=== PATIENT | female | born 1960 | race Caucasian/White ===

== ENCOUNTER 2023-05-29 16:56 | Inpatient (IN) | payer BC, SELFPAY ==
[2023-05-29] VITALS (12 sets, daily range): BP systolic 119–141; BP diastolic 53–100; PULSE 58–105; RESP 20–32; TEMP 36.9–37.2; O2SAT 88–99; BMI 24.2; BMI 23.8
--- NOTE | 2023-05-29 17:40 | EDS_ITS ---
HPI <EVAN Thorpe - Last Filed: 05/29/23 20:07> History of Present Illness Chief Complaint: Cold Sx Narrative Narrative: Patient is a 62-year-old female history of COPD, hypertension who smokes 1/2 pack/day presenting to the emerged part with 2 days of generalized cough, body aches, shortness of breath. Patient states that the cough got much worse last evening, her states that she had a low-grade fever of 99.9. Patient's pulse oxygenation was 88%. She denies any production as to her cough, states she feels generalized weak and bodyaches. PFSH <EVAN Thorpe - Last Filed: 05/29/23 20:07> PFSH Medical History Anxiety Brain aneurysm COPD (chronic obstructive pulmonary disease) HTN (hypertension) Smoking Home Medications albuterol sulfate 90 mcg/actuation aerosol inhaler (Proventil HFA) 6.7 g IH PRN PRN Shortness Of Breath 06/30/16 [History Last Taken Unknown] lorazepam 0.5 mg tablet 0.5 mg PO DAILY PRN PRN Anxiety 07/01/16 [History Last Taken Unknown] acetaminophen 325 mg tablet (Tylenol) 650 mg (2 x 325 mg) PO Q6H PRN PRN Mild Pain (scale 0-3)/T>100.7 ##0 07/02/16 [Rx Last Taken Unknown] amlodipine 5 mg tablet (Norvasc) 5 mg PO DAILY 05/29/23 [History Last Taken Unknown] fluticasone fur. 100 mcg-umeclid 62.5 mcg-vilant 25 mcg inhalat.powder (Trelegy Ellipta) 1 inh inhalation DAILY 05/29/23 [History Last Taken Unknown] Allergy/AdvReac Type Severity Reaction Status Date / Time levofloxacin [From Levaquin] AdvReac Rash Verified 07/01/16 11:03 Family History (Updated 05/29/23 @ 19:[address] Tasha Edge MD) Mother Cancer Surgical History (Updated 05/29/23 @ 19:[address] Tasha Edge MD) H/O breast augmentation H/O tubal ligation History of carpal tunnel release Hx of appendectomy Social History (Updated 05/29/23 @ 19:[address] Tasha Edge MD) household members: spouse Smoking Status: Current every day smoker tobacco type: cigarettes Smoking packs per day: 0.5 Smoking cigarettes per day: 10.0 alcohol intake: current alcohol intake frequency: holidays/special occasions only substance use type: does not use ROS <EVAN Thorpe - Last Filed: 05/29/23 20:07> ROS ED ROS Narrative Constitutional: Negative for weight loss, weakness. Positive for fever and chills Eyes: Negative for vision loss, vision change, double vision ENT: Negative for any sore throat, ear pain, congestion Cardiovascular: Negative for any chest pain, tightness, palpitations Respiratory: Negative for any sputum production, hemoptysis, dyspnea on exertion, orthopnea. Positive for cough, dyspnea Gastrointestinal: Negative for any abdominal pain, nausea, vomiting, diarrhea, constipation, blood in stool, blood in vomit : Negative for any urinary frequency, dysuria, retention, blood in urine Muscle skeletal: Negative for any myalgias, arthralgias, neck pain, back pain Neurological: Negative for any headache, syncope, paresthesias, dizziness Skin: Negative for any rashes, lumps, itching, abrasions, lacerations Psychiatric: Negative for any depression, anxiety, stress, suicidal ideation, homicidal ideation Hematologic: Negative for any easy bruising, excessive bruising, easy bleeding Allergies: Negative for any eczema, hives, rash EXAM <EVAN Thorpe - Last Filed: 05/29/23 20:07> Physical Exam Narrative Exam Narrative: Vital signs reviewed. Patient was 88% on room air, on 2 L, the patient is 93 to 94%. HEET: Head normocephalic atraumatic, TMs clear bilaterally. Posterior pharynx is clear, moist mucous membranes. Nares clear bilaterally. Neck: Supple with no lymphadenopathy or tenderness. No signs of meningismus. Cardiac: Regular rate and rhythm no murmurs gallops or rubs, equal peripheral pulses bilaterally. Respiratory: Patient has wheezing expiratory throughout the entire pulmonary exam. Some rhonchorous breath sounds in the right lower lobe.. No chest tenderness. Abdomen: Soft, nontender, nondistended. No abdominal bruit or pulsatile masses. No hepatosplenomegaly Extremities: No peripheral edema, no signs of gross trauma or deformity. Active full range of motion of all extremities. Neuro: Cranial nerves II through XII intact, no focal neurological deficits. Skin: Clean dry and intact with no rash, purpura, petechiae, vesicles or pustules. Backs/flank: No CVA tenderness, no midline spinal tenderness, no deformity. Psych: Normal mood and affect. No SI, HI or acute psychosis. Const Vital Signs: 05/29/23 16:58 05/29/23 17:26 05/29/23 17:37 Temperature 98.5 F Temperature Source Temporal Pulse Rate 105 H Respiratory Rate 22 H Respiratory Effort Normal Non-Labored Respiratory Pattern Normal Blood Pressure 141/75 H Blood Pressure Mean 97 Pulse Ox 88 91 Oxygen Delivery Method Room Air Nasal Cannula Oxygen Flow Rate (L/min) 2 05/29/23 17:53 Temperature Temperature Source Pulse Rate 103 H Respiratory Rate 32 H Respiratory Effort Respiratory Pattern Tachypnea Blood Pressure Blood Pressure Mean Pulse Ox Oxygen Delivery Method Oxygen Flow Rate (L/min) <Dr. Eddy Maier DO - Last Filed: 05/29/23 21:30> Physical Exam Const Vital Signs: 05/29/23 16:58 05/29/23 17:26 05/29/23 17:37 Temperature 98.5 F Temperature Source Temporal Pulse Rate 105 H Respiratory Rate 22 H Respiratory Effort Normal Non-Labored Respiratory Pattern Normal Blood Pressure 141/75 H Blood Pressure Mean 97 Pulse Ox 88 91 Oxygen Delivery Method Room Air Nasal Cannula Oxygen Flow Rate (L/min) 2 05/29/23 17:53 Temperature Temperature Source Pulse Rate 103 H Respiratory Rate 32 H Respiratory Effort Respiratory Pattern Tachypnea Blood Pressure Blood Pressure Mean Pulse Ox Oxygen Delivery Method Oxygen Flow Rate (L/min) [facility] <EVAN Thorpe - Last Filed: 05/29/23 20:07> [facility] Lab Data Attestation: I reviewed the patient's lab results. Labs: Laboratory Results - last 24 hr 05/29/23 18:05 WBC 12.1 H RBC 5.01 Hgb 15.3 H Hct 47.0 MCV 93.8 MCH 30.5 MCHC 32.6 RDW Std Deviation 45.7 H RDW Coeff of Alvaro 13.2 Plt Count 279 MPV 10.2 Immature Gran % (Auto) 0.300 Neut % (Auto) 86.5 H Lymph % (Auto) 4.8 L Bulloch % (Auto) 7.8 Eos % (Auto) 0.1 Baso % (Auto) 0.5 Absolute Neuts (auto) 10.5 H Absolute Lymphs (auto) 0.58 L Nucleated RBC % 0 Differential Comment SCANNED Sodium 137 Potassium 3.9 Chloride 103 Carbon Dioxide 28.0 Anion Gap 6 BUN 11 Creatinine 0.76 Estim Creat Clear Calc 59.56 Est GFR (MDRD) Af Amer 98 Est GFR (MDRD) Non-Af 81 BUN/Creatinine Ratio 14.4 Glucose 128 H Calcium 9.1 Radiography Diagnostic Testing: Clinical Impression(s) from Imaging Studies Chest X-Ray 05/29/23 18:45 IMPRESSION: Subtle bilateral lower lobe pulmonary opacities may be developing pneumonia or atelectasis. Electronically Signed: Gideon Ruvalcaba DO at 19:24 EST , EKG Sinus tachycardia: Attestation: I personally reviewed and interpreted this EKG as follows: Comments: Sinus tachycardia, rate of 105 bpm, AL interval 160 ms, QRS duration 70 ms, no acute ST elevation, no acute infarct noted. Treatment and Re-Evaluation :: Patient does not appear to be septic, patient was hypoxic on room air, patient is mentating fine on nasal cannula oxygen. Patient presents to the emerged department for cough, fever and chills, shortness of breath. Differential diagnosis includes community-acquired pneumonia, viral illness such as COVID-19, influenza, RSV, COPD exacerbation. Patient received a two-view chest x-ray all radiologic examinations were read, reviewed by the emergency department attending. From these reads, a plan of care will be put in place. Basic laboratory values, patient received breathing treatments, rapid PCR influenza panel, IV steroids, breathing treatments. She will be reevaluated. Patient's chest x-ray showed subtle bilateral lower lobe pulmonary opacities may be developing pneumonia or atelectasis. Patient was positive for influenza A. CBC shows a white blood count of 12.1, chemistries were unremarkable. Patient after breathing treatment states she felt much better. She did try to ambulate however when she got up out of the bed, she dropped to 82% and was tachypneic, tachycardic. At this time, patient will need to be admitted to the hospital. Patient agrees with the care, patient be diagnosed with influenza, exacerbation of COPD, hypoxia. <Dr. Eddy Maier, DO - Last Filed: 05/29/23 21:30> [facility] Narrative Medical decision making narrative: I have personally performed a face to face assessment of the patient and have reviewed the KELLIE Note. I performed a substantive portion of the visit including all aspects of the following. My jay findings include: History: Patient presents with shortness of breath that began last night. Patient states it became worse today. Patient states she has had a cough but is unable to produce any sputum. Patient midst to some rhinorrhea. Patient states her temperature at home was up to 102. Patient denies any chest pain. Patient admits to some nausea but denies any vomiting. Patient admits to some urinary frequency. Patient admits to some pain in her back with coughing. Exam: Vital signs are stable. Patient was hypoxic at 88% on room air. Oral mucosa is pink and moist. Heart was regular and tachycardic. Lungs showed diffuse expiratory wheezing. There is adequate respiratory effort. There are no retractions noted. Abdomen is soft. Bowel sounds are normal. There is no tenderness. Extremities are intact. There is no calf tenderness or edema. Cranial nerves II through XII are intact. There are no focal motor or sensory deficits noted. Medical Decision Making: Differential diagnosis includes COPD exacerbation, cardiac dysrhythmia, cardiac ischemia, pneumonia, viral upper respiratory infection, and bronchitis. CBC will be obtained to assess for leukocytosis and anemia. Basic metabolic profile will be obtained to assess for electrolyte abnormality and renal function. Chest x-ray will be obtained to assess for pneumonia and pneumothorax. COVID-19 PCR will be obtained to assess for COVID- 19 infection. Influenza PCR will be obtained to assess for influenza infection. RSV PCR will be obtained to assess for RSV infection. Patient was given a DuoNeb aerosol here. Patient was given a dose of Solu- Medrol. Patient was given IV fluids. EKG was obtained. On my independent interpretation, shows sinus tachycardia with a rate of 105. AL interval, QRS normal, QTc intervals are within normal limits. Sawyer is normal. There are nonspecific ST-T wave changes noted. There are no prior EKGs available for comparison. CBC was reviewed. There is a mild leukocytosis of 12.1. The remainder was essentially within normal limits. Basic metabolic profile was reviewed and was within normal limits. PA and lateral chest x-ray was obtained. There are 2 views. On my independent interpretation, there are chronic changes. There is bilateral lower lobe atelectasis versus infiltrate. Bony thorax is normal. There is no cardiomegaly noted. Radiologist also interpreted the x-ray and agrees. COVID-19 PCR was reviewed and was negative. RSV PCR was reviewed and was negative. Influenza PCR was reviewed and was positive for influenza A. Patient was given a dose of Tamiflu here. Patient dropped to 82% on room air while sitting in the bed. Patient was placed back on oxygen. We will discuss case with the hospitalist for admission. Patient and family understood and were agreeable with the plan. All questions were answered. Lab Data Labs: Laboratory Results - last 24 hr 05/29/23 18:05 WBC 12.1 H RBC 5.01 Hgb 15.3 H Hct 47.0 MCV 93.8 MCH 30.5 MCHC 32.6 RDW Std Deviation 45.7 H RDW Coeff of Alvaro 13.2 Plt Count 279 MPV 10.2 Immature Gran % (Auto) 0.300 Neut % (Auto) 86.5 H Lymph % (Auto) 4.8 L Bulloch % (Auto) 7.8 Eos % (Auto) 0.1 Baso % (Auto) 0.5 Absolute Neuts (auto) 10.5 H Absolute Lymphs (auto) 0.58 L Nucleated RBC % 0 Differential Comment SCANNED Sodium 137 Potassium 3.9 Chloride 103 Carbon Dioxide 28.0 Anion Gap 6 BUN 11 Creatinine 0.76 Estim Creat Clear Calc 59.56 Est GFR (MDRD) Af Amer 98 Est GFR (MDRD) Non-Af 81 BUN/Creatinine Ratio 14.4 Glucose 128 H Calcium 9.1 Radiography Chest X-Ray - ED: 2 View, Read by ED Physician and Read by Radiologist Diagnostic Testing: Clinical Impression(s) from Imaging Studies Chest X-Ray 05/29/23 18:45 IMPRESSION: Subtle bilateral lower lobe pulmonary opacities may be developing pneumonia or atelectasis. Electronically Signed: Gideon Ruvalcaba DO at 19:24 EST , Discharge Plan Dx/Rx/DC Orders Clinical Impression: COPD with acute exacerbation, Influenza A, Hypoxia Disposition Disposition: Acute Care Hospital [facility] Discharge Date/Time: 05/29/23 20:45
[2023-05-29] MEDS: Albuterol 2.5 MG/3 ML VIAL.NEB. INHALATION (17:51)
[2023-05-29] MEDS: Ipratropium/Albuterol Sulfate 3 ML AMPUL.NEB INHALATION ×2 (17:51→23:06)
--- NOTE | 2023-05-29 17:55 | EKG12_ITS ---
Test Reason : SOB Blood Pressure : / mmHG Vent. Rate : 105 BPM Atrial Rate : 105 BPM P-R Int : 116 ms QRS Dur : 070 ms QT Int : 354 ms P-R-T Axes : 072 052 074 degrees QTc Int : 467 ms Sinus tachycardia Nonspecific ST and T wave abnormality Abnormal ECG Confirmed by JOSE ENRIQUE THORNE, TYRELL ([id number]), school photograph editor LITA CLEMONS ([id number]) on 05/31/2023 1:18:33 PM Referred By: BB/ROULA Confirmed By:TYRELL QUISPE MD
[2023-05-29] MEDS: MethylPREDNISolone 125 MG/2 ML Vial IV (18:04)
[2023-05-29] MEDS: 0.9% Normal Saline (1000mL) 1,000 ML 999 ML IV (18:04)
[2023-05-29 18:24] LABS: Absolute Lymphocyte Count 0.58 X10^3/uL (0.83-4.51); Absolute Neutrophil Count 10.5 X10^3/uL (2.0-7.7); Basophil# 0.06 X10^3/uL; Basophil% 0.5 % (0-1); Eosinophil# 0.01 X10^3/uL; Eosinophils% 0.1 % (0-5); Hemoglobin 15.3 g/dL (12.0-15.0); Lymphocyte # 0.58 X10^3/ul (0.83-4.51); Lymphocyte % 4.8 % (19-41); Mean Corp Hgb Conc 32.6 g/dL (32-36); Mean Corpuscular Hgb 30.5 pg (27.0-32.0); Mean Corpuscular Volume 93.8 fL (81-99); Mean Platelet Vol. 10.2 fl (6.2-12.0); Monocyte# 0.95 X10^3/uL; Monocyte% 7.8 % (0-10); NRBC Flagged by Analyzer 0 % (0-5); Neutrophil % 86.5 % (47-70); POSITIVE DIFFERENTIAL YES; Platelet Count 279 K/mm3 (150-450); RBC Distribution Width CV 13.2 % (11.6-14.6); RBC Distribution Width SD 45.7 fl (35.1-43.9); Red Blood Count 5.01 M/mm3 (4.2-5.4); White Blood Count 12.1 K/mm3 (4.4-11.0)
--- OUTSIDE RECORDS SUMMARY | 2023-05-29 18:25 | XMS RPT_ITS | CCD ---
Author Name Unknown Address [address] [place] [address] Organization [facility] Care Team Providers Care Continuous Drier Helper Name Role Phone Pennie Sutton Unavailable Hosea Grace Unavailable Sue Srivastava Unavailable Unavailable Vic, Neha Unavailable Unavailable Ciesa, Amanda Unavailable Beti Salas Unavailable Unavailable Messenger, Mckenna Unavailable Unavailable Long, Diann L Unavailable Unavailable Unavailable Unavailable MarichuyIebth pikePennie Unavailable Hosea Grace Unavailable Sue Srivastava Unavailable Unavailable Vic, Neha Unavailable Unavailable Ciesa, Amanda Unavailable Fast, Milena A Unavailable Beti Salas Unavailable Unavailable Messenger, Mckenna Unavailable Unavailable Long, Diann L Unavailable Unavailable Unavailable Unavailable New Cook Unavailable Unavailable New Salas Unavailable Unavailable Kamilah Wolf Unavailable Unavailable Gravius, Delmy Unavailable Unavailable Messenger, Mckenna Unavailable Unavailable Long, Diann L Unavailable Unavailable Marichuy DO, Pennie Unavailable Dr. Hosea Grace Unavailable Gravius KINDRA, Delmy Unavailable Unavailable Kamilah Wolf LPN Unavailable Unavailable Vic TARPER, Neha Unavailable Unavailable Josue, Beti Unavailable Unavailable Messenger RN, Mckenna Unavailable Unavailable Long Wyatt CHAVEZn L Unavailable Unavailable Unavailable Unavailable New Salas LPN Unavailable Unavailable ASHLEY SALMERON Referring Unavailable PROVIDER, UNKNOWN Attending Unavailable PROVIDER, UNKNOWN Admitting Unavailable MARICHUYIBETH PIKEPENNIE Primary Care Unavailable Marichuy DO, Pennie Unavailable Marichuy DO, Pennie Andres Primary Care Provider Katalina Murillo Unavailable Marichuy DO, Pennie Attending Unavailable Marichuy DO, Pennie Referring Unavailable Marichuy DO, Pennie Consulting Unavailable Marichuy, Pennie Primary Care Provider Fadi SCANLON, Kae Unavailable Pilo NOEL, Idalia Unavailable Unavailable Marichuy DO, Pennie Andres Primary Care Provider Aiden THORNE, Colleen Martinez Unavailable [phone] IRLANDA WILCOX Attending Unavailable COLLEEN WOLFE Referring Unavailable MARICHUY, PENNIE ANDRES Primary Care Unavailab le BROWN, COLLEEN MARTINEZ Referring Unavailable MARICHUY, PENNIE ANDRES Primary Care Unavailab le AIDEN, COLLEEN MARTINEZ Attending Unavailable MARICHUY, PENNIE ANDRES Primary Care Unavailab le IRLANDA WILCOX Referring Unavailable MARICHUY, PENNIE ANDRES Primary Care Unavailab le BROWN, COLLEEN MARTINEZ Referring Unavailable MARICHUY, PENNIE ANDRES Primary Care Unavailab le BROWN, COLLEEN MARTINEZ Referring Unavailable MARICHUY, PENNIE ANDRES Primary Care Unavailab le BROWN, COLLEEN MARTINEZ Referring Unavailable MARICHUY, PENINE ANDRES Primary Care Unavailab le Allergies Allergy Classification Reported Allergen(s) Allergy Type Date of Onset Reaction(s) Facility (1 source) allergy to substance [facility] Work Phone: (1 source) allergy to substance [facility] Work Phone: (1 source) allergy to substance [facility] Work Phone: (20 sources) creasote (Renamed from Insect Stings) allergy to substance [facility] Work Phone: (12 sources) Creosote; Translations: [CREOSOTE] Drug Allergy 4 Other: See Comments [facility] Repository Medications Current Medications Medication Drug Class(es) Dates Sig (Normalized) Sig (Original) amLODIPine 2.5 mg oral tablet (20 sources) Dihydropyridine Calcium Channel Handy Start: 03-01-2023 take 1 tablet by mouth once daily Norvasc 2.5 mg oral tablet 1 (one) Tablet daily for 0 days Quantity: 30 {Tablet} Refills: 0 Ordered: 01-Mar-2023 Pennie Sutton DO, DO, Kathleen Start : 01-Mar-2023 Active Comments: pt takes qd with 5mg norvasc. Completed/Discontinued Medications Medication Drug Class(es) Dates Sig (Normalized) Sig (Original) [id number] 200 actuat albuterol 0.09 mg/actuat metered dose inhaler (6 sources) beta2-Adrenergic Agonist Start: 10-30-2022 take 2 puff(s) by inhalation every four hours as needed albuterol HFA (PROVENTIL HFA, VENTOLIN HFA) 90 mcg/actuation inhaler Inhale 2 Puffs as instructed every 4 hours as needed. 1 Each 5 10/30/2022 Active Problems Active Problems Problem Classification Problem Date Documented Da te Episodic/Chronic Administrative/social admission (20 sources) Patient encounter status; Translations: [Encounter for pre-employment examination] 05-24-2020 Episodic Anxiety disorders (20 sources) Panic; Translations: [Anxiety] 03-22-2018 Chronic Past or Other Problems Problem Classification Problem Date Documented Da te Episodic/Chronic Gastrointestinal hemorrhage (1 source) Blood-tinged feces; Translations: [Bloody stool] 05-24-2020 Other and unspecified benign neoplasm (9 sources) Benign neoplasm of rectum and anal canal; Translations: [Benign neoplasm of rectum] Onset: 04-22-2011 04-22-2011 Episodic Other lower respiratory disease (9 sources) Solitary nodule of lung; Translations: [Solitary pulmonary nodule] Onset: 05-07-2011 05-07-2011 Episodic Unclassified (20 sources) Iliotibial band tendinitis of right side Unclassified (20 sources) Earache Unclassified (20 sources) Sinus pain Unclassified (20 sources) Vaginal itching Unclassified (20 sources) Rash of body Unclassified (20 sources) Patient encounter status; Translations: [Encounter for pre-employment examination] 03-22-2018 Unclassified (20 sources) Screening status; Translations: [SCREENING FOR HYPERLIPIDEMIA] 03-22-2018 Unclassified (20 sources) Hoarse voice quality (784.42) Unclassified (20 sources) Pregnancies (); Translations: [Pregnancies ()] 03-22-2018 Results Test Name Value Interpretation Reference Range Facil ity Vital Signs Date Time Vital Sign Value Performing Clinician Facility 11-18-2022 08:23-0400 Body height 148.1 cm Irlanda Ferrarovero SANCHEZ.[employer] INSPECTOR AND ADJUSTER Work Phone: [facility] 11-18-2022 08:23-0400 Body weight 53.89 kg Irlanda Wilcox APRN.[employer] INSPECTOR AND ADJUSTER Work Phone: [facility] 10-30-2022 13:24-0400 Body weight 53.52 kg Colleen Wolfe MD Work Phone: [facility] 10-30-2022 13:24-0400 Diastolic blood pressure 72 mm[Hg] Colleen Wolfe MD Work Phone: [facility] 10-30-2022 13:24-0400 Heart rate 80 /min Colleen Wolfe MD Work Phone: [facility] 10-30-2022 13:24-0400 SaO2% (BldA) [Mass fraction] 90 % Colleen Wolfe MD Work Phone: [facility] 10-30-2022 13:24-0400 Systolic blood pressure 110 mm[Hg] Colleen Wolfe MD Work Phone: [facility] 09-02-2022 10:53-0400 Body height 152.4 cm Idalia Daigle LPN [facility] Work Phone: 09-02-2022 10:53-0400 Body mass index (BMI) [Ratio] 24.29 kg/m2 Idalia Daigle LPN [facility]; [facility] Work Phone: 09-02-2022 10:53-0400 Body surface area Derived from formula 1.53 m2 Idalia Daigle LPN [facility]; [facility] Work Phone: 09-02-2022 10:53-0400 Body temperature 97.4 [degF] Idalia Daigle LPN [facility]; [facility] Work Phone: Encounters Encounter Date Encounter Type Care Provider Facility Start: 12-01-2022 Telephone encounter Irlanda sherman DIGITAL PRODUCT SPECIALIST.[employer] INSPECTOR AND ADJUSTER Work Phone: [facility] Procedures Date Procedure Procedure Detail Performing Clinician Start: 11-27-2022 CT LUNG SCREEN WO IVCON Irlanda Wilcox DIGITAL PRODUCT SPECIALIST.[employer] INSPECTOR AND ADJUSTER Work Phone: Start: 11-18-2022 Co diffusing capacity Colleen herrera MD Work Phone: Start: 10-27-2021 Spmtry w/vc expiratory jennifer w/wo mxml vol vntj Devi Nava PA-C Work Phone: Start: 06-30-2016 End: 06-30-2016 History and Physical Exam Comments: See Note; NOTES: [facility] Medical Records Department [address] [place] [id number] History and Physical 06/30/16 2307 MR#: [id number] Acct: [id number] Name: KENYA ZAVALETA Rep #: [id number] : 1960 55 From: Ervin Powell DO PCP: Pennie Sutton DO Status: REG ER Y Location: ED Problem List (1) Shortness of breath Status: Acute History of Present Illness Date of Admission: 06/30/16 Chief Complaint: Shortness of breath, cough, wheezing The patient is a 55 year old F seen in the emergency room in the hospital with chief complaint of cough, wheezing, shortness of breath over the last 2-3 days. Patient states it was much worse today and she went to the ER for evaluation. Patient is a smoker, she does have a history of COPD and uses inhalers as needed at home. Patient states she had chills today and felt feverish but she did not take her temperature. Patient denies any sputum production but she does have a cough. Evaluation in the ER included labs which showed a normal CBC, can panel was normal, rapid influenza a and B panel was negative, chest x-ray did not show any infiltrates. On physical examination, patient was wheezing over both lung morgan and moving little air. She was given aerosol treatments, she was noted to have a pulse ox on admission to the ER of 89% on room air, patient was ambulated and her pulse ox dropped to 87%. Patient will be admitted to [facility] for acute exacerbation of COPD she will be treated with IV Solu-Medrol and aggressive aerosol treatments. Supplemental oxygen will be used as needed Past Medical History Allergies CREOSOP Allergy (Uncoded 06/30/16 19:59) Unknown Home Medications: Ambulatory Orders Medication Instructions Recorded Albuterol Sulfate [Proventil Hfa] 6.7 gm IH PRN PRN 06/30/16 Umeclidinium Brm/Vilanterol Tr 1 each IH DAILY 06/30/16 [Anoro Ellipta 62.5-25 Mcg INH] Surgical History: appendectomy, - - Breast augmentation, carpal tunnel surgery, tubal ligation Psychiatric History: No pertinent psych hx TRAVEL RN OR History: No pertinent TRAVEL RN OR history Lives: Spouse/ Significant Other Smoking Status: Current every day smoker Tobacco Use: Cigarettes Alcohol: Occasional Drugs: None - *Family History Maternal History Items: Cancer Paternal History Items: Unknown Review of Systems Constitutional: Reports: Chills, Fever, Malaise. Denies: Anorexia, Night Sweats, Weakness, Weight Change, Fatigue Eyes: Denies: Blurred vision, Cataracts, Conjunctivae Inflammation, Double vision, Drainage, Eyelid Inflammation HEENT: Denies: Difficulty Hearing, Difficulty Swallowing, Dysphasia, Ear Pain, Head Aches, Hearing Changes, Nasal bleeding, Nasal Congestion Cardiovascular: Denies: Chest Pain, Claudication, Chest Pressure, Chest Tightness, Edema, Heaviness, Palpitations, Paroxysmal Noc. Dyspnea, Syncope Respiratory: Reports: Cough, Shortness of Breath, Shortness of breath upon exertion, Wheezing. Denies: Hemoptysis, Pleuritic Pain, Shortness of breath at rest, Sputum production Gastrointestinal: Denies: Abdominal Pain, Constipation, Diarrhea, Hematemesis, Hematochezia, Nausea, Melena, Vomiting Genitourinary: Denies: Dysuria, Frequency, Hematuria, Hesitancy, Incontinence, Nocturia, Urgency Gynecological: Denies: Breast symptoms Musculoskeletal: Denies: Back Pain, Foot Pain, Hand Pain, Joint Pain, Joint stiffness, Joint swelling, Joint Tenderness, Leg Pain Skin: Denies: Dryness, Jaundice, Lesions, Pruritis, Rash Neurological: Denies: Blurred vision, Double vision, Change in Speech, Slurred speech, Difficulty swallowing, Focal weakness, Headaches, Incoordination, Numbness, Tingling Psychiatric: Denies: Anxiety, Depression, Homicidal Ideations, Suicidal Ideations Endocrine: Denies: Change in Body Habitus, Heat/ Cold Intolerance, Polydipsia, Polyuria Hematologic/ Lymphatic: Denies: Adenopathy, Anemia, Easy Bruising, Easy Bleeding, Petechiae, Purpura VTE Information - Inpt Only VTE Present on Admission: No VTE Mechan Device Prophylaxis: None VTE Pharm Prophylaxis ordered?: Yes Patient Problems: Active and Suspected Problems Shortness of breath (Acute) - Physical Exam General: Alert, Oriented x3, Cooperative, No apparent distress, Well developed, Well nourished HEENT: Atraumatic, PERRLA, EOMI, Normocephalic Oral: Moist Mucosa Neck: Supple, No JVD, Negative Carotid Bruits, No Nuchal Rigidity, Trachea Midline, Thyroid Normal Size and Texture Lungs: No rhonchi, No rales, Diminished, Wheezes - End expiratory wheezes are noted over the right lung field Cardiovascular: Regular rate, Regular Rhythm, Normal S1, Normal S2, No murmurs, No Ectopic Activity, PMI Normal, No rub noted, No Gallop Abdomen: Bowel Sounds Present, Soft, Non Tender, Non-Distended, No hernias noted Extremities: No clubbing, No cyanosis, No edema, Capillary Refill Less than 3 Seconds Skin: No rashes, No breakdown Musculoskeletal: No Tenderness to Palpation of Joints or Extremities, No Muscle Wasting Lymphatic: No Cervical, Supraclavicular, or Inguinal Adenopathy Neurological: Cranial nerves II-XII grossly intact, Neuro grossly intact, Muscle tone normal, Sensory exam intact to light touch and pain, Coordination normal Psych/Mental Status: Normal Affect, Appropriate, Alert and oriented to time, place, person, mood and affect Vital Signs Temp Pulse Resp BP Pulse Ox 98.2 F 95 33 182/97 90 06/30/16 19:04 06/30/16 21:11 06/30/16 21:11 06/30/16 19:04 06/30/16 21:11 Oxygen Delivery Method Room Air Weight: 61.235 kg Body Mass Index (BMI) 26.4 Microbiology Past 72 Hours 06/30/16 21:50 Influenza Types A,B Direct FA (DEMETRI) - Final Mucosa - Nose Laboratory Tests Past 24 Hrs 06/30/16 06/30/16 21:55 21:55 WBC 9.2 RBC 4.73 Hgb 14.5 Hct 44.6 MCV 94.3 MCH 30.7 MCHC 32.5 RDW 13.3 RDW Differential 46.4 H Plt Count 255 MPV 10.5 Immature Gran % (Auto) 0.200 Neut % (Auto) 86.0 H Lymph % (Auto) 7.8 L [place] % (Auto) 5.0 Eos % (Auto) 0.5 Baso % (Auto) 0.5 Absolute Neuts (auto) 7.9 H Absolute Lymphs (auto) 0.72 L Total Counted Not Reportable Sodium 142 Potassium 3.9 Chloride 105 Carbon Dioxide 27.0 Anion Gap 10 BUN 9 Creatinine 0.93 Estim Creat Clear Calc 48.52 Est GFR (MDRD) Af Amer 80 Est GFR (MDRD) Non-Af 66 BUN/Creatinine Ratio 9.6 L Glucose 130 H Calcium 9.5 Assessment/Plan Active and Suspected Problems Shortness of breath (Acute) #1 acute exacerbation of COPD-patient will be admitted to [facility], she will be placed on aggressive aerosol treatments, IV Solu-Medrol, and monitored. Antibiotics will not be used #2 anxiety disorder-patient periodically takes Ativan 0.25 mg as needed. I will order Ativan prn 06/30/16 2314 <Electronically signed by Ervin Powell DO> Date Ervin Powell DO Cosigner Signature (if applicable): Date CC: Pennie Sutton DO; Ervin Powell DO Signed Pennie Sutton Start: 06-30-2016 End: 06-30-2016 Chest PA and Lateral Comments: See Note; NOTES: [facility] Imaging Services [address] [place] [address] [place] [address] Verdana 4d Chest PA and Lateral MR#: [id number] Acct: [id number] Name: KENYA ZAVALETA Rep #: [id number] : 1960 F 55 From: Armando Seaman MD PCP: Pennie Sutton DO Status: REG ER Study: Chest PA and Lateral Date of Exam: 06/30/16 Exam# [id number] Ordering Dr: Luis Felipe Mccormick MD STUDY: X-RAY CHEST REASON FOR EXAM: Female, 55 years old. Cough and shortness breath. TECHNIQUE: Frontal and lateral views of the chest. COMPARISON: None. FINDINGS: The lungs are clear and expanded. There is no demonstrated pleural abnormality. Normal size heart. Normal mediastinum and matt. Normal visualized pulmonary arteries. Normal visualized aortic arch and descending thoracic aorta. Normal visualized thoracic spine. Normal visualized ribs, clavicles, and shoulders. There is no demonstrated abnormality of the visualized soft tissue structures of the upper abdomen. RAD/Chest PA and Lateral IMPRESSION: Normal x-ray examination of the chest. Electronically Signed: Armando Seaman MD at 20:22 EST , Service support [phone], CC: Luis Felipe Mccormick MD; Pennie Sutton DO Marble Machine Tender: Signed Pennie Suttno Start: 07-23-2015 End: 07-23-2015 PT D/C of Non Returning Pt (1) Comments: See Note; NOTES: [facility] [place] [address] Fax REHABILITATION SERVICES DISCHARGE SUMMARY MR#: [id number] Acct: [id number] Name: KENYA ZAVALETA Rep #: [id number] : 1960 54 From: Macrina Caraballo DPT Referring DrAntony: Pennie Sutton DO Status: REG RCR Eval Date: Discharge Date: HP - Discharge Summary (1) - Patient Information KENYA ZAVALETA was seen in my office for initial evaluation on 06/18/15. The following Plan of Care was established for this patient: Initial Frequency: 2x /Week Initial Duration: 4 Weeks - Anticipated Interventions Patient/Client Instruction: Educate patient on: Benefits of Fitness Program For the Purpose of:: To increase tolerance to activity/condition/positio n Therapeutic Exercise to Include: Strength training, Endurance training, Agility training, Body mechanics, Postural training, Flexibilty training, Dynamic Lumbar Stabilization For the Purpose of:: To improve muscle performance and motor function Manual Therapy Techniques to Include: Other Comment: Shot Gun Technique for Pelvic Alignment For the Purpose of:: To decrease pain TENS: Yes Cryotherapy (ice pack, ice massage): Yes Thermo therapy (hot pack): Yes Ultrasound (thermal/non thermal): Yes For the Purpose of:: To decrease pain This patient was last seen in our office . Pertinent comments regarding their Physical therapy will appear below: Patient called to report she is better and does not want to continue PT due to schedule conflicts. At this point I will be discontinuing this patient from physical therapy. I would be happy to see this patient again in the future if found appropriate by the physician. Thank you! Macrina Caraballo <Electronically signed by Macrina Caraballo DPT> 07/23/151818 CC: Pennie Sutton DO ELR Signed Pennie Sutton Start: 06-27-2015 End: 06-27-2015 Spmtry w/vc expiratory jennifer w/wo mxml vol vntj _ Pennie Sutton Work Phone: Plan of Treatment Date Care Activity Detail Author Start: 08-25-2028 Tetanus vaccination Tetanus (T d or Tdap) Booster [facility] Start: 08-25-2028 Urine microalbumin profile [facility] Start: 06-05-2023 End: 01-02-2024 Ct thorax w/o contrast material CT LUNG FOLLOWUP WO IVCON Radiology Routine Lung nodules Expected: 06/05/2023, Expires: 01/02/2024 [facility] Work Phone: Immunizations Immunization Date Immunization Notes Care Provider Diego donaldson 03-27-2021 influenza, injectabl e, quadrivalent, contains preservative Respiratory Wstr Work Phone: [facility] Work Phone: 03-27-2021 influenza virus vaccine, unspecified formulation Ct (I-Stat) Work Phone: [facility] 09-23-2020 pneumococcal polysaccharide vaccine, 23 valent Respiratory Wstr Work Phone: [facility] 09-14-2020 pneumococcal polysaccharide vaccine, 23 valent Pennie Marichuy DO Work Phone: [facility]; [facility] Work Phone: 09-11-2020 COVID-19 vaccine, fu ll dose (MODERNA) Respiratory Wstr Work Phone: [facility] 08-15-2020 COVID-19 (Moderna) Pennie Marichuy DO Work Phone: [facility]; [facility] Work Phone: 08-10-2020 COVID-19 vaccine, fu ll dose (MODERNA) Respiratory Wstr Work Phone: [facility] 02-18-2020 influenza, injectabl e, quadrivalent, preservative free Respiratory Wstr Work Phone: [facility] Work Phone: 02-18-2020 influenza virus vaccine, unspecified formulation Pennie Marichuy Work Phone: [facility] 03-14-2019 Influenza, injectabl e, Madin [place] Canine Kidney, quadrivalent with preservative Pennie Marichuy Work Phone: [facility] 02-28-2019 influenza, seasonal, injectable Respiratory Wstr Work Phone: [facility] Work Phone: 08-25-2018 tetanus toxoid, reduced diphtheria toxoid, and acellular pertussis vaccine, adsorbed Respiratory Wstr Work Phone: [facility] 02-16-2018 Influenza, injectabl e, Madin [place] Canine Kidney, preservative free, quadrivalent Pennie Marichuy Work Phone: [facility] 07-07-2017 Influenza, injectabl e, Madin [place] Canine Kidney, preservative free, quadrivalent Pennie Sutton Work Phone: [facility] 07-01-2016 influenza, seasonal, injectable, preservative free Pennie Sutton Work Phone: [facility] 03-08-2015 influenza, injectabl e, quadrivalent, contains preservative Respiratory Wstr Work Phone: [facility] Payers Date Payer Category Payer Unknown 2022 Unknown [id number] 2021 Private Health Insurance [employer] POS [id number] 2021-Present [phone] [address] [place] [address] POS [id number] 2021 Private Health Insurance [id number] 2017 Private Health Insurance [id number] 2017 Private Health Insurance [id number] 2014 Private Health Insurance [id number] 2012 Private Health Insurance [id number] 1960 Unknown [id number] 1960 Unknown [id number] Social History Date Type Detail Facility Alcohol Use: Current every day smoker [facility] Work Phone: Start: 06-29-2013 End: 10-30-2022 Caffeine Use [facility] Work Phone: Medical Equipment Procedure Code Equipment Code Equipment Origin al Text Equipment Identifier Dates Cover [place] Hole Contoured Tab [id number] - [id number] Start: 10-14-2017 4mm Screws [id number] Start: 10-14-2017 Clinical Notes 10-27-2021 to 12-03-2022 Telephone Encounter - Irlanda Wilcox APRN.CNP - 12/03/2022 9:41 AM EDTTelephone Encounter - Irlanda Wilcox APRN.CNP - 12/01/2022 3:59 PM EDTPatient InstructionsPatient Instructions Note Date & Type Note Facility 12-03-2022 Miscellaneous Notes Phone call to patient and discussed results. She asked about lab results and I read Pennie Le LPN note that Alpha-1 Antitrypsin level was normal. Left message for pt to call back regarding results. documented in this encounter [facility] 11-27-2022 Note HNO ID: [id number] Author: RT Erwin(R) Service: ? Author Type: Stock Clerk Self Service Store Type: Progress Notes Filed: 11/27/2022 4:26 PM Note Text: Radiology Service Progress Note PATIENT NAME: Kenya Zavaleta DATE OF SERVICE: November 27, 2022 TIME: 4:26 PM PATIENT IDENTITY VERIFICATION COMPLETED USING TWO (2) IDENTIFIERS: Name and Date of confirmed by patient verbally. FALL SCREENING: Has the patient had 2 falls in the last year or 1 fall with injury or currently using an Ambulatory Assistive Device (Walker, Cane, Wheelchair, Crutches, etc.)? No PATIENT GENDER DATA: Female. status: : No status: NO. PATIENT RELEVANT IMPLANT DATA REVIEWED: Yes RADIOLOGY DEPARTMENT: CT; Exam(s) Completed: Chest PERIPHERAL IV DATA: Not applicable SIGNED BY: RT Luzma(R) November 27, 2022 4:26 PM [facility] 11-27-2022 History of Presen t illness Narrative Radiology Service Progress Note PATIENT NAME: Kenya Zavaleta DATE OF SERVICE: November 27, 2022 TIME: 4:26 PM PATIENT IDENTITY VERIFICATION COMPLETED USING TWO (2) IDENTIFIERS: Name and Date of confirmed by patient verbally. FALL SCREENING: Has the patient had 2 falls in the last year or 1 fall with injury or currently using an Ambulatory Assistive Device (Walker, Cane, Wheelchair, Crutches, etc.)? No PATIENT GENDER DATA: Female. status: : No status: NO. PATIENT RELEVANT IMPLANT DATA REVIEWED: Yes RADIOLOGY DEPARTMENT: CT; Exam(s) Completed: Chest PERIPHERAL IV DATA: Not applicable SIGNED BY: RT Luzma(R) November 27, 2022 4:26 PM documented in this encounter [facility] 11-18-2022 Note HNO ID: [id number] Author: NEREYDA Perez Service: ? Author Type: Respiratory Therapist Type: Progress Notes Filed: 11/18/2022 9:20 AM Note Text: PULM FUNCTION SMARTBLOCK: Provider: Colleen Wolfe MD Assisting Tech: NEREYDA Perez Spirometry w/BD: 1 DLCO: 1 LV - Box: 1 [facility] 11-18-2022 Note HNO ID: [id number] Author: Irlanda Wilcox APRN.[employer] INSPECTOR AND ADJUSTER Service: ? Author Type: Nurse Practitioner Type: Progress Notes Filed: 11/18/2022 10:11 AM Note Text: LUNG SCREENING VISIT PRIMARY CARE PHYSICIAN: Pennie Sutton DO, DO PULMONARY PROVIDER: Dr. Moustapha Wolfe Results will be communicated via letter or electronic record if applicable. Visit Delivery: In Person Patient Visit Type: New to Screening Current or Ex-smoker? [Current Exam Type: baseline LDCT Number of Pack Years: 72 Current smoker (=0) REQUESTER: The referring provider advised the patient to have screening. HISTORY OF PRESENT ILLNESS: Kenya Zavaleta is a 61 year old Active smoker who presents for lung screening. Respiratory symptoms include: SOB: Yes, short walk, 1 flight of stairs-improving since quitting Chest tightness: Yes Coughing: Yes: With mucus Clear, cannot get it out all the time Hemoptysis: No Wheezing: Yes Fever/Chills: No Recent Respiratory Infection: No Unintentional weight loss: No, was up to 130 lbs a couple of years ago Last 6 Encounter Wt Readings: Date: Wt: 11/18/2022 53.9 kg (118 lb 12.8 oz) 10/30/2022 53.5 kg (118 lb) 10/27/2021 52.2 kg (115 lb) 10/27/2021 52.6 kg (116 lb) 06/05/2021 50.3 kg (111 lb) 03/27/2021 50.8 kg (112 lb) ECOG PERFORMANCE STATUS: 0- Fully active, able to carry on all pre-disease performance w/o restriction. Modified Medical Research [place] Dyspnea Scale (MMRC) I only get breathless with strenous exercise 0 PAST MEDICAL HISTORY Diagnosis Date Benign neoplasm of rectum and anal canal Cigarette smoker COPD (chronic obstructive pulmonary disease) (HCC) Emphysema High blood pressure Controlled on med. Pulmonary nodules CT stable 2 years or more. Surveillance scanning stopped 2014. PAST SURGICAL HISTORY Procedure Laterality Date APPENDECTOMY childhood BREAST AUGMENTATION WITH IMPLANT 1997 bilateral CARPAL TUNNEL RIGHT WRIST and left wrist COLONOSCOPY FLX DX W/COLLJ SPEC WHEN PFRMD 04/22/2011 Colonoscopy LIG/TRNSXJ FLP TUBE ABDL/VAG APPR UNI/BI FAMILY HISTORY Adopted: Yes Problem Relation Age of Onset Breast Cancer Other No breast cancer known; patient grew up without parents; no breast cancer amongst siblings Cancer Mother 2018, cancer of kidney? albuterol HFA (PROVENTIL HFA, VENTOLIN HFA) 90 mcg/actuation inhaler Inhale 2 Puffs as instructed every 4 hours as needed. tifkemhhlin-pgautrupv-wppvuxxq (TRELEGY ELLIPTA) 100-62.5-25 mcg inhalation powder Inhale 1 Puff as instructed once daily. multivitamin with minerals (VISION/OPTIGEN) tablet Take 1 tablet by mouth once daily. aspirin, enteric coated (ASPIRIN, ENTERIC COATED) 81 mg EC tablet Take 81 mg by mouth once daily. amLODIPine (NORVASC) 2.5 mg tablet VITAMIN C 1000MG TABLET Take one(1) tablet daily. MULTIVITAMIN TABLET Take one(1) tablet daily. ALLERGIES Allergen Reactions Creosote Other: See Comments Childhood exposure on railroad tracks. Does not recall specific reaction. The medications and allergies were reviewed and reconciled for this patient and deemed current. Lung Cancer Risk Factors: 1.Tobacco Use: Start Age 13, Quit Age: N/A, Average packs per day 1.5, Pack Years 72 2. Passive Smoke Exposure: Yes, as an Adult 3. Personal hx of malignancy: No, Type of Cancer: 4. Significant exposures (1 year or more of exposure): None, 5. Race: White 6. Education: College Graduate 7. BMI:Body mass index is 24.57 kg/m?. Patient-entered Height: 4'10 Patient-entered Weight: 118 pounds 8. COPD: Yes 9. Pneumonia in the past 5 years: No 10. Is there a history of lung cancer in a first degree relative? No 11. Is there a history of lung cancer in a non-first degree relative? No 12. Is there a history of any other cancer in a first degree relative? No Health Maintenance Immunization History Administered Date(s) Administered COVID-19 original vaccine, full dose, monovalent (MODERNA) 08/10/2020 09/11/2020 04/21/2021 influenza (IIV3) vaccine, age 3+ yr, trivalent (AFLURIA, FLULAVAL, FLUVIRIN, FLUZONE) 02/28/2019 influenza (IIV4) vaccine, age 6 mo - 64 yr, quadrivalent (AFLURIA, FLULAVAL, FLUZONE) 03/08/2015 03/27/2021 influenza (IIV4) vaccine, age 6 mo - 64 yr, quadrivalent, PF (AFLURIA, FLUARIX, FLULAVAL, FLUZONE) 02/18/2020 pneumococcal (PPV23) vaccine, 23 valent (PNEUMOVAX 23) 09/23/2020 tetanus diphtheria pertussis (Tdap) vaccine, age 7+ yr (ADACEL, BOOSTRIX) 08/25/2018 Colonoscopy: 04/22/2011 Mammogram: 05/08/2014 DATA REVIEW I have directly visualized the testing documented:07/24/2014 CT Chest Prior Imaging: Last CT/CTA Chest/Lungs CT CHEST WO CONTRAST Collected: 07/24/2014 8:24 AM (Final result) DATE OF EXAM: Jul 24 2014 8:24AM [facility] 0349 - CT CHEST WO CONTRAST / PROCEDURE REASON: Other emphysema (HCC) * * * * Physician Interpretation * * * * CT CHEST WO CONTRAST [id number] MARLY (more content not included)... [facility] 11-18-2022 Instructions Irlanda Wilcox APRN.[employer] INSPECTOR AND ADJUSTER - 11/18/2022 8:[address] Lung Screen Results The CT scan that you will have done will show if you have any nodules (small spots) in your lungs that are suspicious for cancer. Around 90% of the patients who have this scan done are found to have at least one nodule. Most nodules are benign (not cancer) and of no harm to you at all. A specialist will make a scientific evaluation about whether or not a nodule is worrisome based on its size and shape. The radiologist who will read your scan will put it into one of four categories: LUNG-RADS Category Description Overall Probability of Malignancy Recommended Follow-Up 1 Negative No nodules and definitely benign (non-cancerous nodules) Essentially 0. 1 Year - Follow-up Low dose CT 2 Benign Appearance or Behavior Nodules with a very low likelihood of becoming cancer due to size or lack of growth Less than 1% 1 Year - Follow-up Low dose CT 3 Probably Benign Probably benign finding, short term follow-up recommended 1 to 2% 6 Months - Follow-up CT 4 A,B,or X Suspicious Findings for which additional diagnostic testing and/or biopsy is recommended Will be calculated based on nodule characteristics. Dependent on what is seen on the exam. [address], PET, Biopsy At times, we may see something outside of the lungs on the scan that could be a health concern. Below are some of the most common findings: S Clinically Significant or Potentially Clinically Significant Findings (non lung cancer) Referral or additional imaging/labs depending on result. Approximately 10% of people receive this result. Coronary Artery Calcifications (Moderate or Severe) - Referral to cardiology or PCP for further work-up and recommendations. Thyroid Nodule - TSH level and Thyroid Ultrasound dependent on size, referral to endocrinology. Adrenal Nodule - Blood work and referral to endocrinology. Others Lung Cancer Screening hotline: [phone] Lung Cancer Screening [phone] Billing Questions: or [email or web address] Lung Cancer Screening Team: Andria Estevez CNP; Maria D Aponte PA-C; Becky Rudd CNP; Lata Stanley CNP, Nathaly Gaffney PA-C, Faith Basurto PA-C, Irlanda Wilcox, [employer] INSPECTOR AND ADJUSTER : [phone] documented in this encounter [facility] 11-18-2022 History of Presen t illness Narrative Images from the original note were not included. LUNG SCREENING VISIT PRIMARY CARE PHYSICIAN: Pennie Sutton DO, DO PULMONARY PROVIDER: Dr. Moustapha Wolfe Results will be communicated via letter or electronic record if applicable. Visit Delivery: In Person Patient Visit Type: New to Screening Current or Ex-smoker? [Current Exam Type: baseline LDCT Number of Pack Years: 72 Current smoker (=0) REQUESTER: The referring provider advised the patient to have screening. HISTORY OF PRESENT ILLNESS: Kenya Zavaleta is a 61 year old Active smoker who presents for lung screening. Respiratory symptoms include: SOB: Yes, short walk, 1 flight of stairs-improving since quitting Chest tightness: Yes Coughing: Yes: With mucus Clear, cannot get it out all the time Hemoptysis: No Wheezing: Yes Fever/Chills: No Recent Respiratory Infection: No Unintentional weight loss: No, was up to 130 lbs a couple of years ago Last 6 Encounter Wt Readings: Date: Wt: 11/18/2022 53.9 kg (118 lb 12.8 oz) 10/30/2022 53.5 kg (118 lb) 10/27/2021 52.2 kg (115 lb) 10/27/2021 52.6 kg (116 lb) 06/05/2021 50.3 kg (111 lb) 03/27/2021 50.8 kg (112 lb) ECOG PERFORMANCE STATUS: 0- Fully active, able to carry on all pre-disease performance w/o restriction. Modified Medical Research [place] Dyspnea Scale (MMRC) I only get breathless with strenous exercise 0 PAST MEDICAL HISTORY Diagnosis Date Benign neoplasm of rectum and anal canal Cigarette smoker COPD (chronic obstructive pulmonary disease) (HCC) Emphysema High blood pressure Controlled on med. Pulmonary nodules CT stable 2 years or more. Surveillance scanning stopped 2014. PAST SURGICAL HISTORY Procedure Laterality Date APPENDECTOMY childhood BREAST AUGMENTATION WITH IMPLANT 1997 bilateral CARPAL TUNNEL RIGHT WRIST and left wrist COLONOSCOPY FLX DX W/COLLJ SPEC WHEN PFRMD 04/22/2011 Colonoscopy LIG/TRNSXJ FLP TUBE ABDL/VAG APPR UNI/BI FAMILY HISTORY Adopted: Yes Problem Relation Age of Onset Breast Cancer Other No breast cancer known; patient grew up without parents; no breast cancer amongst siblings Cancer Mother 2018, cancer of kidney? albuterol HFA (PROVENTIL HFA, VENTOLIN HFA) 90 mcg/actuation inhaler Inhale 2 Puffs as instructed every 4 hours as needed. uslkktwpcun-yzzcahbge-yjgnddzw (TRELEGY ELLIPTA) 100-62.5-25 mcg inhalation powder Inhale 1 Puff as instructed once daily. multivitamin with minerals (VISION/OPTIGEN) tablet Take 1 tablet by mouth once daily. aspirin, enteric coated (ASPIRIN, ENTERIC COATED) 81 mg EC tablet Take 81 mg by mouth once daily. amLODIPine (NORVASC) 2.5 mg tablet VITAMIN C 1000MG TABLET Take one(1) tablet daily. MULTIVITAMIN TABLET Take one(1) tablet daily. ALLERGIES Allergen Reactions Creosote Other: See Comments Childhood exposure on railroad tracks. Does not recall specific reaction. The medications and allergies were reviewed and reconciled for this patient and deemed current. Lung Cancer Risk Factors: 1.Tobacco Use: Start Age 13, Quit Age: N/A, Average packs per day 1.5, Pack Years 71 2. Passive Smoke Exposure: Yes, as an Adult 3. Personal hx of malignancy: No, Type of Cancer: 4. Significant exposures (1 year or more of exposure): None, 5. Race: White 6. Education: College Graduate 7. BMI:Body mass index is 24.57 kg/m . Patient-entered Height: 4'10 Patient-entered Weight: 118 pounds 8. COPD: Yes 9. Pneumonia in the past 5 years: No 10. Is there a history of lung cancer in a first degree relative? No 11. Is there a history of lung cancer in a non-first degree relative? No 12. Is there a history of any other cancer in a first degree relative? No Health Maintenance Immunization History Administered Date(s) Administered COVID-19 original vaccine, full dose, monovalent (MODERNA) 08/10/2020 09/11/2020 04/21/2021 influenza (IIV3) vaccine, age 3+ yr, trivalent (AFLURIA, FLULAVAL, FLUVIRIN, FLUZONE) 02/28/2019 influenza (IIV4) vaccine, age 6 mo - 64 yr, quadrivalent (AFLURIA, FLULAVAL, FLUZONE) 03/08/2015 03/27/2021 influenza (IIV4) vaccine, age 6 mo - 64 yr, quadrivalent, PF (AFLURIA, FLUARIX, FLULAVAL, FLUZONE) 02/18/2020 pneumococcal (PPV23) vaccine, 23 valent (PNEUMOVAX 23) 09/23/2020 tetanus diphtheria pertussis (Tdap) vaccine, age 7+ yr (ADACEL, BOOSTRIX) 08/25/2018 Colonoscopy: 04/22/2011 Mammogram: 05/08/2014 DATA REVIEW I have directly visualized the testing documented:07/24/2014 CT Chest Prior Imaging: Last CT/CTA Chest/Lungs CT CHEST WO CONTRAST Collected: 07/24/2014 8:24 AM (Final result) DATE OF EXAM: Jul 24 2014 8:24AM [facility] 0349 - CT CHEST WO CONTRAST / PROCEDURE REASON: Other emphysema (HCC) * * * * Physician Interpretation * * * * CT CHEST WO CONTRAST [id number] INDICATION: Other emphysema (HCC)/ recheck lung nodules, prior 2.14.14, breast augmentation, post menopause kmr Compare to prior scans, nodules in smoker. 53 years Female TECHNIQUE: Serial axial images were obtained/ Dose-Length Product (DLP): 216 mGy*cm. CT Dose Reduction Employed: Yes No contrast RESULT: No mediastinal or hilar adenopathy identified. Bilateral breast implants noted. Lung scarring and centrilobular emphysema noted. Comparison is made with previous CT 06/30/13. A pleural-based density right lower chest unchanged. Small nodule image 78 unchanged. Tiny nodularity right lung image 101-107, unchanged. Groundglass density in image 86 unchanged pleural densities left lung unchanged image 79 and 56. No new pulmonary nodular densities identified. No other consolidation or pleural effusion noted. Degenerative spine changes noted. No acute pathology noted the upper abdomen IMPRESSION: 1. No mediastinal or hilar adenopathy 2. Bilateral breast implants 3. Lung scarring and centrilobular emphysema 4. Stable pulmonary nodular densities 5. No new pulmonary nodular densities identified Last CT Chest - Impression Only CT CHEST WO CONTRAST Collected: 07/24/2014 8:24 AM (Final result) Last XR Chest - Impression Only XR CHEST PA/LAT Collected: 06/29/2013 12:57 PM (Final result) Pulmonary Function Testing: SPIROMETRY BASELINE ONLY ([id number]) - ordered on 10/27/21 No textual results for order. PHYSICAL EXAM: BP (P) 116/72 Pulse (P) 88 Resp (P) 17 Ht 148.1 cm (4' 10.3 ) Wt 53.9 kg (118 lb 12.8 oz) LMP 01/06/2013 SpO2 (P) 94% BMI 24.57 kg/m Deferred ASSESSMENT and RECOMMENDATIONS: 1. Screening for lung cancer: Six year risk for lung cancer: 5.55% I have determined that the patient is eligible for a low dose CT based on age, absence of signs or symptoms of lung cancer, and total pack years: Yes. The patient and I engaged in shared decision making, including the use of one or more decision aids, to include benefits, harms, follow-up diagnostic testing, over-diagnosis, false positive rate, and total radiation exposure. The patient understands and feels comfortable with it: Yes. The patient was counseled on the importance of adherence to annual LDCT lung cancer screening, impact of comorbidities and ability or willingness to undergo diagnosis and treatment. The patient understands and feels comfortable with it:Yes. 2. Nicotine dependence: The patient was counseled on the importance of maintaining cigarette smoking abstinence - The patient is committed to remaining abstinent from tobacco. SMOKING CESSATION COUNSELING Smoking cessation methods including Nicotine Replacement Therapies and Behavior Modification were discussed with the patient and assistance offered. Pt is using patches and has been able to quit The medical conditions adversely affected by cigarette use include:COPD, Emphysema, Lung Cancer, and heart and peripheral vascular disease. The patient is currently ready to quit. I personally spent 3 minutes in counseling. The time spent in smoking cessation counseling is exclusive of any other counseling during this visit. Irlanda Wilcox APRN.[employer] HEAD INSPECTOR AND ADJUSTER NPI #: November 18, 2022 8:38 AM documented in this encounter [facility] 10-30-2022 Note HNO ID: [id number] Author: Colleen Wolfe MD Service: ? Author Type: Physician Type: Progress Notes Filed: 10/30/2022 4:51 PM Note Text: . Respiratory [place] Note Patient name: Kenya Zavaleta PCP: Pennie Sutton DO, DO CC: COPD HPI: Kenya Zavaleta 61 year old female smoker with PMH significant for HTN, moderate COPD and lung nodules (stable), former patient of Dr. Johnson, new to me. Current therapy with Trelegy Ellipta and as needed albuterol. She has noted increased shortness of breath with less activity. She denies chronic mucus production. No significant audible wheezing. No chest pain. She does have intermittent chest tightness. Albuterol somewhat helpful. No recent upper respiratory infection. She is interested in looking cessation. Previously successful with use of nicotine patches. Tolerating Trelegy Ellipta without ill side effects. Pulmonary function test 1 year ago that showed moderately severe obstruction. No previous evaluation for alpha-[address] of her chest was 2015. She has not been enrolled in lung cancer screening program. DATA: PFT 10/2021: Review pulmonary function test show moderately severe obstruction Imaging / Diagnostic Studies: DATE OF EXAM: Jul 24 2014 8:24AM [facility] 0349 - CT CHEST WO CONTRAST / CT CHEST WO CONTRAST [id number] RESULT: No mediastinal or hilar adenopathy identified. Bilateral breast implants noted. Lung scarring and centrilobular emphysema noted. Comparison is made with previous CT 06/30/13. A pleural-based density right lower chest unchanged. Small nodule image 78 unchanged. Tiny nodularity right lung image 101-107, unchanged. Groundglass density in image 86 unchanged pleural densities left lung unchanged image 79 and 56. No new pulmonary nodular densities identified. No other consolidation or pleural effusion noted. Degenerative spine changes noted. No acute pathology noted the upper abdomen IMPRESSION: 1. No mediastinal or hilar adenopathy 2. Bilateral breast implants 3. Lung scarring and centrilobular emphysema 4. Stable pulmonary nodular densities 5. No new pulmonary nodular densities identified I personally reviewed the images which show emphysema and pulmonary nodules PAST MEDICAL HISTORY Diagnosis Date Benign neoplasm of rectum and anal canal COPD (chronic obstructive pulmonary disease) (HCC) Emphysema High blood pressure Controlled on med. Pulmonary nodules CT stable 2 years or more. Surveillance scanning stopped 2014. ALLERGIES Allergen Reactions Creosote Other: See Comments Childhood exposure on railroad tracks. Does not recall specific reaction. juatpyqkpvg-rveyddgql-evmfseix (TRELEGY ELLIPTA) 100-62.5-25 mcg inhalation powder Inhale 1 Puff as instructed once daily. multivitamin with minerals (VISION/OPTIGEN) tablet Take 1 tablet by mouth once daily. aspirin, enteric coated (ASPIRIN, ENTERIC COATED) 81 mg EC tablet Take 81 mg by mouth once daily. amLODIPine (NORVASC) 2.5 mg tablet VITAMIN C 1000MG TABLET Take one(1) tablet daily. MULTIVITAMIN TABLET Take one(1) tablet daily. Social History Tobacco Use Smoking status: Every Day Packs/day: 0.50 Years: 20.00 Pack years: 10.00 Types: Cigarettes Smokeless tobacco: Never Tobacco comments: 2 ppd in past Substance Use Topics Alcohol use: Yes Comment: Rarely, occassionally Drug use: No [employer] with frequent travel. Pets: None FAMILY HISTORY Adopted: Yes Problem Relation Age of Onset Breast Cancer Other No breast cancer known; patient grew up without parents; no breast cancer amongst siblings Cancer Mother 2018, cancer of kidney? PAST SURGICAL HISTORY Procedure Laterality Date APPENDECTOMY childhood BREAST AUGMENTATION WITH IMPLANT 1997 bilateral CARPAL TUNNEL RIGHT WRIST and left wrist COLONOSCOPY FLX DX W/COLLJ SPEC WHEN PFRMD 04/22/2011 Colonoscopy LIG/TRNSXJ FLP TUBE ABDL/VAG APPR UNI/BI PMH, Social history, family history and surgical history reviewed and updated in EMR REVIEW OF SYSTEMS: CONSTITUTIONAL: No fevers, chills, nightsweats, unintended weight loss HEENT: Denies nasal congestion/sinus symptoms, allergy problems. EYES: No diplopia or blurry vision. CARDIOVASCULAR: No chest pain, palpitations, orthopnea, PND, edema. PULM: See HPI GI: No dysphagia/odynophagia, problematic reflux.. NEURO: No new balance problems, peripheral weakness/paresthesias or numbness of concern. MUSC-SKEL: No new joint pain, swelling, or erythema. PSY: No concerns regarding depression, anxiety. INTEGUMENTARY: No new skin changes or rashes PHYSICAL EXAMINATION: BP 110/72 Pulse 80 Wt 118 lb (53.5kg) SpO2 90% LMP 01/06/2013 General Appearance: Peers older than chronologic age, NAD. Skin: Skin color, texture, turgor normal, no suspicious rashes or lesions. Head: Normal, no abnormalities Eyes: S (more content not included)... [facility] 10-30-2022 History of Presen t illness Narrative Images from the original note were not included. . Respiratory [place] Note Patient name: Kenya Zavaleta PCP: Pennie Sutton DO, DO CC: COPD HPI: Kenya Zavaleta 61 year old female smoker with PMH significant for HTN, moderate COPD and lung nodules (stable), former patient of Dr. Johnson, new to me. Current therapy with Trelegy Ellipta and as needed albuterol. She has noted increased shortness of breath with less activity. She denies chronic mucus production. No significant audible wheezing. No chest pain. She does have intermittent chest tightness. Albuterol somewhat helpful. No recent upper respiratory infection. She is interested in looking cessation. Previously successful with use of nicotine patches. Tolerating Trelegy Ellipta without ill side effects. Pulmonary function test 1 year ago that showed moderately severe obstruction. No previous evaluation for alpha-[address] of her chest was 2015. She has not been enrolled in lung cancer screening program. DATA: PFT 10/2021: Review pulmonary function test show moderately severe obstruction Imaging / Diagnostic Studies: DATE OF EXAM: Jul 24 2014 8:24AM [facility] 0349 - CT CHEST WO CONTRAST / CT CHEST WO CONTRAST [id number] RESULT: No mediastinal or hilar adenopathy identified. Bilateral breast implants noted. Lung scarring and centrilobular emphysema noted. Comparison is made with previous CT 06/30/13. A pleural-based density right lower chest unchanged. Small nodule image 78 unchanged. Tiny nodularity right lung image 101-107, unchanged. Groundglass density in image 86 unchanged pleural densities left lung unchanged image 79 and 56. No new pulmonary nodular densities identified. No other consolidation or pleural effusion noted. Degenerative spine changes noted. No acute pathology noted the upper abdomen IMPRESSION: 1. No mediastinal or hilar adenopathy 2. Bilateral breast implants 3. Lung scarring and centrilobular emphysema 4. Stable pulmonary nodular densities 5. No new pulmonary nodular densities identified I personally reviewed the images which show emphysema and pulmonary nodules PAST MEDICAL HISTORY Diagnosis Date Benign neoplasm of rectum and anal canal COPD (chronic obstructive pulmonary disease) (HCC) Emphysema High blood pressure Controlled on med. Pulmonary nodules CT stable 2 years or more. Surveillance scanning stopped 2014. ALLERGIES Allergen Reactions Creosote Other: See Comments Childhood exposure on railroad tracks. Does not recall specific reaction. ylhqoihmlqh-mphefwust-updsgdjp (TRELEGY ELLIPTA) 100-62.5-25 mcg inhalation powder Inhale 1 Puff as instructed once daily. multivitamin with minerals (VISION/OPTIGEN) tablet Take 1 tablet by mouth once daily. aspirin, enteric coated (ASPIRIN, ENTERIC COATED) 81 mg EC tablet Take 81 mg by mouth once daily. amLODIPine (NORVASC) 2.5 mg tablet VITAMIN C 1000MG TABLET Take one(1) tablet daily. MULTIVITAMIN TABLET Take one(1) tablet daily. Social History Tobacco Use Smoking status: Every Day Packs/day: 0.50 Years: 20.00 Pack years: 10.00 Types: Cigarettes Smokeless tobacco: Never Tobacco comments: 2 ppd in past Substance Use Topics Alcohol use: Yes Comment: Rarely, occassionally Drug use: No [employer] with frequent travel. Pets: None FAMILY HISTORY Adopted: Yes Problem Relation Age of Onset Breast Cancer Other No breast cancer known; patient grew up without parents; no breast cancer amongst siblings Cancer Mother 2018, cancer of kidney? PAST SURGICAL HISTORY Procedure Laterality Date APPENDECTOMY childhood BREAST AUGMENTATION WITH IMPLANT 1997 bilateral CARPAL TUNNEL RIGHT WRIST and left wrist COLONOSCOPY FLX DX W/COLLJ SPEC WHEN PFRMD 04/22/2011 Colonoscopy LIG/TRNSXJ FLP TUBE ABDL/VAG APPR UNI/BI PMH, Social history, family history and surgical history reviewed and updated in EMR REVIEW OF SYSTEMS: CONSTITUTIONAL: No fevers, chills, nightsweats, unintended weight loss HEENT: Denies nasal congestion/sinus symptoms, allergy problems. EYES: No diplopia or blurry vision. CARDIOVASCULAR: No chest pain, palpitations, orthopnea, PND, edema. PULM: See HPI GI: No dysphagia/odynophagia, problematic reflux.. NEURO: No new balance problems, peripheral weakness/paresthesias or numbness of concern. MUSC-SKEL: No new joint pain, swelling, or erythema. PSY: No concerns regarding depression, anxiety. INTEGUMENTARY: No new skin changes or rashes PHYSICAL EXAMINATION: BP 110/72 Pulse 80 Wt 118 lb (53.5kg) SpO2 90% LMP 01/06/2013 General Appearance: Peers older than chronologic age, NAD. Skin: Skin color, texture, turgor normal, no suspicious rashes or lesions. Head: Normal, no abnormalities Eyes: Sclera, conjunctiva normal. Oropharynx: Adequate dentition, no oral lesions or posterior pharyngeal erythema or thrush Neck: No JVD, no masses, no thyromegaly Chest wall: Increased AP diameter. Lungs: Not labored, hyperresonant to percussion, very diminished breath sounds, almost absent. Heart: RRR without murmur, gallop Extremities: No edema, no clubbing. Neurologic: Reviewed, no focal findings. Lymph Nodes: No cervical lymphadenopathy and No supraclavicular lymphadenopathy. Assessment/Plan: 1. Severe COPD, GOLD stage 3 -She will continue on Trelegy Ellipta with as needed albuterol -She needs updated pulmonary function test including lung volumes diffusing capacity. She may need oxygen assessment based on her diffusion -Smoking cessation is paramount -Alpha-1 antitrypsin level 2. Cigarette smoker -Current half a pack a day smoker former 2 pack a day smoker with sequelae of COPD -Spoke with patient regarding lung cancer screening, she is a candidate and is agreeable to be enrolled in the lung cancer screening program -Referral to lung cancer screening clinic Colleen Wolfe MD [facility] [place] documented in this encounter [facility] 10-27-2021 Instructions Gene Johnson MD - 10/27/2021 10:03 AM EDT MEDICAL DECISION MAKING: COPD, severe, symptomatically doing well on Trelegy. 1. I re-addressed the pathophysiology of chronic bronchitis, emphysema, and COPD; and reviewed the management of this condition as outlined in the GOLD and ATS guidelines, including: smoking cessation, Pneumococcal and annual Influenza vaccination, bronchodilators, inhaled corticosteroids, antibiotics, exercise/rehabilitation, and oxygen. 2. I also again discussed mechanisms of action of medications, alternatives, and potential side effects of treatment. 3. Maintenance Rx: - Trelegy 1 inhalation daily. Rinse mouth after each use to help prevent oral thrush. 4. Rescue Rx: - Albuterol as needed for relief of shortness of breath or wheezing, up to every 4 hours. 5. Annual Influenza vaccination today. Pneumococcal vaccination is consistent with current recommendations and repeat is not indicated. COVID vaccination up to date. Planning on receiving booster. 6. Re-assess in 6 months, sooner if needed. Tobacco use disorder. 1. Recommended ongoing use of Nicotine patches. Pulmonary nodules. Surveillance scanning completed in 2014. I am retiring from the staff of [facility] and the practice of Medicine on November 13, 2021, after 41 years of service to my patients. It has been my privilege to provide you with Pulmonary consultation and care for the time we have known each other. Please feel confident that my colleagues are well equipped to provide ongoing care in the future: Umer Wolfe MD and Devi Nava PA-C. Gene Johnson MD, [facility] [address] [place] [id number] P: [phone] F: [phone] [email or web address] documented in this encounter [facility] 10-27-2021 History of Presen t illness Narrative [facility] [place], 10/27/2021: Name: Kenya Zavaleta : 1960 INTERVAL HISTORY: She last Pulmonary Clinic visit 03/27/2021, the patient has not required ED care for exacerbation. There has been no hospital admission for exacerbation. Claims to be consistently compliant with prescribed maintenance Rx Trelegy ellipta 1 inhalation daily, And I am 100% into the Trelegy, substantial improvement in daily activity tolerance and decrease in dyspnea on exertion. No increase in frequency or severity cough. Sometimes sputum, non purulent. No hemoptysis. No wheezing, It's amazing. 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 Still walking 1-2 miles daily. Problem list, PMH, PSH, FAMH, SOCH: Reviewed with patient today, and updated accordingly. Stopped smoking for 6 months, then relapsed. Currently trying again with Nicotine patches, currently using 14 mg patch, unable to tolerate 21 mg. Immunizations reviewed today. Allergies reviewed and updated, and medications reconciled today. PHYSICAL EXAMINATION: Wt 52.6 kg (116 lb) LMP 01/06/2013 BMI 23.43 kg/m Gen: No acute distress. Cooperative with examination. ENT: Oral hygeine and dentition good. Pharynx clear. No halitosis. No sign of oral thrush. Resp: No stridor, accessory respiratory muscle use, supra-sternal or intercostal retractions. No wheezes, crackles. CV: Regular rythm. Heart tones normal. Radial pulses normal. Abd: Non distended. MSK: No kyphoscoliosis. Ext: Warm and well perfused. No clubbing, cyanosis, edema. Skin: No rash, ecchymoses. Neuro: Mental status normal. Affect normal. No tremor. DATA REVIEW: DATE: 10/27/21 09/23/2020 04/23/2014 FVC 1.98, 76% 1.57, 59% 1.69, 61% FEV1 0.91, 44% 0.82, 39% 0.94, 46% FEV1/FVC 0.46 0.53 0.56 MEDICAL DECISION MAKING: COPD, severe, symptomatically doing well on Trelegy. 1. I re-addressed the pathophysiology of chronic bronchitis, emphysema, and COPD; and reviewed the management of this condition as outlined in the GOLD and ATS guidelines, including: smoking cessation, Pneumococcal and annual Influenza vaccination, bronchodilators, inhaled corticosteroids, antibiotics, exercise/rehabilitation, and oxygen. 2. I also again discussed mechanisms of action of medications, alternatives, and potential side effects of treatment. 3. Maintenance Rx: - Trelegy 1 inhalation daily. Rinse mouth after each use to help prevent oral thrush. 4. Rescue Rx: - Albuterol as needed for relief of shortness of breath or wheezing, up to every 4 hours. 5. Annual Influenza vaccination today. Pneumococcal vaccination is consistent with current recommendations and repeat is not indicated. COVID vaccination up to date. Planning on receiving booster. 6. Re-assess in 6 months, sooner if needed. Tobacco use disorder. 1. Recommended ongoing use of Nicotine patches. Pulmonary nodules. Surveillance scanning completed in 2014. I advised the patient that I am retiring from the staff of [facility] and the practice of Medicine on November 13, 2021, after 41 years of service to my patients. It has been my privilege to provide her with Pulmonary consultation and care for the time we have known each other. Please feel confident that my colleagues are well equipped to provide ongoing care in the future: Umer Wolfe MD and Devi Nava PA-C. I addressed the questions of the patient, and she expressed understanding and acceptance of my answers. Gene Johnson MD, [facility] [place] [facility] [address] [address] P: [phone] F: [phone] [email or web address] documented in this encounter [facility] 10-27-2021 History of Presen t illness Narrative PULM FUNCTION SMARTBLOCK: Provider: Devi Nava PA-C Assisting Tech: NEREYDA Perez Spirometry: 1 System: [id number] documented in this encounter [facility] Diagnosis Centrilobular emphysema (HCC)- Primary Other emphysema Pulmonary nodules Other nonspecific abnormal finding of lung field Tobacco use disorder [facility] Diagnosis Centrilobular emphysema (HCC) Other emphysema [facility] Diagnosis Stage 3 severe COPD by GOLD classification ([facility])- Primary Cigarette smoker Tobacco use disorder [facility] Diagnosis Stage 3 severe COPD by GOLD classification ([facility]) [facility] Diagnosis Encounter for screening for lung cancer- Primary Tobacco use [facility] Lung nodules- Primary Other nonspecific abnormal finding of lung field [facility] Diagnosis Encounter for screening for lung cancer Tobacco use current [facility] Name Dates Details Patient Instructions Indication:Smoker Start:24-May-2020 Instruction Type:Provider Instructions for Treatment How to Access Health Informa tion Online using Patient Portal and [employer] Apps Indication:Smoker Start:24-May-2020 Instruction Type:Patient Education How to access health informa tion online Indication:Smoker Start:27-Mar-2020 Instruction Type:Patient Education How to access health informa tion online - Detail Indication:Smoker Start:27-Mar-2020 Instruction Type:Patient Education Patient Instructions Indication:Smoker Start:27-Mar-2020 Instruction Type:Provider Instructions for Treatment How to access health informa tion online Indication:Smoker Start:22-Mar-2018 Instruction Type:Patient Education How to access health informa tion online - Detail Indication:Smoker Start:22-Mar-2018 Instruction Type:Patient Education Patient Instructions Indication:Smoker Start:22-Mar-2018 Instruction Type:Provider Instructions for Treatment How to access health informa tion online Indication:Hypercholesteremia Start:14-Sep-2017 Instruction Type:Patient Education How to access health informa tion online - Detail Indication:Hypercholesteremia Start:14-Sep-2017 Instruction Type:Patient Education Patient Instructions Indication:Hypercholesteremia Start:14-Sep-2017 Instruction Type:Provider Instructions for Treatment How to access health informa tion online Indication:BMI 25.0-25.9,adult Start:28-Jul-2017 Instruction Type:Patient Education How to access health informa tion online - Detail Indication:BMI 25.0-25.9,adult Start:28-Jul-2017 Instruction Type:Patient Education Patient Instructions Indication:BMI 25.0-25.9,adult Start:28-Jul-2017 Instruction Type:Provider Instructions for Treatment How to access health informa tion online Indication:Tobacco dependence Start:21-Jul-2017 Instruction Type:Patient Education How to access health informa tion online - Detail Indication:Tobacco dependence Start:21-Jul-2017 Instruction Type:Patient Education Patient Instructions Indication:Aneurysm Start:21-Jul-2017 Instruction Type:Provider Instructions for Treatment How to access health informa tion online Indication:Tobacco dependence Start:09-Jul-2016 Instruction Type:Patient Education How to access health informa tion online - Detail Indication:Tobacco dependence Start:09-Jul-2016 Instruction Type:Patient Education Patient Instructions Indication:Tobacco dependence Start:09-Jul-2016 Instruction Type:Provider Instructions for Treatment Patient Instructions Indication:Muscle spasm of back Start:14-Jun-2015 Instruction Type:Provider Instructions for Treatment Patient Instructions Indication:High triglycerides Start:08-Aug-2013 Instruction Type:Provider Instructions for Treatment Patient Instructions Indication:Panic Start:12-May-2012 Instruction Type:Provider Instructions for Treatment Patient Instructions Indication:Anxiety Start:05-May-2012 Instruction Type:Provider Instructions for Treatment Patient Instructions Indication:Sinusitis, acute Start:21-Apr-2012 Instruction Type:Provider Instructions for Treatment [facility] Work Phone: Instructions* Name Dates Details Patient Instructions Indication:Smoker Start:16-Sep-2020 Instruction Type:Provider Instructions for Treatment How to Access Health Informa tion Online using Patient Portal and [employer]rd [employer] Apps Indication:Smoker Start:16-Sep-2020 Instruction Type:Patient Education Patient Instructions Indication:Smoker Start:24-May-2020 Instruction Type:Provider Instructions for Treatment How to Access Health Informa tion Online using Patient Portal and [employer]rd [employer] Apps Indication:Smoker Start:24-May-2020 Instruction Type:Patient Education How to access health informa tion online Indication:Smoker Start:27-Mar-2020 Instruction Type:Patient Education How to access health informa tion online - Detail Indication:Smoker Start:27-Mar-2020 Instruction Type:Patient Education Patient Instructions Indication:Smoker Start:27-Mar-2020 Instruction Type:Provider Instructions for Treatment How to access health informa tion online Indication:Smoker Start:22-Mar-2018 Instruction Type:Patient Education How to access health informa tion online - Detail Indication:Smoker Start:22-Mar-2018 Instruction Type:Patient Education Patient Instructions Indication:Smoker Start:22-Mar-2018 Instruction Type:Provider Instructions for Treatment How to access health informa tion online Indication:Hypercholesteremia Start:14-Sep-2017 Instruction Type:Patient Education How to access health informa tion online - Detail Indication:Hypercholesteremia Start:14-Sep-2017 Instruction Type:Patient Education Patient Instructions Indication:Hypercholesteremia Start:14-Sep-2017 Instruction Type:Provider Instructions for Treatment How to access health informa tion online Indication:BMI 25.0-25.9,adult Start:28-Jul-2017 Instruction Type:Patient Education How to access health informa tion online - Detail Indication:BMI 25.0-25.9,adult Start:28-Jul-2017 Instruction Type:Patient Education Patient Instructions Indication:BMI 25.0-25.9,adult Start:28-Jul-2017 Instruction Type:Provider Instructions for Treatment How to access health informa tion online Indication:Tobacco dependence Start:21-Jul-2017 Instruction Type:Patient Education How to access health informa tion online - Detail Indication:Tobacco dependence Start:21-Jul-2017 Instruction Type:Patient Education Patient Instructions Indication:Aneurysm Start:21-Jul-2017 Instruction Type:Provider Instructions for Treatment How to access health informa tion online Indication:Tobacco dependence Start:09-Jul-2016 Instruction Type:Patient Education How to access health informa tion online - Detail Indication:Tobacco dependence Start:09-Jul-2016 Instruction Type:Patient Education Patient Instructions Indication:Tobacco dependence Start:09-Jul-2016 Instruction Type:Provider Instructions for Treatment Patient Instructions Indication:Muscle spasm of back Start:14-Jun-2015 Instruction Type:Provider Instructions for Treatment Patient Instructions Indication:High triglycerides Start:08-Aug-2013 Instruction Type:Provider Instructions for Treatment Patient Instructions Indication:Panic Start:12-May-2012 Instruction Type:Provider Instructions for Treatment Patient Instructions Indication:Anxiety Start:05-May-2012 Instruction Type:Provider Instructions for Treatment Patient Instructions Indication:Sinusitis, acute Start:21-Apr-2012 Instruction Type:Provider Instructions for Treatment [facility] Work Phone: Instructions* Name Dates Details Patient Instructions Indication:Smoker Start:16-Sep-2020 Instruction Type:Provider Instructions for Treatment How to Access Health Informa tion Online using Patient Portal and [employer]rd [employer] Apps Indication:Smoker Start:16-Sep-2020 Instruction Type:Patient Education Patient Instructions Indication:Smoker Start:24-May-2020 Instruction Type:Provider Instructions for Treatment How to Access Health Informa tion Online using Patient Portal and [employer]rd [employer] Apps Indication:Smoker Start:24-May-2020 Instruction Type:Patient Education How to access health informa tion online Indication:Smoker Start:27-Mar-2020 Instruction Type:Patient Education How to access health informa tion online - Detail Indication:Smoker Start:27-Mar-2020 Instruction Type:Patient Education Patient Instructions Indication:Smoker Start:27-Mar-2020 Instruction Type:Provider Instructions for Treatment How to access health informa tion online Indication:Smoker Start:22-Mar-2018 Instruction Type:Patient Education How to access health informa tion online - Detail Indication:Smoker Start:22-Mar-2018 Instruction Type:Patient Education Patient Instructions Indication:Smoker Start:22-Mar-2018 Instruction Type:Provider Instructions for Treatment How to access health informa tion online Indication:Hypercholesteremia Start:14-Sep-2017 Instruction Type:Patient Education How to access health informa tion online - Detail Indication:Hypercholesteremia Start:14-Sep-2017 Instruction Type:Patient Education Patient Instructions Indication:Hypercholesteremia Start:14-Sep-2017 Instruction Type:Provider Instructions for Treatment How to access health informa tion online Indication:BMI 25.0-25.9,adult Start:28-Jul-2017 Instruction Type:Patient Education How to access health informa tion online - Detail Indication:BMI 25.0-25.9,adult Start:28-Jul-2017 Instruction Type:Patient Education Patient Instructions Indication:BMI 25.0-25.9,adult Start:28-Jul-2017 Instruction Type:Provider Instructions for Treatment How to access health informa tion online Indication:Tobacco dependence Start:21-Jul-2017 Instruction Type:Patient Education How to access health informa tion online - Detail Indication:Tobacco dependence Start:21-Jul-2017 Instruction Type:Patient Education Patient Instructions Indication:Aneurysm Start:21-Jul-2017 Instruction Type:Provider Instructions for Treatment How to access health informa tion online Indication:Tobacco dependence Start:09-Jul-2016 Instruction Type:Patient Education How to access health informa tion online - Detail Indication:Tobacco dependence Start:09-Jul-2016 Instruction Type:Patient Education Patient Instructions Indication:Tobacco dependence Start:09-Jul-2016 Instruction Type:Provider Instructions for Treatment Patient Instructions Indication:Muscle spasm of back Start:14-Jun-2015 Instruction Type:Provider Instructions for Treatment Patient Instructions Indication:High triglycerides Start:08-Aug-2013 Instruction Type:Provider Instructions for Treatment Patient Instructions Indication:Panic Start:12-May-2012 Instruction Type:Provider Instructions for Treatment Patient Instructions Indication:Anxiety Start:05-May-2012 Instruction Type:Provider Instructions for Treatment Patient Instructions Indication:Sinusitis, acute Start:21-Apr-2012 Instruction Type:Provider Instructions for Treatment [facility] Work Phone: Instructions* Name Dates Details Patient Instructions Indication:Smoker Start:16-Sep-2020 Instruction Type:Provider Instructions for Treatment How to Access Health Informa tion Online using Patient Portal and [employer]rd [employer] Apps Indication:Smoker Start:16-Sep-2020 Instruction Type:Patient Education Patient Instructions Indication:Smoker Start:24-May-2020 Instruction Type:Provider Instructions for Treatment How to Access Health Informa tion Online using Patient Portal and [employer] Apps Indication:Smoker Start:24-May-2020 Instruction Type:Patient Education How to access health informa tion online Indication:Smoker Start:27-Mar-2020 Instruction Type:Patient Education How to access health informa tion online - Detail Indication:Smoker Start:27-Mar-2020 Instruction Type:Patient Education Patient Instructions Indication:Smoker Start:27-Mar-2020 Instruction Type:Provider Instructions for Treatment How to access health informa tion online Indication:Smoker Start:22-Mar-2018 Instruction Type:Patient Education How to access health informa tion online - Detail Indication:Smoker Start:22-Mar-2018 Instruction Type:Patient Education Patient Instructions Indication:Smoker Start:22-Mar-2018 Instruction Type:Provider Instructions for Treatment How to access health informa tion online Indication:Hypercholesteremia Start:14-Sep-2017 Instruction Type:Patient Education How to access health informa tion online - Detail Indication:Hypercholesteremia Start:14-Sep-2017 Instruction Type:Patient Education Patient Instructions Indication:Hypercholesteremia Start:14-Sep-2017 Instruction Type:Provider Instructions for Treatment How to access health informa tion online Indication:BMI 25.0-25.9,adult Start:28-Jul-2017 Instruction Type:Patient Education How to access health informa tion online - Detail Indication:BMI 25.0-25.9,adult Start:28-Jul-2017 Instruction Type:Patient Education Patient Instructions Indication:BMI 25.0-25.9,adult Start:28-Jul-2017 Instruction Type:Provider Instructions for Treatment How to access health informa tion online Indication:Tobacco dependence Start:21-Jul-2017 Instruction Type:Patient Education How to access health informa tion online - Detail Indication:Tobacco dependence Start:21-Jul-2017 Instruction Type:Patient Education Patient Instructions Indication:Aneurysm Start:21-Jul-2017 Instruction Type:Provider Instructions for Treatment How to access health informa tion online Indication:Tobacco dependence Start:09-Jul-2016 Instruction Type:Patient Education How to access health informa tion online - Detail Indication:Tobacco dependence Start:09-Jul-2016 Instruction Type:Patient Education Patient Instructions Indication:Tobacco dependence Start:09-Jul-2016 Instruction Type:Provider Instructions for Treatment Patient Instructions Indication:Muscle spasm of back Start:14-Jun-2015 Instruction Type:Provider Instructions for Treatment Patient Instructions Indication:High triglycerides Start:08-Aug-2013 Instruction Type:Provider Instructions for Treatment Patient Instructions Indication:Panic Start:12-May-2012 Instruction Type:Provider Instructions for Treatment Patient Instructions Indication:Anxiety Start:05-May-2012 Instruction Type:Provider Instructions for Treatment Patient Instructions Indication:Sinusitis, acute Start:21-Apr-2012 Instruction Type:Provider Instructions for Treatment [facility]; [facility] Work Phone: Instructions* Name Dates Details Patient Instructions Indication:Smoker Start:16-Sep-2020 Instruction Type:Provider Instructions for Treatment How to Access Health Informa tion Online using Patient Portal and [employer]rd [employer] Apps Indication:Smoker Start:16-Sep-2020 Instruction Type:Patient Education Patient Instructions Indication:Smoker Start:24-May-2020 Instruction Type:Provider Instructions for Treatment How to Access Health Informa tion Online using Patient Portal and [employer]rd [employer] Apps Indication:Smoker Start:24-May-2020 Instruction Type:Patient Education How to access health informa tion online Indication:Smoker Start:27-Mar-2020 Instruction Type:Patient Education How to access health informa tion online - Detail Indication:Smoker Start:27-Mar-2020 Instruction Type:Patient Education Patient Instructions Indication:Smoker Start:27-Mar-2020 Instruction Type:Provider Instructions for Treatment How to access health informa tion online Indication:Smoker Start:22-Mar-2018 Instruction Type:Patient Education How to access health informa tion online - Detail Indication:Smoker Start:22-Mar-2018 Instruction Type:Patient Education Patient Instructions Indication:Smoker Start:22-Mar-2018 Instruction Type:Provider Instructions for Treatment How to access health informa tion online Indication:Hypercholesteremia Start:14-Sep-2017 Instruction Type:Patient Education How to access health informa tion online - Detail Indication:Hypercholesteremia Start:14-Sep-2017 Instruction Type:Patient Education Patient Instructions Indication:Hypercholesteremia Start:14-Sep-2017 Instruction Type:Provider Instructions for Treatment How to access health informa tion online Indication:BMI 25.0-25.9,adult Start:28-Jul-2017 Instruction Type:Patient Education How to access health informa tion online - Detail Indication:BMI 25.0-25.9,adult Start:28-Jul-2017 Instruction Type:Patient Education Patient Instructions Indication:BMI 25.0-25.9,adult Start:28-Jul-2017 Instruction Type:Provider Instructions for Treatment How to access health informa tion online Indication:Tobacco dependence Start:21-Jul-2017 Instruction Type:Patient Education How to access health informa tion online - Detail Indication:Tobacco dependence Start:21-Jul-2017 Instruction Type:Patient Education Patient Instructions Indication:Aneurysm Start:21-Jul-2017 Instruction Type:Provider Instructions for Treatment How to access health informa tion online Indication:Tobacco dependence Start:09-Jul-2016 Instruction Type:Patient Education How to access health informa tion online - Detail Indication:Tobacco dependence Start:09-Jul-2016 Instruction Type:Patient Education Patient Instructions Indication:Tobacco dependence Start:09-Jul-2016 Instruction Type:Provider Instructions for Treatment Patient Instructions Indication:Muscle spasm of back Start:14-Jun-2015 Instruction Type:Provider Instructions for Treatment Patient Instructions Indication:High triglycerides Start:08-Aug-2013 Instruction Type:Provider Instructions for Treatment Patient Instructions Indication:Panic Start:12-May-2012 Instruction Type:Provider Instructions for Treatment Patient Instructions Indication:Anxiety Start:05-May-2012 Instruction Type:Provider Instructions for Treatment Patient Instructions Indication:Sinusitis, acute Start:21-Apr-2012 Instruction Type:Provider Instructions for Treatment [facility]; [facility] Work Phone: Instructions* Name Dates Details How to Access Health Informa tion Online using Patient Portal and [employer] Apps Indication:Smoker Start:02-Oct-2020 Instruction Type:Patient Education Patient Instructions Indication:Smoker Start:02-Oct-2020 Instruction Type:Provider Instructions for Treatment Patient Instructions Indication:Smoker Start:16-Sep-2020 Instruction Type:Provider Instructions for Treatment How to Access Health Informa tion Online using Patient Portal and [employer] Apps Indication:Smoker Start:16-Sep-2020 Instruction Type:Patient Education Patient Instructions Indication:Smoker Start:24-May-2020 Instruction Type:Provider Instructions for Treatment How to Access Health Informa tion Online using Patient Portal and [employer]rd [employer] Apps Indication:Smoker Start:24-May-2020 Instruction Type:Patient Education How to access health informa tion online Indication:Smoker Start:27-Mar-2020 Instruction Type:Patient Education How to access health informa tion online - Detail Indication:Smoker Start:27-Mar-2020 Instruction Type:Patient Education Patient Instructions Indication:Smoker Start:27-Mar-2020 Instruction Type:Provider Instructions for Treatment How to access health informa tion online Indication:Smoker Start:22-Mar-2018 Instruction Type:Patient Education How to access health informa tion online - Detail Indication:Smoker Start:22-Mar-2018 Instruction Type:Patient Education Patient Instructions Indication:Smoker Start:22-Mar-2018 Instruction Type:Provider Instructions for Treatment How to access health informa tion online Indication:Hypercholesteremia Start:14-Sep-2017 Instruction Type:Patient Education How to access health informa tion online - Detail Indication:Hypercholesteremia Start:14-Sep-2017 Instruction Type:Patient Education Patient Instructions Indication:Hypercholesteremia Start:14-Sep-2017 Instruction Type:Provider Instructions for Treatment How to access health informa tion online Indication:BMI 25.0-25.9,adult Start:28-Jul-2017 Instruction Type:Patient Education How to access health informa tion online - Detail Indication:BMI 25.0-25.9,adult Start:28-Jul-2017 Instruction Type:Patient Education Patient Instructions Indication:BMI 25.0-25.9,adult Start:28-Jul-2017 Instruction Type:Provider Instructions for Treatment How to access health informa tion online Indication:Tobacco dependence Start:21-Jul-2017 Instruction Type:Patient Education How to access health informa tion online - Detail Indication:Tobacco dependence Start:21-Jul-2017 Instruction Type:Patient Education Patient Instructions Indication:Aneurysm Start:21-Jul-2017 Instruction Type:Provider Instructions for Treatment How to access health informa tion online Indication:Tobacco dependence Start:09-Jul-2016 Instruction Type:Patient Education How to access health informa tion online - Detail Indication:Tobacco dependence Start:09-Jul-2016 Instruction Type:Patient Education Patient Instructions Indication:Tobacco dependence Start:09-Jul-2016 Instruction Type:Provider Instructions for Treatment Patient Instructions Indication:Muscle spasm of back Start:14-Jun-2015 Instruction Type:Provider Instructions for Treatment Patient Instructions Indication:High triglycerides Start:08-Aug-2013 Instruction Type:Provider Instructions for Treatment Patient Instructions Indication:Panic Start:12-May-2012 Instruction Type:Provider Instructions for Treatment Patient Instructions Indication:Anxiety Start:05-May-2012 Instruction Type:Provider Instructions for Treatment Patient Instructions Indication:Sinusitis, acute Start:21-Apr-2012 Instruction Type:Provider Instructions for Treatment [facility]; [facility] Work Phone: Instructions* Name Dates Details How to Access Health Informa tion Online using Patient Portal and [employer] Apps Indication:Smoker Start:02-Oct-2020 Instruction Type:Patient Education Patient Instructions Indication:Smoker Start:02-Oct-2020 Instruction Type:Provider Instructions for Treatment Patient Instructions Indication:Smoker Start:16-Sep-2020 Instruction Type:Provider Instructions for Treatment How to Access Health Informa tion Online using Patient Portal and [employer] Apps Indication:Smoker Start:16-Sep-2020 Instruction Type:Patient Education Patient Instructions Indication:Smoker Start:24-May-2020 Instruction Type:Provider Instructions for Treatment How to Access Health Informa tion Online using Patient Portal and [employer] Apps Indication:Smoker Start:24-May-2020 Instruction Type:Patient Education How to access health informa tion online Indication:Smoker Start:27-Mar-2020 Instruction Type:Patient Education How to access health informa tion online - Detail Indication:Smoker Start:27-Mar-2020 Instruction Type:Patient Education Patient Instructions Indication:Smoker Start:27-Mar-2020 Instruction Type:Provider Instructions for Treatment How to access health informa tion online Indication:Smoker Start:22-Mar-2018 Instruction Type:Patient Education How to access health informa tion online - Detail Indication:Smoker Start:22-Mar-2018 Instruction Type:Patient Education Patient Instructions Indication:Smoker Start:22-Mar-2018 Instruction Type:Provider Instructions for Treatment How to access health informa tion online Indication:Hypercholesteremia Start:14-Sep-2017 Instruction Type:Patient Education How to access health informa tion online - Detail Indication:Hypercholesteremia Start:14-Sep-2017 Instruction Type:Patient Education Patient Instructions Indication:Hypercholesteremia Start:14-Sep-2017 Instruction Type:Provider Instructions for Treatment How to access health informa tion online Indication:BMI 25.0-25.9,adult Start:28-Jul-2017 Instruction Type:Patient Education How to access health informa tion online - Detail Indication:BMI 25.0-25.9,adult Start:28-Jul-2017 Instruction Type:Patient Education Patient Instructions Indication:BMI 25.0-25.9,adult Start:28-Jul-2017 Instruction Type:Provider Instructions for Treatment How to access health informa tion online Indication:Tobacco dependence Start:21-Jul-2017 Instruction Type:Patient Education How to access health informa tion online - Detail Indication:Tobacco dependence Start:21-Jul-2017 Instruction Type:Patient Education Patient Instructions Indication:Aneurysm Start:21-Jul-2017 Instruction Type:Provider Instructions for Treatment How to access health informa tion online Indication:Tobacco dependence Start:09-Jul-2016 Instruction Type:Patient Education How to access health informa tion online - Detail Indication:Tobacco dependence Start:09-Jul-2016 Instruction Type:Patient Education Patient Instructions Indication:Tobacco dependence Start:09-Jul-2016 Instruction Type:Provider Instructions for Treatment Patient Instructions Indication:Muscle spasm of back Start:14-Jun-2015 Instruction Type:Provider Instructions for Treatment Patient Instructions Indication:High triglycerides Start:08-Aug-2013 Instruction Type:Provider Instructions for Treatment Patient Instructions Indication:Panic Start:12-May-2012 Instruction Type:Provider Instructions for Treatment Patient Instructions Indication:Anxiety Start:05-May-2012 Instruction Type:Provider Instructions for Treatment Patient Instructions Indication:Sinusitis, acute Start:21-Apr-2012 Instruction Type:Provider Instructions for Treatment [facility]; [facility] Work Phone: Instructions* Name Dates Details How to Access Health Informa tion Online using Patient Portal and [employer] Apps Indication:Smoker Start:02-Oct-2020 Instruction Type:Patient Education Patient Instructions Indication:Smoker Start:02-Oct-2020 Instruction Type:Provider Instructions for Treatment Patient Instructions Indication:Smoker Start:16-Sep-2020 Instruction Type:Provider Instructions for Treatment How to Access Health Informa tion Online using Patient Portal and [employer] Apps Indication:Smoker Start:16-Sep-2020 Instruction Type:Patient Education Patient Instructions Indication:Smoker Start:24-May-2020 Instruction Type:Provider Instructions for Treatment How to Access Health Informa tion Online using Patient Portal and [employer] Apps Indication:Smoker Start:24-May-2020 Instruction Type:Patient Education How to access health informa tion online Indication:Smoker Start:27-Mar-2020 Instruction Type:Patient Education How to access health informa tion online - Detail Indication:Smoker Start:27-Mar-2020 Instruction Type:Patient Education Patient Instructions Indication:Smoker Start:27-Mar-2020 Instruction Type:Provider Instructions for Treatment How to access health informa tion online Indication:Smoker Start:22-Mar-2018 Instruction Type:Patient Education How to access health informa tion online - Detail Indication:Smoker Start:22-Mar-2018 Instruction Type:Patient Education Patient Instructions Indication:Smoker Start:22-Mar-2018 Instruction Type:Provider Instructions for Treatment How to access health informa tion online Indication:Hypercholesteremia Start:14-Sep-2017 Instruction Type:Patient Education How to access health informa tion online - Detail Indication:Hypercholesteremia Start:14-Sep-2017 Instruction Type:Patient Education Patient Instructions Indication:Hypercholesteremia Start:14-Sep-2017 Instruction Type:Provider Instructions for Treatment How to access health informa tion online Indication:BMI 25.0-25.9,adult Start:28-Jul-2017 Instruction Type:Patient Education How to access health informa tion online - Detail Indication:BMI 25.0-25.9,adult Start:28-Jul-2017 Instruction Type:Patient Education Patient Instructions Indication:BMI 25.0-25.9,adult Start:28-Jul-2017 Instruction Type:Provider Instructions for Treatment How to access health informa tion online Indication:Tobacco dependence Start:21-Jul-2017 Instruction Type:Patient Education How to access health informa tion online - Detail Indication:Tobacco dependence Start:21-Jul-2017 Instruction Type:Patient Education Patient Instructions Indication:Aneurysm Start:21-Jul-2017 Instruction Type:Provider Instructions for Treatment How to access health informa tion online Indication:Tobacco dependence Start:09-Jul-2016 Instruction Type:Patient Education How to access health informa tion online - Detail Indication:Tobacco dependence Start:09-Jul-2016 Instruction Type:Patient Education Patient Instructions Indication:Tobacco dependence Start:09-Jul-2016 Instruction Type:Provider Instructions for Treatment Patient Instructions Indication:Muscle spasm of back Start:14-Jun-2015 Instruction Type:Provider Instructions for Treatment Patient Instructions Indication:High triglycerides Start:08-Aug-2013 Instruction Type:Provider Instructions for Treatment Patient Instructions Indication:Panic Start:12-May-2012 Instruction Type:Provider Instructions for Treatment Patient Instructions Indication:Anxiety Start:05-May-2012 Instruction Type:Provider Instructions for Treatment Patient Instructions Indication:Sinusitis, acute Start:21-Apr-2012 Instruction Type:Provider Instructions for Treatment [facility]; [facility] Work Phone: Instructions* Name Dates Details How to Access Health Informa tion Online using Patient Portal and [employer] Apps Indication:Smoker Start:02-Oct-2020 Instruction Type:Patient Education Patient Instructions Indication:Smoker Start:02-Oct-2020 Instruction Type:Provider Instructions for Treatment Patient Instructions Indication:Smoker Start:16-Sep-2020 Instruction Type:Provider Instructions for Treatment How to Access Health Informa tion Online using Patient Portal and [employer] Apps Indication:Smoker Start:16-Sep-2020 Instruction Type:Patient Education Patient Instructions Indication:Smoker Start:24-May-2020 Instruction Type:Provider Instructions for Treatment How to Access Health Informa tion Online using Patient Portal and [employer] Apps Indication:Smoker Start:24-May-2020 Instruction Type:Patient Education How to access health informa tion online Indication:Smoker Start:27-Mar-2020 Instruction Type:Patient Education How to access health informa tion online - Detail Indication:Smoker Start:27-Mar-2020 Instruction Type:Patient Education Patient Instructions Indication:Smoker Start:27-Mar-2020 Instruction Type:Provider Instructions for Treatment How to access health informa tion online Indication:Smoker Start:22-Mar-2018 Instruction Type:Patient Education How to access health informa tion online - Detail Indication:Smoker Start:22-Mar-2018 Instruction Type:Patient Education Patient Instructions Indication:Smoker Start:22-Mar-2018 Instruction Type:Provider Instructions for Treatment How to access health informa tion online Indication:Hypercholesteremia Start:14-Sep-2017 Instruction Type:Patient Education How to access health informa tion online - Detail Indication:Hypercholesteremia Start:14-Sep-2017 Instruction Type:Patient Education Patient Instructions Indication:Hypercholesteremia Start:14-Sep-2017 Instruction Type:Provider Instructions for Treatment How to access health informa tion online Indication:BMI 25.0-25.9,adult Start:28-Jul-2017 Instruction Type:Patient Education How to access health informa tion online - Detail Indication:BMI 25.0-25.9,adult Start:28-Jul-2017 Instruction Type:Patient Education Patient Instructions Indication:BMI 25.0-25.9,adult Start:28-Jul-2017 Instruction Type:Provider Instructions for Treatment How to access health informa tion online Indication:Tobacco dependence Start:21-Jul-2017 Instruction Type:Patient Education How to access health informa tion online - Detail Indication:Tobacco dependence Start:21-Jul-2017 Instruction Type:Patient Education Patient Instructions Indication:Aneurysm Start:21-Jul-2017 Instruction Type:Provider Instructions for Treatment How to access health informa tion online Indication:Tobacco dependence Start:09-Jul-2016 Instruction Type:Patient Education How to access health informa tion online - Detail Indication:Tobacco dependence Start:09-Jul-2016 Instruction Type:Patient Education Patient Instructions Indication:Tobacco dependence Start:09-Jul-2016 Instruction Type:Provider Instructions for Treatment Patient Instructions Indication:Muscle spasm of back Start:14-Jun-2015 Instruction Type:Provider Instructions for Treatment Patient Instructions Indication:High triglycerides Start:08-Aug-2013 Instruction Type:Provider Instructions for Treatment Patient Instructions Indication:Panic Start:12-May-2012 Instruction Type:Provider Instructions for Treatment Patient Instructions Indication:Anxiety Start:05-May-2012 Instruction Type:Provider Instructions for Treatment Patient Instructions Indication:Sinusitis, acute Start:21-Apr-2012 Instruction Type:Provider Instructions for Treatment [facility]; [facility] Work Phone: Instructions* Name Dates Details How to Access Health Informa tion Online using Patient Portal and [employer] Apps Indication:Smoker Start:02-Oct-2020 Instruction Type:Patient Education Patient Instructions Indication:Smoker Start:02-Oct-2020 Instruction Type:Provider Instructions for Treatment Patient Instructions Indication:Smoker Start:16-Sep-2020 Instruction Type:Provider Instructions for Treatment How to Access Health Informa tion Online using Patient Portal and [employer] Apps Indication:Smoker Start:16-Sep-2020 Instruction Type:Patient Education Patient Instructions Indication:Smoker Start:24-May-2020 Instruction Type:Provider Instructions for Treatment How to Access Health Informa tion Online using Patient Portal and [employer] Apps Indication:Smoker Start:24-May-2020 Instruction Type:Patient Education How to access health informa tion online Indication:Smoker Start:27-Mar-2020 Instruction Type:Patient Education How to access health informa tion online - Detail Indication:Smoker Start:27-Mar-2020 Instruction Type:Patient Education Patient Instructions Indication:Smoker Start:27-Mar-2020 Instruction Type:Provider Instructions for Treatment How to access health informa tion online Indication:Smoker Start:22-Mar-2018 Instruction Type:Patient Education How to access health informa tion online - Detail Indication:Smoker Start:22-Mar-2018 Instruction Type:Patient Education Patient Instructions Indication:Smoker Start:22-Mar-2018 Instruction Type:Provider Instructions for Treatment How to access health informa tion online Indication:Hypercholesteremia Start:14-Sep-2017 Instruction Type:Patient Education How to access health informa tion online - Detail Indication:Hypercholesteremia Start:14-Sep-2017 Instruction Type:Patient Education Patient Instructions Indication:Hypercholesteremia Start:14-Sep-2017 Instruction Type:Provider Instructions for Treatment How to access health informa tion online Indication:BMI 25.0-25.9,adult Start:28-Jul-2017 Instruction Type:Patient Education How to access health informa tion online - Detail Indication:BMI 25.0-25.9,adult Start:28-Jul-2017 Instruction Type:Patient Education Patient Instructions Indication:BMI 25.0-25.9,adult Start:28-Jul-2017 Instruction Type:Provider Instructions for Treatment How to access health informa tion online Indication:Tobacco dependence Start:21-Jul-2017 Instruction Type:Patient Education How to access health informa tion online - Detail Indication:Tobacco dependence Start:21-Jul-2017 Instruction Type:Patient Education Patient Instructions Indication:Aneurysm Start:21-Jul-2017 Instruction Type:Provider Instructions for Treatment How to access health informa tion online Indication:Tobacco dependence Start:09-Jul-2016 Instruction Type:Patient Education How to access health informa tion online - Detail Indication:Tobacco dependence Start:09-Jul-2016 Instruction Type:Patient Education Patient Instructions Indication:Tobacco dependence Start:09-Jul-2016 Instruction Type:Provider Instructions for Treatment Patient Instructions Indication:Muscle spasm of back Start:14-Jun-2015 Instruction Type:Provider Instructions for Treatment Patient Instructions Indication:High triglycerides Start:08-Aug-2013 Instruction Type:Provider Instructions for Treatment Patient Instructions Indication:Panic Start:12-May-2012 Instruction Type:Provider Instructions for Treatment Patient Instructions Indication:Anxiety Start:05-May-2012 Instruction Type:Provider Instructions for Treatment Patient Instructions Indication:Sinusitis, acute Start:21-Apr-2012 Instruction Type:Provider Instructions for Treatment [facility]; [facility] Work Phone: Instructions* Name Dates Details Patient Instructions Indication:Smoker Start:09-Jan-2022 Instruction Type:Provider Instructions for Treatment How to Access Health Informa tion Online using Patient Portal and [employer] Apps Indication:Smoker Start:09-Jan-2022 Instruction Type:Patient Education How to Access Health Informa tion Online using Patient Portal and [employer] Apps Indication:Smoker Start:02-Oct-2020 Instruction Type:Patient Education Patient Instructions Indication:Smoker Start:02-Oct-2020 Instruction Type:Provider Instructions for Treatment Patient Instructions Indication:Smoker Start:16-Sep-2020 Instruction Type:Provider Instructions for Treatment How to Access Health Informa tion Online using Patient Portal and [employer] Apps Indication:Smoker Start:16-Sep-2020 Instruction Type:Patient Education Patient Instructions Indication:Smoker Start:24-May-2020 Instruction Type:Provider Instructions for Treatment How to Access Health Informa tion Online using Patient Portal and [employer] Apps Indication:Smoker Start:24-May-2020 Instruction Type:Patient Education How to access health informa tion online Indication:Smoker Start:27-Mar-2020 Instruction Type:Patient Education How to access health informa tion online - Detail Indication:Smoker Start:27-Mar-2020 Instruction Type:Patient Education Patient Instructions Indication:Smoker Start:27-Mar-2020 Instruction Type:Provider Instructions for Treatment How to access health informa tion online Indication:Smoker Start:22-Mar-2018 Instruction Type:Patient Education How to access health informa tion online - Detail Indication:Smoker Start:22-Mar-2018 Instruction Type:Patient Education Patient Instructions Indication:Smoker Start:22-Mar-2018 Instruction Type:Provider Instructions for Treatment How to access health informa tion online Indication:Hypercholesteremia Start:14-Sep-2017 Instruction Type:Patient Education How to access health informa tion online - Detail Indication:Hypercholesteremia Start:14-Sep-2017 Instruction Type:Patient Education Patient Instructions Indication:Hypercholesteremia Start:14-Sep-2017 Instruction Type:Provider Instructions for Treatment How to access health informa tion online Indication:BMI 25.0-25.9,adult Start:28-Jul-2017 Instruction Type:Patient Education How to access health informa tion online - Detail Indication:BMI 25.0-25.9,adult Start:28-Jul-2017 Instruction Type:Patient Education Patient Instructions Indication:BMI 25.0-25.9,adult Start:28-Jul-2017 Instruction Type:Provider Instructions for Treatment How to access health informa tion online Indication:Tobacco dependence Start:21-Jul-2017 Instruction Type:Patient Education How to access health informa tion online - Detail Indication:Tobacco dependence Start:21-Jul-2017 Instruction Type:Patient Education Patient Instructions Indication:Aneurysm Start:21-Jul-2017 Instruction Type:Provider Instructions for Treatment How to access health informa tion online Indication:Tobacco dependence Start:09-Jul-2016 Instruction Type:Patient Education How to access health informa tion online - Detail Indication:Tobacco dependence Start:09-Jul-2016 Instruction Type:Patient Education Patient Instructions Indication:Tobacco dependence Start:09-Jul-2016 Instruction Type:Provider Instructions for Treatment Patient Instructions Indication:Muscle spasm of back Start:14-Jun-2015 Instruction Type:Provider Instructions for Treatment Patient Instructions Indication:High triglycerides Start:08-Aug-2013 Instruction Type:Provider Instructions for Treatment Patient Instructions Indication:Panic Start:12-May-2012 Instruction Type:Provider Instructions for Treatment Patient Instructions Indication:Anxiety Start:05-May-2012 Instruction Type:Provider Instructions for Treatment Patient Instructions Indication:Sinusitis, acute Start:21-Apr-2012 Instruction Type:Provider Instructions for Treatment [facility]; [facility] Work Phone: Instructions* Name Dates Details Patient Instructions Indication:Smoker Start:09-Jan-2022 Instruction Type:Provider Instructions for Treatment How to Access Health Informa tion Online using Patient Portal and [employer]rd [employer] Apps Indication:Smoker Start:09-Jan-2022 Instruction Type:Patient Education How to Access Health Informa tion Online using Patient Portal and [employer]rd [employer] Apps Indication:Smoker Start:02-Oct-2020 Instruction Type:Patient Education Patient Instructions Indication:Smoker Start:02-Oct-2020 Instruction Type:Provider Instructions for Treatment Patient Instructions Indication:Smoker Start:16-Sep-2020 Instruction Type:Provider Instructions for Treatment How to Access Health Informa tion Online using Patient Portal and [employer]rd [employer] Apps Indication:Smoker Start:16-Sep-2020 Instruction Type:Patient Education Patient Instructions Indication:Smoker Start:24-May-2020 Instruction Type:Provider Instructions for Treatment How to Access Health Informa tion Online using Patient Portal and [employer]rd [employer] Apps Indication:Smoker Start:24-May-2020 Instruction Type:Patient Education How to access health informa tion online Indication:Smoker Start:27-Mar-2020 Instruction Type:Patient Education How to access health informa tion online - Detail Indication:Smoker Start:27-Mar-2020 Instruction Type:Patient Education Patient Instructions Indication:Smoker Start:27-Mar-2020 Instruction Type:Provider Instructions for Treatment How to access health informa tion online Indication:Smoker Start:22-Mar-2018 Instruction Type:Patient Education How to access health informa tion online - Detail Indication:Smoker Start:22-Mar-2018 Instruction Type:Patient Education Patient Instructions Indication:Smoker Start:22-Mar-2018 Instruction Type:Provider Instructions for Treatment How to access health informa tion online Indication:Hypercholesteremia Start:14-Sep-2017 Instruction Type:Patient Education How to access health informa tion online - Detail Indication:Hypercholesteremia Start:14-Sep-2017 Instruction Type:Patient Education Patient Instructions Indication:Hypercholesteremia Start:14-Sep-2017 Instruction Type:Provider Instructions for Treatment How to access health informa tion online Indication:BMI 25.0-25.9,adult Start:28-Jul-2017 Instruction Type:Patient Education How to access health informa tion online - Detail Indication:BMI 25.0-25.9,adult Start:28-Jul-2017 Instruction Type:Patient Education Patient Instructions Indication:BMI 25.0-25.9,adult Start:28-Jul-2017 Instruction Type:Provider Instructions for Treatment How to access health informa tion online Indication:Tobacco dependence Start:21-Jul-2017 Instruction Type:Patient Education How to access health informa tion online - Detail Indication:Tobacco dependence Start:21-Jul-2017 Instruction Type:Patient Education Patient Instructions Indication:Aneurysm Start:21-Jul-2017 Instruction Type:Provider Instructions for Treatment How to access health informa tion online Indication:Tobacco dependence Start:09-Jul-2016 Instruction Type:Patient Education How to access health informa tion online - Detail Indication:Tobacco dependence Start:09-Jul-2016 Instruction Type:Patient Education Patient Instructions Indication:Tobacco dependence Start:09-Jul-2016 Instruction Type:Provider Instructions for Treatment Patient Instructions Indication:Muscle spasm of back Start:14-Jun-2015 Instruction Type:Provider Instructions for Treatment Patient Instructions Indication:High triglycerides Start:08-Aug-2013 Instruction Type:Provider Instructions for Treatment Patient Instructions Indication:Panic Start:12-May-2012 Instruction Type:Provider Instructions for Treatment Patient Instructions Indication:Anxiety Start:05-May-2012 Instruction Type:Provider Instructions for Treatment Patient Instructions Indication:Sinusitis, acute Start:21-Apr-2012 Instruction Type:Provider Instructions for Treatment [facility] Work Phone: Instructions* Name Dates Details Patient Instructions Indication:Smoker Start:09-Jan-2022 Instruction Type:Provider Instructions for Treatment How to Access Health Informa tion Online using Patient Portal and [employer]rd [employer] Apps Indication:Smoker Start:09-Jan-2022 Instruction Type:Patient Education How to Access Health Informa tion Online using Patient Portal and [employer]rd [employer] Apps Indication:Smoker Start:02-Oct-2020 Instruction Type:Patient Education Patient Instructions Indication:Smoker Start:02-Oct-2020 Instruction Type:Provider Instructions for Treatment Patient Instructions Indication:Smoker Start:16-Sep-2020 Instruction Type:Provider Instructions for Treatment How to Access Health Informa tion Online using Patient Portal and [employer]rd [employer] Apps Indication:Smoker Start:16-Sep-2020 Instruction Type:Patient Education Patient Instructions Indication:Smoker Start:24-May-2020 Instruction Type:Provider Instructions for Treatment How to Access Health Informa tion Online using Patient Portal and [employer]rd [employer] Apps Indication:Smoker Start:24-May-2020 Instruction Type:Patient Education How to access health informa tion online Indication:Smoker Start:27-Mar-2020 Instruction Type:Patient Education How to access health informa tion online - Detail Indication:Smoker Start:27-Mar-2020 Instruction Type:Patient Education Patient Instructions Indication:Smoker Start:27-Mar-2020 Instruction Type:Provider Instructions for Treatment How to access health informa tion online Indication:Smoker Start:22-Mar-2018 Instruction Type:Patient Education How to access health informa tion online - Detail Indication:Smoker Start:22-Mar-2018 Instruction Type:Patient Education Patient Instructions Indication:Smoker Start:22-Mar-2018 Instruction Type:Provider Instructions for Treatment How to access health informa tion online Indication:Hypercholesteremia Start:14-Sep-2017 Instruction Type:Patient Education How to access health informa tion online - Detail Indication:Hypercholesteremia Start:14-Sep-2017 Instruction Type:Patient Education Patient Instructions Indication:Hypercholesteremia Start:14-Sep-2017 Instruction Type:Provider Instructions for Treatment How to access health informa tion online Indication:BMI 25.0-25.9,adult Start:28-Jul-2017 Instruction Type:Patient Education How to access health informa tion online - Detail Indication:BMI 25.0-25.9,adult Start:28-Jul-2017 Instruction Type:Patient Education Patient Instructions Indication:BMI 25.0-25.9,adult Start:28-Jul-2017 Instruction Type:Provider Instructions for Treatment How to access health informa tion online Indication:Tobacco dependence Start:21-Jul-2017 Instruction Type:Patient Education How to access health informa tion online - Detail Indication:Tobacco dependence Start:21-Jul-2017 Instruction Type:Patient Education Patient Instructions Indication:Aneurysm Start:21-Jul-2017 Instruction Type:Provider Instructions for Treatment How to access health informa tion online Indication:Tobacco dependence Start:09-Jul-2016 Instruction Type:Patient Education How to access health informa tion online - Detail Indication:Tobacco dependence Start:09-Jul-2016 Instruction Type:Patient Education Patient Instructions Indication:Tobacco dependence Start:09-Jul-2016 Instruction Type:Provider Instructions for Treatment Patient Instructions Indication:Muscle spasm of back Start:14-Jun-2015 Instruction Type:Provider Instructions for Treatment Patient Instructions Indication:High triglycerides Start:08-Aug-2013 Instruction Type:Provider Instructions for Treatment Patient Instructions Indication:Panic Start:12-May-2012 Instruction Type:Provider Instructions for Treatment Patient Instructions Indication:Anxiety Start:05-May-2012 Instruction Type:Provider Instructions for Treatment Patient Instructions Indication:Sinusitis, acute Start:21-Apr-2012 Instruction Type:Provider Instructions for Treatment [facility]; [facility] Work Phone: Instructions* Name Dates Details Patient Instructions Indication:UTI symptoms Start:02-Sep-2022 Instruction Type:Provider Instructions for Treatment How to Access Health Informa tion Online using Patient Portal and [employer]rd [employer] Apps Indication:UTI symptoms Start:02-Sep-2022 Instruction Type:Patient Education Patient Instructions Indication:Smoker Start:09-Jan-2022 Instruction Type:Provider Instructions for Treatment How to Access Health Informa tion Online using Patient Portal and [employer]rd [employer] Apps Indication:Smoker Start:09-Jan-2022 Instruction Type:Patient Education How to Access Health Informa tion Online using Patient Portal and [employer]rd [employer] Apps Indication:Smoker Start:02-Oct-2020 Instruction Type:Patient Education Patient Instructions Indication:Smoker Start:02-Oct-2020 Instruction Type:Provider Instructions for Treatment Patient Instructions Indication:Smoker Start:16-Sep-2020 Instruction Type:Provider Instructions for Treatment How to Access Health Informa tion Online using Patient Portal and [employer]rd [employer] Apps Indication:Smoker Start:16-Sep-2020 Instruction Type:Patient Education Patient Instructions Indication:Smoker Start:24-May-2020 Instruction Type:Provider Instructions for Treatment How to Access Health Informa tion Online using Patient Portal and [employer]rd [employer] Apps Indication:Smoker Start:24-May-2020 Instruction Type:Patient Education How to access health informa tion online Indication:Smoker Start:27-Mar-2020 Instruction Type:Patient Education How to access health informa tion online - Detail Indication:Smoker Start:27-Mar-2020 Instruction Type:Patient Education Patient Instructions Indication:Smoker Start:27-Mar-2020 Instruction Type:Provider Instructions for Treatment How to access health informa tion online Indication:Smoker Start:22-Mar-2018 Instruction Type:Patient Education How to access health informa tion online - Detail Indication:Smoker Start:22-Mar-2018 Instruction Type:Patient Education Patient Instructions Indication:Smoker Start:22-Mar-2018 Instruction Type:Provider Instructions for Treatment How to access health informa tion online Indication:Hypercholesteremia Start:14-Sep-2017 Instruction Type:Patient Education How to access health informa tion online - Detail Indication:Hypercholesteremia Start:14-Sep-2017 Instruction Type:Patient Education Patient Instructions Indication:Hypercholesteremia Start:14-Sep-2017 Instruction Type:Provider Instructions for Treatment How to access health informa tion online Indication:BMI 25.0-25.9,adult Start:28-Jul-2017 Instruction Type:Patient Education How to access health informa tion online - Detail Indication:BMI 25.0-25.9,adult Start:28-Jul-2017 Instruction Type:Patient Education Patient Instructions Indication:BMI 25.0-25.9,adult Start:28-Jul-2017 Instruction Type:Provider Instructions for Treatment How to access health informa tion online Indication:Tobacco dependence Start:21-Jul-2017 Instruction Type:Patient Education How to access health informa tion online - Detail Indication:Tobacco dependence Start:21-Jul-2017 Instruction Type:Patient Education Patient Instructions Indication:Aneurysm Start:21-Jul-2017 Instruction Type:Provider Instructions for Treatment How to access health informa tion online Indication:Tobacco dependence Start:09-Jul-2016 Instruction Type:Patient Education How to access health informa tion online - Detail Indication:Tobacco dependence Start:09-Jul-2016 Instruction Type:Patient Education Patient Instructions Indication:Tobacco dependence Start:09-Jul-2016 Instruction Type:Provider Instructions for Treatment Patient Instructions Indication:Muscle spasm of back Start:14-Jun-2015 Instruction Type:Provider Instructions for Treatment Patient Instructions Indication:High triglycerides Start:08-Aug-2013 Instruction Type:Provider Instructions for Treatment Patient Instructions Indication:Panic Start:12-May-2012 Instruction Type:Provider Instructions for Treatment Patient Instructions Indication:Anxiety Start:05-May-2012 Instruction Type:Provider Instructions for Treatment Patient Instructions Indication:Sinusitis, acute Start:21-Apr-2012 Instruction Type:Provider Instructions for Treatment [facility]; [facility] Work Phone: Instructions* Name Dates Details Patient Instructions Indication:UTI symptoms Start:02-Sep-2022 Instruction Type:Provider Instructions for Treatment How to Access Health Informa tion Online using Patient Portal and [employer] Apps Indication:UTI symptoms Start:02-Sep-2022 Instruction Type:Patient Education Patient Instructions Indication:Smoker Start:09-Jan-2022 Instruction Type:Provider Instructions for Treatment How to Access Health Informa tion Online using Patient Portal and [employer]rd [employer] Apps Indication:Smoker Start:09-Jan-2022 Instruction Type:Patient Education How to Access Health Informa tion Online using Patient Portal and [employer]rd [employer] Apps Indication:Smoker Start:02-Oct-2020 Instruction Type:Patient Education Patient Instructions Indication:Smoker Start:02-Oct-2020 Instruction Type:Provider Instructions for Treatment Patient Instructions Indication:Smoker Start:16-Sep-2020 Instruction Type:Provider Instructions for Treatment How to Access Health Informa tion Online using Patient Portal and [employer]rd [employer] Apps Indication:Smoker Start:16-Sep-2020 Instruction Type:Patient Education Patient Instructions Indication:Smoker Start:24-May-2020 Instruction Type:Provider Instructions for Treatment How to Access Health Informa tion Online using Patient Portal and [employer]rd [employer] Apps Indication:Smoker Start:24-May-2020 Instruction Type:Patient Education How to access health informa tion online Indication:Smoker Start:27-Mar-2020 Instruction Type:Patient Education How to access health informa tion online - Detail Indication:Smoker Start:27-Mar-2020 Instruction Type:Patient Education Patient Instructions Indication:Smoker Start:27-Mar-2020 Instruction Type:Provider Instructions for Treatment How to access health informa tion online Indication:Smoker Start:22-Mar-2018 Instruction Type:Patient Education How to access health informa tion online - Detail Indication:Smoker Start:22-Mar-2018 Instruction Type:Patient Education Patient Instructions Indication:Smoker Start:22-Mar-2018 Instruction Type:Provider Instructions for Treatment How to access health informa tion online Indication:Hypercholesteremia Start:14-Sep-2017 Instruction Type:Patient Education How to access health informa tion online - Detail Indication:Hypercholesteremia Start:14-Sep-2017 Instruction Type:Patient Education Patient Instructions Indication:Hypercholesteremia Start:14-Sep-2017 Instruction Type:Provider Instructions for Treatment How to access health informa tion online Indication:BMI 25.0-25.9,adult Start:28-Jul-2017 Instruction Type:Patient Education How to access health informa tion online - Detail Indication:BMI 25.0-25.9,adult Start:28-Jul-2017 Instruction Type:Patient Education Patient Instructions Indication:BMI 25.0-25.9,adult Start:28-Jul-2017 Instruction Type:Provider Instructions for Treatment How to access health informa tion online Indication:Tobacco dependence Start:21-Jul-2017 Instruction Type:Patient Education How to access health informa tion online - Detail Indication:Tobacco dependence Start:21-Jul-2017 Instruction Type:Patient Education Patient Instructions Indication:Aneurysm Start:21-Jul-2017 Instruction Type:Provider Instructions for Treatment How to access health informa tion online Indication:Tobacco dependence Start:09-Jul-2016 Instruction Type:Patient Education How to access health informa tion online - Detail Indication:Tobacco dependence Start:09-Jul-2016 Instruction Type:Patient Education Patient Instructions Indication:Tobacco dependence Start:09-Jul-2016 Instruction Type:Provider Instructions for Treatment Patient Instructions Indication:Muscle spasm of back Start:14-Jun-2015 Instruction Type:Provider Instructions for Treatment Patient Instructions Indication:High triglycerides Start:08-Aug-2013 Instruction Type:Provider Instructions for Treatment Patient Instructions Indication:Panic Start:12-May-2012 Instruction Type:Provider Instructions for Treatment Patient Instructions Indication:Anxiety Start:05-May-2012 Instruction Type:Provider Instructions for Treatment Patient Instructions Indication:Sinusitis, acute Start:21-Apr-2012 Instruction Type:Provider Instructions for Treatment [facility]; [facility] Work Phone: Instructions* Name Dates Details Patient Instructions Indication:UTI symptoms Start:02-Sep-2022 Instruction Type:Provider Instructions for Treatment How to Access Health Informa tion Online using Patient Portal and [employer]rd [employer] Apps Indication:UTI symptoms Start:02-Sep-2022 Instruction Type:Patient Education Patient Instructions Indication:Smoker Start:09-Jan-2022 Instruction Type:Provider Instructions for Treatment How to Access Health Informa tion Online using Patient Portal and [employer]rd [employer] Apps Indication:Smoker Start:09-Jan-2022 Instruction Type:Patient Education How to Access Health Informa tion Online using Patient Portal and [employer]rd [employer] Apps Indication:Smoker Start:02-Oct-2020 Instruction Type:Patient Education Patient Instructions Indication:Smoker Start:02-Oct-2020 Instruction Type:Provider Instructions for Treatment Patient Instructions Indication:Smoker Start:16-Sep-2020 Instruction Type:Provider Instructions for Treatment How to Access Health Informa tion Online using Patient Portal and [employer]rd [employer] Apps Indication:Smoker Start:16-Sep-2020 Instruction Type:Patient Education Patient Instructions Indication:Smoker Start:24-May-2020 Instruction Type:Provider Instructions for Treatment How to Access Health Informa tion Online using Patient Portal and [employer]rd [employer] Apps Indication:Smoker Start:24-May-2020 Instruction Type:Patient Education How to access health informa tion online Indication:Smoker Start:27-Mar-2020 Instruction Type:Patient Education How to access health informa tion online - Detail Indication:Smoker Start:27-Mar-2020 Instruction Type:Patient Education Patient Instructions Indication:Smoker Start:27-Mar-2020 Instruction Type:Provider Instructions for Treatment How to access health informa tion online Indication:Smoker Start:22-Mar-2018 Instruction Type:Patient Education How to access health informa tion online - Detail Indication:Smoker Start:22-Mar-2018 Instruction Type:Patient Education Patient Instructions Indication:Smoker Start:22-Mar-2018 Instruction Type:Provider Instructions for Treatment How to access health informa tion online Indication:Hypercholesteremia Start:14-Sep-2017 Instruction Type:Patient Education How to access health informa tion online - Detail Indication:Hypercholesteremia Start:14-Sep-2017 Instruction Type:Patient Education Patient Instructions Indication:Hypercholesteremia Start:14-Sep-2017 Instruction Type:Provider Instructions for Treatment How to access health informa tion online Indication:BMI 25.0-25.9,adult Start:28-Jul-2017 Instruction Type:Patient Education How to access health informa tion online - Detail Indication:BMI 25.0-25.9,adult Start:28-Jul-2017 Instruction Type:Patient Education Patient Instructions Indication:BMI 25.0-25.9,adult Start:28-Jul-2017 Instruction Type:Provider Instructions for Treatment How to access health informa tion online Indication:Tobacco dependence Start:21-Jul-2017 Instruction Type:Patient Education How to access health informa tion online - Detail Indication:Tobacco dependence Start:21-Jul-2017 Instruction Type:Patient Education Patient Instructions Indication:Aneurysm Start:21-Jul-2017 Instruction Type:Provider Instructions for Treatment How to access health informa tion online Indication:Tobacco dependence Start:09-Jul-2016 Instruction Type:Patient Education How to access health informa tion online - Detail Indication:Tobacco dependence Start:09-Jul-2016 Instruction Type:Patient Education Patient Instructions Indication:Tobacco dependence Start:09-Jul-2016 Instruction Type:Provider Instructions for Treatment Patient Instructions Indication:Muscle spasm of back Start:14-Jun-2015 Instruction Type:Provider Instructions for Treatment Patient Instructions Indication:High triglycerides Start:08-Aug-2013 Instruction Type:Provider Instructions for Treatment Patient Instructions Indication:Panic Start:12-May-2012 Instruction Type:Provider Instructions for Treatment Patient Instructions Indication:Anxiety Start:05-May-2012 Instruction Type:Provider Instructions for Treatment Patient Instructions Indication:Sinusitis, acute Start:21-Apr-2012 Instruction Type:Provider Instructions for Treatment [facility]; [facility] Work Phone: Instructions* Name Dates Details Patient Instructions Indication:UTI symptoms Start:02-Sep-2022 Instruction Type:Provider Instructions for Treatment How to Access Health Informa tion Online using Patient Portal and [employer]rd [employer] Apps Indication:UTI symptoms Start:02-Sep-2022 Instruction Type:Patient Education Patient Instructions Indication:Smoker Start:09-Jan-2022 Instruction Type:Provider Instructions for Treatment How to Access Health Informa tion Online using Patient Portal and [employer] Apps Indication:Smoker Start:09-Jan-2022 Instruction Type:Patient Education How to Access Health Informa tion Online using Patient Portal and [employer] Apps Indication:Smoker Start:02-Oct-2020 Instruction Type:Patient Education Patient Instructions Indication:Smoker Start:02-Oct-2020 Instruction Type:Provider Instructions for Treatment Patient Instructions Indication:Smoker Start:16-Sep-2020 Instruction Type:Provider Instructions for Treatment How to Access Health Informa tion Online using Patient Portal and [employer] Apps Indication:Smoker Start:16-Sep-2020 Instruction Type:Patient Education Patient Instructions Indication:Smoker Start:24-May-2020 Instruction Type:Provider Instructions for Treatment How to Access Health Informa tion Online using Patient Portal and [employer] Apps Indication:Smoker Start:24-May-2020 Instruction Type:Patient Education How to access health informa tion online Indication:Smoker Start:27-Mar-2020 Instruction Type:Patient Education How to access health informa tion online - Detail Indication:Smoker Start:27-Mar-2020 Instruction Type:Patient Education Patient Instructions Indication:Smoker Start:27-Mar-2020 Instruction Type:Provider Instructions for Treatment How to access health informa tion online Indication:Smoker Start:22-Mar-2018 Instruction Type:Patient Education How to access health informa tion online - Detail Indication:Smoker Start:22-Mar-2018 Instruction Type:Patient Education Patient Instructions Indication:Smoker Start:22-Mar-2018 Instruction Type:Provider Instructions for Treatment How to access health informa tion online Indication:Hypercholesteremia Start:14-Sep-2017 Instruction Type:Patient Education How to access health informa tion online - Detail Indication:Hypercholesteremia Start:14-Sep-2017 Instruction Type:Patient Education Patient Instructions Indication:Hypercholesteremia Start:14-Sep-2017 Instruction Type:Provider Instructions for Treatment How to access health informa tion online Indication:BMI 25.0-25.9,adult Start:28-Jul-2017 Instruction Type:Patient Education How to access health informa tion online - Detail Indication:BMI 25.0-25.9,adult Start:28-Jul-2017 Instruction Type:Patient Education Patient Instructions Indication:BMI 25.0-25.9,adult Start:28-Jul-2017 Instruction Type:Provider Instructions for Treatment How to access health informa tion online Indication:Tobacco dependence Start:21-Jul-2017 Instruction Type:Patient Education How to access health informa tion online - Detail Indication:Tobacco dependence Start:21-Jul-2017 Instruction Type:Patient Education Patient Instructions Indication:Aneurysm Start:21-Jul-2017 Instruction Type:Provider Instructions for Treatment How to access health informa tion online Indication:Tobacco dependence Start:09-Jul-2016 Instruction Type:Patient Education How to access health informa tion online - Detail Indication:Tobacco dependence Start:09-Jul-2016 Instruction Type:Patient Education Patient Instructions Indication:Tobacco dependence Start:09-Jul-2016 Instruction Type:Provider Instructions for Treatment Patient Instructions Indication:Muscle spasm of back Start:14-Jun-2015 Instruction Type:Provider Instructions for Treatment Patient Instructions Indication:High triglycerides Start:08-Aug-2013 Instruction Type:Provider Instructions for Treatment Patient Instructions Indication:Panic Start:12-May-2012 Instruction Type:Provider Instructions for Treatment Patient Instructions Indication:Anxiety Start:05-May-2012 Instruction Type:Provider Instructions for Treatment Patient Instructions Indication:Sinusitis, acute Start:21-Apr-2012 Instruction Type:Provider Instructions for Treatment [facility] Work Phone: reason for referral (narrative)* Outpatient Procedure (Routine) - Pending Review Specialty Diagnoses / Procedures Referred By Contac t Referred To [facility] Diagnoses Stage 3 severe COPD by GOLD classification (HCC) Procedures LUNG DIFFUSION CAPACITY (DLCO) DIFFUSING CAPACITY Colleen Wolfe MD [address] [place] [address] [id number] [place] [address] Referral ID Status Reason Start Date Expiration Date Visits Requested Visits Authorized [id number] Pending Review Auto-Generat ed Referral 10/30/2022 11/29/2023 1 1 * Outpatient Procedure (Routine) - Pending Review Specialty Diagnoses / Procedures Referred By Contac t Referred To [facility] Diagnoses Stage 3 severe COPD by GOLD classification ([facility]) Procedures LUNG DIFFUSION CAPACITY (DLCO) DIFFUSING CAPACITY Colleen Wolfe MD [address] [place] [address] [id number] [place] [address] Referral ID Status Reason Start Date Expiration Date Visits Requested Visits Authorized [id number] Pending Review Auto-Generat ed Referral 10/30/2022 11/29/2023 1 1 * Outpatient Procedure (Routine) - Pending Review Specialty Diagnoses / Procedures Referred By Contac t Referred To [facility] Diagnoses Stage 3 severe COPD by GOLD classification ([facility]) Procedures SPIROMETRY WITH DILATOR IF OBSTRUCTED BRNCDILAT RSPSE SPMTRY PRE&POST-BRNCDILAT Colleen Tsai MD [address] [place] [address] [address] Referral ID Status Reason Start Date Expiration Date Visits Requested Visits Authorized [id number] Pending Review Auto-Generat ed Referral 10/30/2022 11/29/2023 1 1 [facility] Instructions Name Dates Details Smoker : How to access healt h information online Indication:Smoker Smoker : How to access healt h information online - Detail Indication:Smoker Smoker : Patient Instruction s Indication:Smoker Hypercholesteremia : How to access health information online Indication:Hypercholesteremia Hypercholesteremia : How to access health information online - Detail Indication:Hypercholesteremia Hypercholesteremia : Patient Instructions Indication:Hypercholesteremia BMI 25.0-25.9,adult : How to access health information online Indication:BMI 25.0-25.9,adult BMI 25.0-25.9,adult : How to access health information online - Detail Indication:BMI 25.0-25.9,adult BMI 25.0-25.9,adult : Patien t Instructions Indication:BMI 25.0-25.9,adult Tobacco dependence : How to access health information online Indication:Tobacco dependence Tobacco dependence : How to access health information online - Detail Indication:Tobacco dependence Aneurysm : Patient Instructi ons Indication:Aneurysm Tobacco dependence : Patient Instructions Indication:Tobacco dependence Muscle spasm of back : Patie nt Instructions Indication:Muscle spasm of back High triglycerides : Patient Instructions Indication:High triglycerides Panic : Patient Instructions Indication:Panic Anxiety : Patient Instructio ns Indication:Anxiety Sinusitis, acute : Patient I nstructions Indication:Sinusitis, acute Name Dates Details Smoker : How to access healt h information online Indication:Smoker Smoker : How to access healt h information online - Detail Indication:Smoker Smoker : Patient Instruction s Indication:Smoker Hypercholesteremia : How to access health information online Indication:Hypercholesteremia Hypercholesteremia : How to access health information online - Detail Indication:Hypercholesteremia Hypercholesteremia : Patient Instructions Indication:Hypercholesteremia BMI 25.0-25.9,adult : How to access health information online Indication:BMI 25.0-25.9,adult BMI 25.0-25.9,adult : How to access health information online - Detail Indication:BMI 25.0-25.9,adult BMI 25.0-25.9,adult : Patien t Instructions Indication:BMI 25.0-25.9,adult Tobacco dependence : How to access health information online Indication:Tobacco dependence Tobacco dependence : How to access health information online - Detail Indication:Tobacco dependence Aneurysm : Patient Instructi ons Indication:Aneurysm Tobacco dependence : Patient Instructions Indication:Tobacco dependence Muscle spasm of back : Patie nt Instructions Indication:Muscle spasm of back High triglycerides : Patient Instructions Indication:High triglycerides Panic : Patient Instructions Indication:Panic Anxiety : Patient Instructio ns Indication:Anxiety Sinusitis, acute : Patient I nstructions Indication:Sinusitis, acute Name Dates Details Smoker : How to access healt h information online Indication:Smoker Smoker : How to access healt h information online - Detail Indication:Smoker Smoker : Patient Instruction s Indication:Smoker Hypercholesteremia : How to access health information online Indication:Hypercholesteremia Hypercholesteremia : How to access health information online - Detail Indication:Hypercholesteremia Hypercholesteremia : Patient Instructions Indication:Hypercholesteremia BMI 25.0-25.9,adult : How to access health information online Indication:BMI 25.0-25.9,adult BMI 25.0-25.9,adult : How to access health information online - Detail Indication:BMI 25.0-25.9,adult BMI 25.0-25.9,adult : Patien t Instructions Indication:BMI 25.0-25.9,adult Tobacco dependence : How to access health information online Indication:Tobacco dependence Tobacco dependence : How to access health information online - Detail Indication:Tobacco dependence Aneurysm : Patient Instructi ons Indication:Aneurysm Tobacco dependence : Patient Instructions Indication:Tobacco dependence Muscle spasm of back : Patie nt Instructions Indication:Muscle spasm of back High triglycerides : Patient Instructions Indication:High triglycerides Panic : Patient Instructions Indication:Panic Anxiety : Patient Instructio ns Indication:Anxiety Sinusitis, acute : Patient I nstructions Indication:Sinusitis, acute Name Dates Details How to access health informa tion online Indication:Smoker Start:22-Mar-2018 Instruction Type:Patient Education How to access health informa tion online - Detail Indication:Smoker Start:22-Mar-2018 Instruction Type:Patient Education Patient Instructions Indication:Smoker Start:22-Mar-2018 Instruction Type:Provider Instructions for Treatment How to access health informa tion online Indication:Hypercholesteremia Start:14-Sep-2017 Instruction Type:Patient Education How to access health informa tion online - Detail Indication:Hypercholesteremia Start:14-Sep-2017 Instruction Type:Patient Education Patient Instructions Indication:Hypercholesteremia Start:14-Sep-2017 Instruction Type:Provider Instructions for Treatment How to access health informa tion online Indication:BMI 25.0-25.9,adult Start:28-Jul-2017 Instruction Type:Patient Education How to access health informa tion online - Detail Indication:BMI 25.0-25.9,adult Start:28-Jul-2017 Instruction Type:Patient Education Patient Instructions Indication:BMI 25.0-25.9,adult Start:28-Jul-2017 Instruction Type:Provider Instructions for Treatment How to access health informa tion online Indication:Tobacco dependence Start:21-Jul-2017 Instruction Type:Patient Education How to access health informa tion online - Detail Indication:Tobacco dependence Start:21-Jul-2017 Instruction Type:Patient Education Patient Instructions Indication:Aneurysm Start:21-Jul-2017 Instruction Type:Provider Instructions for Treatment How to access health informa tion online Indication:Tobacco dependence Start:09-Jul-2016 Instruction Type:Patient Education How to access health informa tion online - Detail Indication:Tobacco dependence Start:09-Jul-2016 Instruction Type:Patient Education Patient Instructions Indication:Tobacco dependence Start:09-Jul-2016 Instruction Type:Provider Instructions for Treatment Patient Instructions Indication:Muscle spasm of back Start:14-Jun-2015 Instruction Type:Provider Instructions for Treatment Patient Instructions Indication:High triglycerides Start:08-Aug-2013 Instruction Type:Provider Instructions for Treatment Patient Instructions Indication:Panic Start:12-May-2012 Instruction Type:Provider Instructions for Treatment Patient Instructions Indication:Anxiety Start:05-May-2012 Instruction Type:Provider Instructions for Treatment Patient Instructions Indication:Sinusitis, acute Start:21-Apr-2012 Instruction Type:Provider Instructions for Treatment Name Dates Details How to access health informa tion online Indication:Smoker Start:22-Mar-2018 Instruction Type:Patient Education How to access health informa tion online - Detail Indication:Smoker Start:22-Mar-2018 Instruction Type:Patient Education Patient Instructions Indication:Smoker Start:22-Mar-2018 Instruction Type:Provider Instructions for Treatment How to access health informa tion online Indication:Hypercholesteremia Start:14-Sep-2017 Instruction Type:Patient Education How to access health informa tion online - Detail Indication:Hypercholesteremia Start:14-Sep-2017 Instruction Type:Patient Education Patient Instructions Indication:Hypercholesteremia Start:14-Sep-2017 Instruction Type:Provider Instructions for Treatment How to access health informa tion online Indication:BMI 25.0-25.9,adult Start:28-Jul-2017 Instruction Type:Patient Education How to access health informa tion online - Detail Indication:BMI 25.0-25.9,adult Start:28-Jul-2017 Instruction Type:Patient Education Patient Instructions Indication:BMI 25.0-25.9,adult Start:28-Jul-2017 Instruction Type:Provider Instructions for Treatment How to access health informa tion online Indication:Tobacco dependence Start:21-Jul-2017 Instruction Type:Patient Education How to access health informa tion online - Detail Indication:Tobacco dependence Start:21-Jul-2017 Instruction Type:Patient Education Patient Instructions Indication:Aneurysm Start:21-Jul-2017 Instruction Type:Provider Instructions for Treatment How to access health informa tion online Indication:Tobacco dependence Start:09-Jul-2016 Instruction Type:Patient Education How to access health informa tion online - Detail Indication:Tobacco dependence Start:09-Jul-2016 Instruction Type:Patient Education Patient Instructions Indication:Tobacco dependence Start:09-Jul-2016 Instruction Type:Provider Instructions for Treatment Patient Instructions Indication:Muscle spasm of back Start:14-Jun-2015 Instruction Type:Provider Instructions for Treatment Patient Instructions Indication:High triglycerides Start:08-Aug-2013 Instruction Type:Provider Instructions for Treatment Patient Instructions Indication:Panic Start:12-May-2012 Instruction Type:Provider Instructions for Treatment Patient Instructions Indication:Anxiety Start:05-May-2012 Instruction Type:Provider Instructions for Treatment Patient Instructions Indication:Sinusitis, acute Start:21-Apr-2012 Instruction Type:Provider Instructions for Treatment Name Dates Details How to access health informa tion online Indication:Smoker Start:22-Mar-2018 Instruction Type:Patient Education How to access health informa tion online - Detail Indication:Smoker Start:22-Mar-2018 Instruction Type:Patient Education Patient Instructions Indication:Smoker Start:22-Mar-2018 Instruction Type:Provider Instructions for Treatment How to access health informa tion online Indication:Hypercholesteremia Start:14-Sep-2017 Instruction Type:Patient Education How to access health informa tion online - Detail Indication:Hypercholesteremia Start:14-Sep-2017 Instruction Type:Patient Education Patient Instructions Indication:Hypercholesteremia Start:14-Sep-2017 Instruction Type:Provider Instructions for Treatment How to access health informa tion online Indication:BMI 25.0-25.9,adult Start:28-Jul-2017 Instruction Type:Patient Education How to access health informa tion online - Detail Indication:BMI 25.0-25.9,adult Start:28-Jul-2017 Instruction Type:Patient Education Patient Instructions Indication:BMI 25.0-25.9,adult Start:28-Jul-2017 Instruction Type:Provider Instructions for Treatment How to access health informa tion online Indication:Tobacco dependence Start:21-Jul-2017 Instruction Type:Patient Education How to access health informa tion online - Detail Indication:Tobacco dependence Start:21-Jul-2017 Instruction Type:Patient Education Patient Instructions Indication:Aneurysm Start:21-Jul-2017 Instruction Type:Provider Instructions for Treatment How to access health informa tion online Indication:Tobacco dependence Start:09-Jul-2016 Instruction Type:Patient Education How to access health informa tion online - Detail Indication:Tobacco dependence Start:09-Jul-2016 Instruction Type:Patient Education Patient Instructions Indication:Tobacco dependence Start:09-Jul-2016 Instruction Type:Provider Instructions for Treatment Patient Instructions Indication:Muscle spasm of back Start:14-Jun-2015 Instruction Type:Provider Instructions for Treatment Patient Instructions Indication:High triglycerides Start:08-Aug-2013 Instruction Type:Provider Instructions for Treatment Patient Instructions Indication:Panic Start:12-May-2012 Instruction Type:Provider Instructions for Treatment Patient Instructions Indication:Anxiety Start:05-May-2012 Instruction Type:Provider Instructions for Treatment Patient Instructions Indication:Sinusitis, acute Start:21-Apr-2012 Instruction Type:Provider Instructions for Treatment Name Dates Details How to access health informa tion online Indication:Smoker Start:22-Mar-2018 Instruction Type:Patient Education How to access health informa tion online - Detail Indication:Smoker Start:22-Mar-2018 Instruction Type:Patient Education Patient Instructions Indication:Smoker Start:22-Mar-2018 Instruction Type:Provider Instructions for Treatment How to access health informa tion online Indication:Hypercholesteremia Start:14-Sep-2017 Instruction Type:Patient Education How to access health informa tion online - Detail Indication:Hypercholesteremia Start:14-Sep-2017 Instruction Type:Patient Education Patient Instructions Indication:Hypercholesteremia Start:14-Sep-2017 Instruction Type:Provider Instructions for Treatment How to access health informa tion online Indication:BMI 25.0-25.9,adult Start:28-Jul-2017 Instruction Type:Patient Education How to access health informa tion online - Detail Indication:BMI 25.0-25.9,adult Start:28-Jul-2017 Instruction Type:Patient Education Patient Instructions Indication:BMI 25.0-25.9,adult Start:28-Jul-2017 Instruction Type:Provider Instructions for Treatment How to access health informa tion online Indication:Tobacco dependence Start:21-Jul-2017 Instruction Type:Patient Education How to access health informa tion online - Detail Indication:Tobacco dependence Start:21-Jul-2017 Instruction Type:Patient Education Patient Instructions Indication:Aneurysm Start:21-Jul-2017 Instruction Type:Provider Instructions for Treatment How to access health informa tion online Indication:Tobacco dependence Start:09-Jul-2016 Instruction Type:Patient Education How to access health informa tion online - Detail Indication:Tobacco dependence Start:09-Jul-2016 Instruction Type:Patient Education Patient Instructions Indication:Tobacco dependence Start:09-Jul-2016 Instruction Type:Provider Instructions for Treatment Patient Instructions Indication:Muscle spasm of back Start:14-Jun-2015 Instruction Type:Provider Instructions for Treatment Patient Instructions Indication:High triglycerides Start:08-Aug-2013 Instruction Type:Provider Instructions for Treatment Patient Instructions Indication:Panic Start:12-May-2012 Instruction Type:Provider Instructions for Treatment Patient Instructions Indication:Anxiety Start:05-May-2012 Instruction Type:Provider Instructions for Treatment Patient Instructions Indication:Sinusitis, acute Start:21-Apr-2012 Instruction Type:Provider Instructions for Treatment Name Dates Details How to access health informa tion online Indication:Smoker Start:22-Mar-2018 Instruction Type:Patient Education How to access health informa tion online - Detail Indication:Smoker Start:22-Mar-2018 Instruction Type:Patient Education Patient Instructions Indication:Smoker Start:22-Mar-2018 Instruction Type:Provider Instructions for Treatment How to access health informa tion online Indication:Hypercholesteremia Start:14-Sep-2017 Instruction Type:Patient Education How to access health informa tion online - Detail Indication:Hypercholesteremia Start:14-Sep-2017 Instruction Type:Patient Education Patient Instructions Indication:Hypercholesteremia Start:14-Sep-2017 Instruction Type:Provider Instructions for Treatment How to access health informa tion online Indication:BMI 25.0-25.9,adult Start:28-Jul-2017 Instruction Type:Patient Education How to access health informa tion online - Detail Indication:BMI 25.0-25.9,adult Start:28-Jul-2017 Instruction Type:Patient Education Patient Instructions Indication:BMI 25.0-25.9,adult Start:28-Jul-2017 Instruction Type:Provider Instructions for Treatment How to access health informa tion online Indication:Tobacco dependence Start:21-Jul-2017 Instruction Type:Patient Education How to access health informa tion online - Detail Indication:Tobacco dependence Start:21-Jul-2017 Instruction Type:Patient Education Patient Instructions Indication:Aneurysm Start:21-Jul-2017 Instruction Type:Provider Instructions for Treatment How to access health informa tion online Indication:Tobacco dependence Start:09-Jul-2016 Instruction Type:Patient Education How to access health informa tion online - Detail Indication:Tobacco dependence Start:09-Jul-2016 Instruction Type:Patient Education Patient Instructions Indication:Tobacco dependence Start:09-Jul-2016 Instruction Type:Provider Instructions for Treatment Patient Instructions Indication:Muscle spasm of back Start:14-Jun-2015 Instruction Type:Provider Instructions for Treatment Patient Instructions Indication:High triglycerides Start:08-Aug-2013 Instruction Type:Provider Instructions for Treatment Patient Instructions Indication:Panic Start:12-May-2012 Instruction Type:Provider Instructions for Treatment Patient Instructions Indication:Anxiety Start:05-May-2012 Instruction Type:Provider Instructions for Treatment Patient Instructions Indication:Sinusitis, acute Start:21-Apr-2012 Instruction Type:Provider Instructions for Treatment Name Dates Details How to access health informa tion online Indication:Smoker Start:22-Mar-2018 Instruction Type:Patient Education How to access health informa tion online - Detail Indication:Smoker Start:22-Mar-2018 Instruction Type:Patient Education Patient Instructions Indication:Smoker Start:22-Mar-2018 Instruction Type:Provider Instructions for Treatment How to access health informa tion online Indication:Hypercholesteremia Start:14-Sep-2017 Instruction Type:Patient Education How to access health informa tion online - Detail Indication:Hypercholesteremia Start:14-Sep-2017 Instruction Type:Patient Education Patient Instructions Indication:Hypercholesteremia Start:14-Sep-2017 Instruction Type:Provider Instructions for Treatment How to access health informa tion online Indication:BMI 25.0-25.9,adult Start:28-Jul-2017 Instruction Type:Patient Education How to access health informa tion online - Detail Indication:BMI 25.0-25.9,adult Start:28-Jul-2017 Instruction Type:Patient Education Patient Instructions Indication:BMI 25.0-25.9,adult Start:28-Jul-2017 Instruction Type:Provider Instructions for Treatment How to access health informa tion online Indication:Tobacco dependence Start:21-Jul-2017 Instruction Type:Patient Education How to access health informa tion online - Detail Indication:Tobacco dependence Start:21-Jul-2017 Instruction Type:Patient Education Patient Instructions Indication:Aneurysm Start:21-Jul-2017 Instruction Type:Provider Instructions for Treatment How to access health informa tion online Indication:Tobacco dependence Start:09-Jul-2016 Instruction Type:Patient Education How to access health informa tion online - Detail Indication:Tobacco dependence Start:09-Jul-2016 Instruction Type:Patient Education Patient Instructions Indication:Tobacco dependence Start:09-Jul-2016 Instruction Type:Provider Instructions for Treatment Patient Instructions Indication:Muscle spasm of back Start:14-Jun-2015 Instruction Type:Provider Instructions for Treatment Patient Instructions Indication:High triglycerides Start:08-Aug-2013 Instruction Type:Provider Instructions for Treatment Patient Instructions Indication:Panic Start:12-May-2012 Instruction Type:Provider Instructions for Treatment Patient Instructions Indication:Anxiety Start:05-May-2012 Instruction Type:Provider Instructions for Treatment Patient Instructions Indication:Sinusitis, acute Start:21-Apr-2012 Instruction Type:Provider Instructions for Treatment Name Dates Details How to access health informa tion online Indication:Smoker Start:22-Mar-2018 Instruction Type:Patient Education How to access health informa tion online - Detail Indication:Smoker Start:22-Mar-2018 Instruction Type:Patient Education Patient Instructions Indication:Smoker Start:22-Mar-2018 Instruction Type:Provider Instructions for Treatment How to access health informa tion online Indication:Hypercholesteremia Start:14-Sep-2017 Instruction Type:Patient Education How to access health informa tion online - Detail Indication:Hypercholesteremia Start:14-Sep-2017 Instruction Type:Patient Education Patient Instructions Indication:Hypercholesteremia Start:14-Sep-2017 Instruction Type:Provider Instructions for Treatment How to access health informa tion online Indication:BMI 25.0-25.9,adult Start:28-Jul-2017 Instruction Type:Patient Education How to access health informa tion online - Detail Indication:BMI 25.0-25.9,adult Start:28-Jul-2017 Instruction Type:Patient Education Patient Instructions Indication:BMI 25.0-25.9,adult Start:28-Jul-2017 Instruction Type:Provider Instructions for Treatment How to access health informa tion online Indication:Tobacco dependence Start:21-Jul-2017 Instruction Type:Patient Education How to access health informa tion online - Detail Indication:Tobacco dependence Start:21-Jul-2017 Instruction Type:Patient Education Patient Instructions Indication:Aneurysm Start:21-Jul-2017 Instruction Type:Provider Instructions for Treatment How to access health informa tion online Indication:Tobacco dependence Start:09-Jul-2016 Instruction Type:Patient Education How to access health informa tion online - Detail Indication:Tobacco dependence Start:09-Jul-2016 Instruction Type:Patient Education Patient Instructions Indication:Tobacco dependence Start:09-Jul-2016 Instruction Type:Provider Instructions for Treatment Patient Instructions Indication:Muscle spasm of back Start:14-Jun-2015 Instruction Type:Provider Instructions for Treatment Patient Instructions Indication:High triglycerides Start:08-Aug-2013 Instruction Type:Provider Instructions for Treatment Patient Instructions Indication:Panic Start:12-May-2012 Instruction Type:Provider Instructions for Treatment Patient Instructions Indication:Anxiety Start:05-May-2012 Instruction Type:Provider Instructions for Treatment Patient Instructions Indication:Sinusitis, acute Start:21-Apr-2012 Instruction Type:Provider Instructions for Treatment Name Dates Details How to access health informa tion online Indication:Smoker Start:22-Mar-2018 Instruction Type:Patient Education How to access health informa tion online - Detail Indication:Smoker Start:22-Mar-2018 Instruction Type:Patient Education Patient Instructions Indication:Smoker Start:22-Mar-2018 Instruction Type:Provider Instructions for Treatment How to access health informa tion online Indication:Hypercholesteremia Start:14-Sep-2017 Instruction Type:Patient Education How to access health informa tion online - Detail Indication:Hypercholesteremia Start:14-Sep-2017 Instruction Type:Patient Education Patient Instructions Indication:Hypercholesteremia Start:14-Sep-2017 Instruction Type:Provider Instructions for Treatment How to access health informa tion online Indication:BMI 25.0-25.9,adult Start:28-Jul-2017 Instruction Type:Patient Education How to access health informa tion online - Detail Indication:BMI 25.0-25.9,adult Start:28-Jul-2017 Instruction Type:Patient Education Patient Instructions Indication:BMI 25.0-25.9,adult Start:28-Jul-2017 Instruction Type:Provider Instructions for Treatment How to access health informa tion online Indication:Tobacco dependence Start:21-Jul-2017 Instruction Type:Patient Education How to access health informa tion online - Detail Indication:Tobacco dependence Start:21-Jul-2017 Instruction Type:Patient Education Patient Instructions Indication:Aneurysm Start:21-Jul-2017 Instruction Type:Provider Instructions for Treatment How to access health informa tion online Indication:Tobacco dependence Start:09-Jul-2016 Instruction Type:Patient Education How to access health informa tion online - Detail Indication:Tobacco dependence Start:09-Jul-2016 Instruction Type:Patient Education Patient Instructions Indication:Tobacco dependence Start:09-Jul-2016 Instruction Type:Provider Instructions for Treatment Patient Instructions Indication:Muscle spasm of back Start:14-Jun-2015 Instruction Type:Provider Instructions for Treatment Patient Instructions Indication:High triglycerides Start:08-Aug-2013 Instruction Type:Provider Instructions for Treatment Patient Instructions Indication:Panic Start:12-May-2012 Instruction Type:Provider Instructions for Treatment Patient Instructions Indication:Anxiety Start:05-May-2012 Instruction Type:Provider Instructions for Treatment Patient Instructions Indication:Sinusitis, acute Start:21-Apr-2012 Instruction Type:Provider Instructions for Treatment Name Dates Details How to access health informa tion online Indication:Smoker Start:27-Mar-2020 Instruction Type:Patient Education How to access health informa tion online - Detail Indication:Smoker Start:27-Mar-2020 Instruction Type:Patient Education Patient Instructions Indication:Smoker Start:27-Mar-2020 Instruction Type:Provider Instructions for Treatment How to access health informa tion online Indication:Smoker Start:22-Mar-2018 Instruction Type:Patient Education How to access health informa tion online - Detail Indication:Smoker Start:22-Mar-2018 Instruction Type:Patient Education Patient Instructions Indication:Smoker Start:22-Mar-2018 Instruction Type:Provider Instructions for Treatment How to access health informa tion online Indication:Hypercholesteremia Start:14-Sep-2017 Instruction Type:Patient Education How to access health informa tion online - Detail Indication:Hypercholesteremia Start:14-Sep-2017 Instruction Type:Patient Education Patient Instructions Indication:Hypercholesteremia Start:14-Sep-2017 Instruction Type:Provider Instructions for Treatment How to access health informa tion online Indication:BMI 25.0-25.9,adult Start:28-Jul-2017 Instruction Type:Patient Education How to access health informa tion online - Detail Indication:BMI 25.0-25.9,adult Start:28-Jul-2017 Instruction Type:Patient Education Patient Instructions Indication:BMI 25.0-25.9,adult Start:28-Jul-2017 Instruction Type:Provider Instructions for Treatment How to access health informa tion online Indication:Tobacco dependence Start:21-Jul-2017 Instruction Type:Patient Education How to access health informa tion online - Detail Indication:Tobacco dependence Start:21-Jul-2017 Instruction Type:Patient Education Patient Instructions Indication:Aneurysm Start:21-Jul-2017 Instruction Type:Provider Instructions for Treatment How to access health informa tion online Indication:Tobacco dependence Start:09-Jul-2016 Instruction Type:Patient Education How to access health informa tion online - Detail Indication:Tobacco dependence Start:09-Jul-2016 Instruction Type:Patient Education Patient Instructions Indication:Tobacco dependence Start:09-Jul-2016 Instruction Type:Provider Instructions for Treatment Patient Instructions Indication:Muscle spasm of back Start:14-Jun-2015 Instruction Type:Provider Instructions for Treatment Patient Instructions Indication:High triglycerides Start:08-Aug-2013 Instruction Type:Provider Instructions for Treatment Patient Instructions Indication:Panic Start:12-May-2012 Instruction Type:Provider Instructions for Treatment Patient Instructions Indication:Anxiety Start:05-May-2012 Instruction Type:Provider Instructions for Treatment Patient Instructions Indication:Sinusitis, acute Start:21-Apr-2012 Instruction Type:Provider Instructions for Treatment Name Dates Details How to access health informa tion online Indication:Smoker Start:27-Mar-2020 Instruction Type:Patient Education How to access health informa tion online - Detail Indication:Smoker Start:27-Mar-2020 Instruction Type:Patient Education Patient Instructions Indication:Smoker Start:27-Mar-2020 Instruction Type:Provider Instructions for Treatment How to access health informa tion online Indication:Smoker Start:22-Mar-2018 Instruction Type:Patient Education How to access health informa tion online - Detail Indication:Smoker Start:22-Mar-2018 Instruction Type:Patient Education Patient Instructions Indication:Smoker Start:22-Mar-2018 Instruction Type:Provider Instructions for Treatment How to access health informa tion online Indication:Hypercholesteremia Start:14-Sep-2017 Instruction Type:Patient Education How to access health informa tion online - Detail Indication:Hypercholesteremia Start:14-Sep-2017 Instruction Type:Patient Education Patient Instructions Indication:Hypercholesteremia Start:14-Sep-2017 Instruction Type:Provider Instructions for Treatment How to access health informa tion online Indication:BMI 25.0-25.9,adult Start:28-Jul-2017 Instruction Type:Patient Education How to access health informa tion online - Detail Indication:BMI 25.0-25.9,adult Start:28-Jul-2017 Instruction Type:Patient Education Patient Instructions Indication:BMI 25.0-25.9,adult Start:28-Jul-2017 Instruction Type:Provider Instructions for Treatment How to access health informa tion online Indication:Tobacco dependence Start:21-Jul-2017 Instruction Type:Patient Education How to access health informa tion online - Detail Indication:Tobacco dependence Start:21-Jul-2017 Instruction Type:Patient Education Patient Instructions Indication:Aneurysm Start:21-Jul-2017 Instruction Type:Provider Instructions for Treatment How to access health informa tion online Indication:Tobacco dependence Start:09-Jul-2016 Instruction Type:Patient Education How to access health informa tion online - Detail Indication:Tobacco dependence Start:09-Jul-2016 Instruction Type:Patient Education Patient Instructions Indication:Tobacco dependence Start:09-Jul-2016 Instruction Type:Provider Instructions for Treatment Patient Instructions Indication:Muscle spasm of back Start:14-Jun-2015 Instruction Type:Provider Instructions for Treatment Patient Instructions Indication:High triglycerides Start:08-Aug-2013 Instruction Type:Provider Instructions for Treatment Patient Instructions Indication:Panic Start:12-May-2012 Instruction Type:Provider Instructions for Treatment Patient Instructions Indication:Anxiety Start:05-May-2012 Instruction Type:Provider Instructions for Treatment Patient Instructions Indication:Sinusitis, acute Start:21-Apr-2012 Instruction Type:Provider Instructions for Treatment Name Dates Details Patient Instructions Indication:Smoker Start:24-May-2020 Instruction Type:Provider Instructions for Treatment How to Access Health Informa tion Online using Patient Portal and [employer]rd [employer] Apps Indication:Smoker Start:24-May-2020 Instruction Type:Patient Education How to access health informa tion online Indication:Smoker Start:27-Mar-2020 Instruction Type:Patient Education How to access health informa tion online - Detail Indication:Smoker Start:27-Mar-2020 Instruction Type:Patient Education Patient Instructions Indication:Smoker Start:27-Mar-2020 Instruction Type:Provider Instructions for Treatment How to access health informa tion online Indication:Smoker Start:22-Mar-2018 Instruction Type:Patient Education How to access health informa tion online - Detail Indication:Smoker Start:22-Mar-2018 Instruction Type:Patient Education Patient Instructions Indication:Smoker Start:22-Mar-2018 Instruction Type:Provider Instructions for Treatment How to access health informa tion online Indication:Hypercholesteremia Start:14-Sep-2017 Instruction Type:Patient Education How to access health informa tion online - Detail Indication:Hypercholesteremia Start:14-Sep-2017 Instruction Type:Patient Education Patient Instructions Indication:Hypercholesteremia Start:14-Sep-2017 Instruction Type:Provider Instructions for Treatment How to access health informa tion online Indication:BMI 25.0-25.9,adult Start:28-Jul-2017 Instruction Type:Patient Education How to access health informa tion online - Detail Indication:BMI 25.0-25.9,adult Start:28-Jul-2017 Instruction Type:Patient Education Patient Instructions Indication:BMI 25.0-25.9,adult Start:28-Jul-2017 Instruction Type:Provider Instructions for Treatment How to access health informa tion online Indication:Tobacco dependence Start:21-Jul-2017 Instruction Type:Patient Education How to access health informa tion online - Detail Indication:Tobacco dependence Start:21-Jul-2017 Instruction Type:Patient Education Patient Instructions Indication:Aneurysm Start:21-Jul-2017 Instruction Type:Provider Instructions for Treatment How to access health informa tion online Indication:Tobacco dependence Start:09-Jul-2016 Instruction Type:Patient Education How to access health informa tion online - Detail Indication:Tobacco dependence Start:09-Jul-2016 Instruction Type:Patient Education Patient Instructions Indication:Tobacco dependence Start:09-Jul-2016 Instruction Type:Provider Instructions for Treatment Patient Instructions Indication:Muscle spasm of back Start:14-Jun-2015 Instruction Type:Provider Instructions for Treatment Patient Instructions Indication:High triglycerides Start:08-Aug-2013 Instruction Type:Provider Instructions for Treatment Patient Instructions Indication:Panic Start:12-May-2012 Instruction Type:Provider Instructions for Treatment Patient Instructions Indication:Anxiety Start:05-May-2012 Instruction Type:Provider Instructions for Treatment Patient Instructions Indication:Sinusitis, acute Start:21-Apr-2012 Instruction Type:Provider Instructions for Treatment Name Dates Details How to access health informa tion online Indication:Smoker Start:22-Mar-2018 Instruction Type:Patient Education How to access health informa tion online - Detail Indication:Smoker Start:22-Mar-2018 Instruction Type:Patient Education Patient Instructions Indication:Smoker Start:22-Mar-2018 Instruction Type:Provider Instructions for Treatment How to access health informa tion online Indication:Hypercholesteremia Start:14-Sep-2017 Instruction Type:Patient Education How to access health informa tion online - Detail Indication:Hypercholesteremia Start:14-Sep-2017 Instruction Type:Patient Education Patient Instructions Indication:Hypercholesteremia Start:14-Sep-2017 Instruction Type:Provider Instructions for Treatment How to access health informa tion online Indication:BMI 25.0-25.9,adult Start:28-Jul-2017 Instruction Type:Patient Education How to access health informa tion online - Detail Indication:BMI 25.0-25.9,adult Start:28-Jul-2017 Instruction Type:Patient Education Patient Instructions Indication:BMI 25.0-25.9,adult Start:28-Jul-2017 Instruction Type:Provider Instructions for Treatment How to access health informa tion online Indication:Tobacco dependence Start:21-Jul-2017 Instruction Type:Patient Education How to access health informa tion online - Detail Indication:Tobacco dependence Start:21-Jul-2017 Instruction Type:Patient Education Patient Instructions Indication:Aneurysm Start:21-Jul-2017 Instruction Type:Provider Instructions for Treatment How to access health informa tion online Indication:Tobacco dependence Start:09-Jul-2016 Instruction Type:Patient Education How to access health informa tion online - Detail Indication:Tobacco dependence Start:09-Jul-2016 Instruction Type:Patient Education Patient Instructions Indication:Tobacco dependence Start:09-Jul-2016 Instruction Type:Provider Instructions for Treatment Patient Instructions Indication:Muscle spasm of back Start:14-Jun-2015 Instruction Type:Provider Instructions for Treatment Patient Instructions Indication:High triglycerides Start:08-Aug-2013 Instruction Type:Provider Instructions for Treatment Patient Instructions Indication:Panic Start:12-May-2012 Instruction Type:Provider Instructions for Treatment Patient Instructions Indication:Anxiety Start:05-May-2012 Instruction Type:Provider Instructions for Treatment Patient Instructions Indication:Sinusitis, acute Start:21-Apr-2012 Instruction Type:Provider Instructions for Treatment Name Dates Details How to access health informa tion online Indication:Smoker Start:22-Mar-2018 Instruction Type:Patient Education How to access health informa tion online - Detail Indication:Smoker Start:22-Mar-2018 Instruction Type:Patient Education Patient Instructions Indication:Smoker Start:22-Mar-2018 Instruction Type:Provider Instructions for Treatment How to access health informa tion online Indication:Hypercholesteremia Start:14-Sep-2017 Instruction Type:Patient Education How to access health informa tion online - Detail Indication:Hypercholesteremia Start:14-Sep-2017 Instruction Type:Patient Education Patient Instructions Indication:Hypercholesteremia Start:14-Sep-2017 Instruction Type:Provider Instructions for Treatment How to access health informa tion online Indication:BMI 25.0-25.9,adult Start:28-Jul-2017 Instruction Type:Patient Education How to access health informa tion online - Detail Indication:BMI 25.0-25.9,adult Start:28-Jul-2017 Instruction Type:Patient Education Patient Instructions Indication:BMI 25.0-25.9,adult Start:28-Jul-2017 Instruction Type:Provider Instructions for Treatment How to access health informa tion online Indication:Tobacco dependence Start:21-Jul-2017 Instruction Type:Patient Education How to access health informa tion online - Detail Indication:Tobacco dependence Start:21-Jul-2017 Instruction Type:Patient Education Patient Instructions Indication:Aneurysm Start:21-Jul-2017 Instruction Type:Provider Instructions for Treatment How to access health informa tion online Indication:Tobacco dependence Start:09-Jul-2016 Instruction Type:Patient Education How to access health informa tion online - Detail Indication:Tobacco dependence Start:09-Jul-2016 Instruction Type:Patient Education Patient Instructions Indication:Tobacco dependence Start:09-Jul-2016 Instruction Type:Provider Instructions for Treatment Patient Instructions Indication:Muscle spasm of back Start:14-Jun-2015 Instruction Type:Provider Instructions for Treatment Patient Instructions Indication:High triglycerides Start:08-Aug-2013 Instruction Type:Provider Instructions for Treatment Patient Instructions Indication:Panic Start:12-May-2012 Instruction Type:Provider Instructions for Treatment Patient Instructions Indication:Anxiety Start:05-May-2012 Instruction Type:Provider Instructions for Treatment Patient Instructions Indication:Sinusitis, acute Start:21-Apr-2012 Instruction Type:Provider Instructions for Treatment Name Dates Details How to access health informa tion online Indication:Smoker Start:22-Mar-2018 Instruction Type:Patient Education How to access health informa tion online - Detail Indication:Smoker Start:22-Mar-2018 Instruction Type:Patient Education Patient Instructions Indication:Smoker Start:22-Mar-2018 Instruction Type:Provider Instructions for Treatment How to access health informa tion online Indication:Hypercholesteremia Start:14-Sep-2017 Instruction Type:Patient Education How to access health informa tion online - Detail Indication:Hypercholesteremia Start:14-Sep-2017 Instruction Type:Patient Education Patient Instructions Indication:Hypercholesteremia Start:14-Sep-2017 Instruction Type:Provider Instructions for Treatment How to access health informa tion online Indication:BMI 25.0-25.9,adult Start:28-Jul-2017 Instruction Type:Patient Education How to access health informa tion online - Detail Indication:BMI 25.0-25.9,adult Start:28-Jul-2017 Instruction Type:Patient Education Patient Instructions Indication:BMI 25.0-25.9,adult Start:28-Jul-2017 Instruction Type:Provider Instructions for Treatment How to access health informa tion online Indication:Tobacco dependence Start:21-Jul-2017 Instruction Type:Patient Education How to access health informa tion online - Detail Indication:Tobacco dependence Start:21-Jul-2017 Instruction Type:Patient Education Patient Instructions Indication:Aneurysm Start:21-Jul-2017 Instruction Type:Provider Instructions for Treatment How to access health informa tion online Indication:Tobacco dependence Start:09-Jul-2016 Instruction Type:Patient Education How to access health informa tion online - Detail Indication:Tobacco dependence Start:09-Jul-2016 Instruction Type:Patient Education Patient Instructions Indication:Tobacco dependence Start:09-Jul-2016 Instruction Type:Provider Instructions for Treatment Patient Instructions Indication:Muscle spasm of back Start:14-Jun-2015 Instruction Type:Provider Instructions for Treatment Patient Instructions Indication:High triglycerides Start:08-Aug-2013 Instruction Type:Provider Instructions for Treatment Patient Instructions Indication:Panic Start:12-May-2012 Instruction Type:Provider Instructions for Treatment Patient Instructions Indication:Anxiety Start:05-May-2012 Instruction Type:Provider Instructions for Treatment Patient Instructions Indication:Sinusitis, acute Start:21-Apr-2012 Instruction Type:Provider Instructions for Treatment Advance Directives Name Dates Details Immunization Registry [facility] - Effective on 09/16/2020. Expiration date unspecified Effective:16-Sep-2020 Name Dates Details Immunization Registry [facility] - Effective on 09/16/2020. Expiration date unspecified Effective:16-Sep-2020 Name Dates Details Immunization Registry [facility] - Effective on 09/16/2020. Expiration date unspecified Effective:16-Sep-2020 Name Dates Details Immunization Registry [facility] - Effective on 09/16/2020. Expiration date unspecified Effective:16-Sep-2020 Name Dates Details Immunization Registry [facility] - Effective on 09/16/2020. Expiration date unspecified Effective:16-Sep-2020 Name Dates Details Immunization Registry [facility] - Effective on 09/16/2020. Expiration date unspecified Effective:16-Sep-2020 Name Dates Details Immunization Registry [facility] - Effective on 09/16/2020. Expiration date unspecified Effective:16-Sep-2020 Name Dates Details Immunization Registry [facility] - Effective on 09/16/2020. Expiration date unspecified Effective:16-Sep-2020 Name Dates Details Immunization Registry [facility] - Effective on 09/16/2020. Expiration date unspecified Effective:16-Sep-2020 Latest Code Status on File Code Status Date Activated Date Inactivated Comments Full Code 10/14/2017 6:20 PM 10/17/2017 2:37 PM Name Dates Details Immunization Registry [facility] - Effective on 09/16/2020. Expiration date unspecified Effective:16-Sep-2020 Name Dates Details Immunization Registry [facility] - Effective on 09/16/2020. Expiration date unspecified Effective:16-Sep-2020 Name Dates Details Immunization Registry [facility] - Effective on 09/16/2020. Expiration date unspecified Effective:16-Sep-2020 Name Dates Details Immunization Registry [facility] - Effective on 09/16/2020. Expiration date unspecified Effective:16-Sep-2020 Name Dates Details Immunization Registry [facility] - Effective on 09/16/2020. Expiration date unspecified Effective:16-Sep-2020 Summary Purpose Family History No Family History Records Found Reason for Referral Specialty Diagnoses / Procedures Referred By Josef t Referred To Contact CT IMAGING Diagnoses Encounter for screening for lung cancer Tobacco use current Procedures CT LUNG SCREEN WO IVCON COMPUTED TOMOGRAPHY THORAX LW DOSE LNG CA SCR Farhan- Irlanda Wilcox, DIGITAL PRODUCT SPECIALIST.[employer] [address] [place] [address] Ct Imaging Referral ID Status Reason Start Date Expiration Date V isits Requested Visits Authorized [id number] Open Auto-Generate d Referral 11/18/2022 12/18/2023 1 1 Specialty Diagnoses / Procedures Referred By Contac t Referred To Contact [facility] Diagnoses Stage 3 severe COPD by GOLD classification (HCC) Procedures LUNG VOLUMES [place], DIGITAL PRODUCT SPECIALIST.[employer]ER [id number] Respiratory [place] [address] [place] [address] Referral ID Status Reason Start Date Expiration Date V isits Requested Visits Authorized [id number] Closed Auto-Generate d Referral 11/18/2022 12/18/2023 1 1 Specialty Diagnoses / Procedures Referred By Contac t Referred To Contact CT IMAGING Diagnoses Lung nodules Procedures CT LUNG FOLLOWUP WO IVCON DIAGNOSTIC COMPUTED TOMOGRAPHY THORAX W/O CNTRST [place], DIGITAL PRODUCT SPECIALIST.[employer] [id number] Imaging Referral ID Status Reason Start Date Expiration Date Visits Requested Visits Authorized [id number] Pending Review Auto-Generat ed Referral 06/05/2023 01/02/2024 1 1 Specialty Diagnoses / Procedures Referred By Contac t Referred To Contact CT IMAGING Diagnoses Encounter for screening for lung cancer Tobacco use current Procedures CT LUNG SCREEN WO IVCON COMPUTED TOMOGRAPHY THORAX LW DOSE LNG CA SCR C- [place] eng, DIGITAL PRODUCT SPECIALIST.[employer] [id number] Imaging [id number] Referral ID Status Reason Start Date Expiration Date V isits Requested Visits Authorized [id number] Closed Auto-Generate d Referral 11/19/2022 05/16/2023 1 1 Additional Source Comments INFORMATION SOURCE (unrecogn ized section and content) DATE CREATED AUTHOR AUTHOR'S ORGANIZ ATION 04/07/2022 [facility] DATE CREATED AUTHOR AUTHOR'S ORGANIZ ATION 12/04/2022 [facility] Source Comments (unrecognize d section and content) In the event this informatio n is protected by the Federal Confidentiality of Alcohol and Drug Abuse Patient Records regulations: The Federal rules restrict any use of the information to criminally investigate or prosecute any alcohol or drug abuse patient.[facility] HospitalIn the event this information is protected by the Federal Confidentiality of Alcohol and Drug Abuse Patient Records regulations: The Federal rules restrict any use of the information to criminally investigate or prosecute any alcohol or drug abuse patient.[facility] HospitalIn the event this information is protected by the Federal Confidentiality of Alcohol and Drug Abuse Patient Records regulations: The Federal rules restrict any use of the information to criminally investigate or prosecute any alcohol or drug abuse patient.[facility] HospitalIn the event this information is protected by the Federal Confidentiality of Alcohol and Drug Abuse Patient Records regulations: The Federal rules restrict any use of the information to criminally investigate or prosecute any alcohol or drug abuse patient.[facility] HospitalIn the event this information is protected by the Federal Confidentiality of Alcohol and Drug Abuse Patient Records regulations: The Federal rules restrict any use of the information to criminally investigate or prosecute any alcohol or drug abuse patient.[facility] HospitalIn the event this information is protected by the Federal Confidentiality of Alcohol and Drug Abuse Patient Records regulations: The Federal rules restrict any use of the information to criminally investigate or prosecute any alcohol or drug abuse patient.[facility] HospitalIn the event this information is protected by the Federal Confidentiality of Alcohol and Drug Abuse Patient Records regulations: The Federal rules restrict any use of the information to criminally investigate or prosecute any alcohol or drug abuse patient.[facility] HospitalIn the event this information is protected by the Federal Confidentiality of Alcohol and Drug Abuse Patient Records regulations: The Federal rules restrict any use of the information to criminally investigate or prosecute any alcohol or drug abuse patient.[facility] HospitalIn the event this information is protected by the Federal Confidentiality of Alcohol and Drug Abuse Patient Records regulations: The Federal rules restrict any use of the information to criminally investigate or prosecute any alcohol or drug abuse patient.[facility] Reason for Visit (unrecogniz ed section and content) Specialty Diagnoses / Procedures Referred By Josef matthews Referred To Contact [facility] Diagnoses Centrilobular emphysema (HCC) Procedures SPIROMETRY BASELINE ONLY SPIROMETRY WO BRONCHODILATOR Devi Nava PA-C [address] [address] [facility] [place] [address] [facility] [place] [address] Referral ID Status Reason Start Date Expiration Date V isits Requested Visits Authorized [id number] Closed Auto-Generate d Referral 10/27/2021 05/16/2022 1 1 Reason Comments Established Patient 6 month follow up em physema Specialty Diagnoses / Procedures Referred By Josef matthews Referred To Contact Pulmonary and Critical Care Medicine / PULMONARY MEDICINE Diagnoses Centrilobular emphysema (HCC) 6 MTH F/U Centrilobular emphysema (HCC) [J43.2] Procedures OFFICE/OUTPATIENT ESTABLISHED MOD MDM 30-39 MIN RI EST PULM GENERAL Devi Nava PA-C [address] [place] [id number] Gene Johnson MD [address] [place] [address] Referral ID Status Reason Start Date Expiration Date Visits Re quested Visits Authorized [id number] Closed 10/27/2021 05/16/2022 1 1 Reason Onset Date Comments Refill Request 10/28/2022 Reason Comments COPD New patient- annual follow up Specialty Diagnoses / Procedures Referred By Contac t Referred To Contact [facility] Diagnoses Stage 3 severe COPD by GOLD classification ([facility]) Procedures LUNG DIFFUSION CAPACITY (DLCO) DIFFUSING CAPACITY Colleen Wolfe MD [address] [place] [address] [facility] [place] [address] [place] [address] Referral ID Status Reason Start Date Expiration Date V isits Requested Visits Authorized [id number] Closed Auto-Generate d Referral 11/09/2022 05/16/2023 1 1 Specialty Diagnoses / Procedures Referred By Contac t Referred To Contact [facility] Diagnoses Stage 3 severe COPD by GOLD classification ([facility]) Procedures LUNG VOLUMES Irlanda Wilcox, DIGITAL PRODUCT SPECIALIST.[employer] INSPECTOR [employer] ADJUSTER [address] [place] [address] [facility] [place] [address] [place] [id number] Referral ID Status Reason Start Date Expiration Date V isits Requested Visits Authorized [id number] Closed Auto-Generate d Referral 11/18/2022 12/18/2023 1 1 Reason Comments New Patient LCS Reason Comments Results LDCT Lung Rads categ ory 3-repeat CT in 6 mos Reason Comments Radiology CT Specialty Diagnoses / Procedures Referred By Contac t Referred To Contact CT IMAGING Diagnoses Encounter for screening for lung cancer Tobacco use current Procedures CT LUNG SCREEN WO IVCON COMPUTED TOMOGRAPHY THORAX LW DOSE LNG CA SCR C- Irlanda Wilcox, DIGITAL PRODUCT SPECIALIST.[employer] INSPECTOR AND ADJUSTER [address] [place] [address] [place] [id number] Referral ID Status Reason Start Date Expiration Date V isits Requested Visits Authorized [id number] Closed Auto-Generate d Referral 11/19/2022 05/16/2023 1 1 Care Teams (unrecognized sec tion and content) Continuous Drier Helper Relationship Specialty Start Date End Date Pennie Sutton DO PCP - General Internal Medicine 04/08/13 Continuous Drier Helper Relationship Specialty Start Date End Date Pennie Sutton [address] [facility] [address] [place], [place] [id number] (Fax) PCP - General 07/20/17 Continuous Drier Helper Relationship Specialty Start Date End Date Pennie Sutton DO (Fax) PCP - General Internal Medicine 04/08/13 Continuous Drier Helper Relationship Specialty Start Date End Date Pennie Sutton DO PCP - General Internal Medicine 04/08/13 Continuous Drier Helper Relationship Specialty Start Date End Date Pennie Sutton DO PCP - General Internal Medicine 04/08/13 Colleen Wolfe MD [facility] [place] [address] Pulmonary and Critical Care Medicine 11/12/22 Continuous Drier Helper Relationship Specialty Start Date End Date Pennie Sutton DO PCP - General Internal Medicine 04/08/13 Colleen Wolfe MD [facility] [place] [address] Pulmonary and Critical Care Medicine 11/12/22 Continuous Drier Helper Relationship Specialty Start Date End Date Pennie Sutton DO PCP - General Internal Medicine 04/08/13 Colleen Wolfe MD [facility] [place] [address] Pulmonary and Critical Care Medicine 11/12/22 Continuous Drier Helper Relationship Specialty Start Date End Date Pennie Sutton DO PCP - General Internal Medicine 04/08/13 Colleen Wolfe MD [address] [place] [id number] Pulmonary and Critical Care Medicine 11/12/22 FOR RECORDS PERTAINING TO PATIENTS WHO ARE OR HAVE BEEN ENROLLED IN A CHEMICAL DEPENDENCY/SUBSTANCEABUSE PROGRAM, SOME INFORMATION MAY BE OMITTED. This clinical summary was aggregated from multiple sources. Caution should be exercised in using it in the provision of clinical care. This summary normalizes information from multiple sources, and as a consequence, information in this document may materially change the coding, format and clinical context of patient data. In addition, data may be omitted in some cases. CLINICAL DECISIONS SHOULD BE BASED ON THE PRIMARY CLINICAL RECORDS. [facility]. provides no warranty or guarantee of the accuracy or completeness of information in this document.
[2023-05-29 18:27] LABS: Differential Indicated SCAN CRITERIA MET
[2023-05-29 18:36] LABS: Anion Gap 6 (5-15); BUN 11 mg/dL (7-18); BUN/Creat Ratio 14.4 RATIO (10-20); Calcium,Total 9.1 mg/dL (8.5-10.1); Chloride 103 mmol/L (98-107); Creatinine, Serum 0.76 mg/dL (0.55-1.02); EST Glomerular Filtration Rate 81 mL/min (>60); Est Glom Filt Rate - Afr Amer 98 mL/min (>60); Estimated Creatinine Clearance 59.56 ml/min; Glucose 128 mg/dL (74-106); Potassium 3.9 mmol/L (3.5-5.1); Sodium Level 137 mmol/L (136-145)
--- NOTE | 2023-05-29 18:45 | RAD_ITS ---
EXAM: XR CHEST, 2 VIEWS CLINICAL INDICATION: cough TECHNIQUE: Frontal and lateral views of the chest. COMPARISON: 06/30/2016 FINDINGS: LUNGS AND PLEURAL SPACES: Subtle bilateral lower lobe pulmonary opacities may be developing pneumonia or atelectasis. No pneumothorax. No effusion. HEART: No significant abnormality. Cardiac silhouette not enlarged. MEDIASTINUM: Central airways and mediastinal contour are unremarkable. BONES/JOINTS: Degenerative changes in the spine. No acute fracture. SOFT TISSUES: No significant abnormality. VASCULATURE: Atherosclerosis. RAD/Chest PA and Lateral IMPRESSION: Subtle bilateral lower lobe pulmonary opacities may be developing pneumonia or atelectasis. Electronically Signed: Gideon Ruvalcaba DO at 19:24 EST ,
[2023-05-29 18:59] LABS: Differential Comment SCANNED
[2023-05-29] MEDS: Oseltamivir Phosphate 75 MG Capsule PO (19:28)
--- NOTE | 2023-05-29 19:37 | HP.PCM.HOS_ITS ---
HPI - General General Date of Admission: 05/29/23 Date of Service: 05/29/23 Chief Complaint: Cough, dyspnea, low grade T, body aches, fatigue, malaise. HPI Narrative The patient is a 62 y/o F w/ PMHx: Anxiety and Depression, HTN, COPD, Tobacco use, Brain Aneurysm who present so the [facility] ED on 05/29/23 with history of 2-day history of progressively worsening cough, shortness of breath, body aches, fatigue and malaise with a low-grade fever prompting eventual ED evaluation. Patient does report she continues to smoke 1/2 pack/day. Patient who is present notes he has been feeling well himself. They both unfortunately cannot recall if they did get vaccinated this year but they say normally they do. Workup in the ED included T98.5, heart rate 105, BP 141/75, respiratory rate 22 initially with most recent repeat 32, initially noted to be 88% on room air with most recent repeat 91% on 2 L nasal cannula, CBC with WBC 12.1, hemoglobin 15.3, platelet 279 with left shift and lymphopenia, BMP with glucose 128 otherwise unremarkable, chest x-ray with subtle bilateral lower lobe pulmonary opacities possibly developing pneumonia versus atelectasis, rapid SARS COVID/RSV PCR negative, positive influenza A. In the ED patient ministered 1 L normal saline, Tamiflu 75 mg p.o. x 1, Solu-Medrol 125 mg IV x 1 as well as DuoNeb and al buterol therapies. PFSH Medical History Anxiety Brain aneurysm COPD (chronic obstructive pulmonary disease) HTN (hypertension) Smoking Home Medications albuterol sulfate 90 mcg/actuation aerosol inhaler (Proventil HFA) 6.7 g IH PRN PRN Shortness Of Breath 06/30/16 [History Last Taken Unknown] lorazepam 0.5 mg tablet 0.5 mg PO DAILY PRN PRN Anxiety 07/01/16 [History Last Taken Unknown] acetaminophen 325 mg tablet (Tylenol) 650 mg (2 x 325 mg) PO Q6H PRN PRN Mild Pain (scale 0-3)/T>100.7 ##0 07/02/16 [Rx Last Taken Unknown] amlodipine 5 mg tablet (Norvasc) 5 mg PO DAILY 05/29/23 [History Last Taken U nknown] fluticasone fur. 100 mcg-umeclid 62.5 mcg-vilant 25 mcg inhalat.powder (Trelegy Ellipta) 1 inh inhalation DAILY 05/29/23 [History Last Taken Unknown] Allergy/AdvReac Type Severity Reaction Status Date / Time levofloxacin [From Levaquin] AdvReac Rash Verified 07/01/16 11:03 Family History (Updated 05/29/23 @ 19:[address] Tasha Edge MD) Mother Cancer Family History other other (Unknown paternal family history.) Surgical History (Updated 05/29/23 @ 19:[address] Tasha Edge MD) H/O breast augmentation H/O tubal ligation History of carpal tunnel release Hx of appendectomy Social History (Updated 05/29/23 @ 19:[address] Tasha Edge MD) household members: spouse Smoking Status: Current every day smoker tobacco type: cigarettes Smoking packs per day: 0.5 Smoking cigarettes per day: 10.0 alcohol intake: current alcohol intake frequency: holidays/special occasions only substance use type: does not use ROS ROS Narrative Admission Review of Systems: CONSTITUTIONAL: No weight loss, + fever, chills, weakness or fatigue. HEENT: + Congestion, rhinorrhea. Eyes: No visual loss, blurred vision, double vision or yellow sclerae. Ears, Nose, Throat: No hearing loss. SKIN: No rash or itching, lesions, wounds. CARDIOVASCULAR: No chest pain, chest pressure or chest discomfort, palpitations, edema, orthopnea, syncopal events. RESPIRATORY: + Dyspnea, mildly productive cough, wheezing. No hemoptysis. GASTROINTESTINAL: + anorexia, nausea without emesis. No abdominal pain, melena, BRBPR. GENITOURINARY: No dysuria, frequency, urgency or retention. NEUROLOGICAL: + Headache. No dizziness, syncope, paralysis, ataxia, numbness or tingling in the extremities, focal weakness, change in bowel or bladder control, seizure. MUSCULOSKELETAL:+ muscle, back pain, joint pain or stiffness. HEMATOLOGIC: No anemia, bleeding or bruising. LYMPHATICS: No enlarged nodes. No history of splenectomy. PSYCHIATRIC: + History of anxiety and depression ENDOCRINOLOGIC: No reports of sweating, cold or heat intolerance. No polyuria or polydipsia. ALLERGIES: No history of asthma, hives, eczema or rhinitis. Vital Signs Vital Signs Vital Signs: 05/29/23 16:58 05/29/23 17:26 05/29/23 17:37 Temperature 98.5 F Temperature Source Temporal Pulse Rate 105 H Respiratory Rate 22 H Respiratory Effort Normal Non-Labored Respiratory Pattern Normal Blood Pressure 141/75 H Blood Pressure Mean 97 Pulse Ox 88 91 Oxygen Delivery Method Room Air Nasal Cannula Oxygen Flow Rate (L/min) 2 05/29/23 17:53 Temperature Temperature Source Pulse Rate 103 H Respiratory Rate 32 H Respiratory Effort Respiratory Pattern Tachypnea Blood Pressure Blood Pressure Mean Pulse Ox Oxygen Delivery Method Oxygen Flow Rate (L/min) Weight Weight: 124 lb Body Mass Index (BMI) 24.2 Physical Exam Narrative Physical Examination: General: Awake, alert, oriented x 3 and cooperative, laying on her side in the ED bed, fatigued and ill-appearing, mildly increased respiratory rate but no distress. Skin: Flushed color, normal turgor, no icterus, no cyanosis. HEENT: AT/NC, EOMI, PERRLA, dry MM, no carotid bruits or JVD noted. Lungs: Notably diminished, greater bases, mildly increased respiratory rate but no distress, occasional end expiratory wheeze, no marked rales or rhonchi. Heart: Mildly tachycardic with regular rhythm; no gallop, rub audible. Abdomen: Soft, NTTP, ND, hyperactive BS, no HSM. Extremities: No cyanosis, clubbing, or edema. Neurological: Patient awake, alert, oriented as noted, cognitive function intact; pupils equally reactive to light and accommodation, cranial nerves grossly normal, moving all 4 extremities, no focal deficits, strength moderately to severely globally decreased secondary to acute presentation. Psychiatric: Affect appears flat, fatigued, ill-appearing, no acute evidence of depressive or anxiety feelings but does have underlying history. Results Lab / Micro Data 05/29/23 18:05 05/29/23 18:05 Labs: Laboratory Results - last 24 hr 05/29/23 18:05: WBC 12.1 H, RBC 5.01, Hgb 15.3 H, Hct 47.0, MCV 93.8, MCH 30.5, MCHC 32.6, RDW Std Deviation 45.7 H, RDW Coeff of Alvaro 13.2, Plt Count 279, MPV 10.2, Immature Gran % (Auto) 0.300, Neut % (Auto) 86.5 H, Lymph % (Auto) 4.8 L, Union % (Auto) 7.8, Eos % (Auto) 0.1, Baso % (Auto) 0.5, Absolute Neuts (auto) 10.5 H, Absolute Lymphs (auto) 0.58 L, Nucleated RBC % 0, Differential Comment SCANNED, Sodium 137, Potassium 3.9, Chloride 103, Carbon Dioxide 28.0, Anion Gap 6, BUN 11, Creatinine 0.76, Estim Creat Clear Calc 59.56, Est GFR (MDRD) Af Amer 98, Est GFR (MDRD) Non-Af 81, BUN/Creatinine Ratio 14.4, Glucose 128 H, Calcium 9.1 Micro: Microbiology 05/29/23 17:50 Mucosa - Nose SARS-CoV-2, Influenza & RSV (PCR) - Final Influenzae A Imagaing Radiology Impression Chest X-Ray 05/29/23 18:45 IMPRESSION: Subtle bilateral lower lobe pulmonary opacities may be developing pneumonia or atelectasis. Electronically Signed: Gideon Ruvalcaba DO at 19:24 EST , Assessment & Plan Assessment/Plan (1) COPD with acute exacerbation: (2) Influenza A: (3) Hypoxia: PLAN: Plan The patient is a 62 y/o F w/ PMHx: Anxiety and Depression, HTN, COPD, Tobacco use, Brain Aneurysm who present so the [facility] ED on 05/29/23 with history of 2-day history of progressively worsening cough, shortness of breath, body aches, fatigue and malaise with a low-grade fever prompting eventual ED evaluation. Patient does report she continues to smoke 1/2 pack/day. #1. Acute Hypoxia secondary to Acute on Chronic COPD exacerbation secondary to Acute Influenza A viral syndrome: Will admit to [facility], maintain on oxygen with wean as tolerated to room air, continue ATC duonebs, PRN albuterol, IV methylprednisolone, HOB, IS parameters, will obtain sputum Cx, procalcitonin, will hold on immediately abx therapy but low threshold to add if appropriate es pecially given CXR findings, maintain on tamiflu. #2. Hypertension: Continue home regimen including amlodipine, PRN hydralazine. #3. Anxiety and depression: We will continue patient low-dose lorazepam regimen. #4. Tobacco Abuse: Encouraged cessation, inpatient consultation per RT, NR if desired. #5. Chart reported history of brain aneurysm: No CT imaging in [facility] noted, encourage continued outpatient follow-up as previously arranged. #6. DVT prophylaxis: Lovenox. Charges/Coding Visit Charges Inpatient E&M: [id number] Init Hosp L3
--- OUTSIDE RECORDS SUMMARY | 2023-05-29 20:31 | XMS RPT_ITS | CCD ---
Author Name Unknown Address [address] [place] [address] Organization [facility] Care Team Providers [employer] Set Up Technician Name Role Phone Pennie Sutton Unavailable Hosea Grace Unavailable Sue Srivastava Unavailable Unavailable Vic, Neha Unavailable Unavailable Ciesa, Amanda Unavailable Beti Salas Unavailable Unavailable Messenger, Mckenna Unavailable Unavailable Long, Diann L Unavailable Unavailable Unavailable Unavailable MarichuyIbeth pikePennie Unavailable Hosea Grace Unavailable Sue Srivastava Unavailable Unavailable Vic, Neha Unavailable Unavailable Ciesa, Amanda Unavailable Fast, Milena A Unavailable Beti Salas Unavailable Unavailable Messenger, Mckenna Unavailable Unavailable Long, Diann L Unavailable Unavailable Unavailable Unavailable New Cook Unavailable Unavailable New Salas Unavailable Unavailable Kamilah Wolf Unavailable Unavailable Gravius, Demly Unavailable Unavailable Messenger, Mckenna Unavailable Unavailable Long, Diann L Unavailable Unavailable Marichuy DO, Pennie Unavailable Dr. Hosea Grace Unavailable Gravius KINDRA, Delmy Unavailable Unavailable Kamilah Wolf LPN Unavailable Unavailable Vic SECURITY ATTENDANT, Neha Unavailable Unavailable Josue, Beti Unavailable Unavailable [...] Care Provider Aiden THORNE, Colleen Martinez Unavailable IRLANDA WILCOX Attending Unavailable COLLEEN WOLFE Referring [...] BROWN, COLLEEN MARTINEZ Referring Unavailable MARICHUY, PENNIE ANDERS Primary Care Unavailab le Allergies Allergy Classification [...] Drug Allergy 4 Other: See Comments The [email or web address].it System Repository Medications Current Medications Medication Drug [...] Drug Class(es) Dates Sig (Normalized) Sig (Original) [id number] 200 actuat albuterol 0.09 mg/actuat metered dose [...] 08:23-0400 Body height 148.1 cm Irlanda Ferrarovero SANCHEZ.ISSUE CLERK Work Phone: [facility] 11-18-2022 08:23-0400 Body weight 53.89 kg Irlanda Wilcox APRN.ISSUE CLERK Work Phone: [facility] 10-30-2022 13:24-0400 Body weight 53.52 kg Colleen Wolfe MD Work Phone: [facility] 10-30-2022 13:24-0400 Diastolic blood pressure 72 mm[Hg] Colleen Wolfe MD Work Phone: [facility] 10-30-2022 13:24-0400 Heart rate 80 /min Colleen Wolfe MD Work Phone: [facility] 10-30-2022 13:24-0400 SaO2% (BldA) [Mass fraction] 90 % Colleen Wolfe MD Work Phone: [facility] 10-30-2022 13:24-0400 Systolic blood pressure 110 mm[Hg] Colleen Wolfe MD Work Phone: [facility] 09-02-2022 10:53-0400 Body height 152.4 cm [...] Facility Start: 12-01-2022 Telephone encounter Irlanda sherman 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.ISSUE CLERK Work Phone: [facility]monary Medicine Procedures Date Procedure Procedure Detail Performing Clinician Start: 11-27-2022 CT LUNG SCREEN WO IVCON Irlanda Wilcox 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.ISSUE CLERK Work Phone: Start: 11-18-2022 Co diffusing capacity Colleen herrera MD Work Phone: Start: 10-27-2021 Spmtry w/vc expiratory jennifer w/wo mxml vol vntj Devi Nava PA-C Work Phone: Start: 06-30-2016 End: 06-30-2016 History and Physical Exam Comments: See Note; NOTES: [facility] Medical Records Department [address] [place] [id number] History and Physical 06/30/16 2307 MR#: [id number] Acct: [id number] Name: KENYA ZAVALETA Rep #: [id number] : 1960 55 From: Ervin Powell DO [...] to 87%. 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 Lives: Spouse/ Significant Other Smoking Status: [...] 86.0 H Lymph % (Auto) 7.8 L Slope % (Auto) 5.0 Eos % (Auto) 0.5 [...] exacerbation of COPD-patient will be [facility], she will be placed on aggressive aerosol [...] PA and Lateral Comments: See Note; NOTES: [facility] Imaging Services [address] [place] [address] [place] [address] Verdana 4d Chest PA and Lateral MR#: [id number] Acct: [id number] Name: KENYA ZAVALETA Rep #: [id number] : 1960 F 55 From: Armando Seaman MD PCP: Pennie Sutton DO Status: REG ER Study: Chest PA and Lateral Date of Exam: 06/30/16 Exam# [id number] Ordering Dr: Luis Felipe Mccormick MD STUDY: [...] MD at 20:22 EST , Service support [phone], CC: Luis Felipe Mccormick MD; Pennie Sutton DO [employer] V[employer] Tech: Signed Pennie Sutton Start: 07-23-2015 End: 07-23-2015 PT D/C of Non Returning Pt (1) Comments: See Note; NOTES: [facility] Physical Therapy Health[address] [place] [address] Fax REHABILITATION SERVICES DISCHARGE SUMMARY MR#: [id number] Acct: [id number] Name: KENYA ZAVALETA Rep #: [id number] : 1960 54 From: Macrina Caraballo DPT [...] Booster [facility] Start: 08-25-2028 Urine microalbumin profile [facility] Start: 06-05-2023 End: 01-02-2024 Ct thorax w/o contrast material CT LUNG FOLLOWUP WO IVCON Radiology Routine Lung nodules Expected: 06/05/2023, Expires: 01/02/2024 [facility] Work Phone: Immunizations Immunization Date Immunization Notes Care Provider Diego donaldson 03-27-2021 influenza, injectabl e, quadrivalent, contains preservative [facility] Work Phone: [facility] Work Phone: 03-27-2021 influenza virus vaccine, unspecified formulation Ct (I-Stat) Work Phone: [facility] 09-23-2020 pneumococcal polysaccharide vaccine, 23 valent [facility] Work Phone: [facility] 09-14-2020 pneumococcal polysaccharide vaccine, 23 valent Pennie Marichuy DO Work Phone: [facility]; [facility] Work Phone: 09-11-2020 COVID-19 vaccine, fu ll dose (MODERNA) [facility] Work Phone: [facility] 08-15-2020 COVID-19 (Moderna) Pennie Marichuy DO Work Phone: [facility] Internal [facility]; [facility] Work Phone: 08-10-2020 COVID-19 vaccine, fu ll dose (MODERNA) [facility] Work Phone: [facility] 02-18-2020 influenza, injectabl e, quadrivalent, preservative free [facility] Work Phone: [facility] Work Phone: 02-18-2020 influenza virus vaccine, unspecified formulation Pennie Marichuy Work Phone: [facility] 03-14-2019 Influenza, injectabl e, Madin Florence Canine Kidney, quadrivalent with preservative Pennie Marichuy Work Phone: [facility] 02-28-2019 influenza, seasonal, injectable [facility] Work Phone: [facility] Work Phone: 08-25-2018 tetanus toxoid, reduced diphtheria toxoid, and acellular pertussis vaccine, adsorbed [facility] Work Phone: [facility] 02-16-2018 Influenza, injectabl e, Madin Sue Canine Kidney, preservative free, quadrivalent Pennie Marichuy Work Phone: [facility] 07-07-2017 Influenza, injectabl e, Madin Florence Canine Kidney, preservative free, quadrivalent Pennie Sutton Work Phone: [facility] 07-01-2016 influenza, seasonal, injectable, preservative free Pennie Sutton Work Phone: [facility] 03-08-2015 influenza, injectabl e, quadrivalent, contains preservative [facility] Work Phone: [facility] Payers Date Payer Category Payer Unknown 2022 Unknown [id number] 2021 Private Health Insurance [employer] POS [id number] 2021-Present [phone] [address] [place] [address] POS [id number] 2021 Private Health Insurance [id number] 2017 Private Health Insurance [id number] 2017 Private Health Insurance [id number] 2014 Private Health Insurance [id number] 2012 Private Health Insurance [id number] 1960 Unknown [id number] 1960 Unknown [id number] Social History Date Type Detail Facility Alcohol Use: Current every day smoker [facility] Work Phone: Start: 06-29-2013 End: 10-30-2022 Caffeine Use [facility] [employer] [facility] Work Phone: Medical Equipment Procedure Code Equipment Code Equipment Origin al Text Equipment Identifier Dates Cover [place] Contoured Tab [id number] - [id number] Start: 10-14-2017 4mm Screws [id number] Start: [...] back regarding results. documented in this encounter [facility] 11-27-2022 Note HNO ID: [id number] Author: RT Erwin(R) Service: ? Author Type: Funds Development Director Type: Progress Notes Filed: 11/27/2022 4:26 PM [...] RT Luzma(R) November 27, 2022 4:[address] [facility] 11-27-2022 History of Presen t [...] 2022 4:26 PM documented in this encounter [facility] 11-18-2022 Note HNO ID: [id number] Author: NEREYDA Perez Service: ? Author Type: Respiratory Therapist Type: Progress Notes Filed: 11/18/2022 9:20 AM Note Text: PULM FUNCTION SMARTBLOCK: Provider: Colleen Wolfe MD Assisting Tech: NEREYDA Perez Spirometry w/BD: 1 DLCO: 1 LV - Box: [address] [facility] 11-18-2022 Note HNO ID: [id number] Author: Irlanda Wilcox APRN.ISSUE CLERK Service: ? Author Type: Nurse Practitioner Type: [...] pre-disease performance w/o restriction. Modified Medical Research [place] Dyspnea Scale (MMRC) I only get breathless [...] as instructed every 4 hours as needed. rbzkaekhfmr-zvfgjmfrj-lbrnuzjh (TRELEGY ELLIPTA) 100-62.5-25 mcg inhalation powder Inhale [...] DATE OF EXAM: Jul 24 2014 8:24AM [facility] 0349 - CT CHEST WO CONTRAST / PROCEDURE REASON: Other emphysema (HCC) * * * * Physician Interpretation * * * * CT CHEST WO CONTRAST [id number] MARLY (more content not included)... [facility] 11-18-2022 Instructions Irlanda Wilcox APRN.ISSUE CLERK - 11/18/2022 8:[address] Lung [...] to endocrinology. Others Lung Cancer Screening hotline: [phone] Lung Cancer Screening [phone] Billing Questions: or [email or web address] Lung Cancer Screening Team: Andria Estevez CNP; Maria D Aponte PA-C; Becky Rudd CNP; Lata Stanley CNP, Nathaly Gaffney PA-C, Faith Basurto PA-C, Irlanda Wilcox, ISSUE CLERK : [phone] documented in this encounter [facility] 11-18-2022 History of Presen t illness [...] pre-disease performance w/o restriction. Modified Medical Research [place] Dyspnea Scale (MMRC) I only get breathless [...] as instructed every 4 hours as needed. ffammbiurpi-azqqzcxkt-hehkmpax (TRELEGY ELLIPTA) 100-62.5-25 mcg inhalation powder Inhale [...] DATE OF EXAM: Jul 24 2014 8:24AM [facility] 0349 - CT CHEST WO CONTRAST / PROCEDURE REASON: Other emphysema (HCC) * * * * Physician Interpretation * * * * CT CHEST WO CONTRAST [id number] INDICATION: Other emphysema (HCC)/ recheck lung nodules, [...] result) Pulmonary Function Testing: SPIROMETRY BASELINE ONLY ([id number]) - ordered on 10/27/21 No textual results [...] other counseling during this visit. Irlanda Wilcox APRN.ISSUE CLERK NPI #: November 18, 2022 8:38 AM documented in this encounter [facility] 10-30-2022 Note HNO ID: [id number] Author: Colleen Wolfe MD Service: ? Author Type: Physician Type: Progress Notes Filed: 10/30/2022 4:51 PM Note Text: . [facility] Note Patient name: Kenya Zavaleta PCP: Pennie [...] DATE OF EXAM: Jul 24 2014 8:24AM [facility] 0349 - CT CHEST WO CONTRAST / CT CHEST WO CONTRAST [id number] RESULT: No mediastinal or hilar adenopathy identified. [...] railroad tracks. Does not recall specific reaction. 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 Pets: None [...] abnormalities Eyes: S (more content not included)... [facility] 10-30-2022 History of Presen t illness Narrative Images from the original note were not included. . [facility] Patient name: Kenya Zavaleta PCP: Pennie [...] DATE OF EXAM: Jul 24 2014 8:24AM [facility] 0349 - CT CHEST WO CONTRAST / CT CHEST WO CONTRAST [id number] RESULT: No mediastinal or hilar adenopathy identified. [...] railroad tracks. Does not recall specific reaction. 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 Pets: None [...] cancer screening clinic Colleen Wolfe MD [facility] documented in this encounter [facility] 10-27-2021 Instructions Gene Johnson MD - [...] I am retiring from the staff of [facility] and the practice of Medicine on [...] and Devi Nava PA-C. Gene Johnson MD, [facility] [address] [place] [address] P: [phone] F: [phone] [email or web address] documented in this encounter [facility] 10-27-2021 History of Presen t illness Narrative [facility] [place], 10/27/2021: Name: Kenya Zavaleta : 1960 INTERVAL [...] purulent. No hemoptysis. No wheezing, It's amazing. 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 Still walking 1-2 miles daily. Problem [...] I am retiring from the staff of [facility] and the practice of Medicine on [...] acceptance of my answers. Gene Johnson MD, [facility] [address] [address] P: [phone] F: [phone] [email or web address] documented in this encounter [facility] 10-27-2021 History of Presen t illness Narrative PULM FUNCTION SMARTBLOCK: Provider: Devi Nava PA-C Assisting Tech: NEREYDA Perez Spirometry: 1 System: [id number] documented in this encounter [facility] Diagnosis Centrilobular emphysema (HCC)- Primary Other emphysema Pulmonary nodules Other nonspecific abnormal finding of lung field Tobacco use disorder [facility] Diagnosis Centrilobular emphysema (HCC) Other emphysema [facility] Diagnosis Stage 3 severe COPD by GOLD classification ([facility])- Primary Cigarette smoker Tobacco use disorder [facility] Diagnosis Stage 3 severe COPD by GOLD classification ([facility]) [facility] Diagnosis Encounter for screening for lung cancer- Primary Tobacco use current [facility] Diagnosis Lung nodules- Primary Other nonspecific abnormal finding of lung field [facility] Diagnosis Encounter for screening for lung cancer Tobacco use current [facility] Name Dates Details Patient Instructions Indication:Smoker Start:24-May-2020 Instruction Type:Provider Instructions for Treatment How to Access Health Informa tion Online using Patient Portal and [employer] Apps Indication:Smoker Start:24-May-2020 Instruction Type:Patient Education How [...] Informa tion Online using Patient Portal and [employer] Apps Indication:Smoker Start:02-Oct-2020 Instruction Type:Patient [...] Informa tion Online using Patient Portal and [employer] Apps Indication:Smoker Start:02-Oct-2020 Instruction Type:Patient Education Patient [...] Informa tion Online using Patient Portal and [employer] Apps Indication:Smoker Start:02-Oct-2020 Instruction Type:Patient Education Patient [...] Informa tion Online using Patient Portal and Travel [employer] Apps Indication:UTI symptoms Start:02-Sep-2022 Instruction [...] Procedures Referred By Contac t Referred To [facility] Diagnoses Stage 3 severe COPD by GOLD classification (HCC) Procedures LUNG DIFFUSION CAPACITY (DLCO) DIFFUSING CAPACITY Colleen Wolfe MD [address] [place] [address] [address] [place] [address] Referral ID Status Reason Start Date Expiration Date Visits Requested Visits Authorized [id number] Pending Review Auto-Generat ed Referral 10/30/2022 11/29/2023 1 1 * Outpatient Procedure (Routine) - Pending Review Specialty Diagnoses / Procedures Referred By Contac t Referred To [facility] Diagnoses Stage 3 severe COPD by GOLD classification ([facility]) Procedures LUNG DIFFUSION CAPACITY (DLCO) DIFFUSING CAPACITY Colleen Wolfe MD [address] [place] [address] [address] [place] [address] Referral ID Status Reason Start Date Expiration Date Visits Requested Visits Authorized [id number] Pending Review Auto-Generat ed Referral 10/30/2022 11/29/2023 1 1 * Outpatient Procedure (Routine) - Pending Review Specialty Diagnoses / Procedures Referred By Contac t Referred To [facility] Diagnoses Stage 3 severe COPD by GOLD classification ([facility]) Procedures SPIROMETRY WITH DILATOR IF OBSTRUCTED BRNCDILAT RSPSE SPMTRY PRE&POST-BRNCDILAT Colleen Tsai MD [address] [place] [address] [address] Referral ID Status Reason Start Date Expiration Date Visits Requested Visits Authorized [id number] Pending Review Auto-Generat ed Referral 10/30/2022 11/29/2023 1 1 [facility] Instructions Name Dates Details Smoker : [...] Advance Directives Name Dates Details Immunization Registry [place] - Effective on 09/16/2020. Expiration date unspecified Effective:16-Sep-2020 Name Dates Details Immunization Registry [place] - Effective on 09/16/2020. Expiration date unspecified Effective:16-Sep-2020 Name Dates Details Immunization Registry [place] - Effective on 09/16/2020. Expiration date unspecified Effective:16-Sep-2020 Name Dates Details Immunization Registry [place] - Effective on 09/16/2020. Expiration date unspecified Effective:16-Sep-2020 Name Dates Details Immunization Registry [place] - Effective on 09/16/2020. Expiration date unspecified Effective:16-Sep-2020 Name Dates Details Immunization Registry [place] - Effective on 09/16/2020. Expiration date unspecified Effective:16-Sep-2020 Name Dates Details Immunization Registry [place] - Effective on 09/16/2020. Expiration date unspecified Effective:16-Sep-2020 Name Dates Details Immunization Registry [place] - Effective on 09/16/2020. Expiration date unspecified Effective:16-Sep-2020 Name Dates Details Immunization Registry [place] - Effective on 09/16/2020. Expiration date unspecified Effective:16-Sep-2020 Latest Code Status on File Code Status Date Activated Date Inactivated Comments Full Code 10/14/2017 6:20 PM 10/17/2017 2:37 PM Name Dates Details Immunization Registry [place] - Effective on 09/16/2020. Expiration date unspecified Effective:16-Sep-2020 Name Dates Details Immunization Registry [place] - Effective on 09/16/2020. Expiration date unspecified Effective:16-Sep-2020 Name Dates Details Immunization Registry [place] - Effective on 09/16/2020. Expiration date unspecified Effective:16-Sep-2020 Name Dates Details Immunization Registry [place] - Effective on 09/16/2020. Expiration date unspecified Effective:16-Sep-2020 Name Dates Details Immunization Registry [place] - Effective on 09/16/2020. Expiration date unspecified Effective:16-Sep-2020 Summary Purpose Family History No Family History Records Found Reason for Referral Specialty Diagnoses / Procedures Referred By Josef t Referred To Contact CT IMAGING Diagnoses Encounter for screening for lung cancer Tobacco use current Procedures CT LUNG SCREEN WO IVCON COMPUTED TOMOGRAPHY THORAX LW DOSE LNG CA SCR Farhan- Irlanda Wilcox, 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.ISSUE CLERK [address] [place] [address] Ct Imaging Referral ID Status Reason Start Date Expiration Date V isits Requested Visits Authorized [id number] Open Auto-Generate d Referral 11/18/2022 12/18/2023 1 1 Specialty Diagnoses / Procedures Referred By Contac t Referred To Contact [facility] Diagnoses Stage 3 severe COPD by GOLD classification (HCC) Procedures LUNG VOLUMES Union[place]landa, 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.ISSUE CLERK [phone] [facility] [address] [place] [address] Referral ID Status Reason Start Date Expiration Date V isits Requested Visits Authorized [id number] Closed Auto-Generate d Referral 11/18/2022 12/18/2023 1 1 Specialty Diagnoses / Procedures Referred By Contac t Referred To Contact CT IMAGING Diagnoses Lung nodules Procedures CT LUNG FOLLOWUP WO IVCON DIAGNOSTIC COMPUTED TOMOGRAPHY THORAX W/O CNTRST [place]a, 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.ISSUE CLERK [id number] Imaging Referral ID Status Reason Start Date Expiration Date Visits Requested Visits Authorized [id number] Pending Review Auto-Generat ed Referral 06/05/2023 01/02/2024 1 1 Specialty Diagnoses / Procedures Referred By Contac t Referred To Contact CT IMAGING Diagnoses Encounter for screening for lung cancer Tobacco use current Procedures CT LUNG SCREEN WO IVCON COMPUTED TOMOGRAPHY THORAX LW DOSE LNG CA SCR C- [place]landa eng, 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.ISSUE CLERK [id number] Imaging [id number] Referral ID Status Reason Start Date Expiration Date V isits Requested Visits Authorized [id number] Closed Auto-Generate d Referral 11/19/2022 05/16/2023 1 1 Additional Source Comments INFORMATION SOURCE (unrecogn ized section and content) DATE CREATED AUTHOR AUTHOR'S ORGANIZ ATION 04/07/2022 [facility] DATE CREATED AUTHOR AUTHOR'S ORGANIZ ATION 12/04/[address] [facility] Source Comments (unrecognize d section and content) In the event this informatio n is protected by the Federal Confidentiality of Alcohol and Drug Abuse Patient Records regulations: The Federal rules restrict any use of the information to criminally investigate or prosecute any alcohol or drug abuse patient.[facility] the event this information is protected by the Federal Confidentiality of Alcohol and Drug Abuse Patient Records regulations: The Federal rules restrict any use of the information to criminally investigate or prosecute any alcohol or drug abuse patient.[facility] the event this information is protected by the Federal Confidentiality of Alcohol and Drug Abuse Patient Records regulations: The Federal rules restrict any use of the information to criminally investigate or prosecute any alcohol or drug abuse patient.[facility] the event this information is protected by the Federal Confidentiality of Alcohol and Drug Abuse Patient Records regulations: The Federal rules restrict any use of the information to criminally investigate or prosecute any alcohol or drug abuse patient.[facility] the event this information is protected by the Federal Confidentiality of Alcohol and Drug Abuse Patient Records regulations: The Federal rules restrict any use of the information to criminally investigate or prosecute any alcohol or drug abuse patient.[facility] the event this information is protected by the Federal Confidentiality of Alcohol and Drug Abuse Patient Records regulations: The Federal rules restrict any use of the information to criminally investigate or prosecute any alcohol or drug abuse patient.[facility] the event this information is protected by the Federal Confidentiality of Alcohol and Drug Abuse Patient Records regulations: The Federal rules restrict any use of the information to criminally investigate or prosecute any alcohol or drug abuse patient.[facility] HospitalIn the event this information is protected by the Federal Confidentiality of Alcohol and Drug Abuse Patient Records regulations: The Federal rules restrict any use of the information to criminally investigate or prosecute any alcohol or drug abuse patient.[facility] HospitalIn the event this information is protected by the Federal Confidentiality of Alcohol and Drug Abuse Patient Records regulations: The Federal rules restrict any use of the information to criminally investigate or prosecute any alcohol or drug abuse patient.[facility] Reason for Visit (unrecogniz ed section and content) Specialty Diagnoses / Procedures Referred By Josef matthews Referred To Contact [facility] Diagnoses Centrilobular emphysema (HCC) Procedures SPIROMETRY BASELINE ONLY SPIROMETRY WO BRONCHODILATOR Devi Nava PA-C [address] [address] [address] [facility] [address] [facility] [place] [address] Referral ID Status Reason Start Date Expiration Date V isits Requested Visits Authorized [id number] Closed Auto-Generate d Referral 10/27/2021 05/16/2022 1 [...] PULM GENERAL Devi Nava PA-C [address] [place] [id number] Gene Johnson MD [address] [place] [address] Referral ID Status Reason Start Date Expiration Date Visits Re quested Visits Authorized [id number] Closed 10/27/2021 05/16/2022 1 1 Reason Onset Date Comments Refill Request 10/28/2022 Reason Comments COPD New patient- annual follow up Specialty Diagnoses / Procedures Referred By Contac t Referred To Contact [facility] Diagnoses Stage 3 severe COPD by GOLD classification ([facility]) Procedures LUNG DIFFUSION CAPACITY (DLCO) DIFFUSING CAPACITY Colleen Wolfe MD [address] [place] [address] [facility] [address] [place] [address] Referral ID Status Reason Start Date Expiration Date V isits Requested Visits Authorized [id number] Closed Auto-Generate d Referral 11/09/2022 05/16/2023 1 1 Specialty Diagnoses / Procedures Referred By Contac t Referred To Contact [facility] Diagnoses Stage 3 severe COPD by GOLD classification ([facility]) Procedures LUNG VOLUMES Irlanda Wilcox, 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.ISSUE CLERK [address] [place] [address] [facility] [address] [place] [id number] Referral ID Status Reason Start Date Expiration Date V isits Requested Visits Authorized [id number] Closed Auto-Generate d Referral 11/18/2022 12/18/2023 1 [...] DOSE LNG CA SCR C- Irlanda Wilcox, 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.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 CLERK [address] [place] [address] [place] [id number] Referral ID Status Reason Start Date Expiration Date V isits Requested Visits Authorized [id number] Closed Auto-Generate d Referral 11/19/2022 05/16/2023 1 1 Care Teams (unrecognized sec tion and content) [employer] Set Up Technician Relationship Specialty Start Date End Date Pennie Sutton DO PCP - General Internal Medicine 04/08/13 [employer] Set Up Technician Relationship Specialty Start Date End Date Pennie Sutton [address] [facility] [address] [place], [place] [id number] (Fax) PCP - General 07/20/17 [employer] Set Up Technician Relationship Specialty Start Date End Date Pennie Sutton DO (Fax) PCP - General Internal Medicine 04/08/13 [employer] Set Up Technician Relationship Specialty Start Date End Date Pennie Sutton DO PCP - General Internal Medicine 04/08/13 [employer] Set Up Technician Relationship Specialty Start Date End Date Pennie Sutton DO PCP - General Internal Medicine 04/08/13 Colleen Wolfe MD [facility] [place] [address] Pulmonary and Critical Care Medicine 11/12/22 [employer] Set Up Technician Relationship Specialty Start Date End Date Pennie Sutton DO PCP - General Internal Medicine 04/08/13 Colleen Wolfe MD [facility] [place] [address] Pulmonary and Critical Care Medicine 11/12/22 [employer] Set Up Technician Relationship Specialty Start Date End Date Pennie Sutton DO PCP - General Internal Medicine 04/08/13 Colleen Wolfe MD [facility] [place] [address] Pulmonary and Critical Care Medicine 11/12/22 [employer] Set Up Technician Relationship Specialty Start Date End Date Pennie Sutton DO PCP - General Internal Medicine 04/08/13 Colleen Wolfe MD [address] [place] [id number] Pulmonary and Critical Care Medicine 11/12/22 FOR [...] BE BASED ON THE PRIMARY CLINICAL RECORDS. [facility]. provides no warranty or guarantee of the accuracy or completeness of information in this document.
[2023-05-29 20:46] LABS: Procalcitonin 0.05 ng/mL (0.00-0.09)
[2023-05-29] MEDS: 0.9% Normal Saline (1000mL) 1,000 ML 100 ML IV (21:00)
[2023-05-29] MEDS: 0.9% Saline Lock 10 ML Syringe IV (22:54)
[2023-05-30] VITALS (13 sets, daily range): BP systolic 113–133; BP diastolic 49–63; PULSE 86–98; RESP 18–24; TEMP 36.6–36.8; O2SAT 92–98; BMI 23.9
[2023-05-30] MEDS: Albuterol 2.5 MG/3 ML VIAL.NEB. INHALATION (04:08)
[2023-05-30] MEDS: 0.9% Saline Lock 10 ML Syringe IV ×3 (05:15→23:02)
[2023-05-30 07:01] LABS: Absolute Lymphocyte Count 0.33 X10^3/uL (0.83-4.51); Basophil# 0.02 X10^3/uL; Basophil% 0.2 % (0-1); Hemoglobin 13.1 g/dL (12.0-15.0); Lymphocyte # 0.33 X10^3/ul (0.83-4.51); Lymphocyte % 3.8 % (19-41); Mean Corpuscular Hgb 30.8 pg (27.0-32.0); Mean Corpuscular Volume 96.5 fL (81-99); Mean Platelet Vol. 10.7 fl (6.2-12.0); Monocyte# 0.32 X10^3/uL; Monocyte% 3.7 % (0-10); NRBC Flagged by Analyzer 0 % (0-5); Neutrophil # 8.04 X10^3/uL (2.7-7.7); Neutrophil % 91.7 % (47-70); POSITIVE DIFFERENTIAL YES; Platelet Count 221 K/mm3 (150-450); RBC Distribution Width CV 13.2 % (11.6-14.6); RBC Distribution Width SD 47.2 fl (35.1-43.9); Red Blood Count 4.25 M/mm3 (4.2-5.4); White Blood Count 8.8 K/mm3 (4.4-11.0)
[2023-05-30 07:10] LABS: Differential Indicated SCAN CRITERIA MET
[2023-05-30] MEDS: amLODIPine 5 MG Tablet PO (09:49)
[2023-05-30] MEDS: Oseltamivir Phosphate 75 MG Capsule PO ×2 (09:49→23:02)
[2023-05-30] MEDS: Enoxaparin 40 MG/0.4 ML Syringe SC (09:49)
[2023-05-30] MEDS: Acetaminophen 325 MG Tablet 650 MG PO ×2 (09:49→14:57)
[2023-05-30 10:32] LABS: ALB/GLOB Ratio 0.9 RATIO (0.9-2.4); AST(SGOT) 18 U/L (15-37); Alanine Aminotransfer ALT/SGPT 23 U/L (13-56); Albumin, Serum 2.9 g/dL (3.2-5.0); Alkaline Phosphatase 79 U/L (45-117); Anion Gap 7 (5-15); BUN 9 mg/dL (7-18); Calcium,Total 8.4 mg/dL (8.5-10.1); Chloride 109 mmol/L (98-107); Creatinine, Serum 0.64 mg/dL (0.55-1.02); EST Glomerular Filtration Rate 99 mL/min (>60); Est Glom Filt Rate - Afr Amer 120 mL/min (>60); Estimated Creatinine Clearance 70.19 ml/min; Globulin 3.4 g/dL (2.2-4.2); Glucose 187 mg/dL (74-106); Potassium 3.8 mmol/L (3.5-5.1); Protein, Total 6.3 g/dL (6.4-8.2); Sodium Level 140 mmol/L (136-145)
[2023-05-30] MEDS: Ipratropium/Albuterol Sulfate 3 ML AMPUL.NEB INHALATION ×3 (10:40→19:50)
--- NOTE | 2023-05-30 13:35 | PCM.PN.HOSP ---
Reason for Visit Reason for Visit: Diagnoses Influenza due to other identified influenza virus with other respiratory manifestations (05/29/23) Chronic obstructive pulmonary disease with (acute) exacerbation (05/29/23) Hypoxemia (05/29/23) Objective Data Objective Data Vital Signs: Vital Signs Temp Pulse Resp BP Pulse Ox O2 Del Method O2 Flow Rate 98.1 F 92 21 H 133/63 H 96 Nasal Cannula 2 05/30/23 09:47 05/30/23 10:40 05/30/23 10:40 05/30/23 09:47 05/30/23 10:40 05/30/23 10:40 05/30/23 10:40 Oxygen Flow Rate (L/min) 2 Oxygen Delivery Method Nasal Cannula Weight: 121 lb 14.65 oz Body Mass Index (BMI) 23.9 Intake & Output: Intake and Output for Last 24 Hours 05/28/23 05/29/23 05/30/23 23:59 23:59 23:59 Intake Total 1000 / 1000 1200 / 1200 Balance 1000 / 1000 1200 / 1200 Lab / Micro Data 05/30/23 06:16 05/30/23 06:16 Labs: Laboratory Results - last 24 hr 05/29/23 18:05: WBC 12.1 H, RBC 5.01, Hgb 15.3 H, Hct 47.0, MCV 93.8, MCH 30.5, MCHC 32.6, RDW Std Deviation 45.7 H, RDW Coeff of Alvaro 13.2, Plt Count 279, MPV 10.2, Immature Gran % (Auto) 0.300, Neut % (Auto) 86.5 H, Lymph % (Auto) 4.8 L, Woodward % (Auto) 7.8, Eos % (Auto) 0.1, Baso % (Auto) 0.5, Absolute Neuts (auto) 10.5 H, Absolute Lymphs (auto) 0.58 L, Nucleated RBC % 0, Differential Comment SCANNED, Sodium 137, Potassium 3.9, Chloride 103, Carbon Dioxide 28.0, Anion Gap 6, BUN 11, Creatinine 0.76, Estim Creat Clear Calc 59.56, Est GFR (MDRD) Af Amer 98, Est GFR (MDRD) Non-Af 81, BUN/Creatinine Ratio 14.4, Glucose 128 H, Calcium 9.1 05/29/23 20:10: Procalcitonin 0.05 05/30/23 06:16: WBC 8.8, RBC 4.25, Hgb 13.1, Hct 41.0, MCV 96.5, MCH 30.8, MCHC 32.0, RDW Std Deviation 47.2 H, RDW Coeff of Alvaro 13.2, Plt Count 221, MPV 10.7, Immature Gran % (Auto) 0.600, Neut % (Auto) 91.7 H, Lymph % (Auto) 3.8 L, Woodward % (Auto) 3.7, Eos % (Auto) 0.0, Baso % (Auto) 0.2, Absolute Neuts (auto) 8.0 H, Absolute Lymphs (auto) 0.33 L, Nucleated RBC % 0, Sodium 140, Potassium 3.8, Chloride 109 H, Carbon Dioxide 24.0, Anion Gap 7, BUN 9, Creatinine 0.64, Estim Creat Clear Calc 70.19, Est GFR (MDRD) Af Amer 120, Est GFR (MDRD) Non-Af 99, BUN/Creatinine Ratio 14.0, Glucose 187 H, Calcium 8.4 L, Total Bilirubin 0.30, AST 18, ALT 23, Alkaline Phosphatase 79, Total Protein 6.3 L, Albumin 2.9 L, Globulin 3.4, Albumin/Globulin Ratio 0.9 Micro: Microbiology 05/29/23 17:50 Mucosa - Nose SARS-CoV-2, Influenza & RSV (PCR) - Final Influenzae A Radiography Diagnostic Testing: Radiology Impression Chest X-Ray 05/29/23 18:45 IMPRESSION: Subtle bilateral lower lobe pulmonary opacities may be developing pneumonia or atelectasis. Electronically Signed: Gideon Ruvalcaba DO at 19:24 EST , Physical Exam Narrative Seen and examined. Patient is short of breath, chest congestion, URI symptoms including nasal congestion and sinus congestion. Denies fever Physical exam General: Alert, Oriented x3, Cooperative. BMI 23.8 kg/m?. HEENT: Atraumatic, PERRLA, EOMI, Normocephalic Oral: oral mucosa dry. No Gingival or Mucosal Lesions/ Ulcerations Neck: Supple, No JVD, Negative Carotid Bruits Lungs: Air entry severely diminished all lung morgan. Bilateral wheezing and coarse rhonchi. Cardiovascular: Regular rate, Regular Rhythm, Normal S1, Normal S2, No murmurs Abdomen: Bowel Sounds Present, Soft, Non Tender, Non-Distended : No renal angle tenderness. No suprapubic tenderness. Extremities: No edema, Capillary Refill Less than 3 Seconds Skin: No rashes, No breakdown Musculoskeletal: No Tenderness to Palpation of Joints or Extremities Neurological: Cranial nerves II-XII grossly intact, DTR 2+/4. No acute focal neurological deficit. Psych/Mental Status: Flat affect. Assessment & Plan Assessment/Plan (1) COPD with acute exacerbation: (2) Influenza A: (3) Hypoxia: PLAN: Plan The patient is a 62 y/o F admitted for COPD exacerbation due to influenza A. Patient does report she continues to smoke 1/2 pack/day. #1. Acute Hypoxia secondary to Acute on Chronic COPD exacerbation secondary to Acute Influenza A viral syndrome: Admitted in PCU. Titrate oxygen to keep pulse ox 90%. On Tamiflu. Patient is being managed on scheduled bronchodilator, IV Solu-Medrol, Mucinex, incentive spirometry and Pep. #2. Hypertension: Continue home regimen including amlodipine, PRN hydralazine. #3. Anxiety and depression: We will continue patient low-dose lorazepam regimen. #4. Tobacco Abuse: Encouraged cessation, inpatient consultation per RT, NR if desired. #5. Chart reported history of brain aneurysm: No CT imaging in [facility] noted, encourage continued outpatient follow-up as previously arranged. #6. DVT prophylaxis: Lovenox. Charges/Coding Visit Charges Inpatient E&M: 84224 Subs Hosp L2
[2023-05-30] MEDS: guaiFENesin/D-Methorphan TAB.SR.12H 2 TABLET PO ×2 (13:46→23:02)
[2023-05-31] VITALS (8 sets, daily range): BP systolic 119–148; BP diastolic 62–80; PULSE 70–85; RESP 16–20; TEMP 36.7–36.8; O2SAT 87–95
[2023-05-31] MEDS: 0.9% Saline Lock 10 ML Syringe IV ×3 (05:26→14:28)
[2023-05-31] MEDS: Ipratropium/Albuterol Sulfate 3 ML AMPUL.NEB INHALATION ×3 (07:39→15:59)
[2023-05-31] MEDS: guaiFENesin/D-Methorphan TAB.SR.12H 2 TABLET PO (08:21)
[2023-05-31] MEDS: Oseltamivir Phosphate 75 MG Capsule PO (08:21)
[2023-05-31] MEDS: amLODIPine 5 MG Tablet PO (08:21)
[2023-05-31] MEDS: Enoxaparin 40 MG/0.4 ML Syringe SC (08:22)
--- NOTE | 2023-05-31 11:12 | CASEMGMT ---
Addendum entered by Shira Hassan 05/31/23 12:57: Pt failed O2 testing and is requiring 2L with exertion. Pt states that she wants to use [employer] for the DME. Referral sent via [employer] at this time. Pt states she has a couple pule oximeters at home but does not know where they are at. Pt states that the RT was going to get her a new pulse ox. Original Note: KATHY IRVING Assessment Face to Face with patient for initial transition planning/care coordination assessment. KATHY IRVING introduced self and role at [facility], pt voices understanding. Pt is A&Ox4 and is resting comfortably in bed and is calm. Care providers, pharmacy, and demographics verified. Admitting dx: Hypoxia, Influenza A, COPD Exacerbation LACE Strata: 2 PCP: Lesley Specialists: KADEN Owusu Licensed Psychologist Director Preferred Pharmacy: [facility] Insurance: [place] Prescription Benefit: Yes LNOK: - [employer] [place] Living Arrangements: Pt lives with her in a 2 story home with a basement with 5 steps to enter with no issues. ADLs/IADLs: Independent Transportation: Pt and pt drive Smoking Hx: Pt states she smokes 2 cigarettes every night. DME: Pt states her mom and commandeered her walker and shower chair but does not need to use. Pt states she also has a cane at home but does not use. Pt denies history of O2 use. List of local in-network DME companies verbally given to pt. Pt states she will discuss with her to decide which company to go through if needing home O2 after DC. Will follow. HHC/SNF:Denies SNF history or needs. Pt states that 5 years ago she had brain surgery for an aneurysm and had HHC (SN) come to the home for 1 month after. Pt was unable to recall the name of the agency. Pt?s goal: DC Home Plan: DC home with her once medically cleared. Will follow for oxygen needs. Vinayak Hassan RN, CM
[2023-05-31] MEDS: Acetaminophen 325 MG Tablet 650 MG PO (11:24)
--- NOTE | 2023-05-31 12:24 | DCINST_ITS ---
Discharge Instructions Diet Discharge Diet: No restrictions Activity Discharge Activity: Return to Normal Activity Return to work on:: 06/07/23 Dressing / Incision Call your doctor if you observe: Fever of 101 or Higher, Shortness of breath, Dizziness, Fainting spells, Swelling in the ankles, Chest pain and Increased palpitations (irregular heartbeat) Follow Up Care Test Results: Test results from this visit will be discussed in further detail at your follow- up appointment, if applicable. Discharge Plan Admission Admit Date/Time: 05/29/23 19:38 Attending Provider: Michael Means Primary Care Provider: Pennie Sutton Consulting Providers: Tasha Edge; Jayson Corbin Discharge Orders/Prescriptions Prescriptions: New oseltamivir 75 mg Capsule 75 mg PO BID 3 Days Qty: 6 0RF prednisone 20 mg tablet 40 mg PO DAILY 7 Days Qty: 14 0RF Continued albuterol sulfate [Proventil HFA] 6.7 GM HFA aerosol inhaler 6.7 g IH PRN PRN (Reason: Shortness Of Breath) lorazepam 0.5 MG tablet 0.5 mg PO DAILY PRN PRN (Reason: Anxiety) acetaminophen [Tylenol] 325 MG tablet 650 mg PO Q6H PRN PRN (Reason: Mild Pain (scale 0-3)/T>100.7) Qty: 0 0RF Trelegy Ellipta 100-62.5-25 mcg blister with device 1 inh INHALATION DAILY amlodipine [Norvasc] 5 mg tablet 5 mg PO DAILY Patient Comments: pt takes 7.5mg Referrals / Follow Up: Pennie Sutton DO [Primary Care Provider] - Within 1 Week Disposition Disposition (needs filled in before D/C Order can be placed): Home, Self Care
--- NOTE | 2023-05-31 13:05 | PHA.DC_ITS ---
Pharmacy [facility] has performed discharge medication reconciliation and counseling for this patient. The patient's discharge medication list was reviewed for discrepancies and discrepancies were resolved. The patient was counseled on the following discharge medications and changes in medications for homegoing were reviewed. The Reason for Use, instructions for use, and potential side effects were reviewed for all new medications. The patient's questions regarding all of their medications were answered. 1. Prednisone 40 mg PO daily x 7 days 2. Oseltamivir 75 mg PO BID x 3 days The patient was able to verbally demonstrate an understanding of their discharge medications. Medications at Discharge Home Medications albuterol sulfate 90 mcg/actuation aerosol inhaler (Proventil HFA) 6.7 g IH PRN PRN Shortness Of Breath 06/30/16 lorazepam 0.5 mg tablet 0.5 mg PO DAILY PRN PRN Anxiety 07/01/16 acetaminophen 325 mg tablet (Tylenol) 650 mg (2 x 325 mg) PO Q6H PRN PRN Mild Pain (scale 0-3)/T>100.7 ##0 07/02/16 amlodipine 5 mg tablet (Norvasc) 5 mg PO DAILY 05/29/23 fluticasone fur. 100 mcg-umeclid 62.5 mcg-vilant 25 mcg inhalat.powder (Trelegy Ellipta) 1 inh inhalation DAILY 05/29/23 oseltamivir 75 mg capsule 75 mg PO BID 3 days #6 caps 05/31/23 prednisone 20 mg tablet 40 mg (2 x 20 mg) PO DAILY 7 days #14 tabs 05/31/23
--- NOTE | 2023-05-31 14:49 | DS.PCM_ITS ---
Providers Date of Admission: 05/29/23 Primary Care Physician: Dr. Pennie Sutton DO Reason For Visit: HYPOXIA, INFLUENZA A, COPD EXAC Diagnosis Discharge Diagnosis (1) COPD with acute exacerbation: Status: Acute Code(s): J44.1 - Chronic obstructive pulmonary disease with (acute) exacerbation (2) Influenza A: Status: Acute Code(s): J10.1 - Influenza due to other identified influenza virus with other respiratory manifestations (3) Hypoxia: Status: Acute Code(s): R09.02 - Hypoxemia Medications at Discharge Home Medications albuterol sulfate 90 mcg/actuation aerosol inhaler (Proventil HFA) 6.7 g IH PRN PRN Shortness Of Breath 06/30/16 lorazepam 0.5 mg tablet 0.5 mg PO DAILY PRN PRN Anxiety 07/01/16 acetaminophen 325 mg tablet (Tylenol) 650 mg (2 x 325 mg) PO Q6H PRN PRN Mild Pain (scale 0-3)/T>100.7 ##0 07/02/16 amlodipine 5 mg tablet (Norvasc) 5 mg PO DAILY 05/29/23 fluticasone fur. 100 mcg-umeclid 62.5 mcg-vilant 25 mcg inhalat.powder (Trelegy Ellipta) 1 inh inhalation DAILY 05/29/23 oseltamivir 75 mg capsule 75 mg PO BID 3 days #6 caps 05/31/23 prednisone 20 mg tablet 40 mg (2 x 20 mg) PO DAILY 7 days #14 tabs 05/31/23 Hospital Course Operations None Procedures None Summary of Care Provided Minutes Spent on Discharge: 38 Hospital Course: Per HPI: The patient is a 62 y/o F w/ PMHx: Anxiety and Depression, HTN, COPD, Tobacco use, Brain Aneurysm who present so the [facility] ED on 05/29/23 with history of 2-day history of progressively worsening cough, shortness of breath, body aches, fatigue and malaise with a low-grade fever prompting eventual ED evaluation. Patient does report she continues to smoke 1/2 pack/day. Patient who is present notes he has been feeling well himself. They both unfortunately cannot recall if they did get vaccinated this year but they say normally they do. Workup in the ED included T98.5, heart rate 105, BP 141/75, respiratory rate 22 initially with most recent repeat 32, initially noted to be 88% on room air with most recent repeat 91% on 2 L nasal cannula, CBC with WBC 12.1, hemoglobin 15.3, platelet 279 with left shift and lymphopenia, BMP with glucose 128 otherwise unremarkable, chest x-ray with subtle bilateral lower lobe pulmonary opacities possibly developing pneumonia versus atelectasis, rapid SARS COVID/RSV PCR negative, positive influenza A. In the ED patient ministered 1 L normal saline, Tamiflu 75 mg p.o. x 1, Solu-Medrol 125 mg IV x 1 as well as DuoNeb and albut misti therapies. Hospital course: 1. Acute hypoxia secondary to acute COPD exacerbation from influenza A? 59-year-old female presented to the hospital with significant shortness of breath and hypoxia requiring oxygen therapy. She was noted to be positive for influenza A on admission and was started on Tamiflu as she was within the window of symptom onset for treatment. She was also started on steroids secondary to her COPD exacerbation. Today she had an ambulatory pulse ox demonstrating a need for 2 L and I discussed with her the possibility for discharge versus sta chanel another day, and she expressed understanding of the risk benefits of going home and would prefer to go home today. She does require oxygen both at rest and with ambulation as she is ambulatory in the home and community she will need portable oxygen as well on discharge. She will be discharged with 3 more days of Tamiflu as well as 7 days of prednisone without a taper. I do recommend that she continue with her home breathing treatments and follow-up with her mammography technologist as an outpatient. 2. Hypertension, anxiety, depression are chronic medical conditions which complicate her care. Her home medications were continued where appropriate Physical Exam Narrative General: Alert, Oriented x3, Cooperative, No apparent distress HEENT: Atraumatic, PERRLA, EOMI, Normocephalic Oral: Moist Mucosa Neck: Supple, No JVD Lungs: Diminished, Normal air movement, No rhonchi, slight wheeze, No rales Cardiovascular: Regular rate, Regular Rhythm, Normal S1, Normal S2, No murmurs Abdomen: Soft, Non Tender, Non-Distended, No Hepato-splenomegaly Extremities: No edema, Capillary Refill Less than 3 Seconds Skin: No rashes, No breakdown Musculoskeletal: No Tenderness to Palpation of Joints or Extremities Neurological: Cranial nerves II-XII grossly intact, Motor Exam 5/5 strength throughout, Sensory exam intact to light touch and pain Psych/Mental Status: Normal Affect, Appropriate Weight / BMI Weight Weight: 121 lb 14.65 oz Body Mass Index (BMI) 23.9 ABG / Lab / Microbiology Data 05/30/23 06:16 05/30/23 06:16 Microbiology: Microbiology 05/29/23 17:50 Mucosa - Nose SARS-CoV-2, Influenza & RSV (PCR) - Final Influenzae A D/C Instructions Discharge Diet: No restrictions Return to work on: 06/07/23 Call your doctor if you observe: Fever of 101 or Higher, Shortness of breath, Dizziness, Fainting spells, Swelling in the ankles, Chest pain and Increased palpitations (irregular heartbeat) Meaningful Use Info Meaningful Use Diagnoses (Choose all that apply): None applicable Discharge Plan Admission Admit Date/Time: 05/29/23 19:38 Attending Provider: Michael Means Primary Care Provider: Pennie Sutton Consulting Providers: Tasha Edge; Jayson Corbin Discharge Orders/Prescriptions Prescriptions: New oseltamivir 75 mg Capsule 75 mg PO BID 3 Days Qty: 6 0RF prednisone 20 mg tablet 40 mg PO DAILY 7 Days Qty: 14 0RF Continued albuterol sulfate [Proventil HFA] 6.7 GM HFA aerosol inhaler 6.7 g IH PRN PRN (Reason: Shortness Of Breath) lorazepam 0.5 MG tablet 0.5 mg PO DAILY PRN PRN (Reason: Anxiety) acetaminophen [Tylenol] 325 MG tablet 650 mg PO Q6H PRN PRN (Reason: Mild Pain (scale 0-3)/T>100.7) Qty: 0 0RF Trelegy Ellipta 100-62.5-25 mcg blister with device 1 inh INHALATION DAILY amlodipine [Norvasc] 5 mg tablet 5 mg PO DAILY Patient Comments: pt takes 7.5mg Referrals / Follow Up: Pennie Sutton DO [Primary Care Provider] - Within 1 Week Disposition Disposition (needs filled in before D/C Order can be placed): Home, Self Care Charges/Coding Visit Charges Inpatient E&M: 46902 Disch Hosp >30min
== END 2023-05-31 16:35 | disposition home or self-care (01) | DRG 192 ==
LOC: ED 19:50 → MS3 20:24
PROVIDERS: Nurse Practitioner; Admitting Provider Family Medicine; Emergency Provider Emergency Medicine; PCP Internal Medicine; Visit Provider Family Medicine
DX: J44.1 Chronic obstructive pulmonary disease with (acute) exacerbation (principal); F17.210 Nicotine dependence, cigarettes, uncomplicated; I10 Essential (primary) hypertension; F32.A Depression, unspecified; J10.1 Influenza due to other identified influenza virus with other respiratory manifestations; F41.9 Anxiety disorder, unspecified; Z79.51 Long term (current) use of inhaled steroids
CPT/HCPCS: 36415; 71046; 80048; 80053; 84145; 85025; 87070; 87205; 87631; 93005; 94640; 94668; 99285; J7030; A4216

== ENCOUNTER → 2024-07-03 | Outpatient (CLI) | payer OTHER, SELFPAY ==
--- NOTE | 2024-07-03 08:30 | BI_ITS ---
PROCEDURE: SCRN MAMM (CAD)W/HAWK BILAT REASON FOR EXAM: F, Age 63 y/o, routine mammogram. No family history. TECHNIQUE: Bilateral screening digital breast tomosynthesis with 2D and 3D images. Computer aided detection. COMPARISON: No comparison is available at this time. FINDINGS: The breasts are heterogeneously dense which may obscure small masses. Bilateral breast prostheses. Small benign-appearing bilateral axillary lymph nodes. No suspicious masses, areas of developing architectural distortion, or suspicious calcifications. BI/SCRN MAMM (CAD)W/HAWK BILAT IMPRESSION: BI-RADS 2: BENIGN. RECOMMEND ANNUAL MAMMOGRAPHIC SCREENING. Follow-up code: Routine Follow-up The patient will be notified of the results by letter. Reading Location: [place] [address]
== END | disposition home or self-care (01) ==
PROVIDERS: PCP Internal Medicine; Referring Provider Internal Medicine; Visit Provider Internal Medicine
DX: Z12.31 Encounter for screening mammogram for malignant neoplasm of breast (principal)
CPT/HCPCS: 77063; 77067

== ENCOUNTER → 2024-08-18 | Outpatient (CLI) | payer OTHER, SELFPAY ==
--- NOTE | 2024-08-18 08:16 | MRI_ITS ---
PROCEDURE: MRA HEAD ONLY WITHOUT CONTRAST 08/18/2024 REASON FOR EXAM: MRA OF BRAIN: CEREBRAL ANEURYSM FOLLOW UP COMPARISON: None TECHNIQUE: 3D Time of Flight MRA of the head without intravenous contrast. 3D reformatted images were provided. FINDINGS: Anatomy: [place] of Hernandez anatomy is within normal limits. Anterior Circulation: Distal internal carotid anterior and middle cerebral arteries appear patent without high grade stenosis. Postoperative changes aneurysmal clipping in the anterior cerebral artery region. 7 mm focal outpouching of the left supraclinoid ICA (series 2, image 99). Posterior Circulation: Unremarkable. MRI/MRA Head ONLY without Contrast IMPRESSION: Postoperative changes RICHARD aneurysmal clipping. No evidence of recurrence. 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 Reading Location: [facility]
== END | disposition home or self-care (01) ==
PROVIDERS: PCP Internal Medicine; Referring Provider Internal Medicine; Visit Provider Internal Medicine
DX: I72.9 Aneurysm of unspecified site (principal)
CPT/HCPCS: 70544

== ENCOUNTER → 2025-01-22 | Outpatient (CLI) | payer OTHER, SELFPAY ==
--- OUTSIDE RECORDS SUMMARY | 2025-01-22 07:00 | XMS RPT_ITS | CCD ---
Author Organization [facility] Care Team Providers Care [employer] Lines Person Name Role Phone Pennie Hale Unavailable Hosea Grace Unavailable Sue Srivastava Unavailable Unavailable Vic, Neah Unavailable Unavailable Ciesa, Amanda Unavailable Beti Salas Unavailable Unavailable Messenger, Mckenna Unavailable Unavailable Eyal Diann L Unavailable Unavailable Unavailable Unavailable Pennie Hale Unavailable Hosea Grace Unavailable Sue Srivastava Unavailable Unavailable Vic, Neha Unavailable Unavailable Ciesa, Amanda Unavailable Fast, Milena A Unavailable Josue Beti Unavailable Unavailable Messenger, Mckenna Unavailable Unavailable Long, Diann L Unavailable Unavailable Unavailable Unavailable New Cook Unavailable Unavailable New Salas Unavailable Unavailable Kamilah Wolf Unavailable Unavailable Gravius, Delmy Unavailable Unavailable Messenger, Mckenna Unavailable Unavailable Long, Diann L Unavailable Unavailable Marichuy DO Pennie Unavailable Dr. Hosea Grace Unavailable Gravius SURGERY NURSE, Delmy Unavailable Unavailable Cross SOCIAL WORK INSTRUCTOR, Kamilah Unavailable Unavailable Vic SOCIAL WORK INSTRUCTOR, Neha Unavailable Unavailable Josue, Beti Unavailable Unavailable Messenger RN, Mckenna Unavailable Unavailable Long RN, Diann L Unavailable Unavailable Unavailable Unavailable New Salas LPN Unavailable Unavailable Marichuy DO Pennie Unavailable Marichuy DOPennie Primary Care Provider Katalina Murillo Unavailable Marichuy DO, Pennie Attending Unavailable Marichuy DO, Pennie Referring Unavailable Marichuy DO, Pennie Consulting Unavailable Pennie Hale Primary Care Provider Fadi BROADCAST TRAFFIC COORDINATORKae Unavailable Pilo SOCIAL WORK INSTRUCTOR, Idalia Unavailable Unavailable Marichuy DO, Pennie Jade Primary Care Provider Colleen Wolfe MD Unavailable Dr. Pennie Hale Primary Care Provider Dr. Eddy Maier Emergency Provider Dr. Tasha Edge Admit Provider Dr. Tasha Edge Other Provider Dr. Jayson Corbni Attending Provider Dr. Jayson Corbin Other Provider Dr. Michael Means Attending Provider Dr. Michael Means Other Provider Pennie Hale DO Primary Care Provider Pennie Hale Primary Care Provider Dr. Pennie Hale DO Primary Care Provider [phone] Dr. Pennie Hale DO Attending Provider Marichuy RILEY, Dr. Casper Referring Provider Pennie Hale Referring Unavailable MarichuyPennie Attending Unavailable Pennie Hale Primary Care Unavailable MarichuyPennie pike Primary Care Unavailable MarichuyPennie pike Referring Unavailable MarichuyPennie pike Attending Unavailable PROVIDER, UNKNOWN Attending Unavailable MARICHUYPENNIE PIKE Primary Care Unavailable CACERES, JOSE Referring Unavailable PROVIDER, UNKNOWN Admitting Unavailable MARICHUY, PENNIE Primary Care Unavailable CACERES, JOSE Attending Unavailable PROVIDER, UNKNOWN Admitting Unavailable Marichuy DOPennie Primary Care Provider PENNIE HALE Referring Unavailable PENNIE HALE Primary Care Unavailable PENNIE HALE Primary Care Unavailab le CLICK, DANNA Thomas Attending Unavailable PENNIE HALE Primary Care Unavailab le CLICK, DANNA Thomas Referring Unavailable CLICK, DANNA Thomas Attending Unavailable MARICHUY, PENNIE JADE Primary Care Unavailab le CLICK, DANNA Thomas Referring Unavailable PENNIE HALE Primary Care Unavailab AL Castrejon Attending Unavailable MARICHUY, PENNIE JADE Primary Care Unavailab le PATRICE AYO Attending Unavailable Allergies Allergy Classification Reported Allergen(s) Allergy Type Date of Onset Reaction(s) Facility Creosote (1 source) Creosote Drug Allergy 05-28-19 04 Other: See Comments [facility] Work Phone: (1 source) allergy to substance [facility] Work Phone: (1 source) allergy to substance [facility] Work Phone: (1 source) allergy to substance [facility] Work Phone: (20 sources) creasote (Renamed from Insect Stings) allergy to substance [facility] Work Phone: (19 sources) Creosote; Translations: [CREOSOTE] Drug Allergy 05-28-19 04 Other: See Comments [facility] Work Phone: (5 sources) Creosote Drug Allergy 07-21-19 18 [facility] (4 sources) levoFLOXacin Drug Allergy 07-01-19 17 [facility] (1 source) levoFLOXacin Drug Allergy 07-01-19 17 [facility] Repository (1 source) ALLERGIES NOT ON FILE; Translations: [ALLERGIES NOT ON FILE] Propensity to adverse reactions (disorder) [facility] 2 Repository Medications Current Medications Medication Drug Class(es) Dates Sig (Normalized) Sig (Original) acetaminophen 325 mg oral tablet (4 sources) Start: 07-02-2016 Acetaminophen (Tylenol) 325 MG tablet Active 650 mg PO EVERY 6 HOURS NEEDED as needed for Mild Pain (scale 0-3)/T>100.7 0 July 02, 2016 1:00am Start: 07-02-2016 take 2 tablets by [facility] every six hours as needed Acetaminophen (Tylenol) 325 MG tablet Active 650 MG PO EVERY 6 HOURS NEEDED 0 July 02, 2016 12:00am [id number] 200 actuat albuterol 0.09 mg/actuat metered dose inhaler (19 sources) beta2-Adrenergic Agonist Start: 10-30-2022 take 2 puff(s) by inhalation every four hours as needed albuterol HFA (PROVENTIL HFA, VENTOLIN HFA) 90 mcg/actuation inhaler Inhale 2 Puffs as instructed every 4 hours as needed. 1 Each 5 10/30/2022 Active Start: 06-30-2016 Albuterol Sulf ate (Proventil Hfa) 6.7 GM HFA aerosol inhaler Active 6.7 g IH NEEDED as needed for Shortness Of Breath June 30, 2016 1:00am Start: 06-30-2016 Albuterol Sulf ate (Proventil Hfa) 6.7 GM HFA aerosol inhaler Active 6.7 GM IH NEEDED June 30, 2016 12:00am Comment on above: Inhale 2 Puffs as in structed every 4 hours as needed. amLODIPine 5 mg oral tablet (20 sources) Dihydropyridine Calcium Channel Handy Start: take 1 tablet by mouth once daily Amlodipine (Norvasc) 5 mg tablet Active 5 mg PO DAILY May 29, 2023 1:00am Start: 03-01-2023 take 1 tablet by rama th once daily Norvasc 2.5 mg oral tablet 1 (one) Tablet daily for 0 days Quantity: 30 {Tablet} Refills: 0 Ordered: 01-Mar-2023 Pennie Hale DO, DO, Kathleen Start : 01-Mar-2023 Active Comments: pt takes qd with 5mg norvasc. Start: 03-01-2023 End: 02-21-2023 take 1 tablet by mouth once daily Norvasc 5 mg oral tablet 1 (one) Tablet daily for 30 days Quantity: 30 {Tablet} Refills: 0 Ordered: 01-Mar-2023 Pennie Hale DO, DO, Kathleen Start : 01-Mar-2023 End : 21-Feb-2023 Active Comments: pt takes qd with norvasc 2.5mg as well - Start: 01-22-2023 take 1 tablet by rama th once daily Norvasc 2.5 mg oral tablet 1 (one) Tablet daily for 0 days Quantity: 30 {Tablet} Refills: 0 Ordered: 22-Jan-2023 Marichuy DO, Pennie Marichuy DO, Pennie Start : 22-Jan-2023 Active Comments: pt takes qd with 5mg norvasc. Start: 01-22-2023 End: 01-16-2023 take 1 tablet by mouth once daily Norvasc 5 mg oral tablet 1 (one) Tablet daily for 30 days Quantity: 30 {Tablet} Refills: 0 Ordered: 22-Jan-2023 Marichuy DO, Pennie Marichuy DO, Pennie Start : 22-Jan-2023 End : 16-Jan-2023 Active Comments: pt takes qd with norvasc 2.5mg as well - Start: 12-17-2022 take 1 tablet by rama th once daily Norvasc 5 mg oral tablet 1 (one) Tablet daily for 30 days Quantity: 30 {Tablet} Refills: 0 Ordered: 17-Dec-2022 Marichuy DO, Pennie Marichuy DO, Pennie Start : 17-Dec-2022 Active Comments: pt takes qd with norvasc 2.5mg as well - Start: 12-17-2022 take 1 tablet by rama th once daily Norvasc 2.5 mg oral tablet 1 (one) Tablet daily for 0 days Quantity: 30 {Tablet} Refills: 0 Ordered: 17-Dec-2022 Marichuy DO, Pennie Marichuy DO, Pennie Start : 17-Dec-2022 Active Comments: pt takes qd with 5mg norvasc. Start: 09-04-2022 take 1 tablet by rama th once daily Norvasc 5 mg oral tablet 1 (one) Tablet daily for 30 days Quantity: 30 {Tablet} Refills: 3 Ordered: 04-Sep-2022 Marichuy DO, Pennie Marichuy DO, Pennie Start : 04-Sep-2022 Active Comments: pt takes qd with norvasc 2.5mg as well - Start: 09-04-2022 take 1 tablet by rama th once daily Norvasc 2.5 mg oral tablet 1 (one) Tablet daily for 0 days Quantity: 30 {Tablet} Refills: 3 Ordered: 04-Sep-2022 Marichuy DO, Pennie Marichuy DO, Pennie Start : 04-Sep-2022 Active Comments: pt takes qd with 5mg norvasc. Start: 07-28-2022 take 1 tablet by rama th once daily Norvasc 2.5 mg oral tablet 1 (one) Tablet daily for 0 days Quantity: 30 {Tablet} Refills: 0 Ordered: 28-Jul-2022 Marichuy DO, Pennie Marichuy DO, Pennie Start : 28-Jul-2022 Active Comments: pt takes qd with 5mg norvasc. Start: 04-08-2022 take 1 tablet by rama th once daily Norvasc 2.5 MG Oral Tablet 1 (one) Tablet daily for 0 days Quantity: 30 {Tablet} Refills: 3 Ordered: 08-Apr-2022 KatalinaDelmy gomez CMA Start : 08-Apr-2022 Active Comments: pt takes qd with 5mg norvasc. Start: 04-08-2022 take 1 tablet by rama th once daily Norvasc 5 MG Oral Tablet 1 (one) Tablet daily for 30 days Quantity: 30 {Tablet} Refills: 3 Ordered: 08-Apr-2022 Marichuy DO, Pennie Marichuy DO, Pennie Start : 08-Apr-2022 Active Comments: pt takes qd with norvasc 2.5mg as well - Start: 01-15-2022 take 1 tablet by rama th once daily Norvasc 5 MG Oral Tablet 1 (one) Tablet daily for 30 days Quantity: 30 {Tablet} Refills: 3 Ordered: 15-Jan-2022 Marichuy DO, Pennie Marichuy DO, Pennie Start : 15-Jan-2022 Active Start: 12-12-2021 take 1 tablet by rama th once daily Norvasc 5 MG Oral Tablet 1 (one) Tablet daily for 30 days Quantity: 30 {Tablet} Refills: 0 Ordered: 12-Dec-2021 Marichuy DO, Pennie Marichuy DO, Pennie Start : 12-Dec-2021 Active Start: 11-07-2021 End: 12-07-2021 take 1 tablet by mouth once daily Norvasc 5 MG Oral Tablet 1 Tablet qd for 30 days Quantity: 30 {Tablet} Refills: 0 Ordered: 07-Nov-2021 Marichuy DO, Pennie Marichuy DO, Pennie Start : 07-Nov-2021 End : 07-Dec-2021 Inactive Start: 11-07-2021 End: 10-02-2021 take 1 tablet by mouth once daily Norvasc 5 MG Oral Tablet 1 Tablet qd for 30 days Quantity: 30 {Tablet} Refills: 0 Ordered: 07-Nov-2021 Marichuy DO, Pennie Hale DO Pennie Start : 07-Nov-2021 End : 02-Oct-2021 Active Start: 10-16-2021 End: 10-02-2021 take 1 tablet by mouth once daily Norvasc 5 MG Oral Tablet 1 Tablet qd for 30 days Quantity: 30 {Tablet} Refills: 0 Ordered: 16-Oct-2021 Marichuy DO, Pennie Hale DO Pennie Start : 16-Oct-2021 End : 02-Oct-2021 Active Start: 09-02-2021 End: 10-02-2021 take 1 tablet by mouth once daily Norvasc 5 MG Oral Tablet 1 Tablet qd for 30 days Quantity: 30 {Tablet} Refills: 0 Ordered: 02-Sep-2021 Marichuy DO, Pennie Hale DO Pennie Start : 02-Sep-2021 End : 02-Oct-2021 Inactive Start: 09-02-2021 End: 07-04-2021 take 1 tablet by mouth once daily Norvasc 5 MG Oral Tablet 1 Tablet qd for 30 days Quantity: 30 {Tablet} Refills: 0 Ordered: 02-Sep-2021 Marichuy DO, Pennie Hale DO Pennie Start : 02-Sep-2021 End : 04-Jul-2021 Active Start: 07-09-2021 End: 07-04-2021 take 1 tablet by mouth once daily Norvasc 5 MG Oral Tablet 1 Tablet qd for 30 days Quantity: 30 {Tablet} Refills: 0 Ordered: 09-Jul-2021 Yaz Douglas CNP Start : 09-Jul-2021 End : 04-Jul-2021 Active Start: 06-04-2021 End: 04-09-2021 take 1 tablet by mouth once daily Norvasc 5 MG Oral Tablet 1 Tablet qd for 30 days Quantity: 30 {Tablet} Refills: 0 Ordered: 04-Jun-2021 Yaz Douglas CNP Start : 04-Jun-2021 End : 09-Apr-2021 Active Start: 04-15-2021 End: 04-09-2021 take 1 tablet by mouth once daily Norvasc 5 MG Oral Tablet 1 Tablet qd for 30 days Quantity: 30 {Tablet} Refills: 1 Ordered: 15-Apr-2021 Yaz Douglas CNP Start : 15-Apr-2021 End : 09-Apr-2021 Active Start: 04-14-2021 take 1 tablet by rama th once daily Norvasc 2.5 MG Oral Tablet 1 (one) Tablet daily for 90 days Quantity: 90 {Tablet} Refills: 3 Ordered: 14-Apr-2021 Marichuy DO, Pennie Marichuy DO, Pennie Start : 14-Apr-2021 Active Start: 09-13-2020 take 1 tablet by rama th once daily Norvasc 5 MG Oral Tablet 1 Tablet qd for 30 days Quantity: 30 {Tablet} Refills: 5 Ordered: 17-Sep-2020 Yaz Douglas CNP Start : 17-Sep-2020 Active Start: 09-13-2020 take 1 tablet by rama th once daily Norvasc 2.5 MG Oral Tablet 1 (one) Tablet daily for 0 days Quantity: 30 {Tablet} Refills: 3 Ordered: 17-Sep-2020 Marichuy DO, Pennie Marichuy DO, Pennie Start : 17-Sep-2020 Active Start: 05-20-2020 take 1 tablet by rama th once daily Norvasc 2.5 MG Oral Tablet 1 (one) Tablet daily for 0 days Quantity: 30 {Tablet} Refills: 3 Ordered: 20-May-2020 Marichuy DO, Pennie Marichuy DO, Pennie Start : 20-May-2020 Active Start: 04-22-2020 take 1 tablet by rama th once daily Norvasc 2.5 MG Oral Tablet 1 (one) Tablet daily for 0 days Quantity: 30 {Tablet} Refills: 0 Ordered: 22-Apr-2020 Marichuy DO, Pennie Marichuy DO, Pennie Start : 22-Apr-2020 Active Start: 03-20-2020 take 1 tablet by rama th once daily Norvasc 2.5 MG Oral Tablet 1 (one) Tablet daily for 0 days Quantity: 30 {Tablet} Refills: 0 Ordered: 20-Mar-2020 Kamilah Wolf LPN Start : 20-Mar-2020 Active Start: 02-19-2020 take 1 tablet by rama th once daily Norvasc 2.5 MG Oral Tablet 1 (one) Tablet daily for 0 days Quantity: 30 {Tablet} Refills: 0 Ordered: 19-Feb-2020 Pennie Hale DO, DO, Kathleen Start : 19-Feb-2020 Active Start: 01-25-2020 take 1 tablet by rama th once daily Norvasc 2.5 MG Oral Tablet 1 (one) Tablet daily for 0 days Quantity: 30 {Tablet} Refills: 0 Ordered: 25-Jan-2020 Start : 25-Jan-2020 Active Start: 12-25-2019 take 1 tablet by rama th once daily Norvasc 2.5 MG Oral Tablet 1 (one) Tablet daily for 0 days Quantity: 30 {Tablet} Refills: 0 Ordered: 25-Dec-2019 New Cook LPN Start : 25-Dec-2019 Active Start: 12-11-2019 take 1 tablet by rama th once daily Norvasc 5 MG Oral Tablet 1 Tablet qd for 30 days Quantity: 30 {Tablet} Refills: 5 Ordered: 11-Dec-2019 Milena Peoples DO Start : 11-Dec-2019 Active Start: 12-20-2018 take 1 tablet by rama th once daily Norvasc 5 MG Oral Tablet 1 Tablet qd for 30 days Quantity: 30 {Tablet} Refills: 5 Ordered: 20-Dec-2018 Pennie Hale DO, DO, Kathleen Start : 20-Dec-2018 Active Start: 12-16-2018 take 1 tablet by rama th once daily Norvasc 2.5 MG Oral Tablet 1 Tablet qd for 30 days Quantity: 30 {Tablet} Refills: 5 Ordered: 16-Dec-2018 Milena Peoples DO Start : 16-Dec-2018 Active Start: 12-15-2018 take 1 tablet by rama th once daily Norvasc 2.5 MG Oral Tablet 1 Tablet qd for 30 days Quantity: 30 {Tablet} Refills: 5 Ordered: 15-Dec-2018 Pennie Hale DO, DO, Kathleen Start : 15-Dec-2018 Active Start: 03-23-2018 take 1.5 tablets by mouth once daily Norvasc 5 MG Oral Tablet 1.5 Tablet qd for 30 days Quantity: 45 {Tablet} Refills: 6 Ordered: 23-Mar-2018 Milena Peoples DO Start : 23-Mar-2018 Active Start: 09-14-2017 take 1.5 tablets by mouth once daily Norvasc 5 MG Oral Tablet 1.5 Tablet qd for 30 days Quantity: 45 {Tablet} Refills: 6 Ordered: 14-Sep-2017 Pennie Hale DO, DO, Kathleen Start : 14-Sep-2017 Active Start: 07-28-2017 amLODIPine (NO RVASC) 2.5 MG tablet 07/28/2017 Active Comment on above: pt takes qd with 5mg norvasc. pt takes qd with nor vasc 2.5mg as well - amoxicillin 875 mg / clavulanate 125 mg oral tablet (20 sources) Penicillin-class Antibacterial Start: 5 End: 5 take 1 tablet by mouth twice daily amoxicillin-clavul anate potassium (AUGMENTIN) 875-125 mg per tablet Take 1 tablet by mouth two times a day for 7 days. 14 tablet 08/30/2024 09/06/2024 Active Start: 04-23-2014 End: 05-07-2014 take 1 tablet by mouth twice daily AUGMENTIN, 875-125MG (Oral Tablet) 1 Tablet bid for 14 days Quantity: 28 {Tablet} Refills: 0 Ordered: 23-Apr-2014 Yaz Douglas Start : 23-Apr-2014 End : 07-May-2014 Inactive ascorbic acid 1000 mg oral tablet (20 sources) Vitamin C Start: 10-26-2001 Ascorbic Acid (VITAMIN C) 1000 MG TABS Take one(1) tablet daily. 10/26/2001 Active Comment on above: Take one(1) tablet d aily. ascorbic acid 60 mg / beta carotene 5000 unt / copper sulfate 40 mg / dl-alpha tocopheryl acetate 30 unt / sodium selenite 0.04 mg / zinc oxide 40 mg oral tablet (5 sources) Vitamin C Start: 10-26-2001 Multiple Vitamins-Minerals (MULTIVITAMIN ADULT) TABS Take one(1) tablet daily. 10/26/2001 Active aspirin 81 mg delayed release oral tablet (18 sources) Platelet Aggregation Inhibitor, Nonsteroidal Anti-inflammatory Drug take 1 tablet by mouth once daily aspirin, enteric coated (ASPIRIN, ENTERIC COATED) 81 mg EC tablet Take 81 mg by mouth once daily. Active Comment on above: Take 81 mg by mouth once daily. 30 actuat fluticasone furoate 0.1 mg/actuat / umeclidinium 0.0625 mg/actuat / vilanterol 0.025 mg/actuat dry powder inhaler (20 sources) Anticholinergic, Corticosteroid, beta2-Adrenergic Agonist Start: 08-01-2024 take 1 puff(s) by inhalation once daily fluticasone-umecli din-vilanter (TRELEGY ELLIPTA) 100-62.5-25 mcg inhalation powder Indications: Centrilobular emphysema (HCC) INHALE 1 PUFF ONCE DAILY 60 Each 5 08/01/2024 Active Start: 08-13-2023 End: 08-01-2024 take 1 puff(s) by inhalation once daily TRELEGY ELLIPTA 100-62.5-25 mcg inhalation powder Indications: Centrilobular emphysema (HCC) INHALE 1 PUFF ONCE DAILY 60 Each 11 08/13/2023 08/01/2024 Discontinued Start: 05-29-2023 Fluticasone-Um eclidin-Vilanter (Trelegy Ellipta) 100-62.5-25 mcg blister with device Active 1 NMA INHALATION DAILY May 29, 2023 1:00am Start: 05-29-2023 Fluticasone-Um eclidin-Vilanter (Trelegy Ellipta) 100-62.5-25 mcg blister with device Active 1 INH INHALATION DAILY May 29, 2023 12:00am Start: 05-29-2023 Fluticasone-Um eclidin-Vilanter [Fluticasone Fur. 100 Mcg-Umeclid 62.5 Mcg-Vilant 25 Mcg Inhalat.Powder] (Fluticasone Fur. 100 Mcg-Umeclid 62.5 Mcg-Vilant ) 100-62.5-25 mcg blister with device Active 1 INH INHALATION DAILY May 29, 2023 12:00am Start: 09-26-2020 End: 02-15-2023 take 1 puff(s) by inhalation once daily uirwdukgzet-epshyfdtl-vdqnpmps (TRELEGY ELLIPTA) 100-62.5-25 mcg inhalation powder Indications: Centrilobular emphysema (HCC) Inhale 1 Puff as instructed once daily. 1 Each 5 02/15/2023 Active Comment on above: Inhale 1 Puff as ins tructed once daily. MULTIVITAMIN TABLET (18 sources) Start: 2 MULTIVITAMIN TABLET Take one(1) tablet daily. 0 10/26/2001 Active Comment on above: Take one(1) tablet d aily. multivitamin with minerals (VISION/OPTIGEN) tablet (15 sources) take 1 tablet by mouth once daily multivitamin with minerals (VISION/OPTIGEN) tablet Take 1 tablet by mouth once daily. Active take 1 tablet by mouth once roc y multivitamin with minerals (VISION/OPTIGEN) tablet Take 1 tablet by mouth once daily. 0 Active Comment on above: Take 1 tablet by rama th once daily. Nutritional Supplements (VITAMIN D MAINTENANCE ORAL) (5 sources) Nutritional Supp lements (VITAMIN D MAINTENANCE ORAL) Take by mouth. Active Nutritional Supp lements (VITAMIN D MAINTENANCE ORAL) Take by mouth. 0 Active oseltamivir 75 mg oral capsule (3 sources) Neuraminidase Inhibitor Start: 05-31-2023 take 1 capsule by mouth twice daily Oseltamivir 75 mg Capsule Active 75 mg PO TWICE A DAY 6 May 31, 2023 1:00am Completed/Discontinued Medications Medication Drug Class(es) Dates Sig (Normalized) Sig (Original) ALPRAZolam 0.5 mg oral tablet (20 sources) Benzodiazepine Start: 08-08-2013 End: 07-30-2015 take 0.5 tablet by mouth twice daily as needed XANAX, 0.5MG (Oral Tablet) 1/2 Tablet bid prn for 14 days Quantity: 28 {Tablet} Refills: 0 Ordered: 30-Jul-2015 Start : 08-Aug-2013 End : 30-Jul-2015 Inactive azithromycin 250 mg oral tablet (20 sources) Macrolide Antimicrobial Start: 08-18-2019 End: 12-25-2019 Zithromax Z-Edouard 250 MG Oral Tablet 1 (one) Tablet TAD for 0 days Quantity: 1 {Package} Refills: 0 Ordered: 25-Dec-2019 New Salas LPN Start : 18-Aug-2019 End : 25-Dec-2019 Inactive Start: 07-21-2017 End: 07-28-2017 Zithromax Z-Edouard 250 MG Oral Tablet 1 (one) Tablet TAD for 0 days Quantity: 1 {Package} Refills: 0 Ordered: 28-Jul-2017 Mckenna Anderson LPN Start : 21-Jul-2017 End : 28-Jul-2017 Inactive Start: 07-02-2016 End: 05-29-2023 take 2 tablets by mouth every twenty-four hours Azithromycin 250 MG tablet Discontinued 500 mg PO EVERY 24 HOURS July 02, 2016 1:00am May 29, 2023 6:20pm Start: 07-02-2016 End: 05-29-2023 take 500 mg by mouth every twenty-four hours Azithromycin Discontinued 500 MG PO EVERY 24 HOURS July 02, 2016 12:00am May 29, 2023 5:20pm ciprofloxacin 500 mg oral tablet (20 sources) Quinolone Antimicrobial Start: 09-02-2022 End: 09-07-2022 take 1 tablet by mouth twice daily Cipro 500 mg oral tablet 1 (one) Tablet bid for 5 days Quantity: 10 {Tablet} Refills: 0 Ordered: 02-Sep-2022 Kae Aponte CNP Start : 02-Sep-2022 End : 07-Sep-2022 Inactive Start: 10-27-2013 End: 11-03-2013 take 1 tablet by mouth twice daily CIPRO, 500MG (Oral Tablet) 1 (one) Tablet bid for 7 days Quantity: 14 {Tablet} Refills: 0 Ordered: 27-Oct-2013 Yaz Douglas Start : 27-Oct-2013 End : 03-Nov-2013 Inactive cloNIDine hydrochloride 0.1 mg oral tablet (20 sources) Central alpha-2 Adrenergic Agonist Start: 05-12-2012 End: 04-23-2014 take 1 tablet by mouth once daily CATAPRES, 0.1MG (Oral Tablet) 1 Tablet qd for 0 days Quantity: 1 {Tablet} Refills: 0 Ordered: 23-Apr-2014 Idalia Daigle LPN Start : 12-May-2012 End : 23-Apr-2014 Inactive Comments: GIVEN AT 1145am Comment on above: GIVEN AT 1145am diphenhydrAMINE hydrochloride 25 mg oral capsule (20 sources) Histamine-1 Receptor Antagonist Start: 03-22-2018 End: 03-27-2020 take 0.5 capsule by mouth once daily at bedtime Benadryl Allergy 25 MG Oral Capsule 1/2 Capsule qhs for 0 days Quantity: 30 {Capsule} Refills: 0 Ordered: 27-Mar-2020 Kamilah Wolf LPN Start : 22-Mar-2018 End : 27-Mar-2020 Inactive docusate sodium 100 mg oral capsule (4 sources) Start: 10-17-2017 End: 09-04-2024 take 1 capsule by mouth twice daily docusate sodium (COLACE) 100 MG capsule Take 1 Capsule by mouth 2 times daily. 60 Capsule 3 10/17/2017 09/04/2024 Discontinued (Therapy completed) fluticasone propionate 0.05 mg/actuat metered dose nasal spray (20 sources) Corticosteroid Start: 04-23-2014 End: 06-27-2015 FLONASE, 50MCG/ACT (Nasal Suspension) 2 (two) Puff Puff daily for 0 days Quantity: 1 {Bottle} Refills: 0 Ordered: 23-Apr-2014 Mckenna Anderson RN Start : 23-Apr-2014 End : 27-Jun-2015 Discontinued Comments: This order discontinued per [facility]. Start: 04-23-2014 End: 06-27-2015 FLONASE, 50MCG/ACT (Nasal [place] spension) 2 (two) Puff Puff daily for 0 days Quantity: 1 {Bottle} Refills: 0 Ordered: 23-Apr-2014 Mckenna Anderson LPN Start : 23-Apr-2014 End : 27-Jun-2015 Discontinued Comments: This order discontinued per [facility]. Comment on above: This order discontin ued per [facility]. guaiFENesin 1200 mg oral tablet (4 sources) Start: 07-02-19 17 End: 05-29-19 24 take 1 tablet by mouth twice daily Guaifenesin (Mucus Relief Er) 1,200 MG tablet Discontinued 1200 mg PO TWICE A DAY July 02, 2016 1:00am May 29, 2023 6:20pm LORazepam 0.5 mg oral tablet (20 sources) Benzodiazepine Start: 01-10-20 End: 03-10-20 22 take 1 tablet by mouth once daily as needed Ativan 0.5 MG Oral Tablet 1 Tablet qd prn for 60 days Quantity: 30 {Tablet} Refills: 0 Ordered: 09-Jan-2022 Pennie Hale DO, DO, Kathleen Start : 09-Jan-2022 End : 10-Mar-2022 Inactive Comments: [id number] to pharm loi mcconnell oarrs reviewed 01/09/22 beth Start: 09-04-2021 End: 11-03-2021 take 1 tablet by mouth once daily as needed Ativan 0.5 MG Oral Tablet 1 Tablet qd prn for 60 days Quantity: 30 {Tablet} Refills: 0 Ordered: 04-Sep-2021 Marichuy DO, Pennie Marichuy DO Pennie Start : 04-Sep-2021 End : 03-Nov-2021 Inactive Comments: [id number] to pharm loi mcconnell Start: 09-16-2020 End: 11-15-2020 take 1 tablet by mouth once daily as needed Ativan 0.5 MG Oral Tablet 1 Tablet qd prn for 60 days Quantity: 30 {Tablet} Refills: 0 Ordered: 16-Sep-2020 Delmy Park CMA Start : 16-Sep-2020 End : 15-Nov-2020 Inactive Comments: [id number] Start: 08-09-2020 take 1 tablet by rama th once daily as needed Ativan 0.5 MG Oral Tablet 1 Tablet qd prn for 60 days Quantity: 30 {Tablet} Refills: 0 Ordered: 09-Aug-2020 Marichuy DO, Pennie Marichuy DOGeriPennie Start : 09-Aug-2020 Active Comments: [id number] Start: 03-25-2020 End: 05-24-2020 take 1 tablet by mouth once daily as needed Ativan 0.5 MG Oral Tablet 1 Tablet qd prn for 60 days Quantity: 30 {Tablet} Refills: 0 Ordered: 25-Mar-2020 Marichuy DO, Pennie Marichuy DO Pennie Start : 25-Mar-2020 End : 24-May-2020 Inactive Comments: [id number] Start: 06-09-2019 End: 08-08-2019 take 1 tablet by mouth once daily as needed Ativan 0.5 MG Oral Tablet 1 Tablet qd prn for 60 days Quantity: 30 {Tablet} Refills: 0 Ordered: 09-Jun-2019 Marichuy DO, Pennie Marichuy DO Pennie Start : 09-Jun-2019 End : 08-Aug-2019 Inactive Comments: [id number] Start: 07-01-2016 End: 09-09-2018 take 1 tablet by mouth once daily as needed Ativan 0.5 MG Oral Tablet 1 Tablet qd prn for 60 days Quantity: 30 {Tablet} Refills: 0 Ordered: 19-Dec-2018 Pennie Hale DO, DO, Kathleen Start : 19-Dec-2018 Active Comments: [id number] Comment on above: [id number] qeaqfnW99.0called to pharm loi mcconnell wgackqG04.0called to pharm enedina,loi oarrs reviewed 01/09/22 jg metaxalone 800 mg oral tablet (20 sources) Start: 6 End: 7 take 1 tablet by mouth three times daily as needed Metaxalone 800 MG Oral Tablet 1 (one) Tablet Tablet tid prn for 0 days Quantity: 30 {Tablet} Refills: 0 Ordered: 09-Jul-2016 Mckenna Anderson RN Start : 14-Jun-2015 End : 09-Jul-2016 Inactive miconazole nitrate 20 mg/ml vaginal cream (20 sources) Azole Antifungal Start: 4 End: 4 MONISTAT 7 COMBINATION PACK (Vaginal Kit) 1 (one) Kit daily for 0 days Quantity: 1 Kit Refills: 0 Ordered: 23-Apr-2014 Idalia Daigle LPN Start : 27-Oct-2013 End : 23-Apr-2014 Inactive Start: 10-27-2013 End: 04-23-2014 MONISTAT 7 COMBINATION PACK (Vaginal Kit) 1 (one) Kit daily for 0 days Quantity: 1 Kit Refills: 0 Ordered: 23-Apr-2014 Start : 27-Oct-2013 End : 23-Apr-2014 Inactive Start: 10-27-2013 End: 04-23-2014 MONISTAT 7 COMBINATION PACK (Vaginal Kit) 1 (one) Kit daily for 0 days Quantity: 1 Kit Refills: 0 Ordered: 23-Apr-2014 Idalia Daigle LPN Start : 27-Oct-2013 End : 23-Apr-2014 Inactive 30 actuat mometasone furoate 0.22 mg/actuat dry powder inhaler (20 sources) Corticosteroid Start: 10-02-2020 End: 01-09-2022 take 1 puff(s) by inhalation once daily Asmanex (30 Metered Doses) 220 MCG/INH Inhalation Aerosol Powder Breath Activated 1 (one) Puff qd for 0 days Quantity: 1 {Inhaler} Refills: 0 Ordered: 09-Jan-2022 Marichuy RILEY Pennie Clemens DO Start : 02-Oct-2020 End : 09-Jan-2022 Inactive multivitamin with minerals (HAIR,SKIN AND NAILS) tablet (3 sources) take 1 tablet by mouth once daily multivitamin with minerals (HAIR,SKIN AND NAILS) tablet Take 1 tablet by mouth once daily. 0 Active Comment on above: Take 1 tablet by rama once daily. permethrin 50 mg/ml topical cream (20 sources) Pyrethroid Start: 05-24-2018 End: 03-27-2020 Permethrin 5 % External Cream 1 (one) Application TAD for 0 days Quantity: 1 {Bottle} Refills: 1 Ordered: 27-Mar-2020 Kamilah Wolf LPN Start : 24-May-2018 End : 27-Mar-2020 Inactive Comments: Apply from neck down to the soles of feet, wash off after 8-14 hours, may need to repeat treatment after 10-14 days Start: 03-22-2018 Permethrin 5 % External Cream 1 (one) Application TAD for 0 days Quantity: 1 {Bottle} Refills: 1 Ordered: 22-Mar-2018 Yaz Douglas CNP Start : 22-Mar-2018 Active Comments: Apply from neck down to the soles of feet, wash off after 8-14 hours, may need to repeat treatment after 10-14 days Comment on above: Apply from neck down to the soles of feet, wash off after 8-14 hours, may need to repeat treatment after 10-14 days predniSONE 20 mg oral tablet (20 sources) Start: 05-31-2023 End: 07-13-2023 predniSONE (DELTASONE) 20 mg tablet Start: 05-31-2023 take 2 tablets by mo [facility] once daily Prednisone 20 mg tablet Active 40 mg PO DAILY 27 11May 31, 2023 1:00am Start: 05-31-2023 take 40 mg by mouth once daily Prednisone Active 40 MG PO DAILY 27 11May 31, 2023 12:00am Start: 07-02-2016 End: 01-13-2024 take 1 tablet by mouth twice daily Prednisone (Deltasone) 20 MG tablet Discontinued 20 mg PO TWICE A DAY July 02, 2016 1:00am May 29, 2023 6:20pm Start: 06-14-2015 End: 06-27-2015 take 1 tablet by mouth once daily PREDNISONE, 20MG (Oral Tablet) 1 (one) Tablet qd with for 0 days Quantity: 4 {Tablet} Refills: 0 Ordered: 27-Jun-2015 Mckenna Anderson RN Start : 14-Jun-2015 End : 27-Jun-2015 Inactive tiotropium 0.018 mg inhalation powder (20 sources) Anticholinergic Start: 06-27-2015 End: 06-27-2015 take 1 capsule by inhalation once daily SPIRIVA HANDIHALER, 18MCG (Inhalation Capsule) 1 Capsule qd for 30 days Refills: 0 Ordered: 27-Jun-2015 Pennie Hale DO, DO, Kathleen Start : 27-Jun-2015 End : 27-Jun-2015 Discontinued Trelegy Ellipta 200 mcg-62.5 mcg-25 mcg powder for inhalation (6 sources) Start: 01-09-2022 take 1 puff(s) by inhalation twice daily Trelegy Ellipta 200 mcg-62.5 mcg-25 mcg powder for inhalation 1 (one) Puff bid for 0 days Quantity: 1 {Packet} Refills: 3 Ordered: 02-Sep-2022 Idalia Daigle LPN Start : 09-Jan-2022 Active Trelegy Ellipta 200-62.5-25 MCG/INH Inhalation Aerosol Powder Breath Activated (2 sources) Start: 01-09-2022 take 1 puff(s) by inhalation twice daily Trelegy Ellipta 200-62.5-25 MCG/INH Inhalation Aerosol Powder Breath Activated 1 (one) Puff bid for 0 days Quantity: 1 {Packet} Refills: 3 Ordered: 09-Jan-2022 Pennie Hale DO, DO, Kathleen Start : 09-Jan-2022 Active Trelegy Ellipta 200-62.5-25 MCG/INH Inhalation Aerosol Powder Breath Activated (2 sources) Start: 01-09-2022 take 1 puff(s) by inhalation twice daily Trelegy Ellipta 200-62.5-25 MCG/INH Inhalation Aerosol Powder Breath Activated 1 (one) Puff bid for 0 days Quantity: 1 {Packet} Refills: 3 Ordered: 09-Jan-2022 Pennie Hale DO, DO, Kathleen Start : 09-Jan-2022 Active 7 actuat umeclidinium 0.0625 mg/actuat / vilanterol 0.025 mg/actuat dry powder inhaler (20 sources) Anticholinergic, beta2-Adrenergic Agonist Start: 10-02-2020 End: 01-09-2022 Anoro Ellipta 62.5-25 MCG/INH Inhalation Aerosol Powder Breath Activated 1 (one) Aero Pow Br Act qd for 0 days Quantity: 1 {Inhaler} Refills: 3 Ordered: 09-Jan-2022 Pennie Hale DO, DO, Kathleen Start : 02-Oct-2020 End : 09-Jan-2022 Inactive Comments: gets from pul Start: 09-06-2020 End: 01-09-2022 Anoro Ellipta 62.5-25 MCG/IN H Inhalation Aerosol Powder Breath Activated 1 (one) Aero Pow Br Act qd for 0 days Quantity: 1 {Inhaler} Refills: 3 Ordered: 09-Jan-2022 Pennie Hale DO, DO, Kathleen Start : 02-Oct-2020 End : 09-Jan-2022 Inactive Comments: gets from pul Start: 03-27-2020 Anoro Ellipta 62.5-25 MCG/INH Inhalation Aerosol Powder Breath Activated 1 (one) Aero Pow Br Act qd for 0 days Quantity: 1 {Inhaler} Refills: 3 Ordered: 27-Mar-2020 Pennie Hale DO, DO, Kathleen Start : 27-Mar-2020 Active Comments: gets from pul Start: 08-26-2016 End: 09-04-2024 umeclidinium-vilanterol (ANORO-ELLIPTA) 62.5-25 MCG/INH AEPB inhalation powder Inhale by mouth. 08/26/2016 09/04/2024 Discontinued (Therapy completed) Start: 06-30-2016 End: 05-29-2023 take 1 dose by inhalation once daily Umeclidinium-Vilanterol (Anoro Ellipta) 1 EACH blister with device Discontinued 1 NMA IH DAILY June 30, 2016 1:00am May 29, 2023 6:21pm Start: 06-27-2015 Anoro Ellipta 62.5-25 MCG/INH Inhalation Aerosol Powder Breath Activated 1 (one) Aero Pow Br Act Aero Pow Br Act qd for 0 days Quantity: 1 {Inhaler} Refills: 3 Ordered: 09-Jul-2016 Mckenna Anderson RN Start : 27-Jun-2015 Active Comments: gets from pulm Comment on above: gets from pulm zolpidem tartrate 5 mg oral tablet (20 sources) gamma-Aminobutyric Acid-ergic Agonist Start: 05-05-2012 End: 04-23-2014 take 1 tablet by mouth once daily at bedtime AMBIEN, 5MG (Oral Tablet) 1 Tablet qhs for 0 days Quantity: 30 {Tablet} Refills: 0 Ordered: 23-Apr-2014 Idalia Daigle LPN Start : 05-May-2012 End : 23-Apr-2014 Inactive Comments: thirty Comment on above: thirty Problems Active Problems Problem Classification Problem Date Documented Date Episodic/Chronic Administrative/social admission (20 sources) Patient encounter status; Translations: [Encounter for pre-employment examination] 05-24-2020 Episodic Anxiety disorders (20 sources) Panic; Translations: [Anxiety] 03-22-2018 Chronic Comment on above: asking for xaanx for up coming court Aortic; peripheral; and visceral artery aneurysms (20 sources) Aneurysm; Translations: [Aneurysm] Onset: 5 03-22-2018 Chronic Comment on above: brain - RCA- 5.5mm Asthma (18 sources) Asthma; Translations: [Unspecified asthma, uncomplicated] Onset: 1 02-19-2011 Chronic Chronic obstructive pulmonary disease and bronchiectasis (20 sources) Acute exacerbation of chronic obstructive airways disease; Translations: [Chronic obstructive lung disease] Onset: 0 Resolved: 1 03-22-2018 Chronic Comment on above: alpha antitrypsin te st alpha antitrypsin te stFEV1 reduced alpha antitrypsin te stFEV1 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 Chronic obstructive pulmonary disease and bronchiectasis (20 sources) Chronic obstructive pulmonary disease and bronchiectasis Coronary atherosclerosis and other heart disease (20 sources) Coronary atherosclerosis and other heart disease Diabetes mellitus without complication (20 sources) Hyperglycemia Episodic Diseases of white blood cells (20 sources) Leukocytosis; Translations: [Leukocytosis (leucocytosis)] 07-01-2015 Chronic Comment on above: no signs of infectio n Disorders of lipid metabolism (20 sources) Pure hyperglyceridemia; Translations: [Hypercholesterolemia] Onset: 5 03-22-2018 Chronic Esophageal disorders (20 sources) Gastroesophageal reflux disease; Translations: [GERD (gastroesophageal reflux disease)] 03-22-2018 Chronic Essential hypertension (20 sources) Hypertensive disorder; Translations: [HTN (hypertension)] 03-27-2020 Chronic Fluid and electrolyte disorders (20 sources) Hyperkalemia; Translations: [Hyperkalemia] Resolved: 7 07-09-2016 Episodic Gastrointestinal hemorrhage (20 sources) Blood-tinged feces; Translations: [Bloody stool] 05-24-2020 Episodic Genitourinary symptoms and ill-defined conditions (20 sources) Blood in urine; Translations: [Urinary frequency] Resolved: 6 03-22-2018 Episodic Comment on above: urine dip leuks Headache, including migraine (20 sources) Pain in face; Translations: [Sinus pain] Resolved: 0 03-22-2018 Episodic Comment on above: patient called on ca ll sinus pain teth pain no cough fever sob- siad she usually resolves with zpack so rx and appt iwht dr hale if not better - take probiotic Immunizations and screening for infectious disease (20 sources) Encounter for observation for suspected exposure to other biological agents ruled out; Translations: [Disorder excluded] 05-24-2020 Episodic Influenza (8 sources) Influenza due to Influenza A virus; Translations: [Influenza due to other identified influenza virus with other respiratory manifestations] 05-29-2023 Episodic Normal and/or delivery (20 sources) History of past delivery; Translations: [Vaginal delivery] 03-22-2018 Episodic Comment on above: 1979 Other and ill-defined cerebrovascular disease (9 sources) Aneurysm of anterior cerebral artery; 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, nonruptured] Onset: 8 09-14-2017 Chronic Other and ill-defined cerebrovascular disease (4 sources) 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; 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, nonruptured] 09-04-2024 Chronic Other and ill-defined cerebrovascular disease (1 source) Cerebral aneurysm, nonruptured; 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, nonruptured] Onset: Chronic Other circulatory disease (20 sources) Elevated blood-pressure reading without diagnosis of hypertension; Translations: [Elevated blood-pressure reading without diagnosis of hypertension] 03-22-2018 Episodic Other connective tissue disease (20 sources) Tendinitis; Translations: [Iliotibial band tendinitis of right side] Resolved: 6 09-05-2015 Episodic Other ear and sense organ disorders (20 sources) Otalgia; Translations: [Earache] Resolved: 6 09-05-2015 Episodic Other ear and sense organ disorders (6 sources) Pain of ear structure; Translations: [Earache] Resolved: 6 09-05-2015 Episodic Other female genital disorders (20 sources) Vaginal bleeding; Translations: [Vaginal bleeding] Resolved: 6 09-05-2015 Chronic Other female genital disorders (20 sources) Vaginal bleeding; Translations: [Vaginal bleeding] Resolved: 6 09-05-2015 Episodic Other infections (20 sources) Scabies; Translations: [Infestation by Sarcoptes scabiei alvaro hominis] Resolved: 0 03-22-2018 Episodic Other inflammatory condition of skin (20 sources) Pruritus of vagina; Translations: [Vaginal itching] Resolved: 6 09-05-2015 Episodic Other lower respiratory disease (20 sources) Multiple nodules of lung; Translations: [Other nonspecific abnormal finding of lung field] 08-09-2019 Episodic Other lower respiratory disease (20 sources) Cough; Translations: [Cough] Resolved: 3 01-09-2022 Episodic Comment on above: seasonal mucous stuf f - if pt feels ill will call Other lower respiratory disease (4 sources) Dyspnea; Translations: [Shortness of breath] 06-30-2016 Episodic Other lower respiratory disease (4 sources) Hypoxia; Translations: [Hypoxemia] 05-29-2023 Episodic Other lower respiratory disease (2 sources) Hypoxemia; Translations: [Hypoxemia] 05-29-2023 Episodic Other nutritional; endocrine; and metabolic disorders (20 sources) Body mass index 25-29 - overweight; Translations: [BMI 25.0-25.9,adult] Resolved: 8 03-22-2018 Chronic Other nutritional; endocrine; and metabolic disorders (20 sources) Body mass index 25-29 - overweight; Translations: [BMI 25.0-25.9,adult] Resolved: 8 05-24-2020 Episodic Other nutritional; endocrine; and metabolic disorders (20 sources) Overweight in adulthood with body mass index of 25 or more but less than 30; Translations: [BMI 25.0-25.9,adult] Resolved: 8 10-02-2020 Episodic Other skin disorders (20 sources) Eruption; Translations: [Rash of body] Resolved: 0 03-22-2018 Episodic Comment on above: rash x 4 weeks treat ed on 03-01 withcephalexin tid, and prednison and triamcinolone Other upper respiratory disease (20 sources) Dysphonia; Translations: [Hoarse voice quality] 03-22-2018 Episodic Residual codes; unclassified (20 sources) H/O: surgery; Translations: [Breast surgery] 03-22-2018 Episodic Comment on above: augmentation 1997 Residual codes; unclassified (20 sources) History of decompression of median nerve; Translations: [Carpal tunnel repair] 03-22-2018 Episodic Comment on above: b/l 1987 Residual codes; unclassified (20 sources) Body mass index 20-24 - normal; Translations: [BMI 24.0-24.9, adult] 09-16-2020 Episodic Residual codes; unclassified (20 sources) Postmenopausal state; Translations: [Postmenopausal (Renamed from Postmenopausal status)] 09-16-2020 Episodic Residual codes; unclassified (2 sources) Tobacco user; Translations: [Tobacco use] Episodic Respiratory failure; insufficiency; arrest (adult) (3 sources) Chronic hypoxemic respiratory failure; Translations: [Chronic respiratory failure with hypoxia] Onset: 5 10-19-2023 Chronic Spondylosis; intervertebral disc disorders; other back problems (20 sources) Muscle spasm of back; Translations: [Spasm of back muscles] Resolved: 6 09-05-2015 Episodic Substance-related disorders (20 sources) Smoker; Translations: [Tobacco dependence syndrome] 03-22-2018 Chronic Comment on above: trying to quit as of 07/19/17 Unclassified (20 sources) History of appendectomy; Translations: [History of decompression of median nerve] 03-22-2018 Episodic Comment on above: age 7 b/l 1986 augmentation 1997 Unclassified (20 sources) Unclassified (20 sources) Sacroiliac pain Unclassified (20 sources) BMI 26.0-26.9,adult Unclassified (20 sources) SINUSITIS, ACUTE NOS (461.9) Unclassified (20 sources) Tobacco dependence Unclassified (20 sources) Hypercholesteremia Unclassified (20 sources) BMI 25.0-25.9,adult Unclassified (20 sources) Hypercholesteremia (272.0) Unclassified (20 sources) High triglycerides (272.1) Unclassified (20 sources) Chronic airway obstruction (496) Unclassified (20 sources) Stress Reaction (308.4) Unclassified (20 sources) Elevated Blood Pressure without diagnosis of Hypertension (796.2) Unclassified (20 sources) Work Physical (V70.5) Unclassified (20 sources) Chronic airway obstruction Unclassified (20 sources) Stress reaction Unclassified (20 sources) COPD with acute exacerbation (Renamed from Acute exacerbation of chronic obstructive airways disease) Unclassified (20 sources) BMI 24.0-24.9, adult Unclassified (20 sources) Leukocytosis, unspecified type Unclassified (20 sources) Postmenopausal (Renamed from Postmenopausal status) Unclassified (20 sources) Encounter for screening mammogram for breast cancer (Renamed from Encounter for screening mammogram for malignant neoplasm of breast) Unclassified (20 sources) Colon cancer screening (Renamed from Encounter for screening for malignant neoplasm of colon) Urinary tract infections (20 sources) Urinary tract infectious disease; Translations: [UTI (urinary tract infection)] 03-22-2018 Episodic Past or Other Problems Problem Classification Problem Date Documented Da te Episodic/Chronic Gastrointestinal hemorrhage (1 source) Blood-tinged feces; Translations: [Bloody stool] 05-24-2020 Other and unspecified benign neoplasm (18 sources) Benign neoplasm of rectum and anal canal; Translations: [Benign neoplasm of rectum] Onset: 04-22-2011 04-22-2011 Episodic Other lower respiratory disease (18 sources) Solitary nodule of lung; Translations: [Solitary pulmonary nodule] Onset: 05-07-2011 05-07-2011 Episodic Other lower respiratory disease (1 source) Other nonspecific abnormal finding of lung field; Translations: [Lung nodules] Onset: 06-23-2024 Episodic Other upper respiratory infections (20 sources) Acute sinusitis; Translations: [Acute pharyngitis] Onset: 08-30-2024 03-22-2018 Episodic Comment on above: gargle with salt pauline er Otitis media and related conditions (3 sources) Acute right otitis media; Translations: [Otitis media, unspecified, right ear] Onset: 08-30-2024 08-30-2024 Episodic Screening and history of mental health and substance abuse codes (4 sources) Ex-smoker; Translations: [Personal history of nicotine dependence] Onset: 06-23-2024 07-13-2023 Episodic Unclassified (20 sources) Possible ; Translations: [Blood chemistry abnormal] Onset: 10-26-2001 Resolved: 06-27-2015 09-05-2015 Episodic Comment on above: pt self pay so cant do right now 2020 Unclassified (20 sources) Iliotibial band tendinitis of [...] sources) Pregnancies (); Translations: [Pregnancies ()] 03-22-2018 Comment on above: 1. Unclassified (20 sources) Bloody stool Unclassified (20 sources) Encounter for observation for suspected exposure to other biological agents ruled out (Renamed from Encounter for observation for suspected exposure to other biological agent, ruled out) Unclassified (20 sources) Pregnancies (); Translations: [Pregnancies ()] 05-24-2020 Comment on above: 1. Unclassified (18 sources) Unspecified Diagnosis 04-08-2022 Results Test Name Value Interpretation Reference Range Facility [facility] 12-22-2024 [facility] Office Visit ([facility] ) NIDIA ZAVALETA ([id number]) 1960 F Date Time Provider Department 12/22/24 8:30 AM DANNA MATTHEW During your visit today, we recorded the following information about you: Pulse Respiration Blood pressure Weight 73/minute 17/minute 120/60 61.7 kg Danna Matthew APRN.BROADCAST TRAFFIC COORDINATOR 12/22/2024 8:41 AM Signed Pulmonary Medicine Patients name: Nidia Zavaleta PCP: Pennie Hale DO, DO CC: follow-up HPI: Nidia Zavaleta is a 63 year old female former smoker (72 pack years) with PMH significant for HTN, moderate COPD and lung nodules. RADHA 06/2024 with stable respiratory symptoms. Current maintenance therapy with Trelegy and as needed Albuterol. She presents today for follow-up. Since her last visit, she reports overall feeling well. She completed overnight oximetry twice but was told both times by [employer] that it had fallen off and did not have enough data. She does not want to repeat again. Repeat oximetry with ambulation testing today shows she no longer requires supplemental O2 with activity. Has not yet completed nocturnal testing.Today, patient denies cough, wheezing, chest tightness of significant dyspnea. No fevers, chills, or night sweats. No recent hospitalizations or ED visits or upper respiratory infections. Rarely uses Albuterol. DME: [employer] Does not use supplemental O2 with exertion and nocturnal PAST MEDICAL HISTORY Diagnosis Date Benign neoplasm of rectum and anal canal Cigarette smoker COPD (chronic obstructive pulmonary disease) (HCC) Emphysema High blood pressure Controlled on med. Novel H1N1 influenzal acute respiratory infection Pneumonia, viral Pulmonary nodules CT stable 2 years or more. Surveillance scanning stopped 2014. 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 Does not recall specific reaction. Medication List Accurate as of December 20, 2024 2:27 PM. If you have any questions, ask your nurse or doctor. CONTINUE taking these medications albuterol HFA 90 mcg/actuation inhaler Commonly known as: PROVENTIL HFA, VENTOLIN HFA Inhale 2 Puffs as instructed every 4 hours as needed. amLODIPine 2.5 mg tablet Commonly known as: NORVASC aspirin, enteric coated 81 mg EC tablet Commonly known as: ASPIRIN, ENTERIC COATED multivitamin with minerals tablet Commonly known as: VISION/OPTIGEN CHANTELLEGY ELLIPTA 100-62.5-25 mcg inhalation powder Generic drug: wjtoxuivuad-fghbofybo-f ilanter INHALE 1 PUFF ONCE DAILY VITAMIN C 1,000 mg tablet Generic drug: Ascorbic Acid Take one(1) tablet daily. DATA: I personally reviewed and analyzed all labs, radiographs and available pulmonary function testing PFT: 11/2022 Spirometry indicates severe obstruction. There was not a significant bronchodilator response. The RV and RV/TLC are elevated indicating air trapping. The diffusing capacity is moderately reduced. Review of Systems Constitutional: Negative for activity change, appetite change and unexpected weight change. HENT: Negative for congestion, mouth sores, postnasal drip and sinus pain. Respiratory: Negative for cough, chest tightness, shortness of breath and wheezing. Cardiovascular: Positive for leg swelling (intermittent). Negative for chest pain and palpitations. Neurological: Negative for dizziness and weakness. BP 120/60 Pulse 73 Resp 17 Wt 61.7 kg (136 lb) LMP 01/06/2013 SpO2 100% BMI 26.56 kg/m? Physical Exam Vitals reviewed. Constitutional: General: She is not in acute distress. Appearance: Normal appearance. She is not ill-appearing. HENT: Head: Normocephalic. Mouth/Throat: Mouth: Mucous membranes are moist. Pharynx: No oropharyngeal exudate. Cardiovascular: Rate and Rhythm: Normal rate and regular rhythm. Heart sounds: Normal heart sounds. Pulmonary: Effort: Pulmonary effort is normal. No respiratory distress. Breath sounds: No wheezing or rhonchi. Musculoskeletal: Right lower leg: No edema. Left lower leg: No edema. Skin: General: Skin is warm and dry. Capillary Refill: Capillary refill takes less than 2 seconds. Neurological: General: No focal deficit present. Mental Status: She is alert. ASSESSMENT/PLAN: 1. Centrilobular emphysema (HCC) - ICD9: 492.8, ICD10: J43.2 (primary diagnosis) 2. Stage 3 severe COPD by GOLD classification (HCC) - ICD9: 496, ICD10: J44.9 - Symptoms controlled. - continue current treatment with Trelegy and Albuterol as needed. 3. Chronic hypoxemic respiratory failure (HCC) - ICD9: 518.83, 799.02, ICD10: J96.11 - no longer requires supplemental oxygen with exertion. 4. Former smoker - ICD9: V15.82, ICD10: Z87.891 - continued cessation - previously followed with [facility] but has been obtaining chest imaging with primary care. F/u 6 months Portions of this documentation were copied and pa (more content not included)... Normal [facility] CT CARDIAC SCORING WO IV CON TRASTon 10-30-2024 CT CARDIAC SCORING WO IV CONTRAST Interpreted By: Brandt Soto, STUDY: CT CARDIAC SCORING WO IV CONTRAST; 10/30/2024 10:01 am INDICATION: Signs/Symptoms:HYPERCHO LESTEREMIA. ,E78.00 Pure hypercholesterolemia, unspecified COMPARISON: None. ACCESSION NUMBER(S): [id number] ORDERING CLINICIAN: PENNIE HALE TECHNIQUE: Using prospective ECG gating, CT scan of the coronary arteries was performed without intravenous contrast. Coronary calcium scoring was performed according to the method of Agatston. FINDINGS: The score and distribution of calcium in the coronary arteries is as follows: LM 0 LAD 102.98 LCx 0 RCA 22.47 Total 125.45 The visualized mid/lower ascending thoracic aorta measures 3.4 cm in diameter. The heart is normal in size. No pericardial effusion is present. Centrilobular and paraseptal emphysema of moderate severity. The lungs are hyperinflated. The visualized subdiaphragmatic structures appear intact. IMPRESSION: 1. Coronary artery calcium score of 125.45*. *Coronary artery calcium scoring may be helpful in predicting the risk for future coronary heart disease events. According to the [employer] Clinical Expert Consensus Task Force, such testing provides important prognostic information in patients with more than one coronary heart disease risk factor. The coronary artery calcium score correlates with the annual risk of a non-fatal myocardial infarction or coronary heart disease . Coronary artery score Annual Risk 0-99 0.4% 100-399 1.3% >400 2.4% These three breakpoints correspond to lower, intermediate and high risk states for future coronary events. Such information should be used, along with appropriate clinical judgment, to make decisions regarding the intensity of risk factor management strategies to treat blood lipids and to modify other non-lipid coronary risk factors. Reference: [place] P et al. Circulation. 2007; 115:402-426 2. Moderate COPD. Hyperinflation. MACRO: None Signed by: Brandt Soto 10/30/2024 10:22 AM Dictation workstation: [id number] [facility] CT for calcium scoring WO co ntrast and CTA W contrast IV Heart and coronary arterieson 10-30-2024 1. Coronary artery calcium score of 125.45*. *Coronary artery calcium scoring may be helpful in predicting the risk for future coronary heart disease events. According to the [employer] Clinical Expert Consensus Task Force, such testing provides important prognostic information in patients with more than one coronary heart disease risk factor. The coronary artery calcium score correlates with the annual risk of a non-fatal myocardial infarction or coronary heart disease . Coronary artery score Annual Risk 0-99 0.4% 100-399 1.3% >400 2.4% These three breakpoints correspond to lower, intermediate and high risk states for future coronary events. Such information should be used, along with appropriate clinical judgment, to make decisions regarding the intensity of risk factor management strategies to treat blood lipids and to modify other non-lipid coronary risk factors. Reference: [place] P et al. Circulation. 2007; 115:402-426 2. Moderate COPD. Hyperinflation. MACRO: None Signed by: Brandt Soto 10/30/2024 10:22 AM Dictation workstation: [id number] [facility] Interpreted By: Brandt Soto, STUDY: CT CARDIAC SCORING WO IV CONTRAST; 10/30/2024 10:01 am INDICATION: Signs/Symptoms:HYPERCHO LESTEREMIA. ,E78.00 Pure hypercholesterolemia, unspecified COMPARISON: None. ACCESSION NUMBER(S): [id number] ORDERING CLINICIAN: PENNIE HALE TECHNIQUE: Using prospective ECG gating, CT scan of the coronary arteries was performed without intravenous contrast. Coronary calcium scoring was performed according to the method of Agatston. FINDINGS: The score and distribution of calcium in the coronary arteries is as follows: LM 0 LAD 102.98 LCx 0 RCA 22.47 Total 125.45 The visualized mid/lower ascending thoracic aorta measures 3.4 cm in diameter. The heart is normal in size. No pericardial effusion is present. Centrilobular and paraseptal emphysema of moderate severity. The lungs are hyperinflated. The visualized subdiaphragmatic structures appear intact. [facility] Brandt Soto MD - 10/30/2024 Interpreted By: Brandt Soto, STUDY: CT CARDIAC SCORING WO IV CONTRAST; 10/30/2024 10:01 am INDICATION: Signs/Symptoms:HYPERCHO LESTEREMIA. ,E78.00 Pure hypercholesterolemia, unspecified COMPARISON: None. ACCESSION NUMBER(S): [id number] ORDERING CLINICIAN: PENNIE HALE TECHNIQUE: Using prospective ECG gating, CT scan of the coronary arteries was performed without intravenous contrast. Coronary calcium scoring was performed according to the method of Agatston. FINDINGS: The score and distribution of calcium in the coronary arteries is as follows: LM 0 LAD 102.98 LCx 0 RCA 22.47 Total 125.45 The visualized mid/lower ascending thoracic aorta measures 3.4 cm in diameter. The heart is normal in size. No pericardial effusion is present. Centrilobular and paraseptal emphysema of moderate severity. The lungs are hyperinflated. The visualized subdiaphragmatic structures appear intact. IMPRESSION: 1. Coronary artery calcium score of 125.45*. *Coronary artery calcium scoring may be helpful in predicting the risk for future coronary heart disease events. According to the [employer] Clinical Expert Consensus Task Force, such testing provides important prognostic information in patients with more than one coronary heart disease risk factor. The coronary artery calcium score correlates with the annual risk of a non-fatal myocardial infarction or coronary heart disease . Coronary artery score Annual Risk 0-99 0.4% 100-399 1.3% >400 2.4% These three breakpoints correspond to lower, intermediate and high risk states for future coronary events. Such information should be used, along with appropriate clinical judgment, to make decisions regarding the intensity of risk factor management strategies to treat blood lipids and to modify other non-lipid coronary risk factors. Reference: [place] P et al. Circulation. 2007; 115:402-426 2. Moderate COPD. Hyperinflation. MACRO: None Signed by: Brandt Soto 10/30/2024 10:22 AM Dictation workstation: [id number] [facility] Work Phone: Radiology Study observation (narrative) [facility] Work Phone: CT for calcium scoring WO co ntrast and CTA W contrast IV Heart and coronary arteriesOrdered By: Brandt Soto on 10-30-2024 [facility] Work Phone: CNOVon 09-07-[facility] NIDIA ZAVAL[facility]A ([id number]) 1960 F Date Time Provider Department 09/07/24 9:45 AM AL QUINTERO [facility] During your visit today, we recorded the following information about you: Temperature Pulse Respiration Blood pressure 98 degrees 71/minute 18/minute 158/80 Weight 62 kg Al Quintero MD 09/07/2024 10:21 AM Signed [facility] Subjective Nidia Zavaleta is a 63 year old female. Patient presents with: Ear Problem: Unable to hear out of R ear, feels clogged,dizziness x 8 days, finished ATB and pain Patient was treated for URI with sinusitis and right otitis media here on 08/30/24 with 1 week of Augmentin. Her sinus symptoms have improved but she continues to have sensation that her right ear is plugged. She has decreased hearing and feels off balance at times. Denies current fever, sinus pain, sore throat, shortness of breath, or cough. She has been irrigating the right ear with peroxide and water. Ear Problem Review of Systems HENT: Positive for ear pain. Objective BP 158/80 Pulse 71 Temp 36.7 ?C (98 ?F) Resp 18 Wt 62 kg (136 lb 11 oz) LMP 01/06/2013 SpO2 96% BMI 26.69 kg/m? Physical Exam Constitutional: General: She is not in acute distress. HENT: Right Ear: Ear canal normal. A middle ear effusion (Probable clear middle ear effusion) is present. There is no impacted cerumen. Tympanic membrane is injected (Mild hyperemia along the manubrium). Tympanic membrane is not perforated, erythematous, retracted or bulging. Left Ear: Tympanic membrane and ear canal normal. Ears: Nose: No congestion. Right Sinus: No maxillary sinus tenderness or frontal sinus tenderness. Left Sinus: No maxillary sinus tenderness or frontal sinus tenderness. Mouth/Throat: Mouth: Mucous membranes are moist. Pharynx: No oropharyngeal exudate or posterior oropharyngeal erythema. Eyes: Extraocular Movements: Extraocular movements intact. Conjunctiva/sclera: Conjunctivae normal. Pupils: Pupils are equal, round, and reactive to light. Cardiovascular: Rate and Rhythm: Normal rate and regular rhythm. Heart sounds: No murmur heard. Pulmonary: Effort: No respiratory distress. Breath sounds: No wheezing, rhonchi or rales. Musculoskeletal: Cervical back: Neck supple. Lymphadenopathy: Cervical: No cervical adenopathy. Neurological: Mental Status: She is alert and oriented to person, place, and time. Comments: Head tremor {ASSESSMENT/PLAN: 1. Acute middle ear effusion, right - ICD9: 381.00, ICD10: H65.191 She has residual effusion from recent otitis media without signs of infection. Ear anatomy reviewed with patient. She may continue expectant management for usually self resolving condition. Avoid irrigation since there is no impaction or auditory canal debris. Follow-up with ear nose and throat if ear fullness symptoms persist Al Quintero MD History and Record Review External record(s) reviewed: prior outpatient record. Findings from review of outpatient records: Right tympanic membrane erythema and bulge present at visit 08/30/2024. 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 Does not recall specific reaction. Date Reviewed: 09/07/2024 Reviewed by: Cira Lundberg LPN - Fully Assessed Reason for Visit: Ear Problem [38] Cmt: Unable to hear out of R ear, feels clogged,dizziness x 8 days, finished ATB and pain Primary Visit Diagnosis:Acute middle ear effusion, right [H65.191] Prescriptions as of 09/07/2024 - nyipeomraga-zrutzjahj-d ilanter (TRELEGY ELLIPTA) 100-62.5-25 mcg inhalation powder INHALE 1 PUFF ONCE DAILY - albuterol HFA (PROVENTIL HFA, VENTOLIN HFA) 90 mcg/actuation inhaler Inhale 2 Puffs as instructed every 4 hours as needed. - multivitamin with minerals (VISION/OPTIGEN) tablet Take 1 tablet by mouth once daily. - aspirin, enteric coated (ASPIRIN, ENTERIC COATED) 81 mg EC tablet Take 81 mg by mouth once daily. - amLODIPine (NORVASC) 2.5 mg tablet - VITAMIN C 1000MG TABLET Take one(1) tablet daily. Problem List As Of Date 09/07/2024 Noted Resolved ABNORMAL FINDINGS-BREAST [793.8] 10/26/2001 Asthma [J45.909] 02/19/2011 Special screening for malignant neoplasms, colo*04/22/2011 Benign neoplasm of rectum and anal canal [D12.8*04/22/2011 Incidental lung nodule, > 3mm and < 8mm [R91.1] 05/07/2011 Pulmonary nodules [R91.8] COPD (chronic obstructive pulmonary disease) (H* Medications Discontinued During This Encounter Prescriptions - MULTIVIT (more content not included)... Normal [facility] Patient Instructionson 09-04 Packer Operator Automatic Authentication Interface Message Text Follow up in 1 year with CTA head. Please contact my office in a year to schedule CTA and follow up after completed Normal [facility] Progress Noteson 09-04-2024 Packer Operator Automatic Authentication Interface Message Text ..Patient was identified by name and date of . Anjali Ellis MA Normal [facility] CNOVon 08-30-2024 CNOV Office Visit ([facility] ) NIDIA ZAVALETA ([id number]) 1960 F Date Time Provider Department 08/30/24 9:15 AM PATRICE YAO [facility] During your visit today, we recorded the following information about you: Temperature Pulse Respiration Blood pressure 97.6 degrees 78/minute 18/minute 142/82 Weight 62.6 kg Patrice Yao, PA 08/30/2024 9:21 AM Signed [facility] Subjective Nidia Zavaleta is a 63 year old female. Patient presents with: Ear Pain: Right ear pain, sinus, KRISHNAN and congestion x 3 days HPI 63-year-old female presents for sinus congestion, headache, ear pain x 3 days. She has not had fevers. No cough. No chest pain or shortness of breath. She does have history of COPD, she did quit smoking. She states she has no cough currently. She has been taking cold and flu medication without much improvement. She states she has a lot of sinus pressure and sinus headache. She was seen by her PCP and states that they did a strep test on her and she is awaiting results of that. No other complaint. PAST MEDICAL HISTORY Diagnosis Date Benign neoplasm of rectum and anal canal Cigarette smoker COPD (chronic obstructive pulmonary disease) (HCC) Emphysema High blood pressure Controlled on med. Novel H1N1 influenzal acute respiratory infection Pneumonia, viral Pulmonary nodules CT stable 2 years or more. Surveillance scanning stopped 2014. PAST SURGICAL HISTORY Procedure Laterality Date APPENDECTOMY childhood BREAST AUGMENTATION WITH IMPLANT 1997 bilateral CARPAL TUNNEL RIGHT WRIST and left wrist COLONOSCOPY FLX DX W/COLLJ SPEC WHEN PFRMD 04/22/2011 Colonoscopy LIG/TRNSXJ FLP TUBE ABDL/VAG APPR UNI/BI ALLERGIES Creosote MEDICATIONS amoxicillin-clavulanate potassium (AUGMENTIN) 875-125 mg per tablet Take 1 tablet by mouth two times a day for 7 days. mnnjyqoqjeg-ktlixmjad-t ilanter (TRELEGY ELLIPTA) 100-62.5-25 mcg inhalation powder INHALE 1 PUFF ONCE DAILY albuterol HFA (PROVENTIL HFA, VENTOLIN HFA) 90 mcg/actuation inhaler Inhale 2 Puffs as instructed every 4 hours as needed. multivitamin with minerals (VISION/OPTIGEN) tablet Take 1 tablet by mouth once daily. aspirin, enteric coated (ASPIRIN, ENTERIC COATED) 81 mg EC tablet Take 81 mg by mouth once daily. amLODIPine (NORVASC) 2.5 mg tablet VITAMIN C 1000MG TABLET Take one(1) tablet daily. MULTIVITAMIN TABLET Take one(1) tablet daily. FAMILY HISTORY Adopted: Yes Problem Relation Age of Onset Breast Cancer Other No breast cancer known; patient grew up without parents; no breast cancer amongst siblings Cancer Mother 2018, cancer of kidney? Social History Tobacco Use Smoking status: Former Current packs/day: 0.00 Average packs/day: 1.5 packs/day for 48.0 years (72.0 ttl pk-yrs) Types: Cigarettes Start date: 05/29/1975 Quit date: 05/29/2023 Years since quittin.2 Smokeless tobacco: Never Tobacco comments: 2 ppd in past, averaged 1.5 PPD for 48 years. Has smoked 1/2 PPD for Substance Use Topics Alcohol use: Yes Comment: Rarely, occassionally Drug use: No Review of Systems Constitutional: Negative for chills and fever. HENT: Positive for congestion, ear pain, sinus pressure, sinus pain and sore throat. Respiratory: Negative for cough and shortness of breath. Cardiovascular: Negative for chest pain. Gastrointestinal: Negative for diarrhea and vomiting. Neurological: Positive for headaches. Objective BP 142/82 Pulse 78 Temp 36.4 ?C (97.6 ?F) (Tympanic) Resp 18 Wt 62.6 kg (138 lb 0.1 oz) LMP 01/06/2013 SpO2 95% BMI 26.95 kg/m? Physical Exam Vitals reviewed. Constitutional: General: She is not in acute distress. Appearance: Normal appearance. She is not toxic-appearing. HENT: Right Ear: Ear canal normal. A middle ear effusion is present. Tympanic membrane is erythematous and bulging. Left Ear: Tympanic membrane and ear canal normal. Nose: Congestion present. Right Sinus: Maxillary sinus tenderness present. Left Sinus: Maxillary sinus tenderness present. Mouth/Throat: Mouth: Mucous membranes are moist. Eyes: Conjunctiva/sclera: Conjunctivae normal. Cardiovascular: Rate and Rhythm: Normal rate and regular rhythm. Pulmonary: Effort: Pulmonary effort is normal. Breath sounds: Normal breath sounds. Skin: General: Skin is warm and dry. Neurological: Mental Status: She is alert. {ASSESSMENT/PLAN: 1. Acute otitis media, right - ICD9: 382.9, ICD10: H66.91 (primary diagnosis) - Will begin treatment with Augmentin 875 mg PO BID for 7 days - Supportive care with plenty of fluids, rest, and analgesia prn. 2. URI, acute - ICD9: 465.9, ICD10: J06.9 - Discussed viral etiology and rationale for treatment. - Symptomatic treatment with prn analgesia - Supportive care with fluids and rest - The patient may also use OTC decongestants prn. Re (more content not included)... Normal [facility] MRA Head ONLY without Contra ston 08-18-2024 MRA Head ONLY without Contrast [facility] [address] [place] [id number] MRA Head ONLY without Contrast MR#: [id number] Acct: [id number] Name: NIDIA ZAVALETA Rep #: [id number] : 1960 F 63 From: Lito gerard MD PCP: Dr. Pennie Hale DO Status: REG CLI Study: MRA Head ONLY without Contrast Date of Exam: 0 08/18/24 Exam# [id number] Ordering Dr: Pennie Hlae DO PROCEDURE: MRA HEAD ONLY WITHOUT CONTRAST 08/18/2024 REASON FOR EXAM: MRA OF BRAIN: CEREBRAL ANEURYSM FOLLOW UP COMPARISON: None TECHNIQUE: 3D Time of Flight MRA of the head without intravenous contrast. 3D reformatted images were provided. FINDINGS: Anatomy: Andreafski of Hernandez anatomy is within normal limits. Anterior Circulation: Distal internal carotid anterior and middle cerebral arteries appear patent without high grade stenosis. Postoperative changes aneurysmal clipping in the anterior cerebral artery region. 7 mm focal outpouching of the left supraclinoid ICA (series 2, image 99). Posterior Circulation: Unremarkable. MRI/MRA Head ONLY without Contrast IMPRESSION: Postoperative changes RICHARD aneurysmal clipping. No evidence of recurrence. 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 Reading Location: [facility] CC: Dr. Pennie Hale DO Medical Dermatologist: Signed Normal [facility] Magnetic resonance imaging r eportOrdered By: Lito Griffin on 08-18-2024 Study report [facility] [address] [place] [address] MRA Head ONLY without Contrast MR#: [id number] Acct: [id number] Name: NIDIA ZAVALETA Rep #: [id number] : 1960 F 63 From: Zuleika Griffin MD PCP: Dr. Pennie Hale DO Status: RE G CLI Study:MRA Head ONLY without Contrast Date of Exam: 08/18/24 Exam# [id number] Ordering Dr: Karthik Hale DO PROCEDURE: MRA HEAD ONLY WITHOUT CONTRAST 08/18/2024 REASON FOR EXAM: MRA OF BRAIN: CEREBRAL ANEURYSM FOLLOW UP COMPARISON: None TECHNIQUE: 3D Time of Flight MRA of the head without intravenous contrast. 3D reformatted images were provided. FINDINGS: Anatomy: Andreafski of Hernandez anatomy is within normal limits. Anterior Circulation: Distal internal carotid anterior and middle cerebral arteries appear patent without high grade stenosis. Postoperative changes aneurysmal clipping in the anterior cerebral artery region. 7 mm focal outpouching of the left supraclinoid ICA (series 2, image 99). Posterior Circulation: Unremarkable. MRI/MRA Head ONLY without Contrast IMPRESSION: Postoperative changes RICHARD aneurysmal clipping. No evidence of recurrence. 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 Reading Location: [facility] CC: Dr. Pennie Hale DO ~ Medical Dermatologist: Signed [facility] SCRN MAMM (CAD)W/HAWK BILATo n 07-03-2024 SCRN MAMM (CAD)W/HAWK BILAT [facility] [address] [place] [address] SCRN MAMM (CAD)W/HAWK BILAT MR#: [id number] Acct: [id number] Name: NIDIA ZAVALETA Rep #: [id number] : 1960 F 63 From: Malachi lemons MD PCP: Dr. Pennie Hale DO Status: REG CLI Study: SCRN MAMM (CAD)W/HAWK BILAT Date of Exam: 06/17 12/08 Exam# [id number] Ordering Dr: Pennie Hale DO ADDENDUM by Dr. Malachi Cruz MD on 07/07/24 at 1330 This is an addendum report due to prior films made available for comparison. Comparison is made with prior mammogram dated May 02, 2014. There has been no change. BI-RADS category 2 Reading Location: [facility]--1 07/07/24 1331 Date cc: Dr. Pennie Hale DO * Signed PROCEDURE: SCRN MAMM (CAD)W/HAWK BILAT REASON FOR EXAM: F, Age 63 y/o, routine mammogram. No family history. TECHNIQUE: Bilateral screening digital breast tomosynthesis with 2D and 3D images. Computer aided detection. COMPARISON: No comparison is available at this time. FINDINGS: The breasts are heterogeneously dense which may obscure small masses. Bilateral breast prostheses. Small benign-appearing bilateral axillary lymph nodes. No suspicious masses, areas of developing architectural distortion, or suspicious calcifications. BI/SCRN MAMM (CAD)W/HAWK BILAT IMPRESSION: BI-RADS 2: BENIGN. RECOMMEND ANNUAL MAMMOGRAPHIC SCREENING. Follow-up code: Routine Follow-up The patient will be notified of the results by letter. Reading Location: [facility]--1 CC: Dr. Pennie Hale DO Medical Dermatologist: Signed Normal [facility] CNOVon 06-23-2024 CNOV Office Visit ([facility] ) NIDIA ZAVALETA ([id number]) 1960 F Date Time Provider Department 06/23/24 8:00 AM DANNA MATTHEW [facility] During your visit today, we recorded the following information about you: Weight 61.2 kg Danna Matthew APRN.BROADCAST TRAFFIC COORDINATOR 06/23/2024 9:09 AM Signed Pulmonary Medicine Patients name: Nidia Zavaleta PCP: Pennie Hale DO, DO CC: follow-up HPI: Nidia Zavaleta is a 63 year old female former smoker (72 pack years) with PMH significant for HTN, moderate COPD and lung nodules. Current maintenance therapy with Trelegy and as needed Albuterol. RADHA 10/19/2023 reported stable respiratory symptoms and improvement in SOB since she quit smoking. Was not wearing supplemental O2 even though testing at that visit continued to show desaturation with ambulation. Since her last visit, she reports she continues to feel very well. She has been cigarette free for over a year now and notes significant improvement in her respiratory symptoms. Today, she denies a cough that she had previously experienced for years. No wheezing. Denies dyspnea at rest or with exertion. Weight has been stable. Denies any recent hospitalizations or ED visits or upper respiratory infections. Albuterol use is rare. She continues to not use supplemental O2 even though our most recent testing indicates she requires 2L with activity and at night. Self monitoring at home with activity reveals SPO2 92% and above. DME: [employer] Supplemental O2 with exertion and nocturnal PAST MEDICAL HISTORY Diagnosis Date Benign neoplasm of rectum and anal canal Cigarette smoker COPD (chronic obstructive pulmonary disease) (HCC) Emphysema High blood pressure Controlled on med. Novel H1N1 influenzal acute respiratory infection Pneumonia, viral Pulmonary nodules CT stable 2 years or more. Surveillance scanning stopped 2014. 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 Does not recall specific reaction. Medication List Accurate as of June 21, 2024 1:02 PM. If you have any questions, ask your nurse or doctor. CONTINUE taking these medications albuterol HFA 90 mcg/actuation inhaler Commonly known as: PROVENTIL HFA, VENTOLIN HFA Inhale 2 Puffs as instructed every 4 hours as needed. amLODIPine 2.5 mg tablet Commonly known as: NORVASC aspirin, enteric coated 81 mg EC tablet Commonly known as: ASPIRIN, ENTERIC COATED multivitamin tablet Take one(1) tablet daily. multivitamin with minerals tablet Commonly known as: VISION/OPTIGEN TRELEGY ELLIPTA 100-62.5-25 mcg inhalation powder Generic drug: okvpakqfhom-qnbhazuiv-y ilanter INHALE 1 PUFF ONCE DAILY VITAMIN C 1,000 mg tablet Generic drug: Ascorbic Acid Take one(1) tablet daily. DATA: I personally reviewed and analyzed all labs, radiographs and available pulmonary function testing PFT: 11/2022 Spirometry indicates severe obstruction. There was not a significant bronchodilator response. The RV and RV/TLC are elevated indicating air trapping. The diffusing capacity is moderately reduced. The presence of a reduced lung diffusing capacity - that does not normalize when measured independent of alveolar volume (kCO) suggests a parenchymal or pulmonary vascular disorder. CT Chest: 05/2023 IMPRESSION: LungRADS category: 2 LungRADS modifier: None LungRADS 0 reason: n/a Recommendations: Continue annual screening with LDCT in 12 months. Other actionable findings: None ====== Reference: [employer]. Lung CT Screening Reporting and Data System (Lung-RADS). Available at: http://www.acr.org/Qual ity-Safety/Resources/Karla ngRADS Medical Dermatologist: LAZARO Transcribe Date/Time: Jun 08 2023 3:47P Dictated by : DEMI APONTE MD This examination was interpreted and the report reviewed and electronically signed by: DEMI APONTE MD on Jun 08 2023 4:08PM EST Results-Findings * * *Final Report* * * DATE OF EXAM: Jun 08 2023 9:22AM [facility] 0561 - CT LUNG FOLLOWUP WO IVCON / PROCEDURE REASON: Lung nodules * * * * Physician Interpretation * * * * EXAMINATION: CT LUNG FOLLOWUP WO IVCON CLINICAL HISTORY: Follow-up parenchymal lung nodules Technique: Spiral CT acquisition of the chest from the thoracic inlet to the upper abdomen without contrast. MQ: [id number]_6 Followup LDCT Patient characteristics: * Tmnk-av-Omhxv: 1960; Age at exam: 62 years * Gender: Female * Lung Disease: Asymptomatic (no signs or symptoms of lung disease) * Number of Pack Years: 72 * Current smoker (=0) or Number of Years since Quit: 0 * Ordering provider and NPI: IRLANDA HAWTHORNE [id number] * Interpreting radiologist and NPI: Fadi [id number] Exam acquisition parameters: * Exam Date: 06/08/2023 9:22 (more content not included)... Normal [facility] OXIMETRY WITH AMBULATIONon 0 10-19-2023 Elbert Harrington RPF T 10/19/2023 9:06 AM RESPIRATORY THERAPY OXIMETRY WITH AMBULATION Oximetry with Ambulation Test for This Encounter O2 Device O2 Adapter NC O2 Flow SpO2% HR Activity Ft Walked (ft) Time (min) Avg Speed (MPH) R/A 92 80 Resting R/A 86 90 Walking, usual pace 370 1.7 2.47 NC 2 95 78 Resting NC 2 91 93 Walking, usual pace 500 3 1.89 General Information Pulse Oximetry Site Total Time Spent Walking Assistance/O2 Supply Carrier R Index Finger 30 Wheeled Walker NAME: NEREYDA Perez PATIENT NAME: Nidia Zavaleta DATE: October 19, 2023 TIME: 9:06 AM Comment: [facility] Absolute lymphocyte countOrd ered By: Tasha Edge on 05-30-2023 Lymphocytes Auto (Unsp spec) [#/Vol] 0.33 10*3/uL 0.83-4.51 [facility] Basophil percentageOrdered B y: Tasha Edge on 05-30-2023 Basophils/100 WBC (Bld) 0.2 % 0-1 [facility] Bilirubin [Mass/Vol] 0.30 mg/dL 0.20-1.00 [facility] Comment on above: For patients on eltr ombopag therapy, use of Dimension Outing TBIL is not recommended. Chloride [Moles/Vol] 109 mmol/L 98-107 [facility] Eosinophils/100 WBC (Bld) 0.0 % 0-5 [facility] Glucose [Mass/Vol] 187 mg/dL 74-106 [facility] Comment on above: Fasting Glucose resu lt greater than or equal to 126 mg/dL suggests DIABETES MELLITUS per A.D.A. criteria. Neutrophils (Bld) [#/Vol] 8.0 10*3/uL 2.0-7.7 [facility] Neutrophils/100 WBC (Bld) 91.7 % 47-70 [facility] Potassium [Moles/Vol] 3.8 mmol/L 3.5-5.1 [facility] Protein [Mass/Vol] 6.3 g/dL 6.4-8.2 [facility] Sodium [Moles/Vol] 140 mmol/L 136-145 [facility] WBC (Bld) [#/Vol] 8.8 10*3/uL 4.4-11.0 [facility] Blood erythrocytes count (nu mber/volume)Ordered By: Tasha Edge on 05-30-2023 RBC (Bld) [#/Vol] 4.25 10*6/uL 4.2-5.4 [facility] Blood hemoglobin measurement (mass/volume)Ordered By: Tasha Edge on 05-30-2023 Hemoglobin (Bld) [Mass/Vol] 13.1 g/dL 12.0-15.0 [facility] Blood lymphocytes/100 leukoc ytesOrdered By: Tasha Edge on 05-30-2023 Lymphocytes/100 WBC (Bld) 3.8 % 19-41 [facility] Blood monocytes/100 leukocyt esOrdered By: Tasha Edge on 05-30-2023 Monocytes/100 WBC (Bld) 3.7 % 0-10 [facility] Blood platelet mean volumeOr dered By: Tasha Edge on 05-30-2023 Platelet mean volume (Bld) [Entitic vol] 10.7 fL 6.2-12.0 [facility] Determination of erythrocyte mean corpuscular volume (MCV)Ordered By: Tasha Edge on 05-30-2023 MCV (RBC) [Entitic vol] 96.5 fL 81-99 [facility] Hematocrit Auto (Bld) [Volum e fraction]Ordered By: Tasha Edge on 05-30-2023 Hematocrit (Bld) [Volume fraction] 41.0 % 37-47 [facility] Laboratory - Chemistry and C hemistry - challengeOrdered By: Tasha Edge on 05-30-2023 ALP [Catalytic activity/Vol] 79 U/L 45-117 [facility] ALT [Catalytic activity/Vol] 23 U/L 13-56 [facility] CO2 [Moles/Vol] 24.0 mmol/L 21.0-32.0 [facility] Globulin (S) [Mass/Vol] 3.4 g/dL 2.2-4.2 [facility] Urea nitrogen/Creatinine [Mass ratio] 14.0 mg/mg 10-20 [facility] Laboratory - Hematology and Cell countsOrdered By: Tasha Edge on 05-30-2023 Erythrocyte distribution width (RBC) [Entitic vol] 47.2 fL 35.1-43.9 [facility] Erythrocyte distribution width (RBC) [Ratio] 13.2 % 11.6-14.6 [facility] Immature granulocytes/100 WBC (Bld) 0.600 % 0.0-0.9 [facility] Comment on above: IG% - Immature Granu locytes (promyelocytes, myelocytes and metamyelocytes) > 1% indicates that a LEFT SHIFT is Present. MCH (RBC) [Entitic mass] 30.8 pg 27.0-32.0 [facility] Nucleated RBC/100 WBC (Bld) [Ratio] 0 % 0-5 [facility] MCHC Auto (RBC) [Mass/Vol]Or dered By: Tasha Edge on 05-30-2023 MCHC (RBC) [Mass/Vol] 32.0 g/dL 32-36 [facility] No Panel InformationOrdered By: Tasha Edge on 05-30-2023 Estimated Creatinine Clearance Calc 70.19 ml/min [facility] Estimated GFR (MDRD) Amer 120 mL/min >60 [facility] Comment on above: GFR Calc Estimated GFR (MDRD) Non-Af Amer 99 mL/min >60 [facility] Comment on above: Non- GFR Calc Platelets bldOrdered By: Ben Edge on 05-30-2023 Platelets (Bld) [#/Vol] 221 10*3/uL 150-450 [facility] Serum or plasma albumin yamila urement (mass/volume)Ordered By: Tasha Edge on 05-30-2023 Albumin [Mass/Vol] 2.9 g/dL 3.2-5.0 [facility] Serum or plasma albumin/glob ulin mass ratioOrdered By: Tasha Edge on 05-30-2023 Albumin/Globulin [Mass ratio] 0.9 {ratio} 0.9-2.4 [facility] Serum or plasma calcium yamila urement (mass/volume)Ordered By: Tasha Minesh on 05-30-2023 Calcium [Mass/Vol] 8.4 mg/dL 8.5-10.1 [facility] Serum or plasma creatinine m easurement (mass/volume)Ordered By: Tasha Minesh on 05-30-2023 Creatinine [Mass/Vol] 0.64 mg/dL 0.55-1.02 [facility] Comment on above: The validity of the calculated GFR & GFRAA in patients over 70 years has not been determined. Clinical correlation is essential. Serum or plasma urea nitroge n measurement (mass/volume)Ordered By: Tasha Minesh on 05-30-2023 Urea nitrogen [Mass/Vol] 9 mg/dL 7-18 [facility] Thin prep Papanicolaou smear with manual screeningOrdered By: [facility] Minesh on 05-30-2023 Thin prep Papanicolaou smear with manual screening 18 U/L 15-37 [facility] Thin prep Papanicolaou smear with manual screening 7 5-15 [facility] Absolute lymphocyte countOrd ered By: Delfino Hart on 05-29-2023 Lymphocytes Auto (Unsp spec) [#/Vol] 0.58 10*3/uL 0.83-4.51 [facility] Basophil percentageOrdered B y: Delfino Hart on 05-29-2023 Basophils/100 WBC (Bld) 0.5 % 0-1 [facility] Chloride [Moles/Vol] 103 mmol/L 98-107 [facility] Eosinophils/100 WBC (Bld) 0.1 % 0-5 [facility] Glucose [Mass/Vol] 128 mg/dL 74-106 [facility] Comment on above: Fasting Glucose resu lt greater than or equal to 126 mg/dL suggests DIABETES MELLITUS per A.D.A. criteria. Neutrophils (Bld) [#/Vol] 10.5 10*3/uL 2.0-7.7 [facility] Neutrophils/100 WBC (Bld) 86.5 % 47-70 [facility] Potassium [Moles/Vol] 3.9 mmol/L 3.5-5.1 [facility] Sodium [Moles/Vol] 137 mmol/L 136-145 [facility] WBC (Bld) [#/Vol] 12.1 10*3/uL 4.4-11.0 [facility] Blood erythrocytes count (nu mber/volume)Ordered By: Delfino Hart on 05-29-2023 RBC (Bld) [#/Vol] 5.01 10*6/uL 4.2-5.4 [facility] Blood hemoglobin measurement (mass/volume)Ordered By: Delfino Hart on 05-29-2023 Hemoglobin (Bld) [Mass/Vol] 15.3 g/dL 12.0-15.0 [facility] Blood lymphocytes/100 leukoc ytesOrdered By: Delfino Hart on 05-29-2023 Lymphocytes/100 WBC (Bld) 4.8 % 19-41 [facility] Blood manual differential co mment interpretation (narrative result)Ordered By: Delfino Hart on 05-29-2023 Manual differential comment Amadeo (Bld) [Interp] SCANNED [facility] Blood monocytes/100 leukocyt esOrdered By: Delfino Hart on 05-29-2023 Monocytes/100 WBC (Bld) 7.8 % 0-10 [facility] Blood platelet mean volumeOr dered By: Delfino Hart on 05-29-2023 Platelet mean volume (Bld) [Entitic vol] 10.2 fL 6.2-12.0 [facility] Determination of erythrocyte mean corpuscular volume (MCV)Ordered By: Delfino Hart on 05-29-2023 MCV (RBC) [Entitic vol] 93.8 fL 81-99 [facility] Hematocrit Auto (Bld) [Volum e fraction]Ordered By: Delfino Hart on 05-29-2023 Hematocrit (Bld) [Volume fraction] 47.0 % 37-47 [facility] Laboratory - Chemistry and C hemistry - challengeOrdered By: Delfino Hart on 05-29-2023 CO2 [Moles/Vol] 28.0 mmol/L 21.0-32.0 [facility] Urea nitrogen/Creatinine [Mass ratio] 14.4 mg/mg 10-20 [facility] Laboratory - Hematology and Cell countsOrdered By: Delfino Hart on 05-29-2023 Erythrocyte distribution width (RBC) [Entitic vol] 45.7 fL 35.1-43.9 [facility] Erythrocyte distribution width (RBC) [Ratio] 13.2 % 11.6-14.6 [facility] Immature granulocytes/100 WBC (Bld) 0.300 % 0.0-0.9 [facility] Comment on above: IG% - Immature Granu locytes (promyelocytes, myelocytes and metamyelocytes) > 1% indicates that a LEFT SHIFT is Present. MCH (RBC) [Entitic mass] 30.5 pg 27.0-32.0 [facility] Nucleated RBC/100 WBC (Bld) [Ratio] 0 % 0-5 [facility] Laboratory - Microbiology an d Antimicrobial susceptibilityOrdered By: Delfino Hart on 05-29-2023 SARS-CoV-2 (COVID-19) RNA ANNABELLE+probe Ql (Unsp spec) Influenzae A [facility] MCHC Auto (RBC) [Mass/Vol]Or dered By: Delfino Hart on 05-29-2023 MCHC (RBC) [Mass/Vol] 32.6 g/dL 32-36 [facility] No Panel InformationOrdered By: Delfino Hart on 05-29-2023 Estimated Creatinine Clearance Calc 59.56 ml/min [facility] Estimated GFR (MDRD) Amer 98 mL/min >60 [facility] Comment on above: GFR Calc Estimated GFR (MDRD) Non-Af Amer 81 mL/min >60 [facility] Comment on above: Non- GFR Calc Platelets bldOrdered By: Barb Hart on 05-29-2023 Platelets (Bld) [#/Vol] 279 10*3/uL 150-450 [facility] Serum or plasma calcium yamila urement (mass/volume)Ordered By: Delfino Hart on 05-29-2023 Calcium [Mass/Vol] 9.1 mg/dL 8.5-10.1 [facility] Serum or plasma creatinine m easurement (mass/volume)Ordered By: Delfino Hart on 05-29-2023 Creatinine [Mass/Vol] 0.76 mg/dL 0.55-1.02 [facility] Comment on above: The validity of the calculated GFR & GFRAA in patients over 70 years has not been determined. Clinical correlation is essential. Serum or plasma urea nitroge n measurement (mass/volume)Ordered By: Delfino Hart on 05-29-2023 Urea nitrogen [Mass/Vol] 11 mg/dL 7-18 [facility] Serum procalcitonin measurem entOrdered By: Tasha Edge on 05-29-2023 Procalcitonin [Mass/Vol] 0.05 ng/mL 0.00-0.09 [facility] Comment on above: A procalcitonin (PCT ) level above 2.0 ng/mL on the first day of ICU admission is associated with a high risk for progression to severe sepsis and/or septic shock. A PCT level below 0.5 ng/mL on the first day of ICU admission is associated with a low risk for progression to severe and/or septic shock. Note: Concentrations <0.5 ng/mL do not exclude an infection on account of localized infections (without systemic signs) which can be associated with such low concentrations, or a systemic infection in its initial stages (<6 hours). Furthermore, increased procalcitonin can occur without infection. PCT concentrations between 0.5 and 2.0 ng/mL should be interpreted taking into account the patient's history. It is recommended to retest PCT within 6-24 hours if any concentrations <2 ng/mL are obtained. Thin prep Papanicolaou smear with manual screeningOrdered By: Delfino Hart on 05-29-2023 Thin prep Papanicolaou smear with manual screening 6 09-28 [facility] CT LUNG SCREEN WO IVCONon [facility] No Panel Informationon 11-18 [facility] [id number] BLon 10-30 Alpha 1 antitrypsin [Mass/Vol] 145 mg/dL 90 - 200 mg/dL [facility] Urinalysis, Complete W/ Micr oscopic Examination with reflex to urine culture, routine (98848)Ordered By: Cafeteria Helper on 09-02-2022 Appearance (U) Clear Normal [facility]; [facility] Work Phone: Comment on above: PERFORMED BY: [employer]6[address] RoadDublin [place] [id number] Bilirubin Ql (U) Negative Normal Comprehe ns[facility]; [facility] Work Phone: Comment on above: PERFORMED BY: [employer]6[address] RoadDublin [place] [id number] Color (U) Yellow Normal [facility]; [facility] Work Phone: Comment on above: PERFORMED BY: [employer] RoadM-DISCblin [place] [id number] Glucose Ql (U) Negative Normal [facility]; [facility] Work Phone: Comment on above: PERFORMED BY: [employer] [place] [id number] Ketones Ql (U) Negative Normal [facility]; [facility] Work Phone: Comment on above: PERFORMED BY: [employer] [place] [id number] pH (U) 6.5 [pH] Normal 5.0-7.5 [facility]; [facility] Work Phone: Comment on above: PERFORMED BY: [employer] [place] [id number] Protein Ql (U) Negative Normal [facility]; [facility] Work Phone: Comment on above: PERFORMED BY: [employer] [place] [id number] Specific gravity (U) [Rel density] 1.007 1 Normal 1.005-1.03 0 [facility]; [facility] Work Phone: Comment on above: PERFORMED BY: [employer] [place] [id number] Urinalysis, Complete W/ Microscopic Examination with reflex to urine culture, routine (35632) Negative Normal [facility]; [facility] Work Phone: Comment on above: PERFORMED BY: [employer] [employer] [place] [id number] Urinalysis, Complete W/ Microscopic Examination with reflex to urine culture, routine (86780) 0.2 mg/dL Normal 0.2-1.0 [facility]; [facility] Work Phone: Comment on above: PERFORMED BY: [employer] [place] [id number] Urinalysis, Complete W/ Microscopic Examination with reflex to urine culture, routine (64777) MICRON Normal [facility]; [facility] Work Phone: Comment on above: Microscopic follows if indicated. PERFORMED BY: [employer] [place] [id number] Urinalysis, Complete W/ Microscopic Examination with reflex to urine culture, routine (44404) See below: Normal [facility]; [facility] Work Phone: Comment on above: Microscopic was rush cated and was performed. PERFORMED BY: [employer] [place] [id number] Urinalysis, Complete W/ Microscopic Examination with reflex to urine culture, routine (32605) NOFLEX Normal [facility]; [facility] Work Phone: Comment on above: This specimen will n ot reflex to a Urine Culture. PERFORMED BY: [employer] [place] [id number] Urinalysis, Office ([id number])Or dered By: Idalia Daigle on 09-02-2022 Glucose Test strip (U) [Mass/Vol] Negative Normal [facility]; [facility] Work Phone: Hemoglobin Ql (U) Negative Normal Compreh ens[facility]; [facility] Work Phone: Leukocyte esterase Test strip Ql (U) Moderate Normal [facility]; [facility] Work Phone: Nitrite Ql (U) Negative Normal [facility]prehens [facility]; [facility] Work Phone: pH (U) 6.0 [pH] Normal [facility]; [facility] Work Phone: Specific gravity (U) [Rel density] 1.015 1 Normal [facility]; [facility] Work Phone: Urobilinogen (24H U) [Mass/Time] Normal Normal [facility]; [facility] Work Phone: COVID 19 (ONLY) RAPID ([id number] )Ordered By: Delmy Park on 01-09-2022 SARS-CoV-2 (COVID-19) RNA ANNABELLE+probe Ql (Unsp spec) Negative Normal [facility]; [facility] Work Phone: CBC W/AUTO DIFF WBC ([id number])O rdered By: Cafeteria Helper on 09-16-2020 Basophils (Bld) [#/Vol] 0.1 10*3/uL Normal 0.0-0.2 [facility]; [facility] Work Phone: Comment on above: PATIENT WAS FASTINGP ERFORMED BY: MAR [employer], [facility]UNC [facility] [id number] Basophils/100 WBC (Bld) 1 % Normal C omprehensive [facility]; [facility] Work Phone: Comment on above: PATIENT WAS FASTINGP ERFORMED BY: MAR [employer]UNC [facility] [id number] Eosinophils (Bld) [#/Vol] 0.2 10*3/uL Normal 0.0-0.4 [facility]; [facility] Work Phone: Comment on above: PATIENT WAS FASTINGP ERFORMED BY: MAR [employer]70 VersonicsUNC Health Johnston [id number] Eosinophils/100 WBC (Bld) 1 % Normal [facility]; [facility] Work Phone: Comment on above: PATIENT WAS FASTINGP ERFORMED BY: MAR [employer]angela BoElpikl[address] HerzioUNC Health Johnston [id number] Erythrocyte distribution width (RBC) [Ratio] 12.3 % Normal 11.7-15.4 [facility]; [facility] Work Phone: Comment on above: PATIENT WAS FASTINGP ERFORMED BY: [facility] Eggkwu[address] [facility] [place] [id number] Hematocrit (Bld) [Volume fraction] 47.2 % Abnormal 34.0-46.6 [facility]; [facility] Work Phone: Comment on above: PATIENT WAS FASTINGP ERFORMED BY: [facility] [facility] [id number] Hemoglobin (Bld) [Mass/Vol] 15.4 g/dL Normal 11.1-15.9 [facility]; [facility] Work Phone: Comment on above: PATIENT WAS FASTINGP ERFORMED BY: [facility] [facility]in [place] [id number] Immature granulocytes (Bld) [#/Vol] 0.0 10*3/uL Normal 0.0-0.1 [facility]; [facility] Work Phone: Comment on above: PATIENT WAS FASTINGP ERFORMED BY: [facility] [facility] [id number] Immature granulocytes/100 WBC (Bld) 0 % Normal [facility]; [facility] Work Phone: Comment on above: PATIENT WAS FASTINGP ERFORMED BY: [facility] [facility] [id number] Lymphocytes (Bld) [#/Vol] 2.2 10*3/uL Normal 0.7-3.1 [facility]; [facility] Work Phone: Comment on above: PATIENT WAS FASTINGP ERFORMED BY: [facility] Owvvzh[address] [facility] [place] [id number] Lymphocytes/100 WBC (Bld) 17 % Normal [facility]; [facility] Work Phone: Comment on above: PATIENT WAS FASTINGP ERFORMED BY: [facility] [facility] [place] [id number] MCH (RBC) [Entitic mass] 30.6 pg Normal 26.6-33.0 [facility]; [facility] Work Phone: Comment on above: PATIENT WAS FASTINGP ERFORMED BY: MAR [facility] Bvfxne85[address] RoadDublin [place] [id number] MCHC (RBC) [Mass/Vol] 32.6 g/dL Normal 31.5-35.7 [facility] prehensive [facility]; [facility] Work Phone: Comment on above: PATIENT WAS FASTINGP ERFORMED BY: CB [facility] Elwsfi[address] RoadDublin [place] [id number] MCV (RBC) [Entitic vol] 94 fL Normal 79-97 C omprehensive [facility]; [facility] Work Phone: Comment on above: PATIENT WAS FASTINGP ERFORMED BY: CB [facility] Rmmmad24[address] RoadDublin [place] [id number] Monocytes (Bld) [#/Vol] 0.9 10*3/uL Normal 0.1-0.9 [facility]; [facility] Work Phone: Comment on above: PATIENT WAS FASTINGP ERFORMED BY: MAR [facility] Syifzz5[address] RoadDublin [place] [id number] Monocytes/100 WBC (Bld) 7 % Normal C omprehens[facility]; [facility] Work Phone: Comment on above: PATIENT WAS FASTINGP ERFORMED BY: MAR [facility] Ptllbv4[address] RoadDublin [place] [id number] Neutrophils (Bld) [#/Vol] 9.7 10*3/uL Abnormal 1.4-7.0 [facility]; [facility] Work Phone: Comment on above: PATIENT WAS FASTINGP ERFORMED BY: CB [facility] Dcipig9[address] RoadDublin [place] [id number] Neutrophils/100 WBC (Bld) 74 % Normal [facility]; [facility] Work Phone: Comment on above: PATIENT WAS FASTINGP ERFORMED BY: CB [facility] Fhjket4[address] RoadDublin [place] [id number] Platelets (Bld) [#/Vol] 333 10*3/uL Normal 150-450 [facility]; [facility] Work Phone: Comment on above: PATIENT WAS FASTINGP ERFORMED BY: MAR Tracie Parsons[address] RoadDadablin [place] [id number] RBC (Bld) [#/Vol] 5.03 10*6/uL Normal 3.77-5.28 [facility]; [facility] Work Phone: Comment on above: PATIENT WAS FASTINGP ERFORMED BY: MAR Tracie Parsons[address]Dublin [place] [id number] WBC (Bld) [#/Vol] 13.1 10*3/uL Abnormal 3.4-10.8 [facility]; [facility] Work Phone: Comment on above: PATIENT WAS FASTINGP ERFORMED BY: MAR RaimundoAllison BoZxhddv[address] RoadDublin [place] [id number] LIPID PANEL ([id number])Ordered B y: Cafeteria Helper on 09-16-2020 Cholesterol [Mass/Vol] 271 mg/dL Abnormal 100-199 [facility]; [facility] Work Phone: Comment on above: PATIENT WAS FASTINGP ERFORMED BY: MAR RaimundoAllison Nxyrix35[address] RoadDublin [place] [id number] Cholesterol in HDL [Mass/Vol] 62 mg/dL Normal [facility]; [facility] Work Phone: Comment on above: PATIENT WAS FASTINGP ERFORMED BY: MAR RaimundoAllison BoMhpavh24[address] RoadDublin [place] [id number] Triglyceride [Mass/Vol] 215 mg/dL Abnormal 0-149 [facility]; [facility] Work Phone: Comment on above: PATIENT WAS FASTINGP ERFORMED BY: MAR RaimundoAllison BoMyyxzh3460 Durand RoadDublin [place] [id number] LIPID PANEL (68930) 40 mg/dL Normal 5-40 [facility]; [facility] Work Phone: Comment on above: PATIENT WAS FASTINGP ERFORMED BY: MAR RaimundoAllison BoMeesml3813 Dur[address] RoadDublin [place] [id number] LIPID PANEL (57304) 169 mg/dL Abnormal 0-99 [facility]; [facility] Work Phone: Comment on above: PATIENT WAS FASTINGP ERFORMED BY: MAR RaimundoAllison Xdxiwv3850 [facility] [id number] LIPID PANEL (15880) 2.7 {ratio} Normal 0.0-3.2 [facility] Internal Medicine; [facility] Work Phone: Comment on above: LDL/HDL Ratio Men Wo men 1/2 Avg.Risk 1.0 1.5 Avg.Risk 3.6 3.2 2X Avg.Risk 6.2 5.0 3X Avg.Risk 8.0 6.1 PATIENT WAS FASTINGP ERFORMED BY: MAR Bolin6370 [facility] [id number] METABOLIC PANEL, COMPREHENSI VE (69929)Ordered By: Cafeteria Helper on 09-16-2020 Albumin [Mass/Vol] 4.8 g/dL Normal 3.8-4.9 [facility] Internal Medicine; [facility] Work Phone: Comment on above: PATIENT WAS FASTINGP ERFORMED BY: MAR Bolin6370 [facility] [id number] Albumin/Globulin [Mass ratio] 1.7 {ratio} Normal 1.2-2.2 [facility]; [facility] Work Phone: Comment on above: PATIENT WAS FASTINGP ERFORMED BY: MAR LabAllison BoWbjcbm8445 [facility] [id number] ALP [Catalytic activity/Vol] 95 U/L Normal 39-117 [facility]; [facility] Work Phone: Comment on above: PATIENT WAS FASTINGP ERFORMED BY: MAR LabAllison BoVvkjnw7298 [facility] [id number] ALT [Catalytic activity/Vol] 22 U/L Normal 0-32 [facility]; [facility] Work Phone: Comment on above: PATIENT WAS FASTINGP ERFORMED BY: MAR [facility] Hqxdxw0330 [facility] [id number] AST [Catalytic activity/Vol] 22 U/L Normal 0-40 [facility]; [facility] Work Phone: Comment on above: PATIENT WAS FASTINGP ERFORMED BY: MAR More Vrtbmd[address] [facility] [id number] Bilirubin [Mass/Vol] 0.4 mg/dL Normal 0.0-1.2 [facility] rehensive Internal Medicine; [facility] Work Phone: Comment on above: PATIENT WAS FASTINGP ERFORMED BY: LabCo Zqungf1076 [facility] [id number] Calcium [Mass/Vol] 10.2 mg/dL Normal 8.7-10.3 [facility] Internal Medicine; [facility] Work Phone: Comment on above: PATIENT WAS FASTINGP ERFORMED BY: [facility] Eazstl[address] [facility] [id number] Chloride [Moles/Vol] 101 mmol/L Normal 96-106 [facility] rehensive Internal Medicine; [facility] Work Phone: Comment on above: PATIENT WAS FASTINGP ERFORMED BY: LabCo Traxvh8944 [address] [facility] [id number] CO2 [Moles/Vol] 25 mmol/L Normal 20-29 [facility] Internal Medicine; [facility] Work Phone: Comment on above: PATIENT WAS FASTINGP ERFORMED BY: [facility] Ykyrzz9565 [facility] [id number] Creatinine [Mass/Vol] 0.75 mg/dL Normal 0.57-1.00 [facility]; [facility] Work Phone: Comment on above: PATIENT WAS FASTINGP ERFORMED BY: LabCo Gxdasj4238 [address] [facility] [id number] GFR/1.73 sq M.predicted among blacks CKD-EPI (S/P/Bld) [Vol rate/Area] 100 mL/min/1.73 Normal [facility]; [facility] Work Phone: Comment on above: [facility] currently reports eGFR in compliance with the current recommendations of the National Kid[employer] Foundation. [facility] will update reporting as new guidelines are published from the NKF-ASN Task force. PATIENT WAS FASTINGP ERFORMED BY: [facility]6370 [facility] [id number] GFR/1.73 sq M.predicted among non-blacks CKD-EPI (S/P/Bld) [Vol rate/Area] 87 mL/min/1.73 Normal [facility]; [facility] Work Phone: Comment on above: PATIENT WAS FASTINGP ERFORMED BY: [facility]6370 [facility] [id number] Globulin (S) [Mass/Vol] 2.8 g/dL Normal 1.5-4.5 C omprehensive Internal Medicine; [facility] Work Phone: Comment on above: PATIENT WAS FASTINGP ERFORMED BY: [facility]6370 [facility] [id number] Glucose [Mass/Vol] 86 mg/dL Normal 65-99 [facility] hens[facility]; [facility] Work Phone: Comment on above: PATIENT WAS FASTINGP ERFORMED BY: [facility]6370 [facility] [id number] Potassium [Moles/Vol] 4.9 mmol/L Normal 3.5-5.2 [facility] prehensive Internal Medicine; [facility] Work Phone: Comment on above: PATIENT WAS FASTINGP ERFORMED BY: [facility]6370 [facility] [id number] Protein [Mass/Vol] 7.6 g/dL Normal 6.0-8.5 [facility] hens[facility]; [facility] Work Phone: Comment on above: PATIENT WAS FASTINGP ERFORMED BY: [facility]6370 [facility] [id number] Sodium [Moles/Vol] 141 mmol/L Normal 134-144 [facility] hens[facility]; [facility] Work Phone: Comment on above: PATIENT WAS FASTINGP ERFORMED BY: MAR [facility] Rjkyzf6473 [address] RoadDublin [place] [id number] Urea nitrogen [Mass/Vol] 17 mg/dL Normal 8-27 [facility]; [facility] Work Phone: Comment on above: PATIENT WAS FASTINGP ERFORMED BY: MAR [facility] Elctaz0514 [address] RoadDublin [place] [id number] Urea nitrogen/Creatinine [Mass ratio] 23 mg/mg Normal 12-28 [facility]; [facility] Work Phone: Comment on above: PATIENT WAS FASTINGP ERFORMED BY: MAR [facility] Ztbbta4620 [address] RoadDublin [place] [id number] MICROALBUMINOrdered By: Peerz em Ios Software Engineer on 09-16-2020 Albumin DL <= 20 mg/L (U) [Mass/Vol] 4.7 ug/mL Normal [facility]; [facility] Work Phone: Comment on above: PATIENT WAS FASTINGP ERFORMED BY: MAR [facility] Xnxxnz8792 [address] RoadDublin [place] [id number] Albumin/Creatinine (U) [Mass ratio] 9 {mg/g_creat} Normal 0-29 [facility]; [facility] Work Phone: Comment on above: Normal: 0 - 29 Moder ately increased: 30 - 300 Severely increased: >300 PATIENT WAS FASTINGP ERFORMED BY: MAR [facility] Xjvlqc7033 [address] RoadDublin [place] [id number] Creatinine (U) [Mass/Vol] 53.2 mg/dL Normal [facility]; [facility] Work Phone: Comment on above: PATIENT WAS FASTINGP ERFORMED BY: MAR [facility] Ytklvx7494 [address] RoadDublin [place] [id number] TSH ([id number])Ordered By: TUKZ Undergarments m Ios Software Engineer on 09-16-2020 TSH Qn 1.240 {uIU/mL} Normal 0.450-4.50 0 [facility]; [facility] Work Phone: Comment on above: PATIENT WAS FASTINGP ERFORMED BY: MAR Bolin6[address] RoadDublin [place] [id number] URINALYSIS, W/ MICRO ([id number]) Ordered By: Cafeteria Helper on 09-16-2020 Appearance (U) Clear Normal Comprehens madhav Internal Medicine; [facility] Work Phone: Comment on above: PATIENT WAS FASTINGP ERFORMED BY: MAR Bolin6[address] RoadDublin [place] [id number] Bilirubin Ql (U) Negative Normal Comprehe nsive Internal Medicine; [facility] Work Phone: Comment on above: PATIENT WAS FASTINGP ERFORMED BY: MAR Bolin6[address] RoadDublin [place] [id number] Color (U) Yellow Normal [facility]; [facility] Work Phone: Comment on above: PATIENT WAS FASTINGP ERFORMED BY: MAR Parsons6[address] RoadDublin [place] [id number] Glucose Ql (U) Negative Normal Comprehens madhav Internal Medicine; [facility] Work Phone: Comment on above: PATIENT WAS FASTINGP ERFORMED BY: MAR Bolin6[address] RoadDublin [place] [id number] Hemoglobin Ql (U) Negative Normal Compreh ensive Internal Medicine; [facility] Work Phone: Comment on above: PATIENT WAS FASTINGP ERFORMED BY: MAR Bolin6[address]Dublin [place] [id number] Ketones Ql (U) Negative Normal Comprehens madhav Internal Medicine; [facility] Work Phone: Comment on above: PATIENT WAS FASTINGP ERFORMED BY: MAR LabAllison BoLgocrp2204 [address] RoadDublin [place] [id number] Leukocyte esterase Test strip Ql (U) Negative Normal [facility]; [facility] Work Phone: Comment on above: PATIENT WAS FASTINGP ERFORMED BY: MAR Bolin6370 [address] RoadDublin [place] [id number] Microscopic observation LM Nom (Urine sed) MICRON Normal [facility]; [facility] Work Phone: Comment on above: Microscopic follows if indicated. PATIENT WAS FASTINGP ERFORMED BY: MAR Tracie Parsons[address] [facility]bl[facility] [place] [id number] Microscopic observation LM Nom (Urine sed) See below: Normal [facility]; [facility] Work Phone: Comment on above: Microscopic was rush cated and was performed. PATIENT WAS FASTINGP ERFORMED BY: MAR LabKen Zthydx2358 [address] RoadDublin [place] [id number] Nitrite Ql (U) Negative Normal Comprehens madhav Internal Medicine; [facility] Work Phone: Comment on above: PATIENT WAS FASTINGP ERFORMED BY: MAR RaimundoAllison BoUfwkis0217 [address] [facility] [place] [id number] pH (U) 6.0 [pH] Normal 5.0-7.5 [facility]; [facility] Work Phone: Comment on above: PATIENT WAS FASTINGP ERFORMED BY: MAR Argneisangela Jtwlag[address] [facility]in [place] [id number] Protein Ql (U) Negative Normal Comprehens madhav Internal Medicine; [facility] Work Phone: Comment on above: PATIENT WAS FASTINGP ERFORMED BY: MAR Argenisangela Hfulaa7747 [facility] [id number] Specific gravity (U) [Rel density] 1.015 1 Normal 1.005-1.03 0 [facility]; [facility] Work Phone: Comment on above: PATIENT WAS FASTINGP ERFORMED BY: MAR LabCo Erdyat7081 [address] [facility] [place] [id number] Urobilinogen (U) [Mass/Vol] 0.2 mg/dL Normal 0.2-1.0 [facility]; [facility] Work Phone: Comment on above: PATIENT WAS FASTINGP ERFORMED BY: MAR [facility] Lfpqvs[address] [facility] Hospitalblin [place] [id number] CBC W/AUTO DIFF WBC (31589)O rdered By: Cafeteria Helper on 07-09-2016 Basophils (Bld) [#/Vol] 0.0 {x10E3/uL} Normal 0.0-0.2 [facility] Work Phone: Comment on above: PATIENT WAS FASTINGP ERFORMED BY: [facility]6370 [facility] [id number] Basophils (Bld) [#/Vol] 0.0 10*3/uL Normal 0.0-0.2 [facility]; [facility] Work Phone: Comment on above: PATIENT WAS FASTINGP ERFORMED BY: [address] [id number] Basophils Auto #/vol (Bld) 0.0 {x10E3/uL} Normal 0.0-0.2 [facility] Work Phone: Basophils/100 WBC (Bld) 0 % Normal C omprehensive Internal Medicine Work Phone: Comment on above: PATIENT WAS FASTINGP ERFORMED BY: [address] [id number] Basophils/100 WBC Auto (Bld) 0 % Normal [facility] Work Phone: Eosinophils (Bld) [#/Vol] 0.3 {x10E3/uL} Normal 0.0-0.4 [facility] Work Phone: Comment on above: PATIENT WAS FASTINGP ERFORMED BY: [address] [id number] Eosinophils (Bld) [#/Vol] 0.3 10*3/uL Normal 0.0-0.4 [facility]; [facility] Work Phone: Comment on above: PATIENT WAS FASTINGP ERFORMED BY: [place] [id number] [facility] [id number] Eosinophils Auto #/vol (Bld) 0.3 {x10E3/uL} Normal 0.0-0.4 [facility] Work Phone: Eosinophils/100 WBC (Bld) 1 % Normal [facility] Work Phone: Comment on above: PATIENT WAS FASTINGP ERFORMED BY: MAR [facility] Ormdmm7318 [facility] [id number] Eosinophils/100 WBC Auto (Bld) 1 % Normal [facility] Work Phone: Erythrocyte distribution width (RBC) [Ratio] 13.8 % Normal 12.3-15.4 [facility] Work Phone: Comment on above: PATIENT WAS FASTINGP ERFORMED BY: MAR [facility]6370 [facility] [id number] Erythrocyte distribution width Auto Ratio (RBC) 13.8 % Normal 12.3-15.4 [facility] Work Phone: Hematocrit (Bld) [Volume fraction] 47.1 % Abnormal 34.0-46.6 [facility] Work Phone: Comment on above: PATIENT WAS FASTINGP ERFORMED BY: MAR [place] 8199970 [facility] [id number] Hematocrit Auto Volume Fraction (Bld) 47.1 % Abnormal 34.0-46.6 [facility] Work Phone: Hemoglobin mass conc (Bld) 15.3 g/dL Normal 11.1-15.9 [facility] Work Phone: Comment on above: PATIENT WAS FASTINGP ERFORMED BY: [facility]South[facility]6370 [facility] [id number] Immature granulocytes #/vol (Bld) 0.0 {x10E3/uL} Normal 0.0-0.1 [facility] Work Phone: Comment on above: PATIENT WAS FASTINGP ERFORMED BY: LabCo Vurhun9889 [facility] [id number] Immature granulocytes (Bld) [#/Vol] 0.0 10*3/uL Normal 0.0-0.1 [facility]; [facility] Work Phone: Comment on above: PATIENT WAS FASTINGP ERFORMED BY: LabCo Hwlyto2893 [facility] [id number] Immature granulocytes/100 WBC (Bld) 0 % Normal [facility] Work Phone: Comment on above: PATIENT WAS FASTINGP ERFORMED BY: [place] 2358070 [facility] [id number] Lymphocytes (Bld) [#/Vol] 6.2 {x10E3/uL} Abnormal 0.7-3.1 [facility] Work Phone: Comment on above: PATIENT WAS FASTINGP ERFORMED BY: [address] [id number] Lymphocytes (Bld) [#/Vol] 6.2 10*3/uL Abnormal 0.7-3.1 [facility]; [facility] Work Phone: Comment on above: PATIENT WAS FASTINGP ERFORMED BY: [place] 2358070 [facility] [id number] Lymphocytes Auto #/vol (Bld) 6.2 {x10E3/uL} Abnormal 0.7-3.1 [facility] Work Phone: Lymphocytes/100 WBC (Bld) 35 % Normal [facility] Work Phone: Comment on above: PATIENT WAS FASTINGP ERFORMED BY: [place] 2358070 [facility] [id number] Lymphocytes/100 WBC Auto (Bld) 35 % Normal [facility] Work Phone: MCH (RBC) [Entitic mass] 30.5 pg Normal 26.6-33.0 [facility] Work Phone: Comment on above: PATIENT WAS FASTINGP ERFORMED BY: [place] 2358070 [facility] [id number] MCH Auto Entitic mass (RBC) 30.5 pg Normal 26.6-33.0 [facility] Work Phone: MCHC (RBC) [Mass/Vol] 32.5 g/dL Normal 31.5-35.7 [facility] prehensive Internal Medicine Work Phone: Comment on above: PATIENT WAS FASTINGP ERFORMED BY: MAR [facility]ubanksCass [facility] Center Tefgam1606 [facility] [id number] MCHC Auto mass conc (RBC) 32.5 g/dL Normal 31.5-35.7 [facility] Work Phone: MCV (RBC) [Entitic vol] 94 fL Normal 79-97 C omprehensive Internal Medicine Work Phone: Comment on above: PATIENT WAS FASTINGP ERFORMED BY: MAR [facility] Nmrhaa9090 [facility] [id number] MCV Auto Entitic volume (RBC) 94 fL Normal 79-97 [facility] Work Phone: Monocytes (Bld) [#/Vol] 1.4 {x10E3/uL} Abnormal 0.1-0.9 [facility] Work Phone: Comment on above: PATIENT WAS FASTINGP ERFORMED BY: MAR More Ecrtwd8289 [facility] [id number] Monocytes (Bld) [#/Vol] 1.4 10*3/uL Abnormal 0.1-0.9 [facility]; [facility] Work Phone: Comment on above: PATIENT WAS FASTINGP ERFORMED BY: MAR Bolin6370 [facility] [id number] Monocytes Auto #/vol (Bld) 1.4 {x10E3/uL} Abnormal 0.1-0.9 [facility] Work Phone: Monocytes/100 WBC (Bld) 8 % Normal C omprehensive Internal Medicine Work Phone: Comment on above: PATIENT WAS FASTINGP ERFORMED BY: [facility]6370 [facility] [id number] Monocytes/100 WBC Auto (Bld) 8 % Normal [facility] Work Phone: Neutrophils (Bld) [#/Vol] 9.8 {x10E3/uL} Abnormal 1.4-7.0 [facility] Work Phone: Comment on above: PATIENT WAS FASTINGP ERFORMED BY: MAR [facility] Kryqda2921 [address] RoadDublin [place] [id number] Neutrophils (Bld) [#/Vol] 9.8 10*3/uL Abnormal 1.4-7.0 [facility]; [facility] Work Phone: Comment on above: PATIENT WAS FASTINGP ERFORMED BY: MAR [facility] Mjiwdb3698 [address] RoadDublin [place] [id number] Neutrophils Auto #/vol (Bld) 9.8 {x10E3/uL} Abnormal 1.4-7.0 [facility] Work Phone: Neutrophils/100 WBC (Bld) 56 % Normal [facility] Work Phone: Comment on above: PATIENT WAS FASTINGP ERFORMED BY: MAR LabAllison BoHddvvc6745 [address] Roadblin [place] [id number] Neutrophils/100 WBC Auto (Bld) 56 % Normal [facility] Work Phone: Platelets (Bld) [#/Vol] 378 {x10E3/uL} Normal 150-379 [facility] Work Phone: Comment on above: PATIENT WAS FASTINGP ERFORMED BY: MAR [facility] Yaywkl[address] [facility]bl[facility] [place] [id number] Platelets (Bld) [#/Vol] 378 10*3/uL Normal 150-379 [facility]; [facility] Work Phone: Comment on above: PATIENT WAS FASTINGP ERFORMED BY: Lab[facility] Lcnamo0438 [address] Roadblin [place] [id number] Platelets Auto #/vol (Bld) 378 {x10E3/uL} Normal 150-379 [facility] Work Phone: RBC (Bld) [#/Vol] 5.01 {x10E6/uL} Normal 3.77-5.28 [facility] Internal Medicine Work Phone: Comment on above: PATIENT WAS FASTINGP ERFORMED BY: MAR LabCass [facility] Fvbywp0313 [address] RoadDublin [place] [id number] RBC (Bld) [#/Vol] 5.01 10*6/uL Normal 3.77-5.28 [facility]; [facility] Work Phone: Comment on above: PATIENT WAS FASTINGP ERFORMED BY: MAR RaimundoAllison BoEtycjh5296 [facility] [id number] RBC Auto #/vol (Bld) 5.01 {x10E6/uL} Normal 3.77-5.28 [facility] Work Phone: WBC (Bld) [#/Vol] 18.0 {x10E3/uL} Abnormal 3.4-10.8 [facility] Internal Medicine Work Phone: Comment on above: PATIENT WAS FASTINGP ERFORMED BY: MAR Bolin6370 [facility] [id number] WBC (Bld) [#/Vol] 18.0 10*3/uL Abnormal 3.4-10.[address] [facility] Internal Medicine; [facility] Work Phone: Comment on above: PATIENT WAS FASTINGP ERFORMED BY: MAR Bolin6370 [facility] [id number] WBC Auto #/vol (Bld) 18.0 {x10E3/uL} Abnormal 3.4-10.8 [facility] Work Phone: LIPID PANEL ([id number])Ordered B y: Cafeteria Helper on 07-09-2016 Cholesterol in HDL mass conc 67 mg/dL Normal [facility] Work Phone: Comment on above: PATIENT WAS FASTINGP ERFORMED BY: MAR LabAllison Kvpbbt1896 [facility] [id number] Cholesterol in LDL mass conc 186 mg/dL Abnormal 0-99 [facility] Work Phone: Comment on above: PATIENT WAS FASTINGP ERFORMED BY: MAR [facility]Co[facility]Xdejea0900 [facility] [id number] Cholesterol in LDL/Cholesterol in HDL mass ratio 2.8 {ratio_units} Normal 0.0-3.2 [facility] Work Phone: Comment on above: LDL/HDL Ratio Men Wo men 1/2 Avg.Risk 1.0 1.5 Avg.Risk 3.6 3.2 2X Avg.Risk 6.2 5.0 3X Avg.Risk 8.0 6.1 PATIENT WAS FASTINGP ERFORMED BY: LabCo Ppxbxg9477 [facility] [id number] Cholesterol in VLDL mass conc 44 mg/dL Abnormal 5-40 [facility] Work Phone: Comment on above: PATIENT WAS FASTINGP ERFORMED BY: [facility]CoCap[facility]Bakhsj6603 [facility] [id number] Cholesterol mass conc 297 mg/dL Abnormal 100-199 Com prehensive Internal Medicine Work Phone: Comment on above: PATIENT WAS FASTINGP ERFORMED BY: [facility]CoCap[facility])Ohemqm8708 [facility] [id number] Triglyceride mass conc 219 mg/dL Abnormal 0-149 Co mprehensive Internal Medicine Work Phone: Comment on above: PATIENT WAS FASTINGP ERFORMED BY: [facility]CoCap[facility]Sdatyp3947 [facility] [id number] METABOLIC PANEL, COMPREHENSI VE (74453)Ordered By: Cafeteria Helper on 07-09-2016 Albumin mass conc 4.4 g/dL Normal 3.5-5.5 Compreh ensive Internal Medicine Work Phone: Comment on above: PATIENT WAS FASTINGP ERFORMED BY: [facility] Bhhiml4475 [facility] [id number] Albumin/Globulin mass ratio 1.7 {ratio} Normal 1.1-2.5 [facility] Work Phone: Comment on above: Effective July the reference interval for A/G Ratio will be changing to: Age Male Female 0 - 7 days 1.1 - 2.3 1.1 - 2.3 8 - 30 days 1.2 - 2.8 1.2 - 2.8 1 - 6 months 1.3 - 3.6 1.3 - 3.6 7 months - 5 years 1.5 - 2.6 1.5 - 2.6 > 5 years 1.2 - 2.2 1.2 - 2.2 PATIENT WAS FASTINGP ERFORMED BY: MAR LabCoangela BoNtrnip4450 [address] RoadDublin [place] [id number] ALP [Catalytic activity/Vol] 84 U/L Normal 39-117 [facility]; [facility] Internal Medicine Work Phone: Comment on above: PATIENT WAS FASTINGP ERFORMED BY: MAR [facility] Lquryw0250 [address] RoadDublin [place] [id number] ALP enzyme act/vol 84 [iU]/L Normal 39-117 [facility] Internal Medicine Work Phone: Comment on above: PATIENT WAS FASTINGP ERFORMED BY: MAR LabCoangela BoYehuzk4846 [address] RoadDublin [place] [id number] ALT [Catalytic activity/Vol] 32 U/L Normal 0-32 [facility] Internal Medicine; [facility] Internal Medicine Work Phone: Comment on above: PATIENT WAS FASTINGP ERFORMED BY: MAR LabAllison BoUgrjpj0543 [address] RoadDuin [place] [id number] ALT enzyme act/vol 32 [iU]/L Normal 0-32 [facility] Internal Medicine Work Phone: Comment on above: PATIENT WAS FASTINGP ERFORMED BY: MAR LabCoangela BoIvtahd0917 [address] [facility] [id number] AST [Catalytic activity/Vol] 18 U/L Normal 0-40 [facility] Internal Medicine; [facility] Internal Medicine Work Phone: Comment on above: PATIENT WAS FASTINGP ERFORMED BY: MAR LabCo Puuqft2524 [address] RoadNovant Health [facility] Centerin [place] [id number] AST enzyme act/vol 18 [iU]/L Normal 0-40 [facility] Internal Medicine Work Phone: Comment on above: PATIENT WAS FASTINGP ERFORMED BY: MAR [facility] Xwutqf1627 [address] RoadDuUNC Health Johnston [id number] Bilirubin mass conc 0.3 mg/dL Normal 0.0-1.[address] [facility] Internal Medicine Work Phone: Comment on above: PATIENT WAS FASTINGP ERFORMED BY: MAR [facility] Mxsrbj5548 [address]and RoadDublin [place] [id number] Calcium mass conc 9.8 mg/dL Normal 8.7-10.2 Compreh ensive Internal Medicine Work Phone: Comment on above: PATIENT WAS FASTINGP ERFORMED BY: MAR [facility] Gbaljw8303 [address] [facility] [place] [id number] Chloride molar conc 99 mmol/L Normal 96-106 Compr ehensive Internal Medicine Work Phone: Comment on above: PATIENT WAS FASTINGP ERFORMED BY: MAR [facility] Zqveax5381 [address] [facility] [id number] CO2 molar conc 24 mmol/L Normal 18-29 Comprehens madhav Internal Medicine Work Phone: Comment on above: PATIENT WAS FASTINGP ERFORMED BY: MAR [facility] Ctlpwj9409 [facility] [id number] Creatinine mass conc 0.76 mg/dL Normal 0.57-1.00 Comp rehensive Internal Medicine Work Phone: Comment on above: PATIENT WAS FASTINGP ERFORMED BY: MAR [facility] Pldmyf2331 [facility] [id number] GFR/1.73 sq M predicted among blacks CKD-EPI vol rate/area (S/P/Bld) 101 mL/min/1.73 Normal Comprehe nsive Internal Medicine Work Phone: Comment on above: PATIENT WAS FASTINGP ERFORMED BY: MAR [facility] Juecfc2155 [address] [facility] [id number] GFR/1.73 sq M predicted among non-blacks CKD-EPI vol rate/area (S/P/Bld) 88 mL/min/1.73 Normal [facility] Medicine Work Phone: Comment on above: PATIENT WAS FASTINGP ERFORMED BY: MAR [facility] Cbattx2416 [address] [facility] [id number] Globulin (S) [Mass/Vol] 2.6 g/dL Normal 1.5-4.5 C omprehensive Internal Medicine Work Phone: Comment on above: PATIENT WAS FASTINGP ERFORMED BY: MAR More Xramgu3683 [facility] [id number] Globulin Calculated mass conc (S) 2.6 g/dL Normal 1.5-4.5 [facility] Work Phone: Glucose mass conc 66 mg/dL Normal 65-99 Compreh ensive Internal Medicine Work Phone: Comment on above: PATIENT WAS FASTINGP ERFORMED BY: MAR More Inuqbx4420 [facility] [id number] Potassium molar conc 5.0 mmol/L Normal 3.5-5.2 Comp rehensive Internal Medicine Work Phone: Comment on above: PATIENT WAS FASTINGP ERFORMED BY: MAR More Uaolob9569 [facility] [id number] Protein mass conc 7.0 g/dL Normal 6.0-8.5 Compreh ensive Internal Medicine Work Phone: Comment on above: PATIENT WAS FASTINGP ERFORMED BY: MAR Argenis Wkamio5199 [facility] [id number] Sodium molar conc 139 mmol/L Normal 134-144 Compreh ensive Internal Medicine Work Phone: Comment on above: PATIENT WAS FASTINGP ERFORMED BY: MAR Bolin6370 [facility] [id number] Urea nitrogen mass conc 16 mg/dL Normal 6-24 C omprehensive Internal Medicine Work Phone: Comment on above: PATIENT WAS FASTINGP ERFORMED BY: MAR Argenis Sevkgb7910 [facility] [id number] Urea nitrogen/Creatinine mass ratio 21 mg/mg Normal 9-23 [facility] Medicine Work Phone: Comment on above: PATIENT WAS FASTINGP ERFORMED BY: [facility] Sjgren0287 [facility] [id number] TSH ([id number])Ordered By: Khloe Menezes on 07-09-2016 Thyrotropin Qn 3.320 {uIU/mL} Normal 0.450-4.50 0 [facility] Medicine Work Phone: Comment on above: PATIENT WAS FASTINGP ERFORMED BY: [facility]Pfbsoz9364 [facility] [id number] Basic Metabolic Profile (BMP )Ordered By: Cafeteria Helper on 06-30-2016 Basic metabolic 2000 panel 142 mmol/L Normal 136-145 [facility] Medicine Work Phone: Comment on above: [facility] [address] [place], [place], [address] Basic metabolic 2000 panel 66 mL/min Normal [facility] Medicine Work Phone: Comment on above: Non- GFR Calc [facility] [address] [place], [place], [phone] Basic metabolic 2000 panel 80 mL/min Normal [facility] Medicine Work Phone: Comment on above: GFR Calc [facility] [address] [place], [place], [phone] Basic metabolic 2000 panel 48.52 ml/min Normal [facility] Medicine Work Phone: Comment on above: [facility] [address] [place], [place], [phone] Basic metabolic 2000 panel 9.6 {RATIO} Abnormal 10-20 [facility] Medicine Work Phone: Comment on above: [facility] [address] [place], [place], [address] Basic metabolic 2000 panel 9.5 mg/dL Normal 8.5-10.1 [facility] Work Phone: Comment on above: [facility] [address] [place], [place], [phone] Basic metabolic 2000 panel 0.93 mg/dL Normal 0.55-1.02 [facility] Work Phone: Comment on above: The validity of the calculated GFR AND GFRAA in patients over70 years has not been determined. Clinical correlation isessential. [facility] [address] [place], [place], [phone] Basic metabolic 2000 panel 3.9 mmol/L Normal 3.5-5.1 [facility] Medicine Work Phone: Comment on above: [facility] [address] [place], [place], [phone] Basic metabolic 2000 panel 9 mg/dL Normal 7-18 [facility] Internal Medicine Work Phone: Comment on above: [facility] [address] [place], [place], [phone] Basic metabolic 2000 panel 105 mmol/L Normal 98-107 [facility] Medicine Work Phone: Comment on above: [facility] [address] [place], [place], [phone] Basic metabolic 2000 panel 27.0 mmol/L Normal 21.0-32.0 [facility] Medicine Work Phone: Comment on above: [place] [address] [place], [place], [phone] Basic metabolic 2000 panel 130 mg/dL Abnormal 70-110 [facility] Medicine Work Phone: Comment on above: Fasting Glucose resu lt greater than or equal to 126 mg/dLsuggests DIABETES MELLITUS per A.D.A. criteria. [facility] [address] [place], [place], [phone] Basic metabolic 2000 panel 10 1 Normal 5-15 [facility] Medicine Work Phone: Comment on above: [facility] [address] [place], [place], [address] CBC W/Diff, AutomatedOrdered By: Cafeteria Helper on 06-30-2016 Absolute Lymph 0.72 {X10_3/ul} Abnormal 0.83-4.51 Compr ehensive Internal Medicine Work Phone: Absolute Neut 7.9 {X10_3/uL} Abnormal 2.0-7.7 Compreh ensive Internal Medicine Work Phone: Comment on above: [facility] [address] [place], [address] Basophils/100 WBC (Bld) 0.5 % Normal 0-1 C omprehensive Internal Medicine Work Phone: Comment on above: [facility] [address] [place], [address] Basophils/100 WBC Auto (Bld) 0.5 % Normal 0-1 [facility] Work Phone: Eosinophils/100 WBC (Bld) 0.5 % Normal 0-5 [facility] Work Phone: Comment on above: [facility] [address] [place], [address] Eosinophils/100 WBC Auto (Bld) 0.5 % Normal 0-5 [facility] Work Phone: Erythrocyte distribution width (RBC) [Ratio] 13.3 % Normal 11.6-14.6 [facility] Work Phone: Comment on above: [facility] [address] [place], [address] Erythrocyte distribution width Auto Ratio (RBC) 13.3 % Normal 11.6-14.6 [facility] Work Phone: Hematocrit (Bld) [Volume fraction] 44.6 % Normal 37-47 [facility] Work Phone: Comment on above: [facility] [address] [place], [address] Hematocrit Auto Volume Fraction (Bld) 44.6 % Normal 37-47 [facility] Work Phone: Hemoglobin mass conc (Bld) 14.5 g/dL Normal 12.0-15.0 [facility] Work Phone: Comment on above: [facility] [address] [place], [address] IM GRAN % 0.200 % Normal 0.0-0.9 [facility] Work Phone: Comment on above: IG% - Immature Granu locytes (promyelocytes, myelocytes andmetamyelocytes) > 1% indicates that a LEFT SHIFT is Present. [facility] [address] [place], [address] Lymphocytes (Bld) [#/Vol] 0.72 {X10_3/ul} Abnormal 0.83-4.51 [facility] Work Phone: Comment on above: [place] [address] [place], [address] Lymphocytes/100 WBC (Bld) 7.8 % Abnormal 19-41 [facility] Work Phone: Comment on above: [place] [address] [place], [address] Lymphocytes/100 WBC Auto (Bld) 7.8 % Abnormal -41 [facility] Work Phone: MCH (RBC) [Entitic mass] 30.7 pg Normal 27.0-32.0 [facility] Work Phone: Comment on above: [place] [address] [place], [address] MCH Auto Entitic mass (RBC) 30.7 pg Normal 27.0-32.0 [facility] Work Phone: MCHC (RBC) [Mass/Vol] 32.5 {g/gl} Normal 32-36 Co mprehensive Internal Medicine Work Phone: Comment on above: [facility] [address] [place], [address] MCHC Auto mass conc (RBC) 32.5 {g/gl} Normal 32-36 [facility] Work Phone: MCV (RBC) [Entitic vol] 94.3 fL Normal 81-99 C omprehensive Internal Medicine Work Phone: Comment on above: [place] [address] [place], [place], [phone] MCV Auto Entitic volume (RBC) 94.3 fL Normal 81-99 [facility] Work Phone: Monocytes/100 WBC Auto (Bld) 5.0 % Normal 0-10 [facility] Work Phone: Comment on above: [facility] [address] [place], [address] Monocytes/100 WBC Auto (Bld) 5.0 % Normal 0-10 [facility] Work Phone: Neutrophils/100 WBC (Bld) 86.0 % Abnormal 47-70 [facility] Work Phone: Comment on above: [facility] [address] [place], [address] Neutrophils/100 WBC Auto (Bld) 86.0 % Abnormal 47-70 [facility] Work Phone: Platelet mean volume (Bld) [Entitic vol] 10.5 fL Normal 6.2-12.0 Comprehensiv e Internal Medicine Work Phone: Comment on above: [facility] [address] [place], [address] Platelet mean volume Auto Entitic volume (Bld) 10.5 fL Normal 6.2-12.0 [facility] Work Phone: Platelets (Bld) [#/Vol] 255 10*3/uL Normal 150-450 [facility] Work Phone: Comment on above: [facility] [address] [place], [address] Platelets Auto #/vol (Bld) 255 10*3/uL Normal 150-450 [facility] Work Phone: RBC (Bld) [#/Vol] 4.73 {M/mm3} Normal 4.2-5.4 Compr [facility] Internal Medicine Work Phone: Comment on above: [facility] [address] [place], [address] RBC Auto #/vol (Bld) 4.73 {M/mm3} Normal 4.2-5.4 [facility] Work Phone: RDW SD 46.4 fL Abnormal 35.1-43.9 [facility] Internal Medicine Work Phone: Comment on above: [facility] [address] [place], [place], [phone] WBC (Bld) [#/Vol] 9.2 10*3/uL Normal 4.4-11.0 [facility] Internal Medicine Work Phone: Comment on above: [facility] [address] [place], [address] WBC Auto #/vol (Bld) 9.2 10*3/uL Normal 4.4-11.0 [facility] Work Phone: CBC W/Diff, Automated 0.72 {X10_3/ul} Abnormal 0.83-4.51 [facility] Work Phone: CBC W/Diff, Automated 7.9 {X10_3/uL} Abnormal 2.0-7.7 [facility] Work Phone: CBC W/Diff, Automated 46.4 fL Abnormal 35.1-43.9 [facility] Internal Medicine Work Phone: CBC W/Diff, Automated 0.200 % Normal 0.0-0.9 [facility] Internal Medicine Work Phone: Comment on above: IG% - Immature Granu locytes (promyelocytes, myelocytes andmetamyelocytes) > 1% indicates that a LEFT SHIFT is Present. CBC WITH MANUAL DIFF ([id number]) Ordered By: Cafeteria Helper on 07-04-2015 Basophils (Bld) [#/Vol] 0.1 {x10E3/uL} Normal 0.0-0.2 [facility] Internal Medicine Work Phone: Comment on above: PATIENT NOT FASTINGP ERFORMED BY: [facility]6370 [facility] [id number] Information: [id number] Basophils (Bld) [#/Vol] 0.1 10*3/uL Normal 0.0-0.2 [facility]; [facility] Work Phone: Comment on above: PATIENT NOT FASTINGP ERFORMED BY: [address] [id number] Information: [id number] Basophils Auto #/vol (Bld) 0.1 {x10E3/uL} Normal 0.0-0.2 [facility] Work Phone: Basophils/100 WBC (Bld) 1 % Normal C omprehensive Internal Medicine Work Phone: Comment on above: PATIENT NOT FASTINGP ERFORMED BY: [address] [id number] Information: [id number] Basophils/100 WBC Auto (Bld) 1 % Normal [facility] Work Phone: Eosinophils (Bld) [#/Vol] 0.3 {x10E3/uL} Normal 0.0-0.4 [facility] Work Phone: Comment on above: PATIENT NOT FASTINGP ERFORMED BY: [address] [id number] Information: [id number] Eosinophils (Bld) [#/Vol] 0.3 10*3/uL Normal 0.0-0.4 [facility]; [facility] Work Phone: Comment on above: PATIENT NOT FASTINGP ERFORMED BY: [address] [id number] Information: [id number] Eosinophils Auto #/vol (Bld) 0.3 {x10E3/uL} Normal 0.0-0.4 [facility] Work Phone: Eosinophils/100 WBC (Bld) 3 % Normal [facility] Work Phone: Comment on above: PATIENT NOT FASTINGP ERFORMED BY: [place] [id number] [facility] [id number] Information: [id number] Eosinophils/100 WBC Auto (Bld) 3 % Normal [facility] Work Phone: Erythrocyte distribution width (RBC) [Ratio] 13.4 % Normal 12.3-15.4 [facility] Work Phone: Comment on above: PATIENT NOT FASTINGP ERFORMED BY: [place] [id number] [facility] [id number] Information: [id number] Erythrocyte distribution width Auto Ratio (RBC) 13.4 % Normal 12.3-15.4 [facility] Work Phone: Hematocrit (Bld) [Volume fraction] 42.5 % Normal 34.0-46.6 [facility] Work Phone: Comment on above: PATIENT NOT FASTINGP ERFORMED BY: [place] [id number] [facility] [id number] Information: [id number] Hematocrit Auto Volume Fraction (Bld) 42.5 % Normal 34.0-46.6 [facility] Work Phone: Hemoglobin mass conc (Bld) 14.2 g/dL Normal 11.1-15.9 [facility] Work Phone: Comment on above: PATIENT NOT FASTINGP ERFORMED BY: [place] [id number] [facility] [id number] Information: [id number] Immature granulocytes #/vol (Bld) 0.0 {x10E3/uL} Normal 0.0-0.1 [facility] Work Phone: Comment on above: PATIENT NOT FASTINGP ERFORMED BY: [place] [address] [facility] [id number] Information: [id number] Immature granulocytes (Bld) [#/Vol] 0.0 10*3/uL Normal 0.0-0.1 [facility]; [facility] Work Phone: Comment on above: PATIENT NOT FASTINGP ERFORMED BY: MAR Melendez [facility] [id number] Information: [id number] Immature granulocytes/100 WBC (Bld) 0 % Normal [facility] Work Phone: Comment on above: PATIENT NOT FASTINGP ERFORMED BY: MAR [address] [id number] Information: [id number] Lymphocytes (Bld) [#/Vol] 2.9 {x10E3/uL} Normal 0.7-3.1 [facility] Work Phone: Comment on above: PATIENT NOT FASTINGP ERFORMED BY: MAR More [address] [id number] Information: [id number] Lymphocytes (Bld) [#/Vol] 2.9 10*3/uL Normal 0.7-3.1 [facility]; [facility] Work Phone: Comment on above: PATIENT NOT FASTINGP ERFORMED BY: MAR Bolin6370 [facility] [id number] Information: [id number] Lymphocytes Auto #/vol (Bld) 2.9 {x10E3/uL} Normal 0.7-3.1 [facility] Work Phone: Lymphocytes/100 WBC (Bld) 31 % Normal [facility] Work Phone: Comment on above: PATIENT NOT FASTINGP ERFORMED BY: MAR More Gdkost[address] [id number] Information: [id number] Lymphocytes/100 WBC Auto (Bld) 31 % Normal [facility] Work Phone: MCH (RBC) [Entitic mass] 31.1 pg Normal 26.6-33.0 [facility] Work Phone: Comment on above: PATIENT NOT FASTINGP ERFORMED BY: [facility]Ahfopf1615 [facility] [id number] Information: [id number] MCH Auto Entitic mass (RBC) 31.1 pg Normal 26.6-33.0 [facility] Work Phone: MCHC (RBC) [Mass/Vol] 33.4 g/dL Normal 31.5-35.7 [facility] Internal Medicine Work Phone: Comment on above: PATIENT NOT FASTINGP ERFORMED BY: [place] [address]8070 [facility] [id number] Information: [id number] MCHC Auto mass conc (RBC) 33.4 g/dL Normal 31.5-35.7 [facility] Internal Medicine Work Phone: MCV (RBC) [Entitic vol] 93 fL Normal 79-97 [facility] Internal Medicine Work Phone: Comment on above: PATIENT NOT FASTINGP ERFORMED BY: [place] [id number] [facility] [id number] Information: [id number] MCV Auto Entitic volume (RBC) 93 fL Normal 79-97 [facility] Internal Medicine Work Phone: Monocytes (Bld) [#/Vol] 0.9 {x10E3/uL} Normal 0.1-0.9 [facility] Work Phone: Comment on above: PATIENT NOT FASTINGP ERFORMED BY: [place]Ron[place] [id number] [facility] [id number] Information: [id number] Monocytes (Bld) [#/Vol] 0.9 10*3/uL Normal 0.1-0.9 [facility] Internal Medicine; [facility] Work Phone: Comment on above: PATIENT NOT FASTINGP ERFORMED BY: [place] [address]8070 [facility] [id number] Information: [id number] Monocytes Auto #/vol (Bld) 0.9 {x10E3/uL} Normal 0.1-0.9 [facility] Work Phone: Monocytes/100 WBC (Bld) 10 % Normal C omprehensive Internal Medicine Work Phone: Comment on above: PATIENT NOT FASTINGP ERFORMED BY: MAR [facility]Nhnvjk2325 [facility] [id number] Information: [id number] Monocytes/100 WBC Auto (Bld) 10 % Normal [facility] Work Phone: Neutrophils (Bld) [#/Vol] 5.1 {x10E3/uL} Normal 1.4-7.0 [facility] Work Phone: Comment on above: PATIENT NOT FASTINGP ERFORMED BY: MAR [facility] Hvqijj4748 [facility] [id number] Information: [id number] Neutrophils (Bld) [#/Vol] 5.1 10*3/uL Normal 1.4-7.0 [facility]; [facility] Work Phone: Comment on above: PATIENT NOT FASTINGP ERFORMED BY: MAR [facility] Jvdfwi1544 [facility] [id number] Information: [id number] Neutrophils Auto #/vol (Bld) 5.1 {x10E3/uL} Normal 1.4-7.0 [facility] Work Phone: Neutrophils/100 WBC (Bld) 55 % Normal [facility] Work Phone: Comment on above: PATIENT NOT FASTINGP ERFORMED BY: [facility]Jaeefr4439 [facility] [id number] Information: [id number] Neutrophils/100 WBC Auto (Bld) 55 % Normal [facility] Work Phone: Platelets (Bld) [#/Vol] 322 {x10E3/uL} Normal 150-379 [facility] Work Phone: Comment on above: PATIENT NOT FASTINGP ERFORMED BY: MAR Parsons6370 [facility] [id number] Information: [id number] Platelets (Bld) [#/Vol] 322 10*3/uL Normal 150-379 [facility]; [facility] Work Phone: Comment on above: PATIENT NOT FASTINGP ERFORMED BY: MAR More Yaujbr3853 [facility] [id number] Information: [id number] Platelets Auto #/vol (Bld) 322 {x10E3/uL} Normal 150-379 [facility] Work Phone: RBC (Bld) [#/Vol] 4.57 {x10E6/uL} Normal 3.77-5.28 [facility] Internal Medicine Work Phone: Comment on above: PATIENT NOT FASTINGP ERFORMED BY: [facility] Umtrbe8053 [facility] [id number] Information: [id number] RBC (Bld) [#/Vol] 4.57 10*6/uL Normal 3.77-5.[address] [facility] Internal Medicine; [facility] Work Phone: Comment on above: PATIENT NOT FASTINGP ERFORMED BY: MAR More Yyrugd3037 [facility] [id number] Information: [id number] RBC Auto #/vol (Bld) 4.57 {x10E6/uL} Normal 3.77-5.28 [facility] Internal Medicine Work Phone: WBC (Bld) [#/Vol] 9.3 {x10E3/uL} Normal 3.4-10.8 [facility] Internal Medicine Work Phone: Comment on above: PATIENT NOT FASTINGP ERFORMED BY: MAR [facility] Hlfiju2226 [facility] [id number] Information: [id number] WBC (Bld) [#/Vol] 9.3 10*3/uL Normal 3.4-10.8 [facility] Internal Medicine; [facility] Work Phone: Comment on above: PATIENT NOT FASTINGP ERFORMED BY: MAR [place] [id number] [facility] [id number] Information: [id number] WBC Auto #/vol (Bld) 9.3 {x10E3/uL} Normal 3.4-10.8 [facility] Work Phone: POTASSIUM SERUM ([id number])Order ed By: Cafeteria Helper on 07-04-2015 Potassium molar conc 5.1 mmol/L Normal 3.5-5.2 Comp rehensive Internal Medicine Work Phone: Comment on above: Specimen received he molyzed. Clinical correlation indicated. PATIENT NOT FASTINGP ERFORMED BY: MAR [place] [id number] [facility] [id number] CBC W/AUTO DIFF WBC ([id number])O rdered By: Cafeteria Helper on 06-27-2015 Basophils (Bld) [#/Vol] 0.1 {x10E3/uL} Normal 0.0-0.2 [facility] Work Phone: Comment on above: PATIENT WAS FASTINGP ERFORMED BY: MAR [place] [id number] [facility] [id number] Information: [id number] Basophils (Bld) [#/Vol] 0.1 10*3/uL Normal 0.0-0.2 [facility]; [facility] Work Phone: Comment on above: PATIENT WAS FASTINGP ERFORMED BY: [facility]6370 [facility] [id number] Information: [id number] Basophils Auto #/vol (Bld) 0.1 {x10E3/uL} Normal 0.0-0.2 [facility] Work Phone: Basophils/100 WBC (Bld) 0 % Normal C omprehensive Internal Medicine Work Phone: Comment on above: PATIENT WAS FASTINGP ERFORMED BY: [place] [id number] [facility] [id number] Information: [id number] Basophils/100 WBC Auto (Bld) 0 % Normal [facility] Work Phone: Eosinophils (Bld) [#/Vol] 0.2 {x10E3/uL} Normal 0.0-0.4 [facility] Work Phone: Comment on above: PATIENT WAS FASTINGP ERFORMED BY: [address] [address] [id number] Information: [id number] Eosinophils (Bld) [#/Vol] 0.2 10*3/uL Normal 0.0-0.4 [facility]; [facility] Work Phone: Comment on above: PATIENT WAS FASTINGP ERFORMED BY: [address] [id number] Information: [id number] Eosinophils Auto #/vol (Bld) 0.2 {x10E3/uL} Normal 0.0-0.4 [facility] Work Phone: Eosinophils/100 WBC (Bld) 2 % Normal [facility] Work Phone: Comment on above: PATIENT WAS FASTINGP ERFORMED BY: [place] [id number] [facility] [id number] Information: [id number] Eosinophils/100 WBC Auto (Bld) 2 % Normal [facility] Work Phone: Erythrocyte distribution width (RBC) [Ratio] 13.4 % Normal 12.3-15.4 [facility] Work Phone: Comment on above: PATIENT WAS FASTINGP ERFORMED BY: [address] [id number] Information: [id number] Erythrocyte distribution width Auto Ratio (RBC) 13.4 % Normal 12.3-15.4 [facility] Work Phone: Hematocrit (Bld) [Volume fraction] 45.5 % Normal 34.0-46.6 [facility] Work Phone: Comment on above: PATIENT WAS FASTINGP ERFORMED BY: MAR [place] [id number] [facility] [id number] Information: [id number] Hematocrit Auto Volume Fraction (Bld) 45.5 % Normal 34.0-46.6 [facility] Work Phone: Hemoglobin mass conc (Bld) 14.8 g/dL Normal 11.1-15.9 [facility] Work Phone: Comment on above: PATIENT WAS FASTINGP ERFORMED BY: MAR [address] [id number] Information: [id number] Immature granulocytes #/vol (Bld) 0.0 {x10E3/uL} Normal 0.0-0.1 [facility] Work Phone: Comment on above: PATIENT WAS FASTINGP ERFORMED BY: MAR [address] [id number] Information: [id number] Immature granulocytes (Bld) [#/Vol] 0.0 10*3/uL Normal 0.0-0.1 [facility]; [facility] Work Phone: Comment on above: PATIENT WAS FASTINGP ERFORMED BY: MAR [place] 8199970 [facility] [id number] Information: [id number] Immature granulocytes/100 WBC (Bld) 0 % Normal [facility] Work Phone: Comment on above: PATIENT WAS FASTINGP ERFORMED BY: [facility]6370 [facility] [id number] Information: [id number] Lymphocytes (Bld) [#/Vol] 2.6 {x10E3/uL} Normal 0.7-3.1 [facility] Work Phone: Comment on above: PATIENT WAS FASTINGP ERFORMED BY: [address] [place] [id number] Information: [id number] Lymphocytes (Bld) [#/Vol] 2.6 10*3/uL Normal 0.7-3.1 [facility]; [facility] Work Phone: Comment on above: PATIENT WAS FASTINGP ERFORMED BY: [address] [id number] Information: [id number] Lymphocytes Auto #/vol (Bld) 2.6 {x10E3/uL} Normal 0.7-3.1 [facility] Work Phone: Lymphocytes/100 WBC (Bld) 21 % Normal [facility] Work Phone: Comment on above: PATIENT WAS FASTINGP ERFORMED BY: [address] [id number] Information: [id number] Lymphocytes/100 WBC Auto (Bld) 21 % Normal [facility] Work Phone: MCH (RBC) [Entitic mass] 30.5 pg Normal 26.6-33.0 [facility] Work Phone: Comment on above: PATIENT WAS FASTINGP ERFORMED BY: [address] [id number] Information: [id number] MCH Auto Entitic mass (RBC) 30.5 pg Normal 26.6-33.0 [facility] Work Phone: MCHC (RBC) [Mass/Vol] 32.5 g/dL Normal 31.5-35.7 [facility] prehensive Internal Medicine Work Phone: Comment on above: PATIENT WAS FASTINGP ERFORMED BY: [address] [id number] Information: [id number] MCHC Auto mass conc (RBC) 32.5 g/dL Normal 31.5-35.7 [facility] Work Phone: MCV (RBC) [Entitic vol] 94 fL Normal 79-97 C omprehensive Internal Medicine Work Phone: Comment on above: PATIENT WAS FASTINGP ERFORMED BY: MAR [place] 8199970 [facility] [id number] Information: [id number] MCV Auto Entitic volume (RBC) 94 fL Normal 79-97 [facility] Work Phone: Monocytes (Bld) [#/Vol] 1.3 {x10E3/uL} Abnormal 0.1-0.9 [facility] Work Phone: Comment on above: PATIENT WAS FASTINGP ERFORMED BY: MAR [address] [id number] Information: [id number] Monocytes (Bld) [#/Vol] 1.3 10*3/uL Abnormal 0.1-0.9 [facility]; [facility] Work Phone: Comment on above: PATIENT WAS FASTINGP ERFORMED BY: MAR [place] 8199970 [facility] [id number] Information: [id number] Monocytes Auto #/vol (Bld) 1.3 {x10E3/uL} Abnormal 0.1-0.9 [facility] Work Phone: Monocytes/100 WBC (Bld) 11 % Normal C omprehensive [facility] Work Phone: Comment on above: PATIENT WAS FASTINGP ERFORMED BY: [address] [id number] Information: [id number] Monocytes/100 WBC Auto (Bld) 11 % Normal [facility] Work Phone: Neutrophils (Bld) [#/Vol] 7.9 {x10E3/uL} Abnormal 1.4-7.0 [facility] Work Phone: Comment on above: PATIENT WAS FASTINGP ERFORMED BY: [address] [id number] Information: [id number] Neutrophils (Bld) [#/Vol] 7.9 10*3/uL Abnormal 1.4-7.0 [facility]; [facility] Work Phone: Comment on above: PATIENT WAS FASTINGP ERFORMED BY: MAR [facility] [id number] Information: [id number] Neutrophils Auto #/vol (Bld) 7.9 {x10E3/uL} Abnormal 1.4-7.0 [facility] Work Phone: Neutrophils/100 WBC (Bld) 66 % Normal [facility] Work Phone: Comment on above: PATIENT WAS FASTINGP ERFORMED BY: MAR [facility] Ysdhrj7009 [facility] [id number] Information: [id number] Neutrophils/100 WBC Auto (Bld) 66 % Normal [facility] Work Phone: Platelets (Bld) [#/Vol] 365 {x10E3/uL} Normal 150-379 [facility] Work Phone: Comment on above: PATIENT WAS FASTINGP ERFORMED BY: MAR [facility]ang[facility] Cfpedk0660 [facility] [id number] Information: [id number] Platelets (Bld) [#/Vol] 365 10*3/uL Normal 150-379 [facility]; [facility] Work Phone: Comment on above: PATIENT WAS FASTINGP ERFORMED BY: [place] 2358070 [facility] [id number] Information: [id number] Platelets Auto #/vol (Bld) 365 {x10E3/uL} Normal 150-379 [facility] Work Phone: RBC (Bld) [#/Vol] 4.85 {x10E6/uL} Normal 3.77-5.28 [facility] Internal Medicine Work Phone: Comment on above: PATIENT WAS FASTINGP ERFORMED BY: MAR [facility] Obhfdg2296 [facility] [id number] Information: [id number] RBC (Bld) [#/Vol] 4.85 10*6/uL Normal 3.77-5.[address] [facility] Internal Medicine; [facility] Internal Medicine Work Phone: Comment on above: PATIENT WAS FASTINGP ERFORMED BY: [place] [id number] [facility] [id number] Information: [id number] RBC Auto #/vol (Bld) 4.85 {x10E6/uL} Normal 3.77-5.28 [facility] Internal Medicine Work Phone: WBC (Bld) [#/Vol] 12.0 {x10E3/uL} Abnormal 3.4-10.8 [facility] Internal Medicine Work Phone: Comment on above: PATIENT WAS FASTINGP ERFORMED BY: [place] [id number] [facility] [id number] Information: [id number] WBC (Bld) [#/Vol] 12.0 10*3/uL Abnormal 3.4-10.[address] [facility] Internal Medicine; [facility] Internal Medicine Work Phone: Comment on above: PATIENT WAS FASTINGP ERFORMED BY: [facility]6370 [facility] [id number] Information: [id number] WBC Auto #/vol (Bld) 12.0 {x10E3/uL} Abnormal 3.4-10.8 [facility] Internal Medicine Work Phone: LIPID PANEL ([id number])Ordered B y: Cafeteria Helper on 06-27-2015 Cholesterol in HDL mass conc 62 mg/dL Normal [facility] Internal Medicine Work Phone: Comment on above: According to ATP-III Guidelines, HDL-C >59 mg/dL is considered anegative risk factor for CHD. PATIENT WAS FASTINGP ERFORMED BY: [place] [id number] [facility] [id number] Cholesterol in LDL mass conc 173 mg/dL Abnormal 0-99 [facility] Work Phone: Comment on above: PATIENT WAS FASTINGP ERFORMED BY: MAR Parsons6370 [facility] [id number] Cholesterol in LDL/Cholesterol in HDL mass ratio 2.8 {ratio_units} Normal 0.0-3.2 [facility] Work Phone: Comment on above: LDL/HDL Ratio Men Wo men 1/2 Avg.Risk 1.0 1.5 Avg.Risk 3.6 3.2 2X Avg.Risk 6.2 5.0 3X Avg.Risk 8.0 6.1 PATIENT WAS FASTINGP ERFORMED BY: MAR Parsons6370 [facility] [id number] Cholesterol in VLDL mass conc 43 mg/dL Abnormal 5-40 [facility] Work Phone: Comment on above: PATIENT WAS FASTINGP ERFORMED BY: MAR Parsons6370 [facility] [id number] Cholesterol mass conc 278 mg/dL Abnormal 100-199 Com prehensive Internal Medicine Work Phone: Comment on above: PATIENT WAS FASTINGP ERFORMED BY: MAR Parsons6370 [facility] [id number] Triglyceride mass conc 215 mg/dL Abnormal 0-149 Co mprehensive [facility] Work Phone: Comment on above: PATIENT WAS FASTINGP ERFORMED BY: MAR Parsons6370 [facility] [id number] METABOLIC PANEL, COMPREHENSI VE ([id number])Ordered By: Cafeteria Helper on 06-27-2015 Albumin mass conc 4.4 g/dL Normal 3.5-5.5 Compreh ensive Internal Medicine Work Phone: Comment on above: PATIENT WAS FASTINGP ERFORMED BY: MAR Bolin6370 [facility] [id number] Albumin/Globulin mass ratio 1.5 {ratio} Normal 1.1-2.5 [facility] Work Phone: Comment on above: PATIENT WAS FASTINGP ERFORMED BY: MAR [facility] Ocsthb1027 [address] RoadDublin [place] [id number] ALP [Catalytic activity/Vol] 94 U/L Normal 39-117 [facility]; [facility] Internal Medicine Work Phone: Comment on above: PATIENT WAS FASTINGP ERFORMED BY: MAR [facility] Qrenuf9186 [address] RoadDublin [place] [id number] ALP enzyme act/vol 94 [iU]/L Normal 39-117 [facility] Internal Medicine Work Phone: Comment on above: PATIENT WAS FASTINGP ERFORMED BY: MAR [facility] Fkgyob6930 [address] RoadDublin [place] [id number] ALT [Catalytic activity/Vol] 16 U/L Normal 0-32 [facility] Internal Medicine; [facility] Internal Medicine Work Phone: Comment on above: PATIENT WAS FASTINGP ERFORMED BY: MAR [facility] Aendnc2419 [address] RoadDublin [place] [id number] ALT enzyme act/vol 16 [iU]/L Normal 0-32 [facility] Internal Medicine Work Phone: Comment on above: PATIENT WAS FASTINGP ERFORMED BY: MAR [facility] Skgdgx8004 [address] RoadDublin [place] [id number] AST [Catalytic activity/Vol] 15 U/L Normal 0-40 [facility] Internal Medicine; [facility] Internal Medicine Work Phone: Comment on above: PATIENT WAS FASTINGP ERFORMED BY: MAR [facility] Qkylem6060 [address] RoadDublin [place] [id number] AST enzyme act/vol 15 [iU]/L Normal 0-40 [facility] Internal Medicine Work Phone: Comment on above: PATIENT WAS FASTINGP ERFORMED BY: MAR [facility] Boxvlh7832 [address] RoadDublin [place] [id number] Bilirubin mass conc 0.3 mg/dL Normal 0.0-1.[address] [facility] Internal Medicine Work Phone: Comment on above: PATIENT WAS FASTINGP ERFORMED BY: MAR [facility] Dgtboj3672 [address] RoadDublin [place] [id number] Calcium mass conc 10.0 mg/dL Normal 8.7-10.2 Compreh ensive Internal Medicine Work Phone: Comment on above: PATIENT WAS FASTINGP ERFORMED BY: MAR LabCoangela BoGneeit[address] [facility] [id number] Chloride molar conc 102 mmol/L Normal 97-108 Compr ehensive Internal Medicine Work Phone: Comment on above: PATIENT WAS FASTINGP ERFORMED BY: MAR [facility] Wpuphq9807 [facility] [id number] CO2 molar conc 22 mmol/L Normal 18-29 Comprehens madhav Internal Medicine Work Phone: Comment on above: PATIENT WAS FASTINGP ERFORMED BY: MAR LabCoangela BoSxpdcm1635 [facility] [id number] Creatinine mass conc 0.79 mg/dL Normal 0.57-1.00 Comp rehensive Internal Medicine Work Phone: Comment on above: PATIENT WAS FASTINGP ERFORMED BY: MAR [facility] Lphrca6098 [facility] [id number] GFR/1.73 sq M predicted among blacks CKD-EPI vol rate/area (S/P/Bld) 97 mL/min/1.73 Normal Comprehe nsive Internal Medicine Work Phone: Comment on above: PATIENT WAS FASTINGP ERFORMED BY: MAR [facility] Uvqula[address] [facility] [id number] GFR/1.73 sq M predicted among non-blacks CKD-EPI vol rate/area (S/P/Bld) 85 mL/min/1.73 Normal [facility] Work Phone: Comment on above: PATIENT WAS FASTINGP ERFORMED BY: MAR [facility] Jtuteo3887 [facility] [id number] Globulin (S) [Mass/Vol] 2.9 g/dL Normal 1.5-4.5 C omprehensive Internal Medicine Work Phone: Comment on above: PATIENT WAS FASTINGP ERFORMED BY: MAR [facility] Ymlrco5541 [facility] [id number] Globulin Calculated mass conc (S) 2.9 g/dL Normal 1.5-4.5 [facility] Work Phone: Glucose mass conc 90 mg/dL Normal 65-99 Compreh ensive Internal Medicine Work Phone: Comment on above: PATIENT WAS FASTINGP ERFORMED BY: MAR RaimundoAllison BoGztwrh1317 [facility] [id number] Potassium molar conc 5.5 mmol/L Abnormal 3.5-5.2 Comp rehensive Internal Medicine Work Phone: Comment on above: PATIENT WAS FASTINGP ERFORMED BY: MAR Argenisangela Ijlywn4679 [facility] [id number] Protein mass conc 7.3 g/dL Normal 6.0-8.5 Compreh ensive Internal Medicine Work Phone: Comment on above: PATIENT WAS FASTINGP ERFORMED BY: MAR RaimundoAllison BoJmsuyy0592 [facility] [id number] Sodium molar conc 143 mmol/L Normal 134-144 Compreh ensive Internal Medicine Work Phone: Comment on above: PATIENT WAS FASTINGP ERFORMED BY: MAR RaimundoAllison Zksvxm0388 [facility] [id number] Urea nitrogen mass conc 15 mg/dL Normal 6-24 C omprehensive Internal Medicine Work Phone: Comment on above: PATIENT WAS FASTINGP ERFORMED BY: MAR RaimundoAllison BoDxcjgp9458 [facility] [id number] Urea nitrogen/Creatinine mass ratio 19 mg/mg Normal 9-23 [facility] Work Phone: Comment on above: PATIENT WAS FASTINGP ERFORMED BY: MAR RaimundoKen Vhflmk7422 [facility] [id number] MICROALBUMINOrdered By: Syst em Ios Software Engineer on 06-27-2015 Albumin DL <= 20 mg/L (U) [Mass/Vol] mg/dL Normal 0.0-17.0 [facility]; [facility] Work Phone: Comment on above: PATIENT WAS FASTINGP ERFORMED BY: [facility] Wbkswc[address] [facility]bl[facility] [place] [id number] Albumin DL <= 20 mg/L mass conc (U) mg/dL Normal 0.0-17.0 [facility] Work Phone: Comment on above: PATIENT WAS FASTINGP ERFORMED BY: [facility] Pqwofq[address] [facility] [place] [id number] Albumin/Creatinine mass ratio (U) <19.6 Normal 0.0-30.0 [facility] Work Phone: Comment on above: PATIENT WAS FASTINGP ERFORMED BY: [facility] Dhkisq2113 [address] [facility] [place] [id number] Creatinine mass conc (U) 15.3 mg/dL Normal 15.0-278.0 [facility] Work Phone: Comment on above: PATIENT WAS FASTINGP ERFORMED BY: [facility] Cjjpdn6011 [facility] [place] [id number] Microscopic ExaminationOrder ed By: Cafeteria Helper on 06-27-2015 Bacteria LM.HPF #/area (Urine sed) None seen Normal [facility] Work Phone: Comment on above: PATIENT WAS FASTINGP ERFORMED BY: [facility] Ndmwlj4033 [facility] [place] [id number] Epithelial cells LM.HPF #/area (Urine sed) 0-10 Normal 0 - 10 [facility] Work Phone: Comment on above: PATIENT WAS FASTINGP ERFORMED BY: [facility] Xfaurv[address] [facility]in [place] [id number] Mucus LM Ql (Urine sed) Present Normal C omprehensive Internal Medicine Work Phone: Mucus Ql (Urine sed) Present Normal Comp rehensive Internal Medicine Work Phone: Comment on above: PATIENT WAS FASTINGP ERFORMED BY: [facility] Cajgju[address] [facility] [place] [id number] RBC LM.HPF #/area (Urine sed) 0-2 Normal 0 - 2 [facility] Work Phone: Comment on above: PATIENT WAS FASTINGP ERFORMED BY: MAR [facility] Mzogwx0541 [address] RoadDublin [place] [id number] WBC LM.HPF #/area (Urine sed) None seen Normal 0 - 5 [facility] Work Phone: Comment on above: PATIENT WAS FASTINGP ERFORMED BY: MAR [facility] Zugego1684 [address] RoadDublin [place] [id number] TSH ([id number])Ordered By: Syste m Ios Software Engineer on 06-27-2015 Thyrotropin Qn 1.490 {uIU/mL} Normal 0.450-4.50 0 [facility] Work Phone: Comment on above: PATIENT WAS FASTINGP ERFORMED BY: MAR [facility] Ziqpbf9236 [address] RoadDublin [place] [id number] URINALYSIS, W/ MICRO ([id number]) Ordered By: Cafeteria Helper on 06-27-2015 Appearance Nom (U) Clear Normal Compre hensive Internal Medicine Work Phone: Comment on above: PATIENT WAS FASTINGP ERFORMED BY: MAR [facility] Ztxixp0726 [address] RoadDublin [place] [id number] Bilirubin Ql (U) Negative Normal Comprehe nsive Internal Medicine Work Phone: Comment on above: PATIENT WAS FASTINGP ERFORMED BY: MAR [facility] Ebkczb3300 [address] RoadDublin [place] [id number] Bilirubin Ql (U) Negative Normal Comprehe nsive Internal Medicine; [facility] Work Phone: Comment on above: PATIENT WAS FASTINGP ERFORMED BY: MAR [facility] Axcgwr5719 [address] RoadDublin [place] [id number] Color Nom (U) Yellow Normal Comprehensi ve Internal Medicine Work Phone: Comment on above: PATIENT WAS FASTINGP ERFORMED BY: MAR [facility] Suabqd5493 [address] RoadDublin [place] [id number] Glucose Ql (U) Negative Normal Comprehens madhav Internal Medicine Work Phone: Comment on above: PATIENT WAS FASTINGP ERFORMED BY: MAR [facility] Cclhxz7621 [address] RoadDublin [place] [id number] Glucose Ql (U) Negative Normal Comprehens madhav [facility] Medicine; [facility] Work Phone: Comment on above: PATIENT WAS FASTINGP ERFORMED BY: MAR [facility] Aatthi6109 [address] RoadDublin [place] [id number] Hemoglobin Ql (U) Negative Normal Compreh ensive Internal Medicine Work Phone: Comment on above: PATIENT WAS FASTINGP ERFORMED BY: MAR [facility] Ausaez3815 [address] RoadDublin [place] [id number] Hemoglobin Ql (U) Negative Normal Compreh ensive Internal Medicine; [facility] Work Phone: Comment on above: PATIENT WAS FASTINGP ERFORMED BY: MAR [facility] Zyjnih6391 [address] RoadDublin [place] [id number] Hemoglobin Test strip Ql (U) Negative Normal [facility] Work Phone: Ketones Ql (U) Negative Normal Comprehens madhav Internal Medicine Work Phone: Comment on above: PATIENT WAS FASTINGP ERFORMED BY: MAR [facility] Nnthro7194 [address] RoadDublin [place] [id number] Ketones Ql (U) Negative Normal Comprehens madhav [facility]; [facility] Work Phone: Comment on above: PATIENT WAS FASTINGP ERFORMED BY: MAR [facility] Ljcsmn7075 [address] RoadDublin [place] [id number] Leukocyte esterase Test strip Ql (U) Negative Normal [facility] Work Phone: Comment on above: PATIENT WAS FASTINGP ERFORMED BY: MAR [facility] Dlaevk4765 [address] RoadDublin [place] [id number] Leukocyte esterase Test strip Ql (U) Negative Normal [facility]; [facility] Work Phone: Comment on above: PATIENT WAS FASTINGP ERFORMED BY: MAR [facility] Wnlooq0697 [address] RoadDublin [place] [id number] Microscopic observation LM Nom (Urine sed) See below: Normal [facility] Work Phone: Comment on above: Microscopic was rush cated and was performed. PATIENT WAS FASTINGP ERFORMED BY: MAR [facility] Enfmiw1889 [address] RoadDublin [place] [id number] Microscopic observation LM Nom (Urine sed) MICRON Normal [facility] Work Phone: Comment on above: Microscopic follows if indicated. PATIENT WAS FASTINGP ERFORMED BY: MAR [facility] Bdhbxo4288 [address] RoadDublin [place] [id number] Nitrite Ql (U) Negative Normal Comprehens madhav Internal Medicine Work Phone: Comment on above: PATIENT WAS FASTINGP ERFORMED BY: MAR [facility] Zwwavj8483 [address] RoadDublin [place] [id number] Nitrite Ql (U) Negative Normal Comprehens madhav [facility] Medicine; [facility] Work Phone: Comment on above: PATIENT WAS FASTINGP ERFORMED BY: MAR [facility] Mxvtdc0102 [address] RoadDublin [place] [id number] Nitrite Test strip Ql (U) Negative Normal [facility] Work Phone: pH (U) 7.0 [pH] Normal 5.0-7.5 [facility] Work Phone: Comment on above: PATIENT WAS FASTINGP ERFORMED BY: MAR [facility] Ravjoc0717 [address] RoadDublin [place] [id number] pH Test strip (U) 7.0 [pH] Normal 5.0-7.5 Compreh ensive Internal Medicine Work Phone: Protein Ql (U) Negative Normal Comprehens madhav Internal Medicine Work Phone: Comment on above: PATIENT WAS FASTINGP ERFORMED BY: MAR [facility] Wigefh5815 [address] RoadDublin [place] [id number] Protein Ql (U) Negative Normal Comprehens madhav [facility] Medicine; [facility] Work Phone: Comment on above: PATIENT WAS FASTINGP ERFORMED BY: MAR [facility] Jmwclx1636 [address] RoadDublin [place] [id number] Protein Test strip Ql (U) Negative Normal [facility] Work Phone: Specific gravity Relative Density (U) 1.008 1 Normal 1.005-1.03 0 [facility] Work Phone: Comment on above: PATIENT WAS FASTINGP ERFORMED BY: [facility] Wjcwxg[address]85 [address] [facility] [id number] Urobilinogen (U) [Mass/Vol] 0.2 mg/dL Normal 0.2-1.0 [facility]; [facility] Work Phone: Comment on above: PATIENT WAS FASTINGP ERFORMED BY: [facility] Jmugup9[address] [facility] [id number] Urobilinogen Test strip mass conc (U) 0.2 mg/dL Normal 0.2-1.0 [facility] Work Phone: Comment on above: PATIENT WAS FASTINGP ERFORMED BY: [employer] Rqvbsn7998 [facility] [id number] URINE SATISH CULTURE (TAJ COL COUNT) ([id number])Ordered By: Cafeteria Helper on 10-27-2013 Bacteria identified Cx Nom (U) BETAGB Abnormal [facility] Work Phone: Comment on above: Beta hemolytic Strep tococcus, group B600 Colonies/mLPenicillin and ampicillin are drugs of choice for treatment ofbeta-hemolytic streptococcal infections. Susceptibility testing ofpenicillins and other beta-lactam agents approved by the FDA fortreatment of beta-hemolytic streptococcal infections need not beperformed routinely because nonsusceptible isolates are extremelyrare in any beta-hemolytic streptococcus and have not been reportedfor Streptococcus pyogenes (group A). (CLSI 2011) PATIENT NOT FASTINGP ERFORMED BY: [facility] Mmdgga2043 [facility] [id number] Information: SRC:UR [id number] Bacteria identified Cx Nom (U) Final report Abnormal [facility] Work Phone: Comment on above: PATIENT NOT FASTINGP ERFORMED BY: [facility] Zeswbt7321 [facility] [id number] Information: SRC:UR [id number] Urinalysis, Office (76209)Or dered By: Cherelle Javed on 10-27-2013 Bilirubin Ql (U) Negative Normal Comprehe nsive Internal Medicine Work Phone: Bilirubin Ql (U) Negative Normal Comprehe nsive Internal Medicine; [facility] Work Phone: Glucose Test strip (U) [Mass/Vol] Negative Normal [facility]; [facility] Work Phone: Glucose Test strip mass conc (U) Negative Normal [facility] Work Phone: Hemoglobin Ql (U) Hemolyzed Large Normal Co mprehensive [facility] Work Phone: Hemoglobin Test strip Ql (U) Hemolyzed Large Normal [facility] Work Phone: Ketones Ql (U) Negative Normal Comprehens madhav [facility] Medicine Work Phone: Ketones Ql (U) Negative Normal Comprehens madhav [facility]; [facility] Work Phone: Leukocyte esterase Test strip Ql (U) Small Normal [facility] Work Phone: Nitrite Ql (U) Negative Normal Comprehens madhav [facility] Work Phone: Nitrite Ql (U) Negative Normal Comprehens madhav [facility]; [facility] Work Phone: Nitrite Test strip Ql (U) Negative Normal [facility] Work Phone: pH (U) 5 [pH] Abnormal [facility] Work Phone: pH Test strip (U) 5 [pH] Abnormal Compreh ensive Internal Medicine Work Phone: Protein Ql (U) Negative Normal Comprehens madhav [facility] Work Phone: Protein Ql (U) Negative Normal Comprehens madhav [facility]; [facility] Work Phone: Protein Test strip Ql (U) Negative Normal [facility] Work Phone: Specific gravity Relative Density (U) 1.015 1 Normal Comprehensi ve Internal Medicine Work Phone: Urobilinogen mass/time (24H U) Normal Normal [facility] Work Phone: NICOTINE ([id number])Ordered By: Cafeteria Helper on 05-16-2013 Cotinine mass conc >250.0 Normal [facility] Internal Medicine Work Phone: Comment on above: Cotinine levels grea ter than 20.0 are consistent with the use oftobacco or tobacco cessation products. PATIENT NOT FASTINGP ERFORMED BY: [employer] [id number] Information: [id number] Nicotine mass conc 15.7 ng/mL Normal [facility] Medicine Work Phone: Comment on above: Nicotine levels grea ter than 2.0 are consistent with the use oftobacco or tobacco cessation products. PATIENT NOT FASTINGP ERFORMED BY: [employer] [id number] Information: [id number] CBC With Differential/Platel etOrdered By: Cafeteria Helper on 05-12-2013 Basophils (Bld) [#/Vol] 0.1 {x10E3/uL} Normal 0.0-0.2 [facility] Work Phone: Comment on above: PATIENT WAS FASTINGP ERFORMED BY: Edoome70 [facility] [id number] Basophils Auto #/vol (Bld) 0.1 {x10E3/uL} Normal 0.0-0.2 [facility] Work Phone: Basophils/100 WBC (Bld) 1 % Normal 0-3 C omprehensive [facility] Medicine Work Phone: Comment on above: PATIENT WAS FASTINGP ERFORMED BY: [employer]6370 [place] [facility] [id number] Basophils/100 WBC Auto (Bld) 1 % Normal 0-3 [facility] Work Phone: Eosinophils (Bld) [#/Vol] 0.2 {x10E3/uL} Normal 0.0-0.4 [facility] Work Phone: Comment on above: PATIENT WAS FASTINGP ERFORMED BY: [employer]70 [facility] [id number] Eosinophils Auto #/vol (Bld) 0.2 {x10E3/uL} Normal 0.0-0.4 [facility] Work Phone: Eosinophils/100 WBC (Bld) 2 % Normal 0-5 [facility] Work Phone: Comment on above: PATIENT WAS FASTINGP ERFORMED BY: [place] [id number] [facility] [id number] Eosinophils/100 WBC Auto (Bld) 2 % Normal 0-5 [facility] Work Phone: Erythrocyte distribution width (RBC) [Ratio] 13.1 % Normal 12.3-15.4 [facility] Work Phone: Comment on above: PATIENT WAS FASTINGP ERFORMED BY: [address] [id number] Erythrocyte distribution width Auto Ratio (RBC) 13.1 % Normal 12.3-15.4 [facility] Work Phone: Hematocrit (Bld) [Volume fraction] 45.5 % Normal 34.0-46.6 [facility] Work Phone: Comment on above: PATIENT WAS FASTINGP ERFORMED BY: [place] [id number] [facility] [id number] Hematocrit Auto Volume Fraction (Bld) 45.5 % Normal 34.0-46.6 [facility] Work Phone: Hemoglobin mass conc (Bld) 14.7 g/dL Normal 11.1-15.9 [facility] Work Phone: Comment on above: PATIENT WAS FASTINGP ERFORMED BY: [place] [id number] [facility] [id number] Immature granulocytes #/vol (Bld) 0.0 {x10E3/uL} Normal 0.0-0.1 [facility] Work Phone: Comment on above: PATIENT WAS FASTINGP ERFORMED BY: [address] [id number] Immature granulocytes/100 WBC (Bld) 0 % Normal 0-2 [facility] Work Phone: Comment on above: PATIENT WAS FASTINGP ERFORMED BY: [place] [id number] [facility] [id number] Lymphocytes (Bld) [#/Vol] 2.9 {x10E3/uL} Normal 0.7-3.1 [facility] Work Phone: Comment on above: PATIENT WAS FASTINGP ERFORMED BY: [address] [id number] Lymphocytes Auto #/vol (Bld) 2.9 {x10E3/uL} Normal 0.7-3.1 [facility] Work Phone: Lymphocytes/100 WBC (Bld) 28 % Normal 14-46 [facility] Work Phone: Comment on above: PATIENT WAS FASTINGP ERFORMED BY: [place] [id number] [facility] [id number] Lymphocytes/100 WBC Auto (Bld) 28 % Normal 14-46 [facility] Work Phone: MCH (RBC) [Entitic mass] 30.2 pg Normal 26.6-33.0 [facility] Internal Medicine Work Phone: Comment on above: PATIENT WAS FASTINGP ERFORMED BY: [place] [id number] [facility] [id number] MCH Auto Entitic mass (RBC) 30.2 pg Normal 26.6-33.0 [facility] Internal Medicine Work Phone: MCHC (RBC) [Mass/Vol] 32.3 g/dL Normal 31.5-35.7 [facility] Work Phone: Comment on above: PATIENT WAS FASTINGP ERFORMED BY: [place] [id number] [facility] [id number] MCHC Auto mass conc (RBC) 32.3 g/dL Normal 31.5-35.7 [facility] Internal Medicine Work Phone: MCV (RBC) [Entitic vol] 94 fL Normal 79-97 C omprehensive [facility] Work Phone: Comment on above: PATIENT WAS FASTINGP ERFORMED BY: MAR [facility] Usvcqq0212 [facility] [id number] MCV Auto Entitic volume (RBC) 94 fL Normal 79-97 [facility] Work Phone: Monocytes (Bld) [#/Vol] 1.0 {x10E3/uL} Abnormal 0.1-0.9 [facility] Work Phone: Comment on above: PATIENT WAS FASTINGP ERFORMED BY: MAR LabKen Ritliq7922 [facility] [id number] Monocytes Auto #/vol (Bld) 1.0 {x10E3/uL} Abnormal 0.1-0.9 [facility] Work Phone: Monocytes/100 WBC (Bld) 10 % Normal 4-12 C o[facility]rehens[facility] Work Phone: Comment on above: PATIENT WAS FASTINGP ERFORMED BY: MAR [facility] HospitalAllison BoMsjznb1480 [facility] [id number] Monocytes/100 WBC Auto (Bld) 10 % Normal 4-12 [facility] Work Phone: Neutrophils (Bld) [#/Vol] 6.3 {x10E3/uL} Normal 1.4-7.0 [facility] Work Phone: Comment on above: PATIENT WAS FASTINGP ERFORMED BY: MAR [facility] Ypygnl5050 [facility] [id number] Neutrophils Auto #/vol (Bld) 6.3 {x10E3/uL} Normal 1.4-7.0 [facility] Work Phone: Neutrophils/100 WBC (Bld) 59 % Normal 40-74 [facility] Work Phone: Comment on above: PATIENT WAS FASTINGP ERFORMED BY: [facility] Tjrhgz1716 [facility] [id number] Neutrophils/100 WBC Auto (Bld) 59 % Normal 40-74 [facility] Work Phone: Platelets (Bld) [#/Vol] 336 {x10E3/uL} Normal 155-379 [facility] Work Phone: Comment on above: PATIENT WAS FASTINGP ERFORMED BY: MAR Bolin6370 [facility] [id number] Platelets Auto #/vol (Bld) 336 {x10E3/uL} Normal 155-379 [facility] Work Phone: RBC (Bld) [#/Vol] 4.86 {x10E6/uL} Normal 3.77-5.28 [facility] Work Phone: Comment on above: PATIENT WAS FASTINGP ERFORMED BY: MAR Bolin6370 [facility] [id number] RBC Auto #/vol (Bld) 4.86 {x10E6/uL} Normal 3.77-5.28 [facility] Work Phone: WBC (Bld) [#/Vol] 10.5 {x10E3/uL} Normal 3.4-10.8 [facility] Internal Medicine Work Phone: Comment on above: PATIENT WAS FASTINGP ERFORMED BY: MAR Bolin6370 [facility] [id number] WBC Auto #/vol (Bld) 10.5 {x10E3/uL} Normal 3.4-10.8 [facility] Work Phone: Comp. Metabolic Panel (14)Or dered By: Cafeteria Helper on 05-12-2013 Albumin mass conc 4.4 g/dL Normal 3.5-5.5 Compreh ensive Internal Medicine Work Phone: Comment on above: PATIENT WAS FASTINGP ERFORMED BY: MAR Bolin6370 [facility] [id number] Albumin/Globulin mass ratio 1.5 {ratio} Normal 1.1-2.5 [facility] Work Phone: Comment on above: PATIENT WAS FASTINGP ERFORMED BY: MAR [facility] Rgioll9834 [address] RoadDublin [place] [id number] ALP enzyme act/vol 75 [iU]/L Normal 39-117 [facility] Work Phone: Comment on above: PATIENT WAS FASTINGP ERFORMED BY: CB [facility] Kfrcum0098 [address] RoadDublin [place] [id number] ALT enzyme act/vol 13 [iU]/L Normal 0-32 [facility] Internal Medicine Work Phone: Comment on above: PATIENT WAS FASTINGP ERFORMED BY: [facility] Jvylrb1946 [address] RoadDublin [place] [id number] AST enzyme act/vol 17 [iU]/L Normal 0-40 [facility] Internal Medicine Work Phone: Comment on above: PATIENT WAS FASTINGP ERFORMED BY: [facility] Veqptt6943 [address] RoadDublin [place] [id number] Bilirubin mass conc 0.2 mg/dL Normal 0.0-1.2 [facility] Work Phone: Comment on above: PATIENT WAS FASTINGP ERFORMED BY: [facility] Idtkuz7972 [address] RoadDublin [place] [id number] Calcium mass conc 9.5 mg/dL Normal 8.7-10.2 [facility] Work Phone: Comment on above: PATIENT WAS FASTINGP ERFORMED BY: [facility] Tuxokz2697 [address] RoadDublin [place] [id number] Chloride molar conc 100 mmol/L Normal 97-[address] [facility] Internal Medicine Work Phone: Comment on above: PATIENT WAS FASTINGP ERFORMED BY: [facility] Gjtzoq1005 [address] RoadDublin [place] [id number] CO2 molar conc 24 mmol/L Normal 19-28 [facility] Work Phone: Comment on above: PATIENT WAS FASTINGP ERFORMED BY: [facility] Puhhtj8929 [address] RoadDublin [place] [id number] Creatinine mass conc 0.73 mg/dL Normal 0.57-1.00 Comp rehensive Internal Medicine Work Phone: Comment on above: PATIENT WAS FASTINGP ERFORMED BY: CB [facility] Aucykh1584 [address] Roadblin [place] [id number] GFR/1.73 sq M predicted among blacks CKD-EPI vol rate/area (S/P/Bld) 109 mL/min/1.73 Normal Comprehe nsive Internal Medicine Work Phone: Comment on above: PATIENT WAS FASTINGP ERFORMED BY: CB [facility] Vvojle1949 [address] RoadNovant Health Mint [facility] Medical Centerin [place] [id number] GFR/1.73 sq M predicted among non-blacks CKD-EPI vol rate/area (S/P/Bld) 94 mL/min/1.73 Normal [facility] Work Phone: Comment on above: PATIENT WAS FASTINGP ERFORMED BY: CB [facility] Smlsuv4265 [address] [facility] [id number] Globulin (S) [Mass/Vol] 2.9 g/dL Normal 1.5-4.5 C omprehensive [facility] Work Phone: Comment on above: PATIENT WAS FASTINGP ERFORMED BY: CB [facility] Uxcwjv2607 [address] [facility] [id number] Globulin Calculated mass conc (S) 2.9 g/dL Normal 1.5-4.5 [facility] Work Phone: Glucose mass conc 80 mg/dL Normal 65-99 Compreh ensive Internal Medicine Work Phone: Comment on above: PATIENT WAS FASTINGP ERFORMED BY: CB [facility] Tohqch3523 [address] [facility] [place] [id number] Potassium molar conc 4.7 mmol/L Normal 3.5-5.2 Comp rehensive Internal Medicine Work Phone: Comment on above: PATIENT WAS FASTINGP ERFORMED BY: CB [facility] Nevxdx0391 [address] [facility] [id number] Protein mass conc 7.3 g/dL Normal 6.0-8.5 Compreh ensive Internal Medicine Work Phone: Comment on above: PATIENT WAS FASTINGP ERFORMED BY: MAR Tracie Pfepsh6992 [address] [facility] [id number] Sodium molar conc 138 mmol/L Normal 134-144 Compreh ensive Internal Medicine Work Phone: Comment on above: PATIENT WAS FASTINGP ERFORMED BY: MAR RaimunodAllison BoPodxvz8687 [place] [facility] DevicesNov[facility] Health [facility] Medical Centerin [place] [id number] Urea nitrogen mass conc 10 mg/dL Normal 6-24 C omprehensive [facility] Work Phone: Comment on above: PATIENT WAS FASTINGP ERFORMED BY: MAR LabKenangela Yypqpl3257 [address] [facility] [id number] Urea nitrogen/Creatinine mass ratio 14 mg/mg Normal 9- [facility] Work Phone: Comment on above: PATIENT WAS FASTINGP ERFORMED BY: MAR RaimundoAllison Muvbnp3572 [place] [facility] DevicesUNC [facility] [id number] Hemoglobin N6vUqsiore By: Sy stem [employer] Software Engineer on 05-12-2013 Hemoglobin A1c/Hemoglobin.total mass fraction (Bld) 5.5 % Normal 4.8-5.6 Comprehensiv e Internal Medicine Work Phone: Comment on above: . Increased risk for diabetes: 5.7 - 6.4 Diabetes: >6.4 Glycemic control for adults with diabetes: <7.0 PATIENT WAS FASTINGP ERFORMED BY: MAR Argenisangela Veqqud9266 [facility] [id number] Lipid Panel With LDL/HDL Rat ioOrdered By: Cafeteria Helper on 05-12-2013 Cholesterol in HDL mass conc 55 mg/dL Normal [facility] Work Phone: Comment on above: According to ATP-III Guidelines, HDL-C >59 mg/dL is considered anegative risk factor for CHD. PATIENT WAS FASTINGP ERFORMED BY: [facility] Jsmcpv8350 [facility] [id number] Cholesterol in LDL mass conc 138 mg/dL Abnormal 0-99 [facility] Work Phone: Comment on above: PATIENT WAS FASTINGP ERFORMED BY: MAR LabBotanoCap Hwdwhr8552 [place] [facility] [id number] Cholesterol in LDL/Cholesterol in HDL mass ratio 2.5 {ratio_units} Normal 0.0-3.2 [facility] Work Phone: Comment on above: PATIENT WAS FASTINGP ERFORMED BY: MAR LabCoangela ParsonsPsozmp1634 [facility] [id number] Cholesterol in VLDL mass conc 59 mg/dL Abnormal 5-40 [facility] Work Phone: Comment on above: PATIENT WAS FASTINGP ERFORMED BY: MAR [facility] Dalsmz9975 [facility] [id number] Cholesterol mass conc 252 mg/dL Abnormal 100-199 Com prehensive Internal Medicine Work Phone: Comment on above: PATIENT WAS FASTINGP ERFORMED BY: MAR Argenis Sefjen5211 [facility] [id number] Triglyceride mass conc 297 mg/dL Abnormal 0-149 Co mprensive Internal Medicine Work Phone: Comment on above: PATIENT WAS FASTINGP ERFORMED BY: MAR [facility] Otisva9976 [facility] [id number] SATISH CULTURE-BLOOD (84732)Ord ered By: Cafeteria Helper on 05-20-2012 Bacteria identified Cx Nom (Bld) NGFD Normal [facility] Work Phone: Comment on above: No aerobic or anaero bic growth in five days. PATIENT NOT FASTINGP ERFORMED BY: MAR EubanksCo Bnkozd2270 [facility] [id number] Information: SRC:JIMMIE [id number] SITE 1 DRAWN@200PM times 2; PATIENT NOT FASTINGPERFORMED BY: MAR [facility] Heynug7681 [facility] [id number] Information: SRC:JIMMIE [id number] SITE 2 LEFT ARM DRAWN@205PM Bacteria identified Cx Nom (Bld) Final report Normal [facility] Work Phone: Comment on above: PATIENT NOT FASTINGP ERFORMED BY: MAR [facility] Sizsdt7883 [facility] [id number] Information: SRC:JIMMIE [id number] SITE 1 DRAWN@200PM times 2; PATIENT NOT FASTINGPERFORMED BY: MAR [facility]ubanksCass [facility] Center Ttsjqa3334 [facility] [id number] Information: SRC:JIMMIE [id number] SITE 2 LEFT ARM DRAWN@205PM CBC with manual diff ([id number]) Ordered By: Cafeteria Helper on 05-20-2012 Basophils (Bld) [#/Vol] 0.0 {x10E3/uL} Normal 0.0-0.2 [facility] Work Phone: Comment on above: PATIENT NOT FASTINGP ERFORMED BY: MAR [facility] Fwzrjy6088 [facility] [id number] Information: [id number] Basophils (Bld) [#/Vol] 0.0 10*3/uL Normal 0.0-0.2 [facility]; [facility] Work Phone: Comment on above: PATIENT NOT FASTINGP ERFORMED BY: MAR [facility] Sptuxd2671 [facility] [id number] Information: [id number] Basophils Auto #/vol (Bld) 0.0 {x10E3/uL} Normal 0.0-0.2 [facility] Work Phone: Basophils/100 WBC (Bld) 0 % Normal 0-3 C omprehensive [facility] Work Phone: Comment on above: PATIENT NOT FASTINGP ERFORMED BY: [place] 2358070 [facility] [id number] Information: [id number] Basophils/100 WBC Auto (Bld) 0 % Normal 0-3 [facility] Work Phone: Eosinophils (Bld) [#/Vol] 0.0 {x10E3/uL} Normal 0.0-0.4 [facility] Work Phone: Comment on above: PATIENT NOT FASTINGP ERFORMED BY: [place] 2358070 [facility] [id number] Information: [id number] Eosinophils (Bld) [#/Vol] 0.0 10*3/uL Normal 0.0-0.4 [facility]; [facility] Work Phone: Comment on above: PATIENT NOT FASTINGP ERFORMED BY: MAR [facility]undoCass Medical Center Edsugy8056 [facility] [id number] Information: [id number] Eosinophils Auto #/vol (Bld) 0.0 {x10E3/uL} Normal 0.0-0.4 [facility] Work Phone: Eosinophils/100 WBC (Bld) 0 % Normal 0-7 [facility] Work Phone: Comment on above: PATIENT NOT FASTINGP ERFORMED BY: MAR [place] 8199970 [facility] [id number] Information: [id number] Eosinophils/100 WBC Auto (Bld) 0 % Normal 0-7 [facility] Work Phone: Erythrocyte distribution width (RBC) [Ratio] 13.6 % Normal 12.3-15.4 [facility] Work Phone: Comment on above: PATIENT NOT FASTINGP ERFORMED BY: MAR [place] 8199970 [facility] [id number] Information: [id number] Erythrocyte distribution width Auto Ratio (RBC) 13.6 % Normal 12.3-15.4 [facility] Work Phone: Hematocrit (Bld) [Volume fraction] 45.9 % Normal 34.0-46.6 [facility] Work Phone: Comment on above: PATIENT NOT FASTINGP ERFORMED BY: [place] 2358070 [facility] [id number] Information: [id number] Hematocrit Auto Volume Fraction (Bld) 45.9 % Normal 34.0-46.6 [facility] Work Phone: Hemoglobin mass conc (Bld) 15.5 g/dL Normal 11.1-15.9 [facility] Work Phone: Comment on above: PATIENT NOT FASTINGP ERFORMED BY: MAR More Xvjxyf9884 [facility] [id number] Information: [id number] Immature granulocytes #/vol (Bld) 0.0 {x10E3/uL} Normal 0.0-0.1 [facility] Work Phone: Comment on above: PATIENT NOT FASTINGP ERFORMED BY: Raimundo[address] [id number] Information: [id number] Immature granulocytes (Bld) [#/Vol] 0.0 10*3/uL Normal 0.0-0.1 [facility]; [facility] Work Phone: Comment on above: PATIENT NOT FASTINGP ERFORMED BY: [address] [id number] Information: [id number] Immature granulocytes/100 WBC (Bld) 0 % Normal 0-2 [facility] Work Phone: Comment on above: PATIENT NOT FASTINGP ERFORMED BY: Raimundo[address] [id number] Information: [id number] Lymphocytes (Bld) [#/Vol] 1.5 {x10E3/uL} Normal 0.7-4.5 [facility] Work Phone: Comment on above: PATIENT NOT FASTINGP ERFORMED BY: [place] 2358070 [facility] [id number] Information: [id number] Lymphocytes (Bld) [#/Vol] 1.5 10*3/uL Normal 0.7-4.5 [facility]; [facility] Work Phone: Comment on above: PATIENT NOT FASTINGP ERFORMED BY: [place] 2358070 [facility] [id number] Information: [id number] Lymphocytes Auto #/vol (Bld) 1.5 {x10E3/uL} Normal 0.7-4.5 [facility] Work Phone: Lymphocytes/100 WBC (Bld) 11 % Abnormal [facility] Work Phone: Comment on above: PATIENT NOT FASTINGP ERFORMED BY: MAR [address] [id number] Information: [id number] Lymphocytes/100 WBC Auto (Bld) 11 % Abnormal [facility] Work Phone: MCH (RBC) [Entitic mass] 31.6 pg Normal 26.6-33.0 [facility] Work Phone: Comment on above: PATIENT NOT FASTINGP ERFORMED BY: MAR [facility] Mechanicsburgangela BoVsokku756[address] [id number] Information: [id number] MCH Auto Entitic mass (RBC) 31.6 pg Normal 26.6-33.0 [facility] Work Phone: MCHC (RBC) [Mass/Vol] 33.8 g/dL Normal 31.5-35.7 [facility] Internal Medicine Work Phone: Comment on above: PATIENT NOT FASTINGP ERFORMED BY: MAR [address] [id number] Information: [id number] MCHC Auto mass conc (RBC) 33.8 g/dL Normal 31.5-35.7 [facility] Work Phone: MCV (RBC) [Entitic vol] 94 fL Normal 79-97 C omprehensive Internal Medicine Work Phone: Comment on above: PATIENT NOT FASTINGP ERFORMED BY: MAR [address] [id number] Information: [id number] MCV Auto Entitic volume (RBC) 94 fL Normal 79-97 [facility] Work Phone: Monocytes (Bld) [#/Vol] 1.2 {x10E3/uL} Abnormal 0.1-1.0 [facility] Work Phone: Comment on above: PATIENT NOT FASTINGP ERFORMED BY: MAR Childs70 [facility] [id number] Information: [id number] Monocytes (Bld) [#/Vol] 1.2 10*3/uL Abnormal 0.1-1.0 [facility]; [facility] Work Phone: Comment on above: PATIENT NOT FASTINGP ERFORMED BY: [place] 2358070 [facility] [id number] Information: [id number] Monocytes Auto #/vol (Bld) 1.2 {x10E3/uL} Abnormal 0.1-1.0 [facility] Work Phone: Monocytes/100 WBC (Bld) 8 % Normal 4-13 [facility]mpav[facility] gal[facility] hospitalensive [facility] Work Phone: Comment on above: PATIENT NOT FASTINGP ERFORMED BY: [place] 2358070 [facility] [id number] Information: [id number] Monocytes/100 WBC Auto (Bld) 8 % Normal 4-13 [facility] Work Phone: Neutrophils (Bld) [#/Vol] 11.6 {x10E3/uL} Abnormal 1.8-7.8 [facility] Work Phone: Comment on above: PATIENT NOT FASTINGP ERFORMED BY: MAR [place] [id number] [facility] [id number] Information: [id number] Neutrophils (Bld) [#/Vol] 11.6 10*3/uL Abnormal 1.8-7.8 [facility]; [facility] Work Phone: Comment on above: PATIENT NOT FASTINGP ERFORMED BY: [place] [id number] [facility] [id number] Information: [id number] Neutrophils Auto #/vol (Bld) 11.6 {x10E3/uL} Abnormal 1.8-7.8 [facility] Work Phone: Neutrophils/100 WBC (Bld) 81 % Abnormal 40-74 [facility] Work Phone: Comment on above: PATIENT NOT FASTINGP ERFORMED BY: MAR Parsons6370 [facility] [id number] Information: [id number] Neutrophils/100 WBC Auto (Bld) 81 % Abnormal 40-74 [facility] Work Phone: Platelets (Bld) [#/Vol] 287 {x10E3/uL} Normal 140-415 [facility] Work Phone: Comment on above: PATIENT NOT FASTINGP ERFORMED BY: MAR Parsons6370 [facility] [id number] Information: [id number] Platelets (Bld) [#/Vol] 287 10*3/uL Normal 140-415 [facility]; [facility] Work Phone: Comment on above: PATIENT NOT FASTINGP ERFORMED BY: MAR Parsons6370 [facility] [id number] Information: [id number] Platelets Auto #/vol (Bld) 287 {x10E3/uL} Normal 140-415 [facility] Work Phone: RBC (Bld) [#/Vol] 4.91 {x10E6/uL} Normal 3.77-5.28 [facility] Internal Medicine Work Phone: Comment on above: PATIENT NOT FASTINGP ERFORMED BY: MAR LabAllison BoSzqhhl4006 [facility] [id number] Information: [id number] RBC (Bld) [#/Vol] 4.91 10*6/uL Normal 3.77-5.[address] [facility] Internal Medicine; [facility] Work Phone: Comment on above: PATIENT NOT FASTINGP ERFORMED BY: [facility]6370 [facility] [id number] Information: [id number] RBC Auto #/vol (Bld) 4.91 {x10E6/uL} Normal 3.77-5.28 [facility] Work Phone: WBC (Bld) [#/Vol] 14.4 {x10E3/uL} Abnormal 4.0-10.5 [facility] Internal Medicine Work Phone: Comment on above: PATIENT NOT FASTINGP ERFORMED BY: [facility]6370 [facility] [id number] Information: [id number] WBC (Bld) [#/Vol] 14.4 10*3/uL Abnormal 4.0-10.[address] [facility] Internal Medicine; [facility] Work Phone: Comment on above: PATIENT NOT FASTINGP ERFORMED BY: [facility]6370 [facility] [id number] Information: [id number] WBC Auto #/vol (Bld) 14.4 {x10E3/uL} Abnormal 4.0-10.5 [facility] Work Phone: Rapid Strep Test, Office ([phone])Ordered By: Princess Clements on 05-20-2012 S. pyogenes Ag EIA Ql (Throat) Positive Normal [facility]; [facility] Work Phone: S. pyogenes Ag IA Ql (Unsp spec) Positive Normal [facility] Work Phone: URINE SATISH CULTURE-IDENTIFICA [place] ([id number])Ordered By: Cafeteria Helper on 05-20-2012 Bacteria identified Cx Nom (U) Enterococcus faecalis Normal Comprehens madhav Internal Medicine Work Phone: Comment on above: 900 Colonies/mLNote: this isolate is vancomycin-susceptible.This information is provided for epidemiologic purposesonly: vancomycin is not among the antibioticsrecommended for therapy of urinary tract infectionscaused by Enterococcus.For Enterococcus species, cephalosporins, aminoglycosides (except forhigh-level resistance screening), clindamycin, and trimethoprim-sulfamethoxazole are not effective clinically. Fluoroquinolones areused primarily for treating urinary tract infections. (CLSI, A032-P16,2009) PATIENT NOT FASTINGP ERFORMED BY: MAR Childs70 [facility] [id number] Information: [id number] Bacteria identified Cx Nom (U) Final report Normal [facility] Work Phone: Comment on above: PATIENT NOT FASTINGP ERFORMED BY: [facility]6370 [facility] [id number] Information: [id number] Other Antibiotic [facility] [email or web address] [facility] prehensive Internal Medicine Work Phone: Comment on above: S = Susceptibl e; I = Intermediate; R = Resistant P = Positive; N = Negative MICS are expressed in micrograms per mL Antibiotic RSLT#1 RSLT#2 RSLT#3 RSLT#4Ciprofloxacin SLevofloxacin SNitrofurantoin SPenicillin STetracycline RVancomycin S PATIENT NOT FASTINGP ERFORMED BY: [facility]6370 [facility] [id number] Information: [id number] CBC WITH MANUAL DIFF ([id number]) Ordered By: Cafeteria Helper on 05-18-2012 Basophils (Bld) [#/Vol] 0.0 {x10E3/uL} Normal 0.0-0.2 [facility] Work Phone: Comment on above: PATIENT NOT FASTINGP ERFORMED BY: [facility]6370 [facility] [id number] Information: [id number] Basophils (Bld) [#/Vol] 0.0 10*3/uL Normal 0.0-0.2 [facility]; [facility] Work Phone: Comment on above: PATIENT NOT FASTINGP ERFORMED BY: [facility]6370 [facility] [id number] Information: [id number] Basophils Auto #/vol (Bld) 0.0 {x10E3/uL} Normal 0.0-0.2 [facility] Work Phone: Basophils/100 WBC (Bld) 0 % Normal 0-3 C omprehensive Internal Medicine Work Phone: Comment on above: PATIENT NOT FASTINGP ERFORMED BY: MAR LabAllison BoMnlagm2338 [facility] [id number] Information: [id number] Basophils/100 WBC Auto (Bld) 0 % Normal 0-3 [facility] Work Phone: Eosinophils (Bld) [#/Vol] 0.1 {x10E3/uL} Normal 0.0-0.4 [facility] Work Phone: Comment on above: PATIENT NOT FASTINGP ERFORMED BY: MAR LabKen Kqfwuq3660 [facility] [id number] Information: [id number] Eosinophils (Bld) [#/Vol] 0.1 10*3/uL Normal 0.0-0.4 [facility]; [facility] Work Phone: Comment on above: PATIENT NOT FASTINGP ERFORMED BY: MAR LabCo Dghusj4594 [facility] [id number] Information: [id number] Eosinophils Auto #/vol (Bld) 0.1 {x10E3/uL} Normal 0.0-0.4 [facility] Work Phone: Eosinophils/100 WBC (Bld) 1 % Normal 0-7 [facility] Work Phone: Comment on above: PATIENT NOT FASTINGP ERFORMED BY: [facility]6370 [facility] [id number] Information: [id number] Eosinophils/100 WBC Auto (Bld) 1 % Normal 0-7 [facility] Work Phone: Erythrocyte distribution width (RBC) [Ratio] 13.6 % Normal 12.3-15.4 [facility] Work Phone: Comment on above: PATIENT NOT FASTINGP ERFORMED BY: MAR [facility]6370 [facility] [id number] Information: [id number] Erythrocyte distribution width Auto Ratio (RBC) 13.6 % Normal 12.3-15.4 [facility] Work Phone: Hematocrit (Bld) [Volume fraction] 46.7 % Abnormal 34.0-46.6 [facility] Work Phone: Comment on above: PATIENT NOT FASTINGP ERFORMED BY: [place] 2358070 [facility] [id number] Information: [id number] Hematocrit Auto Volume Fraction (Bld) 46.7 % Abnormal 34.0-46.6 [facility] Work Phone: Hemoglobin mass conc (Bld) 15.3 g/dL Normal 11.1-15.9 [facility] Work Phone: Comment on above: PATIENT NOT FASTINGP ERFORMED BY: [place]undoRonnie [place] 8215370 [facility] [id number] Information: [id number] Immature granulocytes #/vol (Bld) 0.0 {x10E3/uL} Normal 0.0-0.1 [facility] Work Phone: Comment on above: PATIENT NOT FASTINGP ERFORMED BY: [place] 2358070 [facility] [id number] Information: [id number] Immature granulocytes (Bld) [#/Vol] 0.0 10*3/uL Normal 0.0-0.1 [facility]; [facility] Work Phone: Comment on above: PATIENT NOT FASTINGP ERFORMED BY: [place] 2358070 [facility] [id number] Information: [id number] Immature granulocytes/100 WBC (Bld) 0 % Normal 0-2 [facility] Work Phone: Comment on above: PATIENT NOT FASTINGP ERFORMED BY: [address] Streetbl[address] [place] [id number] Information: [id number] Lymphocytes (Bld) [#/Vol] 2.2 {x10E3/uL} Normal 0.7-4.5 [facility] Work Phone: Comment on above: PATIENT NOT FASTINGP ERFORMED BY: MAR [place] 8199970 [facility] [id number] Information: [id number] Lymphocytes (Bld) [#/Vol] 2.2 10*3/uL Normal 0.7-4.5 [facility]; [facility] Work Phone: Comment on above: PATIENT NOT FASTINGP ERFORMED BY: MAR [place] 8199970 [facility] [id number] Information: [id number] Lymphocytes Auto #/vol (Bld) 2.2 {x10E3/uL} Normal 0.7-4.5 [facility] Work Phone: Lymphocytes/100 WBC (Bld) 17 % Normal -46 [facility] Work Phone: Comment on above: PATIENT NOT FASTINGP ERFORMED BY: [place] 2358070 [facility] [id number] Information: [id number] Lymphocytes/100 WBC Auto (Bld) 17 % Normal 14-46 [facility] Work Phone: MCH (RBC) [Entitic mass] 31.2 pg Normal 26.6-33.0 [facility] Work Phone: Comment on above: PATIENT NOT FASTINGP ERFORMED BY: [facility]6370 [facility] [id number] Information: [id number] MCH Auto Entitic mass (RBC) 31.2 pg Normal 26.6-33.0 [facility] Internal Medicine Work Phone: MCHC (RBC) [Mass/Vol] 32.8 g/dL Normal 31.5-35.7 [facility] prehensive Internal Medicine Work Phone: Comment on above: PATIENT NOT FASTINGP ERFORMED BY: MAR [facility]6370 [facility] [id number] Information: [id number] MCHC Auto mass conc (RBC) 32.8 g/dL Normal 31.5-35.7 [facility] Work Phone: MCV (RBC) [Entitic vol] 95 fL Normal 79-97 C omprehensive Internal Medicine Work Phone: Comment on above: PATIENT NOT FASTINGP ERFORMED BY: MAR [place] 8199970 [facility] [id number] Information: [id number] MCV Auto Entitic volume (RBC) 95 fL Normal 79-97 [facility] Internal Medicine Work Phone: Monocytes (Bld) [#/Vol] 1.2 {x10E3/uL} Abnormal 0.1-1.0 [facility] Work Phone: Comment on above: PATIENT NOT FASTINGP ERFORMED BY: MAR [place] 8199970 [facility] [id number] Information: [id number] Monocytes (Bld) [#/Vol] 1.2 10*3/uL Abnormal 0.1-1.0 [facility]; [facility] Internal Medicine Work Phone: Comment on above: PATIENT NOT FASTINGP ERFORMED BY: LabRon[place] 8215370 [facility] [id number] Information: [id number] Monocytes Auto #/vol (Bld) 1.2 {x10E3/uL} Abnormal 0.1-1.0 [facility] Work Phone: Monocytes/100 WBC (Bld) 9 % Normal 4-13 [facility] Internal Medicine Work Phone: Comment on above: PATIENT NOT FASTINGP ERFORMED BY: [place] 2358070 [facility] [id number] Information: [id number] Monocytes/100 WBC Auto (Bld) 9 % Normal 4-13 [facility] Work Phone: Neutrophils (Bld) [#/Vol] 9.6 {x10E3/uL} Abnormal 1.8-7.8 [facility] Work Phone: Comment on above: PATIENT NOT FASTINGP ERFORMED BY: MAR Tracie Mvpwjq7704 [facility] [id number] Information: [id number] Neutrophils (Bld) [#/Vol] 9.6 10*3/uL Abnormal 1.8-7.8 [facility]; [facility] Work Phone: Comment on above: PATIENT NOT FASTINGP ERFORMED BY: MAR RaimundoAllison BoAkezem0097 [facility] [id number] Information: [id number] Neutrophils Auto #/vol (Bld) 9.6 {x10E3/uL} Abnormal 1.8-7.8 [facility] Work Phone: Neutrophils/100 WBC (Bld) 73 % Normal 40-74 [facility] Work Phone: Comment on above: PATIENT NOT FASTINGP ERFORMED BY: MAR RaimundoAllison BoRwkzdj1439 [facility] [id number] Information: [id number] Neutrophils/100 WBC Auto (Bld) 73 % Normal 40-74 [facility] Work Phone: Platelets (Bld) [#/Vol] 336 {x10E3/uL} Normal 140-415 [facility] Work Phone: Comment on above: PATIENT NOT FASTINGP ERFORMED BY: MAR LabCo Knhelh3134 [facility] [id number] Information: [id number] Platelets (Bld) [#/Vol] 336 10*3/uL Normal 140-415 [facility]; [facility] Work Phone: Comment on above: PATIENT NOT FASTINGP ERFORMED BY: MAR Argenis Cfbldv8759 [facility] [id number] Information: [id number] Platelets Auto #/vol (Bld) 336 {x10E3/uL} Normal 140-415 [facility] Work Phone: RBC (Bld) [#/Vol] 4.90 {x10E6/uL} Normal 3.77-5.28 [facility] Work Phone: Comment on above: PATIENT NOT FASTINGP ERFORMED BY: MAR RaimundoAllison BoQxowsv8053 [facility] [id number] Information: [id number] RBC (Bld) [#/Vol] 4.90 10*6/uL Normal 3.77-5.[address] [facility] Internal Medicine; [facility] Internal Medicine Work Phone: Comment on above: PATIENT NOT FASTINGP ERFORMED BY: MAR [address] [id number] Information: [id number] RBC Auto #/vol (Bld) 4.90 {x10E6/uL} Normal 3.77-5.28 [facility] Work Phone: WBC (Bld) [#/Vol] 13.1 {x10E3/uL} Abnormal 4.0-10.5 [facility] Internal Medicine Work Phone: Comment on above: PATIENT NOT FASTINGP ERFORMED BY: MAR [facility]Cap[facility]Yqexjs7085 [facility] [id number] Information: [id number] WBC (Bld) [#/Vol] 13.1 10*3/uL Abnormal 4.0-10.[address] [facility] Internal Medicine; [facility] Work Phone: Comment on above: PATIENT NOT FASTINGP ERFORMED BY: MAR [facility]icsburgangela Hxejra0178 [facility] [id number] Information: [id number] WBC Auto #/vol (Bld) 13.1 {x10E3/uL} Abnormal 4.0-10.5 [facility] Work Phone: TSH ([id number])Ordered By: Syste m Ios Software Engineer on 05-18-2012 Thyrotropin Qn 1.110 {uIU/mL} Normal 0.450-4.50 0 [facility] Work Phone: Comment on above: PATIENT NOT FASTINGP ERFORMED BY: MAR [facility] [id number] CBC WITH MANUAL DIFF ([id number]) Ordered By: Cafeteria Helper on 05-05-2012 Basophils (Bld) [#/Vol] 0.0 {x10E3/uL} Normal 0.0-0.2 [facility] Work Phone: Comment on above: PATIENT WAS FASTINGP ERFORMED BY: MAR Bolin6370 [facility] [id number] Information: [id number] Basophils (Bld) [#/Vol] 0.0 10*3/uL Normal 0.0-0.2 [facility]; [facility] Work Phone: Comment on above: PATIENT WAS FASTINGP ERFORMED BY: MAR [facility]South[facility] Center6370 [facility] [id number] Information: [id number],[id number] Basophils Auto #/vol (Bld) 0.0 {x10E3/uL} Normal 0.0-0.2 [facility] Work Phone: Basophils/100 WBC (Bld) 0 % Normal 0-3 C omprehensive Internal Medicine Work Phone: Comment on above: PATIENT WAS FASTINGP ERFORMED BY: MAR [facility] [id number] Information: [id number],[id number] Basophils/100 WBC Auto (Bld) 0 % Normal 0-3 [facility] Work Phone: Eosinophils (Bld) [#/Vol] 0.1 {x10E3/uL} Normal 0.0-0.4 [facility] Work Phone: Comment on above: PATIENT WAS FASTINGP ERFORMED BY: [facility]6370 [facility] [id number] Information: [id number],[id number] Eosinophils (Bld) [#/Vol] 0.1 10*3/uL Normal 0.0-0.4 [facility]; [facility] Work Phone: Comment on above: PATIENT WAS FASTINGP ERFORMED BY: [place] 2358070 [facility] [id number] Information: [id number] Eosinophils Auto #/vol (Bld) 0.1 {x10E3/uL} Normal 0.0-0.4 [facility] Work Phone: Eosinophils/100 WBC (Bld) 0 % Normal 0-7 [facility] Work Phone: Comment on above: PATIENT WAS FASTINGP ERFORMED BY: [place] 2358070 [facility] [id number] Information: 942281,[id number] Eosinophils/100 WBC Auto (Bld) 0 % Normal 0-7 [facility] Work Phone: Erythrocyte distribution width (RBC) [Ratio] 13.6 % Normal 12.3-15.4 [facility] Work Phone: Comment on above: PATIENT WAS FASTINGP ERFORMED BY: [place] 2358070 [facility] [id number] Information: [id number] Erythrocyte distribution width Auto Ratio (RBC) 13.6 % Normal 12.3-15.4 [facility] Work Phone: Hematocrit (Bld) [Volume fraction] 45.6 % Normal 34.0-46.6 [facility] Work Phone: Comment on above: PATIENT WAS FASTINGP ERFORMED BY: [place] 2358070 [facility] [id number] Information: [id number] Hematocrit Auto Volume Fraction (Bld) 45.6 % Normal 34.0-46.6 [facility] Work Phone: Hemoglobin mass conc (Bld) 15.2 g/dL Normal 11.1-15.9 [facility] Work Phone: Comment on above: PATIENT WAS FASTINGP ERFORMED BY: MAR Parsons6370 [facility] [id number] Information: [id number] Immature granulocytes #/vol (Bld) 0.0 {x10E3/uL} Normal 0.0-0.1 [facility] Work Phone: Comment on above: PATIENT WAS FASTINGP ERFORMED BY: [address] [id number] Information: [id number] Immature granulocytes (Bld) [#/Vol] 0.0 10*3/uL Normal 0.0-0.1 [facility]; [facility] Work Phone: Comment on above: PATIENT WAS FASTINGP ERFORMED BY: [address] [id number] Information: [id number] Immature granulocytes/100 WBC (Bld) 0 % Normal 0-2 [facility] Work Phone: Comment on above: PATIENT WAS FASTINGP ERFORMED BY: RaimundoRonnie V[place] 8215370 [facility] [id number] Information: [id number] Lymphocytes (Bld) [#/Vol] 2.4 {x10E3/uL} Normal 0.7-4.5 [facility] Work Phone: Comment on above: PATIENT WAS FASTINGP ERFORMED BY: [place] 2358070 [facility] [id number] Information: [id number] Lymphocytes (Bld) [#/Vol] 2.4 10*3/uL Normal 0.7-4.5 [facility]; [facility] Work Phone: Comment on above: PATIENT WAS FASTINGP ERFORMED BY: [address] [id number] Information: [id number] Lymphocytes Auto #/vol (Bld) 2.4 {x10E3/uL} Normal 0.7-4.5 [facility] Work Phone: Lymphocytes/100 WBC (Bld) 15 % Normal 14-46 [facility] Work Phone: Comment on above: PATIENT WAS FASTINGP ERFORMED BY: [address] [id number] Information: [id number] Lymphocytes/100 WBC Auto (Bld) 15 % Normal 14-46 [facility] Work Phone: MCH (RBC) [Entitic mass] 31.1 pg Normal 26.6-33.0 [facility] Work Phone: Comment on above: PATIENT WAS FASTINGP ERFORMED BY: [address] [id number] Information: [id number] MCH Auto Entitic mass (RBC) 31.1 pg Normal 26.6-33.0 [facility] Work Phone: MCHC (RBC) [Mass/Vol] 33.3 g/dL Normal 31.5-35.7 [facility] Internal Medicine Work Phone: Comment on above: PATIENT WAS FASTINGP ERFORMED BY: [address] [id number] Information: [id number] MCHC Auto mass conc (RBC) 33.3 g/dL Normal 31.5-35.7 [facility] Work Phone: MCV (RBC) [Entitic vol] 93 fL Normal 79-97 [facility] Work Phone: Comment on above: PATIENT WAS FASTINGP ERFORMED BY: [address] [id number] Information: [id number] MCV Auto Entitic volume (RBC) 93 fL Normal 79-97 [facility] Work Phone: Monocytes (Bld) [#/Vol] 1.4 {x10E3/uL} Abnormal 0.1-1.0 [facility] Work Phone: Comment on above: PATIENT WAS FASTINGP ERFORMED BY: MAR Parsons6370 [facility] [id number] Information: [id number] Monocytes (Bld) [#/Vol] 1.4 10*3/uL Abnormal 0.1-1.0 [facility]; [facility] Work Phone: Comment on above: PATIENT WAS FASTINGP ERFORMED BY: MAR Bolin6370 [facility] [id number] Information: [id number] Monocytes Auto #/vol (Bld) 1.4 {x10E3/uL} Abnormal 0.1-1.0 [facility] Work Phone: Monocytes/100 WBC (Bld) 9 % Normal 4-13 [facility] Internal Medicine Work Phone: Comment on above: PATIENT WAS FASTINGP ERFORMED BY: MAR Bolin6370 [facility] [id number] Information: [id number] Monocytes/100 WBC Auto (Bld) 9 % Normal 4-13 [facility] Work Phone: Neutrophils (Bld) [#/Vol] 11.9 {x10E3/uL} Abnormal 1.8-7.8 [facility] Work Phone: Comment on above: PATIENT WAS FASTINGP ERFORMED BY: MAR [place] 8199970 [facility] [id number] Information: [id number] Neutrophils (Bld) [#/Vol] 11.9 10*3/uL Abnormal 1.8-7.8 [facility]; [facility] Work Phone: Comment on above: PATIENT WAS FASTINGP ERFORMED BY: MAR [place] 8199970 [facility] [id number] Information: [id number] Neutrophils Auto #/vol (Bld) 11.9 {x10E3/uL} Abnormal 1.8-7.8 [facility] Work Phone: Neutrophils/100 WBC (Bld) 76 % Abnormal 40-74 [facility] Work Phone: Comment on above: PATIENT WAS FASTINGP ERFORMED BY: MAR Bolin6370 [facility] [id number] Information: [id number] Neutrophils/100 WBC Auto (Bld) 76 % Abnormal 40-74 [facility] Work Phone: Platelets (Bld) [#/Vol] 347 {x10E3/uL} Normal 140-415 [facility] Work Phone: Comment on above: PATIENT WAS FASTINGP ERFORMED BY: MAR Parsons6370 [facility] [id number] Information: [id number] Platelets (Bld) [#/Vol] 347 10*3/uL Normal 140-415 [facility]; [facility] Work Phone: Comment on above: PATIENT WAS FASTINGP ERFORMED BY: MAR Bolin6370 [facility] [id number] Information: [id number] Platelets Auto #/vol (Bld) 347 {x10E3/uL} Normal 140-415 [facility] Work Phone: RBC (Bld) [#/Vol] 4.89 {x10E6/uL} Normal 3.77-5.28 [facility] Internal Medicine Work Phone: Comment on above: PATIENT WAS FASTINGP ERFORMED BY: MAR [id number] [facility] [id number] Information: [id number] RBC (Bld) [#/Vol] 4.89 10*6/uL Normal 3.77-5.[address] [facility] Internal Medicine; [facility] Work Phone: Comment on above: PATIENT WAS FASTINGP ERFORMED BY: MAR [facility] [id number] [facility] [id number] Information: [id number] RBC Auto #/vol (Bld) 4.89 {x10E6/uL} Normal 3.77-5.28 [facility] Work Phone: WBC (Bld) [#/Vol] 15.8 {x10E3/uL} Abnormal 4.0-10.5 [facility] Internal Medicine Work Phone: Comment on above: PATIENT WAS FASTINGP ERFORMED BY: MAR LabCoangela [id number] [facility] [id number] Information: [id number] WBC (Bld) [#/Vol] 15.8 10*3/uL Abnormal 4.0-10.[address] [facility] Internal Medicine; [facility] Work Phone: Comment on above: PATIENT WAS FASTINGP ERFORMED BY: [facility] [id number] [facility] [id number] Information: [id number] WBC Auto #/vol (Bld) 15.8 {x10E3/uL} Abnormal 4.0-10.5 [facility] Work Phone: GLUCOSE ([id number])Ordered By: S ystem Ios Software Engineer on 05-05-2012 Glucose mass conc 89 mg/dL Normal 65-99 [facility] Work Phone: Comment on above: PATIENT WAS FASTINGP ERFORMED BY: MAR [facility] [id number] [facility] [id number] LIPID PANEL ([id number])Ordered B y: Cafeteria Helper on 05-05-2012 Cholesterol in HDL mass conc 76 mg/dL Normal [facility] Work Phone: Comment on above: According to ATP-III Guidelines, HDL-C >59 mg/dL is considered anegative risk factor for CHD. PATIENT WAS FASTINGP ERFORMED BY: MAR [facility] [id number] [facility] [id number] Cholesterol in LDL mass conc 103 mg/dL Abnormal 0-99 [facility] Work Phone: Comment on above: PATIENT WAS FASTINGP ERFORMED BY: MAR [facility] [id number] [facility] [id number] Cholesterol in LDL/Cholesterol in HDL mass ratio 1.4 {ratio_units} Normal 0.0-3.2 [facility] Work Phone: Comment on above: PATIENT WAS FASTINGP ERFORMED BY: CB [facility] [id number] [facility] [id number] Cholesterol in VLDL mass conc 26 mg/dL Normal 5-40 [facility] Work Phone: Comment on above: PATIENT WAS FASTINGP ERFORMED BY: CB [facility] [id number] [facility] [id number] Cholesterol mass conc 205 mg/dL Abnormal 100-199 Com prehensive Internal Medicine Work Phone: Comment on above: PATIENT WAS FASTINGP ERFORMED BY: CB [facility] [id number] [facility] [id number] Triglyceride mass conc 129 mg/dL Normal 0-149 [facility] Work Phone: Comment on above: PATIENT WAS FASTINGP ERFORMED BY: [facility] [id number] [facility] [id number] Vital Signs Date Time Vital Sign Value Performing Clinician Facility 09-04-2024 13:15-0400 Diastolic blood pressure 69 mm[Hg] Jose Caceres MD Work Phone: [facility] [place] 09-04-2024 13:15-0400 Heart rate 78 /min Jose Caceres MD Work Phone: [facility] [place] 09-04-2024 13:15-0400 Respiratory rate 16 /min Jose Caceres MD Work Phone: [facility] [place] 09-04-2024 13:15-0400 SaO2% (BldA) [Mass fraction] 97 % Jose Caceres MD Work Phone: [facility] [place] 09-04-2024 13:15-0400 Systolic blood pressure 144 mm[Hg] Jose Caceres MD Work Phone: [facility] [place] 08-30-2024 09:09-0400 Body mass index (BMI) [Ratio] 26.95 kg/m2 Krislyn Aberegg PA Work Phone: [facility] 08-30-2024 09:09-0400 Body temperature 97.59 [degF] Krislyn Aberegg PA Work Phone: [facility] 08-30-2024 09:09-0400 Body weight 62.6 kg Krislyn Aberegg PA Work Phone: [facility] 08-30-2024 09:09-0400 Diastolic blood pressure 82 mm[Hg] Krislyn Aberegg PA Work Phone: [facility] 08-30-2024 09:09-0400 Heart rate 78 /min Krislyn Aberegg PA Work Phone: [facility] 08-30-2024 09:09-0400 Respiratory rate 18 /min Krislyn Aberegg PA Work Phone: [facility] 08-30-2024 09:09-0400 SaO2% (BldA) [Mass fraction] 95 % Krislyn Aberegg PA Work Phone: [facility] 08-30-2024 09:09-0400 Systolic blood pressure 142 mm[Hg] Krislyn Aberegg PA Work Phone: [facility] 06-23-2024 08:05-0500 Body mass index (BMI) [Ratio] 26.37 kg/m2 Danna Click ADVERTISING ANALYST.BROADCAST TRAFFIC COORDINATOR Work Phone: [facility] 06-23-2024 08:05-0500 Body weight 61.24 kg Danna Click ADVERTISING ANALYST.BROADCAST TRAFFIC COORDINATOR Work Phone: [facility] 10-19-2023 09:04-0400 Body mass index (BMI) [Ratio] 25.39 kg/m2 Pulm Wstr Work Phone: [facility] 10-19-2023 09:04-0400 Body weight 58.97 kg Pulm Wstr Work Phone: [facility] 10-19-2023 08:53-0400 Body height 152.4 cm Devi Elijah PA-C Work Phone: [facility] 10-19-2023 08:53-0400 Body mass index (BMI) [Ratio] 25.39 kg/m2 Devi Elijah PA-C Work Phone: [facility] 10-19-2023 08:53-0400 Body weight 58.97 kg Devi Elijah PA-C Work Phone: [facility] 10-19-2023 08:53-0400 Heart rate 80 /min Devi Elijah PA-C Work Phone: [facility] 10-19-2023 08:53-0400 Respiratory rate 14 /min Devi Elijah PA-C Work Phone: [facility] 10-19-2023 08:53-0400 SaO2% (BldA) [Mass fraction] 92 % Devi Elijah PA-C Work Phone: [facility] 07-13-2023 10:49-0500 Body weight 56.25 kg Devi Elijah PA-C Work Phone: [facility] 07-13-2023 10:49-0500 Diastolic blood pressure 80 mm[Hg] Devi Elijah PA-C Work Phone: [facility] 07-13-2023 10:49-0500 Heart rate 81 /min Devi Elijah PA-C Work Phone: [facility] 07-13-2023 10:49-0500 Respiratory rate 18 /min Devi Elijah PA-C Work Phone: [facility] 07-13-2023 10:49-0500 SaO2% (BldA) [Mass fraction] 95 % Devi Elijah PA-C Work Phone: [facility] 07-13-2023 10:49-0500 Systolic blood pressure 148 mm[Hg] Devi Nava PA-C Work Phone: [facility] 05-31-2023 14:35-0500 SaO2% (BldA) [Mass fraction] 95 % Dr. Pennie Hale Work Phone: [facility] 05-31-2023 14:17-0500 Body temperature 98.2 [degF] Dr. Pennie Hale Work Phone: [facility] 05-31-2023 14:17-0500 Diastolic blood pressure 80 mm[Hg] Dr. Pennie Hale Work Phone: [facility] 05-31-2023 14:17-0500 Heart rate 78 /min Dr. Pennie Hale Work Phone: [facility] 05-31-2023 14:17-0500 Respiratory rate 18 /min Dr. Pennie Hale Work Phone: [facility] 05-31-2023 14:17-0500 Systolic blood pressure 141 mm[Hg] Dr. Pennie Hale Work Phone: [facility] 05-31-2023 12:17-0500 Inhaled oxygen flow rate 1 L/min Dr. Pennie Hale Work Phone: [facility] 05-30-2023 14:42-0500 Body height 152.[address] Pennie Hale Work Phone: [facility] 05-30-2023 14:42-0500 Body weight 55.[address] Pennie Hale Work Phone: [facility] 05-30-2023 03:20-0500 Body mass index (BMI) [Ratio] 23.9 kg/m2 Dr. Pennie Hale Work Phone: [facility] 05-29-2023 20:24-0500 Body temperature 99 [degF] [facility] 05-29-2023 20:24-0500 Diastolic blood pressure 53 mm[Hg] [facility] 05-29-2023 20:24-0500 Heart rate 101 /min [facility] 05-29-2023 20:24-0500 Inhaled oxygen flow rate 3 L/min [facility] 05-29-2023 20:24-0500 Respiratory rate 22 /min [facility] 05-29-2023 20:24-0500 SaO2% (BldA) [Mass fraction] 92 % [facility] 05-29-2023 20:24-0500 Systolic blood pressure 122 mm[Hg] [facility] 05-29-2023 16:58-0500 Body height 152.4 cm [facility] 05-29-2023 16:58-0500 Body mass index (BMI) [Ratio] 24.2 kg/m2 [facility] 05-29-2023 16:58-0500 Body weight 56.24 kg [facility] 11-18-2022 08:23-0400 Body height 148.1 cm Irlanda Hawthorne ADVERTISING ANALYST.BROADCAST TRAFFIC COORDINATOR Work Phone: [facility] 11-18-2022 08:23-0400 Body weight 53.89 kg Irlanda Hawthorne ADVERTISING ANALYST.BROADCAST TRAFFIC COORDINATOR Work Phone: [facility] 10-30-2022 13:24-0400 Body weight 53.52 kg Colleen Wolfe MD Work Phone: [facility] 10-30-2022 13:24-0400 Diastolic blood pressure 72 mm[Hg] Colleen Wolfe MD Work Phone: [facility] 10-30-2022 13:24-0400 Heart rate 80 /min Colleen Wolfe MD Work Phone: [facility] 10-30-2022 13:24-0400 SaO2% (BldA) [Mass fraction] 90 % Colleen Wolfe MD Work Phone: [facility] 10-30-2022 13:24-0400 Systolic blood pressure 110 mm[Hg] Colleen Wolfe MD Work Phone: [facility] 09-02-2022 10:53-0400 Body height 152.4 cm Idalia Slarb SOCIAL WORK INSTRUCTOR [facility]; [facility] Work Phone: 09-02-2022 10:53-0400 Body mass index (BMI) [Ratio] 24.29 kg/m2 Idalia Slarb SOCIAL WORK INSTRUCTOR [facility]; [facility] Work Phone: 09-02-2022 10:53-0400 Body surface area Derived from formula 1.53 m2 Idalia Slarb SOCIAL WORK INSTRUCTOR [facility]; [facility] Work Phone: 09-02-2022 10:53-0400 Body temperature 97.4 [degF] Idalia Slarb SOCIAL WORK INSTRUCTOR [facility]; [facility] Work Phone: Comment on above: Method: Temporal 09-02-2022 10:53-0400 Body weight 56.42 kg Idalia Slarb SOCIAL WORK INSTRUCTOR [facility]; [facility] Work Phone: 09-02-2022 10:53-0400 Diastolic blood pressure 82 mm[Hg] Idalia Slarb SOCIAL WORK INSTRUCTOR [facility]; [facility] Work Phone: Comment on above: Patient Position: Sitting; Cuff Location : Left Arm; Cuff Size: Standard 09-02-2022 10:53-0400 Heart rate 67 /min Idalia Slarb SOCIAL WORK INSTRUCTOR [facility]; [facility] Work Phone: Comment on above: Pattern: Regular 09-02-2022 10:53-0400 Respiratory rate 16 /min Idalia Slarb SOCIAL WORK INSTRUCTOR [facility]; [facility] Work Phone: Comment on above: Pattern: Unlabored 09-02-2022 10:53-0400 SaO2% (BldA) [Mass fraction] 97 % Idalia Slarb SOCIAL WORK INSTRUCTOR [facility]; [facility] Work Phone: Comment on above: Room air 09-02-2022 10:53-0400 Systolic blood pressure 132 mm[Hg] Idalia Slarb SOCIAL WORK INSTRUCTOR [facility]; [facility] Work Phone: Comment on above: Patient Position: Sitting; Cuff Location : Left Arm; Cuff Size: Standard 01-09-2022 08:15-0400 Body height 152.4 cm Delmy Park CMA [facility]; [facility] Work Phone: 01-09-2022 08:15-0400 Body mass index (BMI) [Ratio] 24.29 kg/m2 Delmy Park SURGERY NURSE [facility]; [facility] Work Phone: 01-09-2022 08:15-0400 Body surface area Derived from formula 1.53 m2 Delmy Park CMA [facility]; [facility] Work Phone: 01-09-2022 08:15-0400 Body temperature 97.3 [degF] Delmy Park CMA Comprehens[facility]; [facility] Work Phone: Comment on above: Method: Infrared 01-09-2022 08:15-0400 Body weight 56.42 kg Delmy Park [facility]; [facility] Work Phone: 01-09-2022 08:15-0400 Diastolic blood pressure 90 mm[Hg] Delmy Park [facility]; [facility] Work Phone: Comment on above: Patient Position: Sitting; Cuff Location : Left Arm; Cuff Size: Standard 01-09-2022 08:15-0400 Heart rate 77 /min Delmy Park [facility]; [facility] Work Phone: Comment on above: Pattern: Regular 01-09-2022 08:15-0400 Respiratory rate 16 /min Delmy Park CMA [facility]; [facility] Work Phone: Comment on above: Pattern: Unlabored 01-09-2022 08:15-0400 SaO2% (BldA) [Mass fraction] 94 % Delmy Park [facility]; [facility] Work Phone: Comment on above: Room air 01-09-2022 08:15-0400 Systolic blood pressure 130 mm[Hg] Delmy Park [facility]; [facility] Work Phone: Comment on above: Patient Position: Sitting; Cuff Location : Left Arm; Cuff Size: Standard 10-27-2021 09:49-0400 Body height 149.9 cm Respiratory Wstr Work Phone: [facility] 10-27-2021 09:49-0400 Body weight 52.16 kg Respiratory Wstr Work Phone: [facility] 10-27-2021 09:23-0400 Body weight 52.62 kg Gene Johnson MD Work Phone: [facility] 10-02-2020 08:34-0400 Body height 152.4 cm [facility] Internal Medicine; [facility] Internal Medicine Work Phone: Comment on above: pts o2 went up to 97 after sitting for a moment , she reports shes dizzy but says its from all the wine she drank last night o2 holding at 94% and above after being monitored for a couple mins [facility] [place] 10-02-2020 08:34-0400 Body mass index (BMI) [Ratio] 24.29 kg/m2 [facility] Internal Medicine; [facility] Internal Medicine Work Phone: Comment on above: pts o2 went up to 97 after sitting for a moment , she reports shes dizzy but says its from all the wine she drank last night o2 holding at 94% and above after being monitored for a couple mins [facility] [place] 10-02-2020 08:34-0400 Body surface area Derived from formula 1.53 m2 [facility] Internal Medicine; [facility] Work Phone: Comment on above: pts o2 went up to 97 after sitting for a moment , she reports shes dizzy but says its from all the wine she drank last night o2 holding at 94% and above after being monitored for a couple mins [facility] [place] 10-02-2020 08:34-0400 Body weight 56.42 kg [facility] Internal Medicine; [facility] Internal Medicine Work Phone: Comment on above: pts o2 went up to 97 after sitting for a moment , she reports shes dizzy but says its from all the wine she drank last night o2 holding at 94% and above after being [facility] a [facility] 10-02-2020 08:34-0400 Diastolic blood pressure 80 mm[Hg] Delmy Park [facility] Internal Medicine; [facility] Work Phone: Comment on above: Patient Position: Sitting; Cuff Location : Left Arm; Cuff Size: Standard pts o2 went up to 97 after sitting for a moment , she reports shes dizzy but says its from all the wine she drank last night o2 holding at 94% and above after being monitored for a couple [facility] 10-02-2020 08:34-0400 Heart rate 73 /min Delmy Park [facility] Internal Medicine; [facility] Work Phone: Comment on above: Pattern: Regular pts o2 went up to 97 after sitting for a moment , she reports shes dizzy but says its from all the wine she drank last night o2 holding at 94% and above after being monitored for a couple mins [facility] 10-02-2020 08:34-0400 SaO2% (BldA) [Mass fraction] 88 % [facility]; [facility] Work Phone: Comment on above: Room air pts o2 went up to 97 after sitting for a moment , she reports shes dizzy but says its from all the wine she drank last night o2 holding at 94% and above after being monitored for a couple mins [facility] 10-02-2020 08:34-0400 Systolic blood pressure 123 mm[Hg] Delmy Park [facility] Internal Medicine; [facility] Work Phone: Comment on above: Patient Position: Sitting; Cuff Location : Left Arm; Cuff Size: Standard pts o2 went up to 97 after sitting for a moment , she reports shes dizzy but says its from all the wine she drank last night o2 holding at 94% and above after being monitored for a couple [facility] 09-16-2020 09:52-0400 Body height 152.4 cm Delmy Park [facility] Internal Medicine; [facility] Work Phone: 09-16-2020 09:52-0400 Body mass index (BMI) [Ratio] 24.29 kg/m2 Delmy Park CMA [facility]; [facility] Work Phone: 09-16-2020 09:52-0400 Body surface area Derived from formula 1.53 m2 Delmy Park CMA [facility]; [facility] Work Phone: 09-16-2020 09:52-0400 Body temperature 97.1 [degF] Delmy Park CMA [facility]; [facility] Work Phone: Comment on above: Method: Infrared 09-16-2020 09:52-0400 Body weight 56.42 kg Delmy Park CMA [facility]; [facility] Work Phone: 09-16-2020 09:52-0400 Diastolic blood pressure 74 mm[Hg] Delmy Park CMA [facility]; [facility] Work Phone: Comment on above: Patient Position: Sitting; Cuff Location : Left Arm; Cuff Size: Standard 09-16-2020 09:52-0400 Heart rate 88 /min Delmy Park SURGERY NURSE [facility]; [facility] Work Phone: Comment on above: Pattern: Regular 09-16-2020 09:52-0400 Respiratory rate 20 /min Delmy Park CMA [facility]; [facility] Work Phone: Comment on above: Pattern: Unlabored 09-16-2020 09:52-0400 SaO2% (BldA) [Mass fraction] 93 % Delmy Park CMA [facility]; [facility] Work Phone: Comment on above: Room air 09-16-2020 09:52-0400 Systolic blood pressure 126 mm[Hg] Delmy Park SURGERY NURSE [facility]; [facility] Work Phone: Comment on above: Patient Position: Sitting; Cuff Location : Left Arm; Cuff Size: Standard 05-24-2020 11:24-0500 BMI (Body Mass Index) 25.46 kg/m2 Delmy Park [facility]; [facility] Work Phone: Comment on above: no vs taken as this is phone encounter d ue to covid 05-24-2020 11:24-0500 Body weight 59.14 kg Delmy Park [facility]; [facility] Work Phone: Comment on above: no vs taken as this is phone encounter d ue to covid 05-24-2020 11:24-0500 BSA (Body Surface Area) 1.56 m2 Delmy Park [facility]; [facility] Work Phone: Comment on above: no vs taken as this is phone encounter d ue to covid 05-24-2020 11:24-0500 Height 152.4 cm Delmy Park [facility]; [facility] Work Phone: Comment on above: no vs taken as this is phone encounter d ue to covid 03-27-2020 15:48-0500 BMI (Body Mass Index) 25.46 kg/m2 Pennie Marichuy DO Work Phone: [facility] Work Phone: Comment on above: limited vitals with virtual visit 03-27-2020 15:48-0500 Body Temperature 97.6 [degF] Pennie Marichuy DO Work Phone: [facility] Work Phone: Comment on above: Method: Oral limited vitals with virtual visit 03-27-2020 15:48-0500 Body weight 59.14 kg Pennie Velazcoon DO Work Phone: [facility] Work Phone: Comment on above: limited vitals with virtual visit 03-27-2020 15:48-0500 BP Diastolic 80 mm[Hg] Pennie Marichuy DO Work Phone: [facility] Work Phone: Comment on above: Patient Position: Sitting limited vitals with virtual visit 03-27-2020 15:48-0500 BP Systolic 120 mm[Hg] Pennie Marichuy DO Work Phone: [facility] Work Phone: Comment on above: Patient Position: Sitting limited vitals with virtual visit 03-27-2020 15:48-0500 BSA (Body Surface Area) 1.56 m2 Pennie Hale DO Work Phone: [facility] Work Phone: Comment on above: limited vitals with virtual visit 03-27-2020 15:48-0500 Height 152.4 cm Pennie Hale DO Work Phone: [facility] Work Phone: Comment on above: limited vitals with virtual visit 03-27-2020 15:48-0500 Pulse (Heart Rate) 86 /min Pennie Hale DO Work Phone: [facility] Work Phone: Comment on above: Pattern: Regular limited vitals with virtual visit 03-22-2018 08:25-0500 BMI (Body Mass Index) 25.46 kg/m2 Sue Srivastava [facility] Work Phone: 03-22-2018 08:25-0500 Body Temperature 98.6 [degF] Sue Srivastava [facility] Work Phone: Comment on above: Method: Temporal 03-22-2018 08:25-0500 Body weight 59.14 kg Sue Srivastava [facility] Internal Medicine Work Phone: 03-22-2018 08:25-0500 BP Diastolic 90 mm[Hg] Sue Srivastava [facility] Internal Medicine Work Phone: Comment on above: Patient Position: Sitting; Cuff Location : Left Arm; Cuff Size: Standard 03-22-2018 08:25-0500 BP Systolic 150 mm[Hg] Sue Srivastava [facility] Work Phone: Comment on above: Patient Position: Sitting; Cuff Location : Left Arm; Cuff Size: Standard 03-22-2018 08:25-0500 BSA (Body Surface Area) 1.56 m2 Sue Srivastava [facility] Internal Medicine Work Phone: 03-22-2018 08:25-0500 Height 152.4 cm Sue Srivastava [facility] Internal Medicine Work Phone: 03-22-2018 08:25-0500 Pulse (Heart Rate) 80 /min Sue Srivastava [facility] Internal Medicine Work Phone: Comment on above: Pattern: Regular 03-22-2018 08:25-0500 Pulse Oximetry 92 % Pennie Hale [facility] Internal Medicine Work Phone: Comment on above: Room air 03-22-2018 08:25-0500 Respiratory Rate 17 /min Sue Srivastava [facility] Internal Medicine Work Phone: Comment on above: Pattern: Unlabored 03-22-2018 08:25-0500 SaO2% (BldA) [Mass fraction] 92 % Sue Srivastava [facility] Internal Medicine; [facility] Work Phone: Comment on above: Room air 03-22-2018 08:25-0500 Weight 59.14 kg Pennie Hale [facility] Internal Medicine Work Phone: 09-14-2017 08:00-0400 BMI (Body Mass Index) 26.17 kg/m2 Beti [facility] Internal Medicine Work Phone: Comment on above: recheck bp 142/80 09-14-2017 08:00-0400 Body Temperature 98.4 [degF] Beti [facility] Internal Medicine Work Phone: Comment on above: Method: Temporal recheck bp 142/80 09-14-2017 08:00-0400 Body [facility] 60.78 [facility]: Comment on above: recheck bp 142/80 09-14-2017 08:00-0400 BP Diastolic 90 mm[Hg] [facility] Internal Medicine Work Phone: Comment on above: Patient Position: Sitting; Cuff Location : Left Arm; Cuff Size: Standard recheck bp 142/80 09-14-2017 08:00-0400 BP Systolic 174 mm[Hg] Beti [facility] Internal Medicine Work Phone: Comment on above: Patient Position: Sitting; Cuff Location : Left Arm; Cuff Size: Standard recheck bp 142/80 09-14-2017 08:00-0400 BSA (Body Surface Area) 1.57 m2 Beti Josue [facility] Work Phone: Comment on above: recheck bp 142/80 09-14-2017 08:00-0400 Height 152.4 cm Beti [facility] Internal Medicine Work Phone: Comment on above: recheck bp 142/80 09-14-2017 08:00-0400 Pulse (Heart Rate) 102 /min Beti [facility] Internal Medicine Work Phone: Comment on above: Pattern: Regular recheck bp 142/80 09-14-2017 08:00-0400 Pulse Oximetry 93 % Pennie Hale [facility] Internal Medicine Work Phone: Comment on above: Room air recheck bp 142/80 09-14-2017 08:00-0400 Respiratory Rate 16 /min Beti Salas [facility] Internal Medicine Work Phone: Comment on above: Pattern: Unlabored recheck bp 142/80 09-14-2017 08:00-0400 SaO2% (BldA) [Mass fraction] 93 % Beti Salas [facility]; [facility] Work Phone: Comment on above: Room air recheck bp 142/80 09-14-2017 08:00-0400 Weight 60.78 kg Pennie Hale [facility] Internal Medicine Work Phone: Comment on above: recheck bp 142/80 07-28-2017 08:37-0400 BMI (Body Mass Index) 25.83 kg/m2 Mckenna Anderson RN [facility] Work Phone: Comment on above: her machine 154/90 07-28-2017 08:37-0400 Body weight 59.99 kg Mckenna Anderson RN [facility] Work Phone: Comment on above: her machine 154/90 07-28-2017 08:37-0400 BP Diastolic 80 mm[Hg] Mckenna Anderson RN [facility] Work Phone: Comment on above: Patient Position: Sitting; Cuff Location : Left Arm; Cuff Size: Standard her machine 154/90 07-28-2017 08:37-0400 BP Systolic 156 mm[Hg] Mckenna Anderson RN [facility] Work Phone: Comment on above: Patient Position: Sitting; Cuff Location : Left Arm; Cuff Size: Standard her machine 154/90 07-28-2017 08:37-0400 BSA (Body Surface Area) 1.57 m2 Mckenna Anderson RN [facility] Work Phone: Comment on above: her machine 154/90 07-28-2017 08:37-0400 Height 152.4 cm Mckenna Anderson RN [facility] Work Phone: Comment on above: her machine 154/90 07-28-2017 08:37-0400 Pulse (Heart Rate) 74 /min Mckenna Anderson RN [facility] Work Phone: Comment on above: Pattern: Regular her machine 154/90 07-28-2017 08:37-0400 Pulse Oximetry 95 % Pennie Hale [facility] Internal Medicine Work Phone: Comment on above: Room air her machine 154/90 07-28-2017 08:37-0400 Respiratory Rate 18 /min Mckenna Anderson RN [facility] Work Phone: Comment on above: Pattern: Unlabored her machine 154/90 07-28-2017 08:37-0400 SaO2% (BldA) [Mass fraction] 95 % Mckenna Anderson RN [facility]; [facility] Work Phone: Comment on above: Room air her machine 154/90 07-28-2017 08:37-0400 Weight 59.99 kg Pennie Hale [facility] Internal Medicine Work Phone: Comment on above: her machine 154/90 07-21-2017 08:31-0500 BMI (Body Mass Index) 26 kg/m2 Beti Salas [facility] Internal Medicine Work Phone: 07-21-2017 08:31-0500 Body Temperature 97.9 [degF] Beti Salas [facility] Internal Medicine Work Phone: 07-21-2017 08:31-0500 Body weight 60.39 kg Beti Salas [facility] Internal Medicine Work Phone: 07-21-2017 08:31-0500 BP Diastolic 82 mm[Hg] Beti Salas [facility] Internal Medicine Work Phone: Comment on above: Patient Position: Sitting; Cuff Location : Left Arm; Cuff Size: Standard 07-21-2017 08:31-0500 BP Systolic 158 mm[Hg] Beti Salas [facility] Internal Medicine Work Phone: Comment on above: Patient Position: Sitting; Cuff Location : Left Arm; Cuff Size: Standard 07-21-2017 08:31-0500 BSA (Body Surface Area) 1.57 m2 Beti Josue [facility] Internal Medicine Work Phone: 07-21-2017 08:31-0500 Height 152.4 cm Beti Salas [facility] Internal Medicine Work Phone: 07-21-2017 08:31-0500 Pulse (Heart Rate) 72 /min Beti [facility] Internal Medicine Work Phone: Comment on above: Pattern: Regular 07-21-2017 08:31-0500 Pulse Oximetry 92 % Pennie Hale [facility] Internal Medicine Work Phone: Comment on above: Room air 07-21-2017 08:31-0500 Respiratory Rate 17 /min Beti Salas [facility] Internal Medicine Work Phone: Comment on above: Pattern: Unlabored 07-21-2017 08:31-0500 SaO2% (BldA) [Mass fraction] 92 % Beti Josue [facility] Internal Medicine; [facility] Internal Medicine Work Phone: Comment on above: Room air 07-21-2017 08:31-0500 Weight 60.39 kg Pennie Hale [facility] Internal Medicine Work Phone: 07-09-2016 07:14-0500 BMI (Body Mass Index) 26 kg/m2 Mckenna Anderson RN [facility] Work Phone: 07-09-2016 07:14-0500 Body Temperature 97.6 [degF] Mckenna Anderson RN [facility] Work Phone: Comment on above: Method: Temporal 07-09-2016 07:14-0500 Body weight 60.39 kg Mckenna Anderson RN [facility] Work Phone: 07-09-2016 07:14-0500 BP Diastolic 86 mm[Hg] Mckenna Anderson RN [facility] Work Phone: Comment on above: Patient Position: Sitting; Cuff Location : Left Arm; Cuff Size: Large 07-09-2016 07:14-0500 BP Systolic 142 mm[Hg] Mckenna Anderson RN [facility] Work Phone: Comment on above: Patient Position: Sitting; Cuff Location : Left Arm; Cuff Size: Large 07-09-2016 07:14-0500 BSA (Body Surface Area) 1.57 m2 Mckenna Anderson RN [facility] Work Phone: 07-09-2016 07:14-0500 Height 152.4 cm Mckenna Anderson RN [facility] Work Phone: 07-09-2016 07:14-0500 Pulse (Heart Rate) 89 /min Mckenna Anderson RN [facility] Internal Medicine Work Phone: Comment on above: Pattern: Regular 07-09-2016 07:14-0500 Pulse Oximetry 94 % Pennie Hale [facility] Work Phone: Comment on above: Room air 07-09-2016 07:14-0500 Respiratory Rate 18 /min Mckenna Anderson RN [facility] Work Phone: Comment on above: Pattern: Unlabored 07-09-2016 07:14-0500 SaO2% (BldA) [Mass fraction] 94 % Mckenna Anderson RN [facility]; [facility] Work Phone: Comment on above: Room air 07-09-2016 07:14-0500 Weight 60.39 kg Pennie Hale [facility] Work Phone: 06-27-2015 07:07-0500 BMI (Body Mass Index) 26.02 kg/m2 Mckenna Anderson RN [facility] Work Phone: 06-27-2015 07:07-0500 Body weight 60.44 kg Mckenna Anderson RN [facility] Work Phone: 06-27-2015 07:07-0500 BP Diastolic 80 mm[Hg] Mckenna Anderson RN [facility] Work Phone: Comment on above: Patient Position: Sitting; Cuff Location : Left Arm; Cuff Size: Large 06-27-2015 07:07-0500 BP Systolic 142 mm[Hg] Mckenna Anderson RN [facility] Work Phone: Comment on above: Patient Position: Sitting; Cuff Location : Left Arm; Cuff Size: Large 06-27-2015 07:07-0500 BSA (Body Surface Area) 1.57 m2 Mckenna Anderson RN [facility] Work Phone: 06-27-2015 07:07-0500 Height 152.4 cm Mckenna Anderson RN [facility] Work Phone: 06-27-2015 07:07-0500 Pulse (Heart Rate) 82 /min Mckenna Anderson RN [facility] Work Phone: Comment on above: Pattern: Regular 06-27-2015 07:07-0500 Pulse Oximetry 93 % Pennie Hale [facility] Internal Medicine Work Phone: Comment on above: Room air 06-27-2015 07:07-0500 Respiratory Rate 18 /min Mckenna Anderson RN [facility] Work Phone: Comment on above: Pattern: Unlabored 06-27-2015 07:07-0500 SaO2% (BldA) [Mass fraction] 93 % Mckenna Anderson RN [facility]; [facility] Work Phone: Comment on above: Room air 06-27-2015 07:07-0500 Weight 60.44 kg Pennie Hale [facility] Work Phone: 06-14-2015 07:08-0500 BMI (Body Mass Index) 25.03 kg/m2 Mckenna Anderson RN [facility] Work Phone: 06-14-2015 07:08-0500 Body weight 58.15 kg Mckenna Anderson RN [facility] Work Phone: 06-14-2015 07:08-0500 BP Diastolic 82 mm[Hg] Mckenna Anderson RN [facility] Work Phone: Comment on above: Patient Position: Sitting; Cuff Location : Left Arm; Cuff Size: Large 06-14-2015 07:08-0500 BP Systolic 138 mm[Hg] Mckenna Anderson RN [facility] Work Phone: Comment on above: Patient Position: Sitting; Cuff Location : Left Arm; Cuff Size: Large 06-14-2015 07:08-0500 BSA (Body Surface Area) 1.55 m2 Mckenna Anderson RN [facility] Work Phone: 06-14-2015 07:08-0500 Height 152.4 cm Mckenna Anderson RN [facility] Work Phone: 06-14-2015 07:08-0500 Pulse (Heart Rate) 83 /min Mckenna Anderson RN [facility] Work Phone: Comment on above: Pattern: Regular 06-14-2015 07:08-0500 Pulse Oximetry 93 % Pennie Marichuy [facility] Internal Medicine Work Phone: Comment on above: Room air 06-14-2015 07:08-0500 Respiratory Rate 18 /min Mckenna Anderson [facility] Work Phone: Comment on above: Pattern: Unlabored 06-14-2015 07:08-0500 SaO2% (BldA) [Mass fraction] 93 % Mckenna Anderson RN [facility]; [facility] Work Phone: Comment on above: Room air 06-14-2015 07:08-0500 Weight 58.15 kg Pennie Velazcoon [facility] Internal Medicine Work Phone: 04-23-2014 09:15-0500 BMI (Body Mass Index) 25.03 kg/m2 Idalia Natanrb SADIE [facility] Work Phone: 04-23-2014 09:15-0500 Body Temperature 98.8 [degF] Idalia Slarb [employer] [facility] Work Phone: 04-23-2014 09:15-0500 Body weight 58.15 kg Idalia Natanrb [employer] WORK IN[employer] [facility] Work Phone: 04-23-2014 09:15-0500 BP Diastolic 82 mm[Hg] Idalia Slarb [employer] WORK IN[employer] [facility] Work Phone: Comment on above: Patient Position: Sitting; Cuff Location : Left Arm; Cuff Size: Standard 04-23-2014 09:15-0500 BP Systolic 126 mm[Hg] Idalai Daigel LPN [facility] Work Phone: Comment on above: Patient Position: Sitting; Cuff Location : Left Arm; Cuff Size: Standard 04-23-2014 09:15-0500 BSA (Body Surface Area) 1.55 m2 Idalia Daigle LPN [facility] Work Phone: 04-23-2014 09:15-0500 Height 152.4 cm Idalia Natanrb [employer] WORK INSTRUCTOR [facility] Work Phone: 04-23-2014 09:15-0500 Pulse (Heart Rate) 79 /min Idalia Daigle LPN [facility] Work Phone: Comment on above: Pattern: Regular 04-23-2014 09:15-0500 Pulse Oximetry 97 % Pennie Hale [facility] Work Phone: Comment on above: Room air 04-23-2014 09:15-0500 Respiratory Rate 16 /min Idalia Daigle [employer] WORK IN[employer] [facility] Work Phone: Comment on above: Pattern: Unlabored 04-23-2014 09:15-0500 SaO2% (BldA) [Mass fraction] 97 % Idalia Natanrb [employer] WORK INSTRU[employer] [facility]; [facility] Work Phone: Comment on above: Room air 04-23-2014 09:15-0500 Weight 58.15 kg Pennie Hale [facility] Work Phone: 10-27-2013 13:30-0400 BMI (Body Mass Index) 24.27 kg/m2 Cherelle Javed [employer] WORK IN[employer] [facility] Work Phone: 10-27-2013 13:30-0400 Body Temperature 98.8 [degF] Cheerlle Russellel [employer] WORK INSTRUCTOR [facility] Work Phone: 10-27-2013 13:30-0400 Body weight 56.36 kg Cherelle Javed [employer] WORK INSTRUCTOR [facility] Work Phone: 10-27-2013 13:30-0400 BP Diastolic 88 mm[Hg] Cherelle Russellel [employer] WORK INSTRUCTOR [facility] Work Phone: Comment on above: Patient Position: Sitting; Cuff Location : Left Arm; Cuff Size: Standard 10-27-2013 13:30-0400 BP Systolic 144 mm[Hg] Cherelle Javed LPN [facility] Work Phone: Comment on above: Patient Position: Sitting; Cuff Location : Left Arm; Cuff Size: Standard 10-27-2013 13:30-0400 BSA (Body Surface Area) 1.52 m2 Cherelle Russelljuan manuel NOEL [facility] Work Phone: 10-27-2013 13:30-0400 Height 152.4 cm Cherelle Russelljuan manuel [employer] WORK INSTRUCTOR [facility] Work Phone: 10-27-2013 13:30-0400 Pulse (Heart Rate) 68 /min Cherelle Javed SADIE [facility] Work Phone: Comment on above: Pattern: Regular 10-27-2013 13:30-0400 Pulse Oximetry 96 % Pennie Hale [facility] Work Phone: Comment on above: Room air 10-27-2013 13:30-0400 Respiratory Rate 18 /min Cherelle Javed [employer] WORK INSTRU[employer] [facility] Work Phone: Comment on above: Pattern: Unlabored 10-27-2013 13:30-0400 SaO2% (BldA) [Mass fraction] 96 % Cherelle Javed LPN [facility]; [facility] Work Phone: Comment on above: Room air 10-27-2013 13:30-0400 Weight 56.36 kg Pennie Hale [facility] Work Phone: 08-08-2013 10:30-0400 BMI (Body Mass Index) 24.27 kg/m2 Neha Ho SADIE [facility] Work Phone: 08-08-2013 10:30-0400 Body Temperature 98 [degF] Neha Ho SADIE [facility] Work Phone: Comment on above: Method: Oral 08-08-2013 10:30-0400 Body weight 56.36 kg Neha Ho SADIE [facility] Work Phone: 08-08-2013 10:30-0400 BP Diastolic 80 mm[Hg] Neha Ho LPN [facility] Work Phone: Comment on above: Patient Position: Sitting; Cuff Location : Left Arm; Cuff Size: Standard 08-08-2013 10:30-0400 BP Systolic 140 mm[Hg] Neha Ho LPN [facility] Work Phone: Comment on above: Patient Position: Sitting; Cuff Location : Left Arm; Cuff Size: Standard 08-08-2013 10:30-0400 BSA (Body Surface Area) 1.52 m2 Neha Ho SADIE [facility] Work Phone: 08-08-2013 10:30-0400 Height 152.4 cm Neha Ho SADIE [facility] Work Phone: 08-08-2013 10:30-0400 Pulse (Heart Rate) 82 /min Neha Ho LPN [facility] Work Phone: Comment on above: Pattern: Regular 08-08-2013 10:30-0400 Pulse Oximetry 98 % Pennie Hale [facility] Work Phone: Comment on above: Room air 08-08-2013 10:30-0400 Respiratory Rate 16 /min Neha Ho LPN [facility] Work Phone: 08-08-2013 10:30-0400 SaO2% (BldA) [Mass fraction] 98 % Neha Ho SADIE [facility]; [facility] Work Phone: Comment on above: Room air 08-08-2013 10:30-0400 Weight 56.36 kg Pennie Hale [facility] Work Phone: 05-16-2013 10:58-0500 BMI (Body Mass Index) 23.7 kg/m2 Neha Ho LPN [facility] Work Phone: 05-16-2013 10:58-0500 Body Temperature 98 [degF] Neha Ho LPN [facility] Work Phone: Comment on above: Method: Oral 05-16-2013 10:58-0500 Body weight 55.06 kg Neha Ho LPN [facility] Work Phone: 05-16-2013 10:58-0500 BP Diastolic 70 mm[Hg] Neha Ho LPN [facility] Work Phone: Comment on above: Patient Position: Sitting; Cuff Location : Left Arm; Cuff Size: Standard 05-16-2013 10:58-0500 BP Systolic 124 mm[Hg] Neha Ho LPN [facility] Work Phone: Comment on above: Patient Position: Sitting; Cuff Location : Left Arm; Cuff Size: Standard 05-16-2013 10:58-0500 BSA (Body Surface Area) 1.51 m2 Neha Ho LPN [facility] Work Phone: 05-16-2013 10:58-0500 Height 152.4 cm Neha Ho LPN [facility] Work Phone: 05-16-2013 10:58-0500 Pulse (Heart Rate) 70 /min Neha Ho LPN [facility] Work Phone: Comment on above: Pattern: Regular 05-16-2013 10:58-0500 Pulse Oximetry 98 % Pennie Hale [facility] Internal Medicine Work Phone: Comment on above: Room air 05-16-2013 10:58-0500 SaO2% (BldA) [Mass fraction] 98 % Neha Ho LPN [facility]; [facility] Work Phone: Comment on above: Room air 05-16-2013 10:58-0500 Weight 55.06 kg Pennie Hale [facility] Internal Medicine Work Phone: 05-20-2012 15:56-0500 BMI (Body Mass Index) 24.25 kg/m2 Princess Tyree [facility] Internal Medicine Work Phone: 05-20-2012 15:56-0500 Body Temperature 98 [degF] [facility]: Comment on above: Method: Oral 05-20-2012 15:56-0500 Body weight 56.33 kg Princess Clements [facility] Internal Medicine Work Phone: 05-20-2012 15:56-0500 BP Diastolic 64 mm[Hg] Princess Clements [facility] Medicine Work Phone: Comment on above: Patient Position: Sitting; Cuff Location : Left Arm; Cuff Size: Standard 05-20-2012 15:56-0500 BP Systolic 142 mm[Hg] Princess Clements [facility] Medicine Work Phone: Comment on above: Patient Position: Sitting; Cuff Location : Left Arm; Cuff Size: Standard 05-20-2012 15:56-0500 BSA (Body Surface Area) 1.52 m2 Princess Clements [facility] Medicine Work Phone: 05-20-2012 15:56-0500 Height 152.4 cm Princess Clements [facility] Medicine Work Phone: 05-20-2012 15:56-0500 Pulse (Heart Rate) 80 /min Princess Clements [facility] Internal Medicine Work Phone: Comment on above: Pattern: Regular 05-20-2012 15:56-0500 Respiratory Rate 16 /min Princess Clements [facility] Medicine Work Phone: Comment on above: Pattern: Unlabored 05-20-2012 15:56-0500 Weight 56.33 kg Pennie Marichuy [facility] Internal Medicine Work Phone: 05-18-2012 11:03-0500 BMI (Body Mass Index) 24.25 kg/m2 Mckenna Anderson RN [facility] Work Phone: 05-18-2012 11:03-0500 Body weight 56.33 kg Mckenna Anderson RN [facility] Work Phone: 05-18-2012 11:03-0500 BP Diastolic 88 mm[Hg] Mckenna Anderson RN [facility] Work Phone: Comment on above: Patient Position: Sitting; Cuff Location : Left Arm; Cuff Size: Standard 05-18-2012 11:03-0500 BP Systolic 136 mm[Hg] Mckenna Anderson RN [facility] Work Phone: Comment on above: Patient Position: Sitting; Cuff Location : Left Arm; Cuff Size: Standard 05-18-2012 11:03-0500 BSA (Body Surface Area) 1.52 m2 Mckenna Anderson RN [facility] Work Phone: 05-18-2012 11:03-0500 Height 152.4 cm Mckenna Anderson RN [facility] Work Phone: 05-18-2012 11:03-0500 Pulse (Heart Rate) 60 /min Mckenna Anderson RN [facility] Work Phone: Comment on above: Pattern: Regular 05-18-2012 11:03-0500 Respiratory Rate 16 /min Mckenna Anderson RN [facility] Work Phone: Comment on above: Pattern: Unlabored 05-18-2012 11:03-0500 Weight 56.33 kg Pennie Hale [facility] Work Phone: 05-12-2012 11:22-0500 BMI (Body Mass Index) 24.25 kg/m2 Neha Ho SADIE [facility] Work Phone: 05-12-2012 11:22-0500 Body Temperature 98.6 [degF] Neha Ho SADIE [facility] Work Phone: Comment on above: Method: Oral 05-12-2012 11:22-0500 Body weight 56.33 kg Neha Ho SADIE [facility] Work Phone: 05-12-2012 11:22-0500 BP Diastolic 102 mm[Hg] Neha Ho SADIE [facility] Work Phone: Comment on above: Patient Position: Sitting; Cuff Location : Left Arm; Cuff Size: Standard 05-12-2012 11:22-0500 BP Systolic 188 mm[Hg] Neha Ho SADIE [facility] Work Phone: Comment on above: Patient Position: Sitting; Cuff Location : Left Arm; Cuff Size: Standard 05-12-2012 11:22-0500 BSA (Body Surface Area) 1.52 m2 Neha Ho LPN [facility] Work Phone: 05-12-2012 11:22-0500 Height 152.4 cm Neha Ho LPN [facility] Work Phone: 05-12-2012 11:22-0500 Pulse (Heart Rate) 95 /min Neha Ho LPN [facility] Work Phone: Comment on above: Pattern: Regular 05-12-2012 11:22-0500 Pulse Oximetry 97 % Pennie Hale [facility] Work Phone: Comment on above: Room air 05-12-2012 11:22-0500 Respiratory Rate 18 /min Neha Ho LPN [facility] Work Phone: Comment on above: Pattern: Unlabored 05-12-2012 11:22-0500 SaO2% (BldA) [Mass fraction] 97 % Neha Ho SADIE [facility]; [facility] Work Phone: Comment on above: Room air 05-12-2012 11:22-0500 Weight 56.33 kg Pennie Hale [facility] Work Phone: 05-05-2012 08:47-0500 BMI (Body Mass Index) 24.25 kg/m2 Mckenna Anderson RN [facility] Work Phone: 05-05-2012 08:47-0500 Body Temperature 96.7 [degF] Mckenna Anderson RN [facility] Work Phone: Comment on above: Method: Oral 05-05-2012 08:47-0500 Body weight 56.33 kg Mckenna Anderson RN [facility] Work Phone: 05-05-2012 08:47-0500 BP Diastolic 90 mm[Hg] Mckenna Anderson RN [facility] Work Phone: Comment on above: Patient Position: Sitting; Cuff Location : Left Arm; Cuff Size: Large 05-05-2012 08:47-0500 BP Systolic 150 mm[Hg] Mckenna Anderson RN [facility] Work Phone: Comment on above: Patient Position: Sitting; Cuff Location : Left Arm; Cuff Size: Large 05-05-2012 08:47-0500 BSA (Body Surface Area) 1.52 m2 Mckenna Anderson RN [facility] Work Phone: 05-05-2012 08:47-0500 Height 152.4 cm Mckenna Anderson RN [facility] Work Phone: 05-05-2012 08:47-0500 Pulse (Heart Rate) 72 /min Mckenna Anderson RN [facility] Work Phone: Comment on above: Pattern: Regular 05-05-2012 08:47-0500 Respiratory Rate 18 /min Mckenna Anderson RN [facility] Work Phone: Comment on above: Pattern: Unlabored 05-05-2012 08:47-0500 Weight 56.33 kg Pennie Hale [facility] Work Phone: 04-21-2012 11:03-0500 BMI (Body Mass Index) 24.25 kg/m2 Mckenna Anderson RN [facility] Work Phone: 04-21-2012 11:03-0500 Body Temperature 97.7 [degF] Mckenna Anderson RN [facility] Work Phone: Comment on above: Method: Oral 04-21-2012 11:03-0500 Body weight 56.33 kg Mckenna Anderson RN [facility] Work Phone: 04-21-2012 11:03-0500 BP Diastolic 82 mm[Hg] Mckenna Anderson RN [facility] Work Phone: Comment on above: Patient Position: Sitting; Cuff Location : Left Arm; Cuff Size: Standard 04-21-2012 11:03-0500 BP Systolic 128 mm[Hg] Mckenna Anderson RN [facility] Work Phone: Comment on above: Patient Position: Sitting; Cuff Location : Left Arm; Cuff Size: Standard 04-21-2012 11:03-0500 BSA (Body Surface Area) 1.52 m2 Mkcenna Anderson RN [facility] Work Phone: 04-21-2012 11:03-0500 Height 152.4 cm Mckenna Anderson RN [facility] Work Phone: 04-21-2012 11:03-0500 Pulse (Heart Rate) 80 /min Mckenna Anderson RN [facility] Work Phone: Comment on above: Pattern: Regular 04-21-2012 11:03-0500 Respiratory Rate 16 /min Mckenna Anderson RN [facility] Work Phone: Comment on above: Pattern: Unlabored 04-21-2012 11:03-0500 Weight 56.33 kg Pennie Hale [facility] Work Phone: Encounters Encounter Date Encounter Type Care Provider Facility Start: 12-22-2024 End: 12-22-2024 ambulatory PENNIE HALE Facility:[facility] Start: 10-30-2024 End: 10-30-2024 Subsequent hospital visit by physician [address] Comment on above: Pure hypercholestero lemia, unspecified Start: 10-30-2024 End: 10-30-2024 [facility] Start: 09-14-2024 End: 09-14-2024 ambulatory UNKNOWN PROVIDER Facility:[facility] Start: 09-14-2024 End: 09-14-2024 Subsequent hospital visit by physician Laura [facility] Radiology Comment on above: Aneurysm of anterior cerebral artery (HCC); 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) Start: 09-07-2024 End: 09-07-2024 ambulatory PENNIE HALE Facility:[facility] Start: 09-04-2024 End: 09-04-2024 Office outpatient new 30 minutes Jose Caceres MD Work Phone: [facility] Neurosurgery Comment on above: 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 Pennie Hale DO Work Phone: [facility] Work Phone: Start: 08-18-2024 End: 08-18-[address] Pennie Hale DO -[facility] Work Phone: Start: 08-18-2024 End: 08-18-2024 ambulatory Pennie Hale Facility:[facility] Start: 07-31-2024 End: 07-31-[address] Pennie Hale DO Work Phone: [facility] Work Phone: Start: 07-31-2024 End: 07-31-[address] Pennie Hale DO -[facility] Work Phone: Start: 07-26-2024 End: 08-01-2024 Refill Colleen Wolfe MD Work Phone: Pulmonary Medicine Comment on above: Refill Request Start: 07-08-2024 End: 07-08-2024 Letter encounter Pennie Hale Work Phone: [facility] Start: 07-03-2024 End: 07-03-[address] Pennie Hale DO -Outpatient Breast Imaging Work Phone: Start: 07-03-2024 End: 07-03-2024 ambulatory Pennie Hale Facility:[facility] Start: 06-23-2024 End: 06-23-2024 E-mail encounter from caregiver Danna Matthew APRN.BROADCAST TRAFFIC COORDINATOR Work Phone: Pulmonary Medicine Start: 06-23-2024 End: 06-23-2024 ambulatory Danna Matthew APRN.BROADCAST TRAFFIC COORDINATOR Work Phone: Pulmonary Medicine Comment on above: lung cancer screenin g Start: 06-23-2024 End: 06-23-2024 Office outpatient visit 15 minutes Danna Matthew APRN.CNP Work Phone: Pulmonary Medicine Comment on above: Stage 3 severe COPD by GOLD classification (HCC) (Primary Dx); Chronic hypoxemic respiratory failure (HCC); Lung nodules; Former smoker Start: 04-01-2024 End: 04-01-2024 Letter encounter Pennie Hale Work Phone: [facility] Start: 10-19-2023 End: 10-19-2023 ambulatory Pulm Lab [facility] Work Phone: [facility] Comment on above: Spirometry Start: 10-19-2023 End: 10-19-2023 Patient encounter procedure Pulm Lab [facility] Work Phone: [facility] Comment on above: Stage 3 severe COPD by GOLD classification (HCC) (Primary Dx); Chronic hypoxemic respiratory failure (HCC); Former smoker; Lung nodules Start: 07-13-2023 End: 07-13-2023 Office outpatient visit 15 minutes Devi FOOTEC Work Phone: Pulmonary Medicine Comment on above: Stage 3 severe COPD by GOLD classification (HCC) (Primary Dx); Influenza due to influenza A subtype H1N1 virus with pneumonia; Former smoker Start: 06-23-2023 ambulatory Devi Lopez-C Work Phone: Pulmonary Medicine Comment on above: result Start: 06-23-2023 E-mail encounter fro m caregiver Devi LAWRENCE-C Work Phone: [facility] Start: 06-21-2023 Telephone encounter Devi LAWRENCE-C Work Phone: Pulmonary Medicine Comment on above: Other (Short term di sability paperwork) Start: 05-31-2023 Non-patient / Non-visit Dr. Dominic Hale Work Phone: [facility] Inpatient Physicians Work Phone: Start: 05-30-2023 Non-patient / Non-visit Dr. Dominic Hale Work Phone: [facility] Inpatient Physicians Work Phone: Start: 05-29-2023 End: 05-31-2023 Evaluation and management of inpatient [facility]-Medical Surgical 3 Work Phone: Start: 12-01-2022 Telephone encounter Irlanda Eulogio sherman ADVERTISING ANALYST.BROADCAST TRAFFIC COORDINATOR Work Phone: Pulmonary Medicine Comment on above: Results (LDCT Lung R ads category 3-repeat CT in 6 mos/) Start: 11-27-2022 End: 11-27-2022 Subsequent hospital visit by physician Ct [facility] (I-Stat) Work Phone: Cat Scan Comment on above: Encounter for screen ing for lung cancer [Z12.2] Start: 11-18-2022 End: 11-18-2022 ambulatory Pulm Lab [facility] Work Phone: [facility] Comment on above: Spirometry Start: 11-18-2022 End: 11-18-2022 Patient encounter procedure Pulm Lab [facility] Work Phone: [facility] Comment on above: Encounter for screen ing for lung cancer (Primary Dx); Tobacco use current Start: 10-30-2022 End: 10-30-2022 Patient encounter procedure Colleen Wolfe MD Work Phone: Pulmonary Medicine Comment on above: Stage 3 severe COPD by GOLD classification (HCC) (Primary Dx); Cigarette smoker Start: 10-28-2022 Refill Devi Escobar PA-C Work Phone: Pulmonary Medicine Comment on above: Refill Request Start: 09-02-2022 Review Pennie herrera DO Work Phone: [facility] Start: 09-02-2022 End: 09-15-2022 Office outpatient visit 15 minutes Pennie Hale DO Work Phone: [facility] Start: 07-02-2022 Letter encounter Pennie Fear on Work Phone: [facility] Start: 04-08-2022 End: 04-08-2022 Phone Encounter Pennie Marichuy DO Work Phone: [facility] Start: 04-06-2022 ambulatory Pennie Marichuy DO [facility] Start: 01-09-2022 End: 01-09-2022 Office outpatient visit 25 minutes Pennie Marichuy DO Work Phone: [facility] Start: 10-27-2021 End: 10-27-2021 ambulatory Respiratory Therapist [facility] Work Phone: Pulmonary Medicine Comment on above: Spirometry Start: 10-27-2021 End: 10-27-2021 Patient encounter procedure Respiratory Therapist [facility] Work Phone: [facility] Comment on above: Centrilobular emphys mariely (HCC) (Primary Dx); Pulmonary nodules; Tobacco use disorder Start: 10-02-2020 End: 10-02-2020 Office outpatient visit 10 minutes Pennie Marichuy DO Work Phone: [facility] Start: 10-02-2020 Review Pennie Fearo n DO Work Phone: [facility] Start: 09-16-2020 End: 09-16-2020 Office outpatient visit 25 minutes Pennie Marichuy DO Work Phone: [facility] Start: 09-16-2020 Review Pennie Fearo n DO Work Phone: [facility] Start: 09-13-2020 Review Pennie Fearo n DO Work Phone: [facility] Start: 05-24-2020 End: 05-24-2020 Office outpatient visit 15 minutes Pennie Marichuy [facility] Start: 03-27-2020 End: 03-27-2020 Office outpatient visit 25 minutes Pennie Marichuy [facility] Start: 12-25-2019 End: 12-25-2019 Annotation/Addendum Pennie Hale [facility] Start: 12-25-2019 Review Pennie Ramon [facility] Start: 08-18-2019 End: 08-20-2019 Office outpatient visit 15 minutes Pennie Meek [facility] Start: 03-22-2018 End: 03-22-2018 Office outpatient visit 25 minutes Pennie Meek [facility] Start: 09-14-2017 End: 09-14-2017 Office outpatient visit 40 minutes Pennie Meek [facility] Start: 07-28-2017 End: 07-28-2017 Office outpatient visit 25 minutes Pennie Meek [facility] Start: 07-21-2017 End: 07-21-2017 Office outpatient visit 15 minutes Pennie Meek [facility] Start: 07-09-2016 End: 07-09-2016 Office outpatient visit 15 minutes Pennie Meek [facility] Start: 07-01-2015 End: 07-01-2015 Lab Order Pennie Meek [facility] Start: 06-27-2015 End: 06-27-2015 Office outpatient visit 25 minutes Pennie Meek [facility] Start: 06-14-2015 End: 06-14-2015 Office outpatient visit 15 minutes Pennie Meek [facility] Start: 04-23-2014 End: 04-23-2014 Office outpatient visit 15 minutes Pennie Meek [facility] Start: 10-27-2013 End: 10-27-2013 Phone Encounter Pennie Meek [facility] Start: 10-27-2013 End: 10-27-2013 Office outpatient visit 25 minutes Pennie Meek [facility] Start: 08-08-2013 End: 08-08-2013 Office outpatient visit 15 minutes Pennie Meek [facility] Start: 05-16-2013 End: 05-16-2013 Office outpatient visit 25 minutes Pennie Meek [facility] Start: 05-11-2013 End: 05-11-2013 Phone Encounter Pennie Meek [facility] Start: 05-20-2012 End: 05-23-2012 Patient encounter Pennie Meek [facility] Start: 05-20-2012 End: 05-20-2012 Annotation/Addendum Pennie Meek [facility] Start: 05-20-2012 End: 05-20-2012 Annotation/Addendum Pennie Meek [facility] Start: 05-18-2012 End: 05-18-2012 Patient encounter Pennie Velazcoon [facility] Start: 05-12-2012 End: 05-12-2012 Patient encounter Pennie Hale [facility] Start: 05-05-2012 End: 05-05-2012 Patient encounter Pennie Hale [facility] Start: 04-21-2012 End: 04-21-2012 Patient encounter Pennie Hale [facility] Procedures Date Procedure Procedure Detail Performing Clinician Start: 10-30-2024 Ct heart no contrast quant eval coronry calcium Pennie Hale DO Work Phone: Start: 09-14-2024 Radiology Comparison study - date and time Jose Caceres MD Work Phone: Start: 08-18-2024 Magnetic resonance angiography of head without contrast Dr. Pennie Hale DO Work Phone: Start: 07-03-[address] Pennie herrera DO Work Phone: Start: 10-19-2023 Noninvasive ear/pulse oximetry multiple deter Devi Nava PA-C Work Phone: Start: 05-29-2023 Plain chest X-ray Start: 05-29-2023 SARS-CoV-2, Influenza & RSV (PCR) Start: 11-27-2022 CT LUNG SCREEN WO TUNDE Hawthorne ADVERTISING ANALYST.BROADCAST TRAFFIC COORDINATOR Work Phone: Start: 11-18-2022 Co diffusing capacity Colleen herrera MD Work Phone: Start: 10-27-2021 Spmtry w/vc expiratory jennifer w/wo mxml vol vntj Devi Nava PA-C Work Phone: Start: 06-30-2016 End: 06-30-2016 History and Physical Exam Comments: See Note; NOTES: [facility] Medical Records Department [address] [place] [address] History and Physical 06/30/16 2307 MR#: [id number] Acct: [id number] Name: NIDIA ZAVALETA Rep #: [id number] : 1960 55 From: Ervin Powell DO PCP: Pennie Hale DO Status: REG ER Y Location: ED [...] to 87%. Patient will be admitted to [facility] for acute exacerbation of COPD she will [...] ligation Psychiatric History: No pertinent psych hx MANAGER RECOVERY History: No pertinent MANAGER RECOVERY history Lives: Spouse/ Significant Other Smoking Status: [...] 86.0 H Lymph % (Auto) 7.[address] [place] % (Auto) 5.0 Eos % (Auto) 0.5 [...] exacerbation of COPD-patient will be admitted to [facility], she will be placed on aggressive aerosol treatments, IV Solu-Medrol, and monitored. Antibiotics will not be used #2 anxiety disorder-patient periodically takes Ativan 0.25 mg as needed. I will order Ativan prn 06/30/16 2314 <Electronically signed by Ervin Powell DO> Date Ervin Powell DO Cosigner Signature (if applicable): Date CC: Pennie Hale DO; Ervin Powell DO Signed Pennie Hale Start: 06-30-2016 End: 06-30-2016 Chest PA and Lateral Comments: See Note; NOTES: [facility] Imaging Services [address] [place] [id number] [address] 4d Chest PA and Lateral MR#: [id number] Acct: [id number] Name: NIDIA ZAVALETA Rep #: [id number] : 1960 F 55 From: Armando Seaman MD PCP: Pennie Hale DO Status: [facility] Study: Chest PA and Lateral Date of Exam: 06/30/16 Exam# [id number] Ordering Dr: Luis Felipe Mccormick MD STUDY: [...] MD at 20:22 EST , Service support [phone], CC: Luis Felipe Mccormick MD; Pennie Hale DO Medical Dermatologist: Signed Pennie Hale Start: 07-23-2015 End: 07-23-2015 PT D/C of Non Returning Pt (1) Comments: See Note; NOTES: [facility] Physical Therapy [facility] [address] [place], [place] [address] Fax REHABILITATION SERVICES DISCHARGE SUMMARY MR#: [id number] Acct: [id number] Name: NIDIA ZAVALETA Rep #: [id number] : 1960 54 From: Macrina Caraballo DPT Referring DrAntony: Pennie Hale DO Status: REG RCR Eval Date: Discharge Date: HP - Discharge Summary (1) - Patient Information NIDIA ZAVALETA was seen in my office for initial evaluation on 06/18/15. The following Plan of Care was established for this patient: Initial Frequency: 2x /Week Initial Duration: 4 Weeks - Anticipated Interventions Patient/Client Instruction: Educate patient on: Benefits of Fitness Program For the Purpose of:: To increase tolerance to activity/condition/position Therapeutic Exercise to Include: Strength training, Endurance [...] Caraballo <Electronically signed by Macrina Caraballo DPT> 07/23/15 1819 CC: Pennie Hale DO ELR Signed Pennie Hale Start: 06-27-2015 End: 06-27-2015 Spmtry w/vc expiratory jennifer w/wo mxml vol vntj _ Pennie Hale Work Phone: Comment on above: copd presnet Start: 06-27-2015 End: 06-27-2015 Ecg routine ecg w/least 12 lds w/i&r [MEASUREMENTS ANALYSIS] Date of Test: 06/27/2015 08:01:11; Heart Rate: 71; ID Interval: 120; QRS: 87; QT Interval: 414; Corrected QT Interval (QTc): 433; P Wave Bethel: 73; QRS Wave Bethel: 55; T Wave Bethel: 72; Blood Pressure: 142/80 [ECG DIAGNOSTIC STATEMENTS] Date of Test: 06/27/2015 08:01:11; Summary: Sinus Rhythm -Anterior infarct -age undetermined. - Negative precordial T-waves -May be normal -consider anteroseptal ischemia. ABNORMAL Pennie Hale Work Phone: Comment on above: nsr asymm t waves in ant leads asx -- no old one to compare Start: 06-18-2015 End: 06-18-2015 Inital Evaluation (1) - PT Comments: See Note; NOTES: [facility] Physical Therapy [facility] [address] [place] [address]. [address] [place] [address] Fax REHABILITATION SERVICES INITIAL EVALUATION MR#: [id number] Acct: [id number] Name: NIDIA ZAVALETA Rep #: [id number] : 1960 54 From: Macrina Caraballo DPT Referring DrAntony: Pennie Hale DO Status: REG RCR Insurance: [employer] Eval Date: Patient's Visit Information NIDIA ZAVALETA is a 54 year old F, referred to Physical Therapy by Pennie Hale,, with a diagnosis of SI joint pain. Date of Evaluation: 06/18/15 Physical Therapist: Macrina Caraballo - Visit Plan Frequency: 2x /Week Duration: 4 Weeks - Subjective Sick with the flu and thought she pulled a muscle in the right hip. Pain is located on the right hip and radiates to the middle of the back and into the stomach area and up to the bra line. Prednisone and pain medication for 4 days. Worst: 8/10, Best: 2/10. Sharp and shooting - takes breathe away. Agg: sitting especially on the toilet. Eaeses: medication. Never had physical therapy before. Stress in the neck. 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 New job 8-5 no weekends. Still working. Not using her lumbar support due to her new car. Sleep- disturbed- can't lay on her belly for too long. 11 kids running in/out of the house of all ages. No N/T. - Objective Posture: FH, RS, Increase kyphosis. Gait: no deviation noted. Stairs: no deviation noted. HR /TR- no pain or problems. Sensation: WNL. Balance: 30 sec no LOB unchallenged. ROM:WNL. Strength: Core-fair minus, Hip:4-/5 throughout, Knee/Ankle:5/5. Leg Length: no discrepancy. Piriformis pump- increased pain, Figure 4 no pain. Pelvic alignment- left superior to right. - Goals Goal 1:: Patient will be I with HEP and progression Goal Time Frame: 4-6 Weeks Goal 2:: Patient will demo proper pelvic alignment for 1 week to ease ADL's Goal Time Frame: 4-6 Weeks Goal 3:: Patient will report 0/10 pain 1 week. Goal Time Frame: 4-6 Weeks Goal 4:: Patient will maintain proper posture t/o tx session to demo increased core s/s. Goal Time Frame: 4-6 Weeks - Rehabilitation Potential Rehabilitation Potential: Good - Anticipated Interventions Patient/Client Instruction: Educate patient on: Benefits of Fitness Program For the Purpose of:: To increase tolerance to activity/condition/position Therapeutic Exercise to Include: Strength training, Endurance [...] For the Purpose of:: To decrease pain Thank you for the opportunity to evaluate your patient. For Medicare and Medicare HMO plans, please review the plan of care and approve it. It will need to be FAXED BACK to us at [phone] for Medicare purposes. Please let me know if there are questions or concerns regarding this plan of care. Physician Signature: ___Date: <Electronically signed by Macrina Caraballo DPSevero> 06/18/15 1844 CC: Pennie Hale DO ELR Signed For Medicare only, by signing this I certify the plan of care. Physicians Signature Date Pennie Hale Start: 01-24-2015 End: 01-24-2015 Emergency Department Summary Comments: See Note; NOTES: [facility] Medical Records Department [address] [place] [address] Emergency Department Summary 01/24/15 2153 MR#: [id number] Acct: [id number] Name: NIDIA ZAVALETA Rep #: [id number] : 1960 54 From: Live Velasquez MD PCP: Pennie Hale DO Status: REG ER - ER Visit Summary Date of Service: 01/24/15 Chief Complaint: Difficulty using right thumb History of Present Illness: The patient is a 54 F right hand dominant person who presents with difficulty using right thumb. She believes she may have injured it 2 months ago. She localizes the pain to the MP joint of her right thumb. She is unable to flex completely and extend completely. She denies any paresthesia, anesthesia or motor weakness. She does not recall exact mechanism. Review of Systems: There is no complaint other than difficulty using right thumb. Physical Examination: Patient is unable to extend and flex right thumb completely. There is no evidence of acute trauma. Stressing of the ulnar collateral ligament reveals a complete tear. Sensation is intact. Capillary refill is normal. Extensor pollicis longus is intact. The extensor pollicis brevis is intact as well. Test Results: An x-ray of the thumb was obtained. 3 views were taken. There is degenerative changes. There is no obvious fracture or healing fracture noted. Emergency Department Course: Cynthia barron has an injury that is approximately 2 months old. X-ray was obtained. Since there is no acute findings she will refer to Dr. Adams who is a plastic/ hand surgeon. Treatment Plan: Thumb spica splint with referral to Dr. Nathan Adams Disposition: Discharge home with thumb spica splint Impression: Complete tear of the ulnar collateral ligament right thumb ED Disposition - Plan for ED Patient: Disposition: Home or Assisted Living Chief Complaint: Upper Extremity Injury Instructions: ED Wrist Sprain Referrals: Pennie Hale DO [Primary Care Provider] - Nathan Adams MD [STAFF PHYSICIAN] - 3-5 Days What to do if you have Problems For any increased pain, shortness of breath, bleeding, nausea or vomiting, chest pain, or any unexpected problems, contact your doctor. Call [facility] ([phone]) or report to the closest Emergency Room. Call 911 if necessary. 01/24/15 2200 <Electronically signed by Live Velasquez MD> Date Liev Velasquez MD Cosigner Signature (If Indicated): Date CC: Pennie Billy Start: 01-24-2015 End: 01-25-2015 Finger(s) Min 2 Views Comments: See Note; NOTES: [facility] Imaging Services [address] [place] [address] Radiology Report MR#: [id number] Acct: [id number] Name: NIDIA ZAVALETA Rep #: [id number] : 1960 F 54 From: Joshua Dhaliwal MD PCP: Pennie Hale DO Status: DEP Study: Finger(s) Min 2 Views Date of Exam: 01/24/15 Exam# [id number] Ordering Dr: Live Velasquez MD STUDY: X-RAY - RIGHT HAND, ATTENTION FIRST FINGER REASON FOR EXAM: Female, 54 years old. Pain. Ulnar collateral ligament injury. TECHNIQUE: 4 view(s) of the finger were obtained. COMPARISON: None. FINDINGS: Normal metacarpal head. There is mild degenerative arthrosis of the metacarpophalangeal joint. Normal proximal phalanx. Normal distal phalanx. There is degenerative arthrosis of the interphalangeal joint. IMPRESSION: Arthritic change. No focal fracture. Electronically Signed: Joshua Dhaliwal MD at 11:39 EDT , Service support [phone], RAD/Finger(s) Min 2 Views IMPRESSION: Arthritic change. No focal fracture. 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 Delmy Gravius September 08, 2017 - Bra in Anuerysm Delmy Gravius SURGERY NURSE September 08, 2017 - Bra in Anuerysm Kamilah Cross SOCIAL WORK INSTRUCTOR September 08, 2017 - Bra in Anuerysm Delmy Gravius SURGERY NURSE September 08, 2017 - Bra in Anuerysm Idalia Slarb SOCIAL WORK INSTRUCTOR H/O: surgery Breast surgery Delmy Graviu s SURGERY NURSE Comment on above: augmentation 1997 H/O: surgery Breast surgery Delmy Graviu s SURGERY NURSE Comment on above: augmentation 1997 H/O: surgery Breast surgery Kamilah Cross SOCIAL WORK INSTRUCTOR Comment on above: augmentation 1997 H/O: surgery Breast surgery Delmy Graviu s SURGERY NURSE Comment on above: augmentation 1997 H/O: surgery Breast surgery Idalia Slarb SOCIAL WORK INSTRUCTOR Comment on above: augmentation 1997 History of appendectomy Appendectomy Delmy Gravius SURGERY NURSE Comment on above: age 7 History of appendectomy Appendectomy Delmy Gravius SURGERY NURSE Comment on above: age 7 History of appendectomy Appendectomy Kamilah Cross SOCIAL WORK INSTRUCTOR Comment on above: age 7 History of appendectomy Appendectomy Delmy Gravius SURGERY NURSE Comment on above: age 7 History of appendectomy Appendectomy Idalia Slarb SOCIAL WORK INSTRUCTOR Comment on above: age 7 History of decompression of median nerve Carpal tunnel repair Delmy Gravius SURGERY NURSE Comment on above: b/l 1986 History of decompression of median nerve Carpal tunnel repair Delmy Gravius SURGERY NURSE Comment on above: b/l 1986 History of decompression of median nerve Carpal tunnel repair Kamilah Cross SOCIAL WORK INSTRUCTOR Comment on above: b/l 1986 History of decompression of median nerve Carpal tunnel repair Delmy Gravius SURGERY NURSE Comment on above: b/l 1986 History of decompression of median nerve Carpal tunnel repair Idalia Slarb SOCIAL WORK INSTRUCTOR Comment on above: b/l 1986 Plan of Treatment Date Care Activity Detail Author Start: 12-28-2034 RSV vaccine (adult) (1 - 1-dose 75+ series) RSV vaccine (adult) (1 - 1-dose 75+ series) [facility] Start: 08-25-2028 DTaP/Tdap/Td Vaccines (2 - Td or Tdap) DTaP/Tdap/Td Vaccines (2 - Td or Tdap) [facility] Start: 08-25-2028 Tetanus vaccination Tetanus (Td or Tdap) [facility] [facility] [place] Start: 08-25-2028 Urine microalbumin profile [facility] Start: 02-17-2026 Screening for malignant neoplasm of breast Mammography [employer] Start: 02-14-2025 Influenza vaccination [facility] Start: 01-15-2025 Influenza vaccination Influenza Vaccine (Season Ended) [facility] Start: 12-22-2024 End: 12-22-2024 Patient encounter procedure 12/22/2024 8:30 AM EDT Office Visit Pulmonary Medicine [address] [place] [address] Danna Matthew APRN.BROADCAST TRAFFIC COORDINATOR [address] [place] [address] 6m f/up Chronic hypoxemic respiratory failure (HCC) [J96.11] [facility]monary Medicine Comment on above: 6m f/up Chronic hypoxemic respiratory fa ilure (HCC) [J96.11] Start: 12-22-2024 End: 12-22-2024 ambulatory 12/22/2024 8:00 AM EDT Procedure [facility] [address] [place] [address] Wstr, Pulm Lab [facility] [address] [place] [address] Chronic hypoxemic respiratory failure (HCC) [J96.11] [facility] Comment on above: Chronic hypoxemic respiratory failure (H CC) [J96.11] Start: 09-04-2024 End: 09-04-2025 DOWNLOAD [facility] IMAGES TO [employer] DOWNLOAD POWERSHARE IMAGES TO [facility] Imaging Routine 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) Expected: 09/04/2024, Expires: 09/04/2025 [employer] Work Phone: Comment on above: Expected: 09/04/2024, Expires: Start: 06-08-2024 Screening for malignant neoplasm of lung Lung Cancer Screening [facility] Start: 05-11-2024 End: 05-11-2024 Patient encounter procedure 05/11/2024 10:00 AM EST Office Visit Pulmonary Medicine [address] [place] [address] Colleen Wolfe MD [address] [place] [address] 6MO OV Pulmonary Medicine Comment on above: 6MO OV Start: 01-16-2024 COVID-19 Vaccine ( season) COVID-19 Vaccine () [facility] Start: 01-16-2024 Covid-19 Vaccine () Covid-19 Vaccine () [facility] Start: 01-16-2024 Influenza vaccination Influenza Vaccine (#1) [facility] [place] Start: 06-05-2023 End: 01-02-2024 Ct thorax w/o contrast material CT LUNG FOLLOWUP WO [facility] Radiology Routine Lung nodules Expected: 06/05/2023, Expires: 01/02/2024 [facility] Work Phone: Comment on above: Expected: 06/05/2023, Expires: Start: 05-31-2023 Microscopic observation [Identifier] in Unspecified specimen by Gram stain Gram Stain [facility] Start: 05-31-2023 Respiratory Culture Respiratory Culture [facility] Start: 05-31-2023 Patient discharge [facility] Start: 05-30-2023 Physiotherapy of chest [facility] Start: 05-29-2023 Respiratory secretion precautions [facility] Start: 05-29-2023 Following clinical pathway protocol [facility] Start: 05-29-2023 Assessment of risk of venous thromboembolism [facility] Start: 05-29-2023 Inhalation therapy procedure [facility] Start: 05-29-2023 Insertion of catheter into peripheral vein [facility] Start: 05-29-2023 Introduction of urinary catheter [facility] Start: 05-29-2023 Measuring intake and output [facility] Start: 05-29-2023 Oxygen therapy [facility] Start: 05-29-2023 Providing care according to standard [facility] Start: 05-29-2023 Provision of activity privileges [facility] Start: 05-29-2023 Referral to service [facility] Start: 05-29-2023 End: 05-29-2023 [facility] Start: 05-29-2023 End: 05-29-2023 Hospital admission, emergency, from emergency room, medical nature [facility] Start: 05-29-2023 Admission procedure [facility] Start: 05-29-2023 Verification routine [facility] Start: 05-29-2023 [facility] Start: 05-17-2023 Behavioral Health Screening Behavioral Health Screening [facility] Start: 05-17-2023 Depression Assessment Depression Assessment [facility] Start: 01-15-2023 Covid-19 Vaccine () Covid-19 Vaccine () [facility] Start: 01-15-2023 Influenza vaccination [facility] Start: 09-02-2022 Procedure Education Eprescribed prescriptions (G8553) [facility] Work Phone: Start: 09-02-2022 Provider Instructions for Treatment Follow up if no improvement or if symptoms worsen [facility] Work Phone: Start: 05-17-2022 DEPRESSION ASSESSMENT DEPRESSION ASSESSMENT [facility] Start: 02-14-2022 Influenza vaccination Influenza Vaccine (#1) [facility] Start: 01-09-2022 Procedure Education Eprescribed prescriptions (G8553) [facility]; [facility] Work Phone: Start: 01-09-2022 Provider Instructions for Treatment [facility] Work Phone: Start: 01-09-2022 Urnls dip stick/tablet reagent auto microscopy URINALYSIS, W/ MICRO (09415) [facility]; [facility] Work Phone: Start: 01-09-2022 Urine albumin quantitative MICROALBUMIN: CREATININE RATIO (51031) AND (02223) [facility]; [facility] Work Phone: Start: 01-09-2022 Comprehensive metabolic panel METABOLIC PANEL, COMPREHENSIVE (01187) [facility]; [facility] Work Phone: Start: 01-09-2022 Lipid panel LIPID PANEL (57032) [facility]; [facility] Work Phone: Start: 01-09-2022 Blood count complete auto&auto difrntl wbc CBC W/AUTO DIFF WBC (82805) [facility]; [facility] Work Phone: Start: 09-23-2021 PNEUMOCOCCAL (2 - PCV) PNEUMOCOCCAL (2 - PCV) [facility] ic Start: 09-23-2021 Pneumococcal vaccination [facility] Start: 09-23-2021 Pneumococcal Vaccine: 50+ (2 of 2 - PCV) Pneumococcal Vaccine: 50+ (2 of 2 - PCV) [facility] Start: 08-20-2021 COVID-19 VACCINE (4 - Booster for Moderna series) COVID-19 VACCINE (4 - Booster for Moderna series) [facility] Start: 06-16-2021 COVID-19 VACCINE (4 - Booster for Moderna series) COVID-19 VACCINE (4 - Booster for Moderna series) [facility] Start: 06-16-2021 COVID-19 VACCINE (4 - Moderna series) COVID-19 VACCINE (4 - Moderna series) [facility] Start: 04-22-2021 Colonoscopy COLONOSCOPY [facility] Start: 04-22-2021 COLORECTAL CANCER SCREENING COLORECTAL CANCER SCREENING [facility] Start: 04-22-2021 Screening for malignant neoplasm of colon [facility] Start: 11-06-2020 COVID-19 Vaccine (3 - Booster for Moderna series) COVID-19 Vaccine (3 - Booster for Moderna series) [facility] [place] Start: 10-16-2020 Diabetes Screening Diabetes Screening [facility] Start: 10-02-2020 Procedure Education Eprescribed prescriptions (G8553) [facility]; [facility] Work Phone: Start: 10-02-2020 Provider Instructions for Treatment [facility]; [facility] Work Phone: Start: 09-16-2020 Procedure Education Eprescribed prescriptions (G8553) [facility]; [facility] Work Phone: Start: 09-16-2020 Provider Instructions for Treatment [facility]; [facility] Work Phone: Start: 05-24-2020 Procedure Education Eprescribed prescriptions (G8553) [facility]; [facility] Work Phone: Start: 03-27-2020 Assay of thyroid stimulating hormone tsh TSH (02138) [facility]; [facility] Work Phone: Start: 03-27-2020 TSH Qn TSH (23733) [facility] Work Phone: Start: 03-27-2020 Urnls dip stick/tablet reagent auto microscopy URINALYSIS, W/ MICRO (56079) [facility] Work Phone: Start: 03-27-2020 Urine albumin quantitative MICROALBUMIN: CREATININE RATIO (07829) AND (78540) [facility] Work Phone: Start: 03-27-2020 Comprehensive metabolic panel METABOLIC PANEL, COMPREHENSIVE (98301) [facility] Work Phone: Start: 03-27-2020 Lipid panel LIPID PANEL (32768) [facility] Work Phone: Start: 03-27-2020 Blood count complete auto&auto difrntl wbc CBC W/AUTO DIFF WBC (11825) [facility] Work Phone: Start: 03-27-2020 Procedure Education Eprescribed prescriptions (G8553) [facility] Work Phone: Start: 03-27-2020 Provider Instructions for Treatment [facility] Work Phone: Start: 2019 Hepatitis B (HBV) Vaccine (optional start 60+ years) Hepatitis B (HBV) Vaccine (optional start 60+ years) [facility] [place] Start: 2019 RSV High Risk: (Elderly (60+) or Population) (1 - Risk 60-74 years 1-dose series) RSV High Risk: (Elderly (60+) or Population) (1 - Risk 60-74 years 1-dose series) [facility] Start: 2019 RSV Vaccine (1 - 1-dose 60+ series) RSV Vaccine (1 - 1-dose 60+ series) [facility] Start: 2019 RSV Vaccine (1 - Risk 60-74 years 1-dose series) RSV Vaccine (1 - Risk 60-74 years 1-dose series) [facility] Start: 03-22-2018 Patient Education Scabies: itching [facility] Work Phone: Start: 03-22-2018 Procedure Education Eprescribed prescriptions (G8553) [facility] Work Phone: Start: 03-22-2018 Provider Instructions for Treatment Follow up if no improvement or if symptoms worsen [facility] Work Phone: Start: 09-14-2017 Procedure Education Eprescribed prescriptions (G8553) [facility] Work Phone: Start: 09-14-2017 Provider Instructions for Treatment [facility] Work Phone: Start: 07-28-2017 Provider Instructions for Treatment [facility] Work Phone: Start: 07-21-2017 Procedure Education Eprescribed prescriptions (G8553) [facility] Work Phone: Start: 07-21-2017 Provider Instructions for Treatment [facility] Work Phone: Start: 07-09-2016 Provider Instructions for Treatment [facility] Work Phone: Start: 06-27-2015 Provider Instructions for Treatment [facility] Work Phone: Start: 06-27-2015 End: 06-27-2015 Spmtry w/vc expiratory jennifer w/wo mxml vol vntj Spirometry (17714) [facility]; [facility] Work Phone: Comment on above: [facility] [employer] Start: 05-02-2015 Mammography [facility] Start: 05-02-2015 Screening for malignant neoplasm of breast Mammogram Screening [facility] Start: 04-23-2014 Provider Instructions for Treatment Follow up if no improvement or if symptoms worsen [facility] Work Phone: Start: 10-27-2013 Provider Instructions for Treatment Follow up in 2 weeks [facility] Work Phone: Start: 08-08-2013 Provider Instructions for Treatment [facility] Work Phone: Start: 05-16-2013 Provider Instructions for Treatment Follow up in 3 months [facility] Work Phone: Start: 05-11-2013 Lipid panel Lipid Panel (40603) [facility] Work Phone: Start: 05-11-2013 Hemoglobin A1c/Hemoglobin.total mass fraction (Bld) Hemoglobin Glyclated (HGB A1C) (17092) [facility] Work Phone: Start: 05-11-2013 Hemoglobin glycosylated a1c Hemoglobin Glyclated (HGB A1C) (88767) [facility]; [facility] Work Phone: Start: 05-11-2013 Blood count manual cell count each CBC with manual diff (53663) [facility] Work Phone: Start: 05-11-2013 Comprehensive metabolic panel Metabolic Panel, Comprehensive (32093) [facility] Work Phone: Start: 05-23-2012 Patient Education Sore throat: diagnosis and treatment [facility] Work Phone: Start: 05-23-2012 Cul bact xcpt urine blood/stool aerobic isol SATISH CULTURE-OTHER (69796) [facility] Work Phone: Start: 05-20-2012 Culture bacterial blood aerobic w/id isolates SATISH CULTURE-BLOOD (67644) [facility] Work Phone: Comment on above: times 2 Start: 05-20-2012 Cul bact xcpt urine blood/stool aerobic isol Anaerobic & Aerobic Culture (92995) [facility] Work Phone: Start: 05-18-2012 Provider Instructions for Treatment [facility] Work Phone: Start: 05-05-2012 Patient Education Anxiety: emotional health [facility] Work Phone: Start: 04-21-2012 Provider Instructions for Treatment *Antibiotic Usage Education - Female [facility] Work Phone: Start: 12-28-2009 Measurement of occult blood in single stool specimen [facility] Start: 12-28-2009 Screening for malignant neoplasm of colon CRC Screening [facility] Start: 12-28-2009 Shingles (RZV) Vaccine (1 of 2) Shingles (RZV) Vaccine (1 of 2) [facility] Start: 12-28-2009 SHINGRIX VACCINE (1 of 2) SHINGRIX VACCINE (1 of 2) [facility] Start: 12-28-2009 Zoster Vaccines (1 of 2) Zoster Vaccines (1 of 2) [facility] Start: 12-28-2004 Cholesterol [Mass/volume] in Serum or Plasma Cholesterol [facility] [place] Start: 12-28-2004 COLOGUARD (FIT-DNA) COLOGUARD (FIT-DNA) [facility] Start: 12-28-[address] COLONOGRAPHY [facility] Start: 12-28-2004 DIABETES SCREEN DIABETES SCREEN [facility] Start: 12-28-2004 Diabetes Screening Diabetes Screening [facility] Start: 12-28-2004 FECAL OCCULT BLOOD FECAL OCCULT BLOOD [facility] Start: 12-28-2004 Lipid 1996 panel - Serum or Plasma Lipid Screening [facility] Start: 12-28-2004 Lipid panel [facility] Start: 12-28-2004 LIPID SCREEN LIPID SCREEN [facility] Start: 12-28-2004 Screening for malignant neoplasm of colon [facility] Start: 12-28-2004 SIGMOIDOSCOPY SIGMOIDOSCOPY [facility] Start: 1999 Screening for malignant neoplasm of breast [facility] [place] Start: 12-28-1989 HPV TESTING HPV TESTING [facility] Start: 12-28-1989 Screening for malignant neoplasm of cervix HPV Testing [facility] Start: 12-28-1989 Zoledronic acid therapy ALPHA-1 ANTITRYPSIN DEFICIENCY SCREENING [facility] Start: 12-28-1980 PAP TESTING PAP TESTING [facility] Start: 12-28-1980 Screening for malignant neoplasm of cervix [facility] [place] Start: 12-28-1978 Hepatitis A (HAV) Vaccine (optional start 19+ years) Hepatitis A (HAV) Vaccine (optional start 19+ years) [facility] [place] Start: 12-28-1977 ANNUAL PCP TEAM CHRONIC DISEASE VISIT ANNUAL PCP TEAM CHRONIC DISEASE VISIT [facility] Start: 12-28-1977 Anxiety Screening Anxiety Screening [facility] Start: 12-28-1977 Depression Screening Depression Screening [facility] Start: 12-28-1977 HEPATITIS C SCREENING HEPATITIS C SCREENING [facility] Start: 12-28-1977 Hepatitis C screening [facility] [place] Start: 12-28-1977 HIV SCREENING HIV SCREENING [facility] Start: 12-28-1977 HIV screening HIV Screening [facility] Start: 12-28-1974 HIV screening HIV Test [facility] [place] Start: 1971 Adult depression screening assessment DEPRESSION SCREENING [facility] Start: 12-28-1960 MMR Vaccines (1 of 1 - Standard series) MMR Vaccines (1 of 1 - Standard series) [facility] Start: 1959 HIV screening HIV Screening [facility] Start: 1959 Lipid panel Lipid Panel [facility] Start: 1959 Screening for malignant neoplasm of colon [facility] [place] Start: 1959 Yearly Adult Physical Yearly Adult Physical [facility] Bacteria identified in Sputum by Respiratory culture [facility] End: 12-18-2023 CT LUNG SCREEN WO IVCON CT LUNG SCREEN WO IVCON Radiology Routine Encounter for screening for lung cancer Tobacco use current 1 Occurrences starting 11/18/2022 until 12/18/2023 [facility] Work Phone: Comment on above: 1 Occurrences starting 11/18/2022 until 12/18/2023 End: 11-29-2023 LUNG DIFFUSION CAPACITY (DLCO) LUNG DIFFUSION CAPACITY (DLCO) PFT Routine Stage 3 severe COPD by GOLD classification (HCC) 1 Occurrences starting 10/30/2022 until 11/29/2023 [facility] Work Phone: Comment on above: 1 Occurrences starting 10/30/2022 until 11/29/2023 OXIMETRY - NOCTURNAL OXIMETRY - NOCTURNAL Procedures Routine Centrilobular emphysema (HCC) Stage 3 severe COPD by GOLD classification (HCC) Influenza due to influenza A subtype H1N1 virus with pneumonia Ordered: 06/23/2023 [facility] Work Phone: Comment on above: Ordered: 06/23/2023 OXIMETRY - NOCTURNAL OXIMETRY - NOCTURNAL Procedures Routine Chronic hypoxemic respiratory failure (HCC) Ordered: 06/23/2024 [facility] Work Phone: Comment on above: Ordered: 06/23/2024 End: 08-11-2024 OXIMETRY WITH AMBULATION OXIMETRY WITH AMBULATION PFT Routine Stage 3 severe COPD by GOLD classification (HCC) 1 Occurrences starting 07/13/2023 until 08/11/2024 [facility] Work Phone: Comment on above: 1 Occurrences starting 07/13/2023 until 08/11/2024 End: 07-23-2025 OXIMETRY WITH AMBULATION OXIMETRY WITH AMBULATION PFT Routine Chronic hypoxemic respiratory failure (HCC) 1 Occurrences starting 06/23/2024 until 07/23/2025 [facility] Comment on above: 1 Occurrences starting 06/23/2024 until 07/23/2025 Patient referral [facility] Work Phone: SPIROMETRY BASELINE ONLY SPIROME TRY BASELINE ONLY PFT Routine Centrilobular emphysema (HCC) 10/27/2021 9:40 AM EDT [facility] Work Phone: End: 11-29-2023 SPIROMETRY WITH DILATOR IF OBSTRUCTED SPIROMETRY WITH DILATOR IF OBSTRUCTED PFT Routine Stage 3 severe COPD by GOLD classification ([facility]) 1 Occurrences starting 10/30/2022 until 11/29/2023 [facility] Work Phone: Comment on above: 1 Occurrences starting 10/30/2022 until 11/29/2023 [facility] Work Phone: [facility] Work Phone: [facility] Work Phone: [facility] Work Phone: [facility] Work Phone: [facility] Work Phone[facility] Work Phone: [facility] Work Phone[facility] Work Phone: [facility] Work Phone: [facility] Work Phone: [facility]; [facility] Work Phone: [facility] Work Phone: [facility] Immunizations Immunization Date Immunization Notes Care Provider Fa cility 06-16-2023 influenza, injectabl e, quadrivalent, preservative free Devi Nava PA-C Work Phone: [facility] 06-16-2023 influenza virus vaccine, unspecified formulation Danna Matthew APRN.BROADCAST TRAFFIC COORDINATOR Work Phone: [facility] 03-27-2021 influenza, injectabl e, quadrivalent, contains preservative Respiratory Wstr Work Phone: [facility] Work Phone: 03-27-2021 influenza virus vaccine, unspecified formulation Ct (I-Stat) Work Phone: [facility] 09-23-2020 pneumococcal polysaccharide vaccine, 23 valent Respiratory Wstr Work Phone: [facility] 09-14-2020 pneumococcal polysaccharide vaccine, 23 valent Pennie Marichuy DO Work Phone: [facility]; [facility] Work Phone: 09-11-2020 COVID-19 vaccine, fu ll dose (MODERNA) Res[facility] Wstr Work Phone: [facility] 08-15-2020 COVID-19 (Moderna) Pennie Marichuy DO Work Phone: [facility]; [facility] Work Phone: 08-10-2020 COVID-19 vaccine, fu ll dose (MODERNA) [facility] Work Phone: [facility] 02-18-2020 influenza, injectabl e, quadrivalent, preservative free Respiratory Wstr Work Phone: [facility] Work Phone: 02-18-2020 influenza virus vaccine, unspecified formulation Pennie Hale Work Phone: [facility] [place] 03-14-2019 Influenza, injectabl e, Madin Sue Canine Kidney, quadrivalent with preservative Pennie Marichuy Work Phone: [facility] [place] 02-28-2019 influenza, seasonal, injectable Respiratory Wstr Work Phone: [facility] Work Phone: 08-25-2018 tetanus toxoid, reduced diphtheria toxoid, and acellular pertussis vaccine, adsorbed Respiratory Wstr Work Phone: [facility] 02-16-2018 Influenza, injectabl e, Madin Sue Canine Kidney, preservative free, quadrivalent Pennie Marichuy Work Phone: [facility] [place] 07-07-2017 Influenza, injectabl e, Madin Sue Canine Kidney, preservative free, quadrivalent Pennie Marichuy Work Phone: [facility] [place] 07-01-2016 influenza, injectabl e, quadrivalent, preservative free [facility] 07-01-2016 influenza, seasonal, injectable, preservative free Pennie Marichuy Work Phone: [facility] [place] 03-08-2015 influenza, injectabl e, quadrivalent, contains preservative Respiratory Wstr Work Phone: [facility] Payers Date Payer Category Payer Self-pay [id number] 2024 Managed Care (Private) [facility] [id number] 2022 Unknown 2021 Private Health Insurance [employer] POS [id number] 2021-Present [phone] [address] [place] [address] POS [id number] 2021 Private Health Insurance [id number] Commercial Managed C are - HMO [id number] 2017 Private Health Insurance [id number] 2017 Private Health Insurance [id number] Private Health Insurance [id number] Private Health Insurance [id number] 1959 Unknown [id number] 1959 Unknown [id number] 1959 Unknown [id number] 1959 Unknown [id number] Unknown MYRON [id number] Unknown [id number] Unknown [id number] Social History Date Type Detail Facility Alcohol Use: Current every da y smoker [facility] Work Phone: Start: 06-29-2013 End: 02-03-2021 Caffeine Use [facility] Work Phone: Comment on above: qd none Exercise History: Does not exercise. [facility] Work Phone: Living Situation: Lives with spouse. [facility] Work Phone: Number of Child (age 0-17) Dependents: 1. [facility] Work Phone: Tobacco use: Smokes 1 pack of cigarettes per day. [facility] Work Phone: Alcohol Use: Alcohol Use: [facility]; [facility] Work Phone: Exercise History: Exercise History: Compr [facility]; [facility] Work Phone: Living Situation: Living Situation: [facility]; [facility] Work Phone: Number of Child (age 0-17) Dependents: Number of Child (age 0-17) Dependents: [facility]; [facility] Work Phone: Tobacco use: Tobacco use: [facility]; [facility] Work Phone: Start: 06-29-2013 End: 09-01-2017 Tobacco smoking status NHIS Smokes tobacco daily [facility] Work Phone: Start: 06-29-2013 End: 09-01-2017 Tobacco use and exposure Smokeless tobacco non-user [facility] Work Phone: Start: 02-02-2018 End: 10-27-2021 Alcohol intake Current drinker of alcohol (finding) [facility] Start: 09-01-2013 History SDOH Alcohol Comment Rarely, occassionally [facility] Start: 1960 Sex Assigned At Female C [facility] Start: 05-29-1975 End: 05-29-2023 History of tobacco use Cigarette Smoker [facility] Start: 08-04-2017 End: 09-04-2024 Tobacco Comment using nicotine patch since 07/28/17 and smokes 1cigarette/day [facility] [place] Start: 09-24-2017 Alcohol Comment social [facility] Start: 1960 Sex Assigned At Not on file [facility] Start: 10-30-2022 Tobacco Comment 2 ppd in past [facility] Start: 02-03-2021 End: 11-18-2022 Tobacco use panel [facility] Work Phone: National Score (1-100), lower number is lower risk 72 [facility] Start: 09-22-2020 Gender identity Identifies as female gender (finding) [facility] Start: 09-22-2020 Sexual orientation Choose not to dis close [facility] Start: 05-29-2023 End: 05-29-2023 Tobacco smoking status NHIS Unknown if ever smoked [facility] Start: 06-30-2016 Occasional [facility] Start: 06-30-2016 None [facility] Start: 06-30-2016 Spouse/ Signif icant Other [facility] Start: 06-30-2016 Cigarettes [facility] Start: 05-24-2023 Tobacco Comment 2 ppd in past, averaged 1.5 PPD for 48 years. Has smoked 1/2 PPD for [facility] Start: 07-13-2023 End: 09-04-2024 Tobacco smoking status NHIS Ex-smoker [facility] Start: 05-29-1975 End: 05-29-2023 History of tobacco use Current smoker [facility] Start: 07-20-2017 End: 08-23-2024 Sex Female (finding) [facility] Medical Equipment Procedure Code Equipment Code Equipment Origin al Text Equipment Identifier Dates Cover Mehdrad Hole Contoured Tab [id number] Start: 10-14-2017 4mm Screws [id number] Start: 10-14-2017 4mm Mini Clip [id number] Start: 10-14-2017 3.9mm Mini Clip [id number] Start: 10-14-2017 5mm Clip [id number] Start: 10-14-2017 Directinject On Demand Krishnan Cement [id number] Start: 10-14-[address] art: 10-14-[address] art: 10-14-2017 Goals Date Patient Goal Desired Activity /State Functional Status Date Assessment Result Facility 05-31-2023 Functional status Ambulates;Bath room Privilege [facility] Work Phone: 05-30-2023 Functional status Tolerates Activity Fair [facility] Work Phone: 10-14-2017 Are you deaf, or do you have serious difficulty hearing No 10/14/2017 7:23 AM Mercedes Denny No [facility] Work Phone: 10-14-2017 Are you blind, or do you have serious difficulty seeing, even when wearing glasses No 10/14/2017 7:23 AM EDT Mercedes Ríos No [facility] 10-14-2017 Do you have serious difficulty walking or climbing stairs No 10/14/2017 7:23 AM EDT Mercedes Ríos No [facility] 10-14-2017 Do you have difficul ty dressing or bathing No 10/14/2017 7:23 AM EDT Mercedes Ríos No [facility] 10-14-2017 Because of a physica l, mental, or emotional condition, do you have difficulty doing errands alone such as visiting a physician's office or shopping No 10/14/2017 7:23 AM EDT Mercedes Ríos No [facility] 07-24-2014 Are you deaf, or do you have serious difficulty hearing No 07/24/2014 8:35 AM EDT Pennie Le LPN No [facility] 07-24-2014 Are you blind, or do you have serious difficulty seeing, even when wearing glasses No 07/24/2014 8:35 AM EDT Pennie Le LPN No [facility] 07-24-2014 Do you have serious difficulty walking or climbing stairs No 07/24/2014 8:35 AM EDT Pennie Le LPN No [facility] 07-24-2014 Do you have difficul ty dressing or bathing No 07/24/2014 8:35 AM Pennie Mahan LPN No [facility] 07-24-2014 Because of a physica l, mental, or emotional condition, do you have difficulty doing errands alone such as visiting a physician's office or shopping No 07/24/2014 8:35 AM EDT Pennie Le LPN No [facility] Mental Status Date Assessment Result Facility 05-31-2023 Cognitive function Voice/Name [facility] Work Phone: 05-29-2023 Cognitive function Level Of Cons ciousness Appropriate;Follows Commands;Lethargic [facility] Work Phone: 10-14-2017 Because of a physica l, mental, or emotional condition, do you have serious difficulty concentrating, remembering, or making decisions No 10/14/2017 7:23 AM EDT Mercedes Ríos No [facility] [place] 07-24-2014 Because of a physica l, mental, or emotional condition, do you have serious difficulty concentrating, remembering, or making decisions No 07/24/2014 8:35 AM EDT Pennie Le LPN No [facility] Clinical Notes 10-27-2021 to 12-22-2024 Patient InstructionsJose Caceres MD - 09/04/2024 1:30 PM EDTCAnjali abernathy MA - 09/04/2024 1:16 PM Patrice Trevino PA - 08/30/2024 9:19 AM EDTPElbert velasco RPFT - 10/19/2023 9:06 AM EDT Note Date & Type Note Facility 12-22-2024 Note HNO ID: [id number] Author: DANNA MATTHEW APRN.BROADCAST TRAFFIC COORDINATOR Service: ? Author Type: Nurse Practitioner Type: Progress Notes Filed: 12/22/2024 08:41 Note Text: Pulmonary Medicine Patients name: Nidia Zavaleta PCP: Pennie Hale DO, DO CC: follow-up HPI: Nidia Zavaleta is a 63 year old female former smoker (72 pack years) with PMH significant for HTN, moderate COPD and lung nodules. RADHA 06/2024 with stable respiratory symptoms. Current maintenance therapy with Trelegy and as needed Albuterol. She presents today for follow-up. Since her last visit, she reports overall feeling well. She completed overnight oximetry twice but was told both times by [employer] that it had fallen off and did not have enough data. She does not want to repeat again. Repeat oximetry with ambulation testing today shows she no longer requires supplemental O2 with activity. Has not yet completed nocturnal testing.Today, patient denies cough, wheezing, chest tightness of significant dyspnea. No fevers, chills, or night sweats. No recent hospitalizations or ED visits or upper respiratory infections. Rarely uses Albuterol. DME: [employer] Does not use supplemental O2 with exertion and nocturnal PAST MEDICAL HISTORY Diagnosis Date Benign neoplasm of rectum and anal canal Cigarette smoker COPD (chronic obstructive pulmonary disease) (HCC) Emphysema High blood pressure Controlled on med. Novel H1N1 influenzal acute respiratory infection Pneumonia, viral Pulmonary nodules CT stable 2 years or more. Surveillance scanning stopped 2014. 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 Does not recall specific reaction. Medication List Accurate as of December 20, 2024 2:27 PM. If you have any questions, ask your nurse or doctor. CONTINUE taking these medications albuterol HFA 90 mcg/actuation inhaler Commonly known as: PROVENTIL HFA, VENTOLIN HFA Inhale 2 Puffs as instructed every 4 hours as needed. amLODIPine 2.5 mg tablet Commonly known as: NORVASC aspirin, enteric coated 81 mg EC tablet Commonly known as: ASPIRIN, ENTERIC COATED multivitamin with minerals tablet Commonly known as: VISION/OPTIGEN TRELEGY ELLIPTA 100-62.5-25 mcg inhalation powder Generic drug: wmowyfrbchl-wmtfactsd-cowwmzxh INHALE 1 PUFF ONCE DAILY VITAMIN C 1,000 mg tablet Generic drug: Ascorbic Acid Take one(1) tablet daily. DATA: I personally reviewed and analyzed all labs, radiographs and available pulmonary function testing PFT: 11/2022 Spirometry indicates severe obstruction. There was not a significant bronchodilator response. The RV and RV/TLC are elevated indicating air trapping. The diffusing capacity is moderately reduced. Review of Systems Constitutional: Negative for activity change, appetite change and unexpected weight change. HENT: Negative for congestion, mouth sores, postnasal drip and sinus pain. Respiratory: Negative for cough, chest tightness, shortness of breath and wheezing. Cardiovascular: Positive for leg swelling (intermittent). Negative for chest pain and palpitations. Neurological: Negative for dizziness and weakness. BP 120/60 Pulse 73 Resp 17 Wt 61.7 kg (136 lb) LMP 01/06/2013 SpO2 100% BMI 26.56 kg/m? Physical Exam Vitals reviewed. Constitutional: General: She is not in acute distress. Appearance: Normal appearance. She is not ill-appearing. HENT: Head: Normocephalic. Mouth/Throat: Mouth: Mucous membranes are moist. Pharynx: No oropharyngeal exudate. Cardiovascular: Rate and Rhythm: Normal rate and regular rhythm. Heart sounds: Normal heart sounds. Pulmonary: Effort: Pulmonary effort is normal. No respiratory distress. Breath sounds: No wheezing or rhonchi. Musculoskeletal: Right lower leg: No edema. Left lower leg: No edema. Skin: General: Skin is warm and dry. Capillary Refill: Capillary refill takes less than 2 seconds. Neurological: General: No focal deficit present. Mental Status: She is alert. ASSESSMENT/PLAN: 1. Centrilobular emphysema (HCC) - ICD9: 492.8, ICD10: J43.2 (primary diagnosis) 2. Stage 3 severe COPD by GOLD classification (HCC) - ICD9: 496, ICD10: J44.9 - Symptoms controlled. - continue current treatment with Trelegy and Albuterol as needed. 3. Chronic hypoxemic respiratory failure (HCC) - ICD9: 518.83, 799.02, ICD10: J96.11 - no longer requires supplemental oxygen with exertion. 4. Former smoker - ICD9: V15.82, ICD10: Z87.891 - continued cessation - previously followed with [facility] but has been obtaining chest imaging with primary care. F/u 6 months Portions of this documentation were copied and pasted from previous office visit notes in order to provide a cohesive continuity of the history. The note has been reviewed and edited and updated as necessary. Danna Matthew, ADVERTISING ANALYST.BROADCAST TRAFFIC COORDINATOR I spent a total of 24 minutes on the date of the service which inclu (more content not included)... [facility] 12-22-2024 Note HNO ID: [id number] Author: ELBERT HARRINGTON RPFT Service: ? Author Type: Respiratory Therapist Type: Procedures Filed: 12/22/2024 08:12 Note Text: RESPIRATORY THERAPY OXIMETRY WITH AMBULATION Oximetry with Ambulation Test for This Encounter O2 Device O2 Adapter NC O2 Flow SpO2% HR Activity Ft Walked (ft) Time (min) Avg Speed (MPH) R/A 100 73 Resting R/A 95 96 Walking, usual pace 590 3 2.23 General Information Pulse Oximetry Site Total Time Spent Walking Assistance/O2 Supply Carrier Forehead 30 None NAME: NEREYDA Perez PATIENT NAME: Nidia Zavaleta DATE: December 22, 2024 TIME: 8:12 AM Comment: patient stated she doesn't have a faster walk pace [facility] 09-07-2024 Note HNO ID: [id number] Author: AL QUINTERO MD Service: ? Author Type: Physician Type: Progress Notes Filed: 09/07/2024 10:21 Note Text: [facility] Subjective Nidia Zavaleta is a 63 year old female. Patient presents with: Ear Problem: Unable to hear out of R ear, feels clogged,dizziness x 8 days, finished ATB and pain Patient was treated for URI with sinusitis and right otitis media here on 08/30/24 with 1 week of Augmentin. Her sinus symptoms have improved but she continues to have sensation that her right ear is plugged. She has decreased hearing and feels off balance at times. Denies current fever, sinus pain, sore throat, shortness of breath, or cough. She has been irrigating the right ear with peroxide and water. Ear Problem Review of Systems HENT: Positive for ear pain. Objective BP 158/80 Pulse 71 Temp 36.7 ?C (98 ?F) Resp 18 Wt 62 kg (136 lb 11 oz) LMP 01/06/2013 SpO2 96% BMI 26.69 kg/m? Physical Exam Constitutional: General: She is not in acute distress. HENT: Right Ear: Ear canal normal. A middle ear effusion (Probable clear middle ear effusion) is present. There is no impacted cerumen. Tympanic membrane is injected (Mild hyperemia along the manubrium). Tympanic membrane is not perforated, erythematous, retracted or bulging. Left Ear: Tympanic membrane and ear canal normal. Ears: Nose: No congestion. Right Sinus: No maxillary sinus tenderness or frontal sinus tenderness. Left Sinus: No maxillary sinus tenderness or frontal sinus tenderness. Mouth/Throat: Mouth: Mucous membranes are moist. Pharynx: No oropharyngeal exudate or posterior oropharyngeal erythema. Eyes: Extraocular Movements: Extraocular movements intact. Conjunctiva/sclera: Conjunctivae normal. Pupils: Pupils are equal, round, and reactive to light. Cardiovascular: Rate and Rhythm: Normal rate and regular rhythm. Heart sounds: No murmur heard. Pulmonary: Effort: No respiratory distress. Breath sounds: No wheezing, rhonchi or rales. Musculoskeletal: Cervical back: Neck supple. Lymphadenopathy: Cervical: No cervical adenopathy. Neurological: Mental Status: She is alert and oriented to person, place, and time. Comments: Head tremor {ASSESSMENT/PLAN: 1. Acute middle ear effusion, right - ICD9: 381.00, ICD10: H65.191 She has residual effusion from recent otitis media without signs of infection. Ear anatomy reviewed with patient. She may continue expectant management for usually self resolving condition. Avoid irrigation since there is no impaction or auditory canal debris. Follow-up with ear nose and throat if ear fullness symptoms persist Al Quintero MD History and Record Review External record(s) reviewed: prior outpatient record. Findings from review of outpatient records: Right tympanic membrane erythema and bulge present at visit 08/30/2024. Differential Diagnoses - Right middle ear effusion is more likely for the following reason(s): suggested by HANDP - Auditory canal impaction or persistent middle ear infection is less likely for the following reason(s): No evidence on exam Procedures [facility] 09-04-2024 Instructions Jose Caceres MD - 09/04/2024 1:51 PM EDT Follow up in 1 year with CTA head. 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 HENT: Negative. Eyes: Negative. Respiratory: Negative. Cardiovascular: Negative. Gastrointestinal: Negative. Genitourinary: Negative. Musculoskeletal: Negative. Skin: Negative. Neurological: Negative. Endo/Heme/Allergies: Negative. Psychiatric/Behavioral: Negative. 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 Past Surgical History: Procedure Laterality Date APPENDECTOMY; MAMMAPLASTY, AUGMENTATION; W/O PROSTHETIC IMPLANT REPAIR, ANEURYSM, CRANIOTOMY Right 10/14/2017 Procedure: REPAIR, ANEURYSM, CRANIOTOMY; Surgeon: Elder Chacko MD; Location: PERIOPERATIVE SERVICES; Service: Neurosurgery Social History Tobacco Use Smoking status: Former Current packs/day: 0.50 Average packs/day: 0.5 packs/day for 43.0 years (21.5 ttl pk-yrs) Types: Cigarettes Smokeless tobacco: Never Tobacco comments: using nicotine patch since 07/28/17 and smokes 1cigarette/day Substance Use Topics Alcohol use: Yes Comment: social No family history on file. Current Outpatient Medications on File Prior to Visit Medication Sig Dispense Refill docusate sodium (COLACE) 100 MG capsule Take 1 Capsule by mouth 2 times daily. 60 Capsule 3 Nutritional Supplements (VITAMIN D MAINTENANCE ORAL) Take by mouth. amLODIPine (NORVASC) 2.5 MG tablet umeclidinium-vilanterol (ANORO-ELLIPTA) 62.5-25 MCG/INH AEPB inhalation powder Inhale by mouth. Ascorbic Acid (VITAMIN C) 1000 MG TABS Take one(1) tablet daily. Multiple Vitamins-Minerals (MULTIVITAMIN ADULT) TABS Take one(1) tablet daily. No current facility-administered medications on file prior to visit. Allergies Allergen Reactions Creosote Vitals: 09/04/24 1315 BP: 144/69 Pulse: 78 Resp: 16 SpO2: 97% Physical Exam HENT: Head: Normocephalic. Mouth/Throat: Mouth: Mucous membranes are moist. Pharynx: Oropharynx is clear. Eyes: Extraocular Movements: Extraocular movements intact. Conjunctiva/sclera: Conjunctivae normal. Pupils: Pupils are equal, round, and reactive to light. Pulmonary: Effort: Pulmonary effort is normal. Musculoskeletal: General: Normal range of motion. Cervical back: Normal range of motion and neck supple. Skin: General: Skin is warm and dry. Neurological: General: No focal deficit present. Mental Status: She is alert and oriented to person, place, and time. Cranial Nerves: No cranial nerve deficit. Sensory: No sensory deficit. Motor: No weakness. MRA Head W/O 08/18/24 at [facility] FINDINGS: Anatomy: [place] of [place] anatomy is within normal limits. Anterior Circulation: Distal internal carotid anterior and middle cerebral arteries appear patent without high grade stenosis. Postoperative changes aneurysmal clipping in the anterior cerebral artery region. 2 mm focal outpouching of the left supraclinoid ICA (series 2, image 99). Posterior Circulation: Unremarkable. IMPRESSION: Postoperative changes RICHARD aneurysmal clipping. No evidence of recurrence. 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 Nidia was seen today for new patient, to establish relationship. 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 Chacko. Lost to follow-up, and more recently presented to primary care provider who ordered an MRA head. No recurrent anterior cerebral artery aneurysm, though a new 2 mm left supraclinoid ICA aneurysm noted. Reviewed the natural history of brain aneurysms, clinical presentation, rupture risk, risk factors, treatment indications and options. At this point, recommend follow-up with CTA head in 1 year. She was agreeable with this plan. Patient contact my office in a to schedule follow-up CTA head and equipment to review after completed. Jose Caceres MD MSc FRCSC FAANS Neurosurgeon Nurse Consultant Department of Neurological Surgery [facility] [employer] [facility] Pager [phone] ..Patient was identified by name and date of . Anjali Ellis MA documented in this encounter [facility] 09-04-2024 Note [facility] Neurolog ical Surgery Consultation: Nidia Zavaleta 63 year old female Chief complaint: Hx of R frontal craniotomy for clipping of R A2/3 junction aneurysm in 2018; new L supraclinoid ICA aneurysm Referring provider: Dr. 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 HENT: Negative. Eyes: Negative. Respiratory: Negative. Cardiovascular: Negative. Gastrointestinal: Negative. Genitourinary: Negative. Musculoskeletal: Negative. Skin: Negative. Neurological: Negative. Endo/Heme/Allergies: Negative. Psychiatric/Behavioral: Negative. 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 Past Surgical History: Procedure Laterality Date APPENDECTOMY; MAMMAPLASTY, AUGMENTATION; W/O PROSTHETIC IMPLANT REPAIR, ANEURYSM, CRANIOTOMY Right 10/14/2017 Procedure: REPAIR, ANEURYSM, CRANIOTOMY; Surgeon: Elder Chacko MD; Location: PERIOPERATIVE SERVICES; Service: Neurosurgery Social History Tobacco Use Smoking status: Former Current packs/day: 0.50 Average packs/day: 0.5 packs/day for 43.0 years (21.5 ttl pk-yrs) Types: Cigarettes Smokeless tobacco: Never Tobacco comments: using nicotine patch since 07/28/17 and smokes 1cigarette/day Substance Use Topics Alcohol use: Yes Comment: social No family history on file. Current Outpatient Medications on File Prior to Visit Medication Sig Dispense Refill docusate sodium (COLACE) 100 MG capsule Take 1 Capsule by mouth 2 times daily. 60 Capsule 3 Nutritional Supplements (VITAMIN D MAINTENANCE ORAL) Take by mouth. amLODIPine (NORVASC) 2.5 MG tablet umeclidinium-vilanterol (ANORO-ELLIPTA) 62.5-25 MCG/INH AEPB inhalation powder Inhale by mouth. Ascorbic Acid (VITAMIN C) 1000 MG TABS Take one(1) tablet daily. Multiple Vitamins-Minerals (MULTIVITAMIN ADULT) TABS Take one(1) tablet daily. No current facility-administered medications on file prior to visit. Allergies Allergen Reactions Creosote Vitals: 09/04/24 1315 BP: 144/69 Pulse: 78 Resp: 16 SpO2: 97% Physical Exam HENT: Head: Normocephalic. Mouth/Throat: Mouth: Mucous membranes are moist. Pharynx: Oropharynx is clear. Eyes: Extraocular Movements: Extraocular movements intact. Conjunctiva/sclera: Conjunctivae normal. Pupils: Pupils are equal, round, and reactive to light. Pulmonary: Effort: Pulmonary effort is normal. Musculoskeletal: General: Normal range of motion. Cervical back: Normal range of motion and neck supple. Skin: General: Skin is warm and dry. Neurological: General: No focal deficit present. Mental Status: She is alert and oriented to person, place, and time. Cranial Nerves: No cranial nerve deficit. Sensory: No sensory deficit. Motor: No weakness. MRA Head W/O 08/18/24 at [facility] FINDINGS: Anatomy: Andreafski of Hernandez anatomy is within normal limits. Anterior Circulation: Distal internal carotid anterior and middle cerebral arteries appear patent without high grade stenosis. Postoperative changes aneurysmal clipping in the anterior cerebral artery region. 2 mm focal outpouching of the left supraclinoid ICA (series 2, image 99). Posterior Circulation: Unremarkable. IMPRESSION: Postoperative changes RICHARD aneurysmal clipping. No evidence of recurrence. 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 Nidia was seen today for new patient, to establish relationship. 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 Chacko. Lost to follow-up, and more recently presented to primary care provider who ordered an MRA head. No recurrent anterior cerebral artery aneurysm, though a new 2 mm left supraclinoid ICA aneurysm noted. Reviewed the natural history of brain aneurysms, clinical presentation, rupture risk, risk factors, treatment indications and options. At this point, recommend follow-up with CTA head in 1 year. She was agreeable with this plan. Patient contact my office in a to schedule follow-up CTA head and equipment to review after completed. Jose Caceres MD MSc [facility] Neurosurgeon Nurse Consultant Department of Neurological Surgery [facility] (more content not included)... [facility] 08-30-2024 Note HNO ID: [id number] Author: PATRICE YAO PA Service: ? Author Type: Physician Histotechnologist Type: Progress Notes Filed: 08/30/2024 09:21 Note Text: [facility] Subjective Nidia Zavaleta is a 63 year old female. Patient presents with: Ear Pain: Right ear pain, sinus, KRISHNAN and congestion x 3 days HPI 63-year-old female presents for sinus congestion, headache, ear pain x 3 days. She has not had fevers. No cough. No chest pain or shortness of breath. She does have history of COPD, she did quit smoking. She states she has no cough currently. She has been taking cold and flu medication without much improvement. She states she has a lot of sinus pressure and sinus headache. She was seen by her PCP and states that they did a strep test on her and she is awaiting results of that. No other complaint. PAST MEDICAL HISTORY Diagnosis Date Benign neoplasm of rectum and anal canal Cigarette smoker COPD (chronic obstructive pulmonary disease) (HCC) Emphysema High blood pressure Controlled on med. Novel H1N1 influenzal acute respiratory infection Pneumonia, viral Pulmonary nodules CT stable 2 years or more. Surveillance scanning stopped 2014. PAST SURGICAL HISTORY Procedure Laterality Date APPENDECTOMY childhood BREAST AUGMENTATION WITH IMPLANT 1997 bilateral CARPAL TUNNEL RIGHT WRIST and left wrist COLONOSCOPY FLX DX W/COLLJ SPEC WHEN PFRMD 04/22/2011 Colonoscopy LIG/TRNSXJ FLP TUBE ABDL/VAG APPR UNI/BI ALLERGIES Creosote MEDICATIONS amoxicillin-clavulanate potassium (AUGMENTIN) 875-125 mg per tablet Take 1 tablet by mouth two times a day for 7 days. iiidwlidfng-hrtslraxd-klmqqzug (TRELEGY ELLIPTA) 100-62.5-25 mcg inhalation powder INHALE 1 PUFF ONCE DAILY albuterol HFA (PROVENTIL HFA, VENTOLIN HFA) 90 mcg/actuation inhaler Inhale 2 Puffs as instructed every 4 hours as needed. multivitamin with minerals (VISION/OPTIGEN) tablet Take 1 tablet by mouth once daily. aspirin, enteric coated (ASPIRIN, ENTERIC COATED) 81 mg EC tablet Take 81 mg by mouth once daily. amLODIPine (NORVASC) 2.5 mg tablet VITAMIN C 1000MG TABLET Take one(1) tablet daily. MULTIVITAMIN TABLET Take one(1) tablet daily. FAMILY HISTORY Adopted: Yes Problem Relation Age of Onset Breast Cancer Other No breast cancer known; patient grew up without parents; no breast cancer amongst siblings Cancer Mother 2018, cancer of kidney? Social History Tobacco Use Smoking status: Former Current packs/day: 0.00 Average packs/day: 1.5 packs/day for 48.0 years (72.0 ttl pk-yrs) Types: Cigarettes Start date: 05/29/1975 Quit date: 05/29/2023 Years since quittin.2 Smokeless tobacco: Never Tobacco comments: 2 ppd in past, averaged 1.5 PPD for 48 years. Has smoked 1/2 PPD for Substance Use Topics Alcohol use: Yes Comment: Rarely, occassionally Drug use: No Review of Systems Constitutional: Negative for chills and fever. HENT: Positive for congestion, ear pain, sinus pressure, sinus pain and sore throat. Respiratory: Negative for cough and shortness of breath. Cardiovascular: Negative for chest pain. Gastrointestinal: Negative for diarrhea and vomiting. Neurological: Positive for headaches. Objective BP 142/82 Pulse 78 Temp 36.4 ?C (97.6 ?F) (Tympanic) Resp 18 Wt 62.6 kg (138 lb 0.1 oz) LMP 01/06/2013 SpO2 95% BMI 26.95 kg/m? Physical Exam Vitals reviewed. Constitutional: General: She is not in acute distress. Appearance: Normal appearance. She is not toxic-appearing. HENT: Right Ear: Ear canal normal. A middle ear effusion is present. Tympanic membrane is erythematous and bulging. Left Ear: Tympanic membrane and ear canal normal. Nose: Congestion present. Right Sinus: Maxillary sinus tenderness present. Left Sinus: Maxillary sinus tenderness present. Mouth/Throat: Mouth: Mucous membranes are moist. Eyes: Conjunctiva/sclera: Conjunctivae normal. Cardiovascular: Rate and Rhythm: Normal rate and regular rhythm. Pulmonary: Effort: Pulmonary effort is normal. Breath sounds: Normal breath sounds. Skin: General: Skin is warm and dry. Neurological: Mental Status: She is alert. {ASSESSMENT/PLAN: 1. Acute otitis media, right - ICD9: 382.9, ICD10: H66.91 (primary diagnosis) - Will begin treatment with Augmentin 875 mg PO BID for 7 days - Supportive care with plenty of fluids, rest, and analgesia prn. 2. URI, acute - ICD9: 465.9, ICD10: J06.9 - Discussed viral etiology and rationale for treatment. - Symptomatic treatment with prn analgesia - Supportive care with fluids and rest - The patient may also use OTC decongestants prn. Recommend Flonase Diagnosis and treatment plan were discussed and questions were answered to the patient's satisfaction. Pt acknowledged understanding of concepts and follow up plan. Specific signs and symptoms that would indicate the need for higher level of care were discussed in detai (more content not included)... [facility] 08-30-2024 History of Present illness Narrative [facility] Subjective Nidia Zavaleta is a 63 year old female. Patient presents with: Ear Pain: Right ear pain, sinus, KRISHNAN and congestion x 3 days HPI 63-year-old female presents for sinus congestion, headache, ear pain x 3 days. She has not had fevers. No cough. No chest pain or shortness of breath. She does have history of COPD, she did quit smoking. She states she has no cough currently. She has been taking cold and flu medication without much improvement. She states she has a lot of sinus pressure and sinus headache. She was seen by her PCP and states that they did a strep test on her and she is awaiting results of that. No other complaint. PAST MEDICAL HISTORY Diagnosis Date Benign neoplasm of rectum and anal canal Cigarette smoker COPD (chronic obstructive pulmonary disease) (HCC) Emphysema High blood pressure Controlled on med. Novel H1N1 influenzal acute respiratory infection Pneumonia, viral Pulmonary nodules CT stable 2 years or more. Surveillance scanning stopped 2014. PAST SURGICAL HISTORY Procedure Laterality Date APPENDECTOMY childhood BREAST AUGMENTATION WITH IMPLANT 1997 bilateral CARPAL TUNNEL RIGHT WRIST and left wrist COLONOSCOPY FLX DX W/COLLJ SPEC WHEN PFRMD 04/22/2011 Colonoscopy LIG/TRNSXJ FLP TUBE ABDL/VAG APPR UNI/BI ALLERGIES Creosote MEDICATIONS amoxicillin-clavulanate potassium (AUGMENTIN) 875-125 mg per tablet Take 1 tablet by mouth two times a day for 7 days. jraqfuwokai-fjuyylvkq-cfuoabli (TRELEGY ELLIPTA) 100-62.5-25 mcg inhalation powder INHALE 1 PUFF ONCE DAILY albuterol HFA (PROVENTIL HFA, VENTOLIN HFA) 90 mcg/actuation inhaler Inhale 2 Puffs as instructed every 4 hours as needed. multivitamin with minerals (VISION/OPTIGEN) tablet Take 1 tablet by mouth once daily. aspirin, enteric coated (ASPIRIN, ENTERIC COATED) 81 mg EC tablet Take 81 mg by mouth once daily. amLODIPine (NORVASC) 2.5 mg tablet VITAMIN C 1000MG TABLET Take one(1) tablet daily. MULTIVITAMIN TABLET Take one(1) tablet daily. FAMILY HISTORY Adopted: Yes Problem Relation Age of Onset Breast Cancer Other No breast cancer known; patient grew up without parents; no breast cancer amongst siblings Cancer Mother 2018, cancer of kidney? Social History Tobacco Use Smoking status: Former Current packs/day: 0.00 Average packs/day: 1.5 packs/day for 48.0 years (72.0 ttl pk-yrs) Types: Cigarettes Start date: 05/29/1975 Quit date: 05/29/2023 Years since quittin.2 Smokeless tobacco: Never Tobacco comments: 2 ppd in past, averaged 1.5 PPD for 48 years. Has smoked 1/2 PPD for Substance Use Topics Alcohol use: Yes Comment: Rarely, occassionally Drug use: No Review of Systems Constitutional: Negative for chills and fever. HENT: Positive for congestion, ear pain, sinus pressure, sinus pain and sore throat. Respiratory: Negative for cough and shortness of breath. Cardiovascular: Negative for chest pain. Gastrointestinal: Negative for diarrhea and vomiting. Neurological: Positive for headaches. Objective BP 142/82 Pulse 78 Temp 36.4 C (97.6 F) (Tympanic) Resp 18 Wt 62.6 kg (138 lb 0.1 oz) LMP 01/06/2013 SpO2 95% BMI 26.95 kg/m Physical Exam Vitals reviewed. Constitutional: General: She is not in acute distress. Appearance: Normal appearance. She is not toxic-appearing. HENT: Right Ear: Ear canal normal. A middle ear effusion is present. Tympanic membrane is erythematous and bulging. Left Ear: Tympanic membrane and ear canal normal. Nose: Congestion present. Right Sinus: Maxillary sinus tenderness present. Left Sinus: Maxillary sinus tenderness present. Mouth/Throat: Mouth: Mucous membranes are moist. Eyes: Conjunctiva/sclera: Conjunctivae normal. Cardiovascular: Rate and Rhythm: Normal rate and regular rhythm. Pulmonary: Effort: Pulmonary effort is normal. Breath sounds: Normal breath sounds. Skin: General: Skin is warm and dry. Neurological: Mental Status: She is alert. {ASSESSMENT/PLAN: 1. Acute otitis media, right - ICD9: 382.9, ICD10: H66.91 (primary diagnosis) - Will begin treatment with Augmentin 875 mg PO BID for 7 days - Supportive care with plenty of fluids, rest, and analgesia prn. 2. URI, acute - ICD9: 465.9, ICD10: J06.9 - Discussed viral etiology and rationale for treatment. - Symptomatic treatment with prn analgesia - Supportive care with fluids and rest - The patient may also use OTC decongestants prn. Recommend Flonase Diagnosis and treatment plan were discussed and questions were answered to the patient's satisfaction. Pt acknowledged understanding of concepts and follow up plan. Specific signs and symptoms that would indicate the need for higher level of care were discussed in detail warranting prompt ER evaluation. HOWARD Pace History and Record Review External record(s) reviewed: prior outpatient record. Differential Diagnoses - Viral URI is more likely for the following reason(s): suggested by H&P - Otitis media is more likely for the following reason(s): suggested by H&P - sinusitis is less likely for the following reason(s): Short duration of symptoms Disposition The patient was discharged. OTC Medications were advised: Flonase Procedures documented in this encounter [facility] 07-31-2024 Telephone encounter Note [facility] 06/23/24 Patient phones requesting refills as follows: Requested Prescriptions Pending Prescriptions Disp Refills TRELEGY ELLIPTA 100-62.5-25 mcg inhalation powder [Pharmacy Med Name: Trelegy Ellipta 100-62.5-25 MCG/INH Inhalation Aerosol Powder Breath Activated] 60 Each 0 Sig: INHALE 1 PUFF ONCE DAILY Please review and advise. Pennie Le LPN [facility] 07-31-2024 Miscellaneous Notes [facility] 06/23/24 Patient phones requesting refills as follows: Requested Prescriptions Pending Prescriptions Disp Refills TRELEGY ELLIPTA 100-62.5-25 mcg inhalation powder [Pharmacy Med Name: Trelegy Ellipta 100-62.5-25 MCG/INH Inhalation Aerosol Powder Breath Activated] 60 Each 0 Sig: INHALE 1 PUFF ONCE DAILY Please review and advise. Pennie Le LPN documented in this encounter [facility] 06-23-2024 History of Present illness Narrative Images from the original note were not included. Pulmonary Medicine Patients name: Nidia Zavaleta PCP: Pennie Hale DO, DO CC: follow-up HPI: Nidia Zavaleta is a 63 year old female former smoker (72 pack years) with PMH significant for HTN, moderate COPD and lung nodules. Current maintenance therapy with Trelegy and as needed Albuterol. [facility] 10/19/2023 reported stable respiratory symptoms and improvement in SOB since she quit smoking. Was not wearing supplemental O2 even though testing at that visit continued to show desaturation with ambulation. Since her last visit, she reports she continues to feel very well. She has been cigarette free for over a year now and notes significant improvement in her respiratory symptoms. Today, she denies a cough that she had previously experienced for years. No wheezing. Denies dyspnea at rest or with exertion. Weight has been stable. Denies any recent hospitalizations or ED visits or upper respiratory infections. Albuterol use is rare. She continues to not use supplemental O2 even though our most recent testing indicates she requires 2L with activity and at night. Self monitoring at home with activity reveals SPO2 92% and above. DME: [employer] Supplemental O2 with exertion and nocturnal PAST MEDICAL HISTORY Diagnosis Date Benign neoplasm of rectum and anal canal Cigarette smoker COPD (chronic obstructive pulmonary disease) (HCC) Emphysema High blood pressure Controlled on med. Novel H1N1 influenzal acute respiratory infection Pneumonia, viral Pulmonary nodules CT stable 2 years or more. Surveillance scanning stopped 2014. 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 Does not recall specific reaction. Medication List Accurate as of June 21, 2024 1:02 PM. If you have any questions, ask your nurse or doctor. CONTINUE taking these medications albuterol HFA 90 mcg/actuation inhaler Commonly known as: PROVENTIL HFA, VENTOLIN HFA Inhale 2 Puffs as instructed every 4 hours as needed. amLODIPine 2.5 mg tablet Commonly known as: NORVASC aspirin, enteric coated 81 mg EC tablet Commonly known as: ASPIRIN, ENTERIC COATED multivitamin tablet Take one(1) tablet daily. multivitamin with minerals tablet Commonly known as: VISION/OPTIGEN TRELEGY ELLIPTA 100-62.5-25 mcg inhalation powder Generic drug: mghpmyrkvkl-qfrntkfff-xsgezdgl INHALE 1 PUFF ONCE DAILY VITAMIN C 1,000 mg tablet Generic drug: Ascorbic Acid Take one(1) tablet daily. DATA: I personally reviewed and analyzed all labs, radiographs and available pulmonary function testing PFT: 11/2022 Spirometry indicates severe obstruction. There was not a significant bronchodilator response. The RV and RV/TLC are elevated indicating air trapping. The diffusing capacity is moderately reduced. The presence of a reduced lung diffusing capacity - that does not normalize when measured independent of alveolar volume (kCO) suggests a parenchymal or pulmonary vascular disorder. CT Chest: 05/2023 IMPRESSION: LungRADS category: 2 LungRADS modifier: None LungRADS 0 reason: n/a Recommendations: Continue annual screening with LDCT in 12 months. Other actionable findings: None Reference: [employer]. Lung CT Screening Reporting and Data System (Lung-RADS). Available at: http://www.acr.org/Quality-Safe ty/Resources/LungRADS Medical Dermatologist: LAZARO Transcribe Date/Time: Jun 08 2023 3:47P Dictated by : DEMI APONTE MD This examination was interpreted and the report reviewed and electronically signed by: DEMI APONTE MD on Jun 08 2023 4:08PM EST Results-Findings * * *Final Report* * * DATE OF EXAM: Jun 08 2023 9:22AM [facility] [id number] - [facility] PROCEDURE REASON: Lung nodules * * * * Physician Interpretation * * * * EXAMINATION: CT LUNG FOLLOWUP WO TUNDE CLINICAL HISTORY: Follow-up parenchymal lung nodules Technique: Spiral CT acquisition of the chest from the thoracic inlet to the upper abdomen without contrast. 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 Yes, 6 or more nodules If No, go to IMPRESSION. If yes, proceed with characterization of the FIVE largest nodules. Nodule 1: This Solid nodule is located in the Right Lower Lobe on slice number 162 with an average diameter of 5.6 mm. Stable since 11/27/2022 Nodule 2: This Solid nodule is located in the Right Upper Lobe on slice number 108 with an average diameter of 5.1 mm. Stable since 11/27/2022 Nodule 3: This Solid nodule is located in the Right Lower Lobe on slice number 149 with an average diameter of 3.9 mm. Stable since 11/27/2022 Nodule 4: This Solid nodule is located in the Left Lower Lobe on slice number 114 with an average diameter of 2.7 mm. Stable since 11/27/2022 Nodule 5: This Calcified nodule is located in the Right Upper Lobe on slice number 109 with an average diameter of 1.9 mm. Stable since 11/27/2022 Please ENSURE NODULE NUMBER is the same as in the prior screening evaluation. Other lung nodule comments: A few additional calcified granulomata are scattered in the lungs (for example, MARGARET, 5:76 and 80). Other findings: Retained or aspirated secretions adherent to the left lateral wall of the intrathoracic trachea. The trachea and central airways otherwise appear patent and devoid of endobronchial lesion. A focal airspace opacity is developed in the right upper lobe, most commonly secondary to nonspecific atelectasis or possibly pneumonia. Severe upper lobe predominant centrilobular emphysematous changes are again noted. There is associated bilateral bronchial wall thickening, consistent with chronic airways inflammation. No bronchiectasis is identified. Minimal reticular opacities are again noted at the lung bases, similar to prior exam and possibly secondary to atelectasis or a component of smoking-related interstitial disease. The lungs are clear of focal consolidation. No pleural effusion or pneumothorax is identified. The soft tissues of the neck are incompletely visualized on this exam. No region of intrathoracic lymphadenopathy has developed, including the axillae. The esophagus appears non-dilated. The thoracic aorta appears normal in course and caliber. There is a common origin of the brachiocephalic and left common carotid arteries, a normal anatomic variant. There are atherosclerotic calcifications of the thoracic aorta and the left coronary artery circulation. The main and central pulmonary arteries are within normal limits of diameter. The overall heart size is within normal limits. There is no pericardial effusion. Visualized portions of the upper abdomen disclose no acute process. The vertebral body heights appear symmetric and well-maintained. There are mild degenerative changes in the thoracic spine. No lytic or destructive osseous lesion is identified. Rudimentary bilateral cervical ribs are incidentally noted, a normal anatomic variant. Bilateral breast implants remain in place. The soft tissues of the chest wall otherwise appear unremarkable. Emphysema: Severe (50-75%), Centrilobular, Upper lobe Coronary Artery Calcifications: Circumflex None; Left Anterior Descending Mild; Right Coronary Minimum Recording Engineer (topogram) images: No additional findings. IMMUNIZATIONS Prevnar - xx Pneumovax 23 - xx Influenza - xx COVID-19 - xx RSV- xx Review of Systems Constitutional: Negative for activity change, appetite change, fatigue and unexpected weight change. HENT: Negative for congestion, mouth sores, postnasal drip and sinus pain. Respiratory: Negative for cough, chest tightness, shortness of breath and wheezing. Cardiovascular: Negative for chest pain, palpitations and leg swelling. Neurological: Negative for dizziness, weakness and light-headedness. BP (P) 140/82 Pulse (P) 76 Resp (P) 18 Wt 61.2 kg (135 lb) LMP 01/06/2013 SpO2 (P) 96% BMI 26.37 kg/m Physical Exam Vitals reviewed. Constitutional: General: She is not in acute distress. Appearance: Normal appearance. She is not ill-appearing. HENT: Head: Normocephalic. Nose: No rhinorrhea. Mouth/Throat: Mouth: Mucous membranes are moist. Pharynx: No oropharyngeal exudate. Cardiovascular: Rate and Rhythm: Normal rate and regular rhythm. Heart sounds: Normal heart sounds. Pulmonary: Effort: No respiratory distress. Breath sounds: No wheezing or rhonchi. Musculoskeletal: Right lower leg: No edema. Left lower leg: No edema. Lymphadenopathy: Cervical: No cervical adenopathy. Skin: General: Skin is warm and dry. Capillary Refill: Capillary refill takes less than 2 seconds. Neurological: General: No focal deficit present. Mental Status: She is alert. ASSESSMENT/PLAN: 1. Stage 3 severe COPD by GOLD classification (HCC) - ICD9: 496, ICD10: J44.9 (primary diagnosis) - denies current respiratory symptoms - Continue current regimen with Trelegy 100 and PRN Albuterol 2. Chronic hypoxemic respiratory failure (HCC) - ICD9: 518.83, 799.02, ICD10: J96.11 - denies use of supplemental O2 since last spring - will update testing to see if patient continues to qualify. Recommended compliance if testing continues to show desaturations. - [employer] - OXIMETRY - NOCTURNAL - OXIMETRY WITH AMBULATION 3. Lung nodules - ICD9: 793.19, ICD10: R91.8 - last LCS CT in May 2023, overdo for annual CT and encouraged to schedule 4. Former smoker - ICD9: V15.82, ICD10: Z87.891 - continues to be tobacco free, congratulated on being a year without smoking. - encouraged continued cessation. F/u 6 months Portions of this documentation were copied and pasted from previous office visit notes in order to provide a cohesive continuity of the history. The note has been reviewed and edited and updated as necessary. Danna Matthew APRN.CNP I spent a total of 23 minutes on the date of the service which included preparing to see the patient, [id number] patient care, completing clinical documentation, performing a medically appropriate examination, counseling and educating the patient/family/caregiver, and ordering medications, tests, or procedures. documented in this encounter [facility] 06-23-2024 Note HNO ID: [id number] Author: DANNA MATTHEW APRN.CNP Service: ? Author Type: Nurse Practitioner Type: Progress Notes Filed: 06/23/2024 09:09 Note Text: Pulmonary Medicine Patients name: Nidia Zavaleta PCP: Pennie Hale DO, DO CC: follow-up HPI: Nidia Zavaleta is a 63 year old female former smoker (72 pack years) with PMH significant for HTN, moderate COPD and lung nodules. Current maintenance therapy with Trelegy and as needed Albuterol. RADHA 10/19/2023 reported stable respiratory symptoms and improvement in SOB since she quit smoking. Was not wearing supplemental O2 even though testing at that visit continued to show desaturation with ambulation. Since her last visit, she reports she continues to feel very well. She has been cigarette free for over a year now and notes significant improvement in her respiratory symptoms. Today, she denies a cough that she had previously experienced for years. No wheezing. Denies dyspnea at rest or with exertion. Weight has been stable. Denies any recent hospitalizations or ED visits or upper respiratory infections. Albuterol use is rare. She continues to not use supplemental O2 even though our most recent testing indicates she requires 2L with activity and at night. Self monitoring at home with activity reveals SPO2 92% and above. DME: [employer] Supplemental O2 with exertion and nocturnal PAST MEDICAL HISTORY Diagnosis Date Benign neoplasm of rectum and anal canal Cigarette smoker COPD (chronic obstructive pulmonary disease) (HCC) Emphysema High blood pressure Controlled on med. Novel H1N1 influenzal acute respiratory infection Pneumonia, viral Pulmonary nodules CT stable 2 years or more. Surveillance scanning stopped 2014. 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 Does not recall specific reaction. Medication List Accurate as of June 21, 2024 1:02 PM. If you have any questions, ask your nurse or doctor. CONTINUE taking these medications albuterol HFA 90 mcg/actuation inhaler Commonly known as: PROVENTIL HFA, VENTOLIN HFA Inhale 2 Puffs as instructed every 4 hours as needed. amLODIPine 2.5 mg tablet Commonly known as: NORVASC aspirin, enteric coated 81 mg EC tablet Commonly known as: ASPIRIN, ENTERIC COATED multivitamin tablet Take one(1) tablet daily. multivitamin with minerals tablet Commonly known as: VISION/OPTIGEN TRELEGY ELLIPTA 100-62.5-25 mcg inhalation powder Generic drug: dnoffctlvag-lzuriwabi-irgotcqr INHALE 1 PUFF ONCE DAILY VITAMIN C 1,000 mg tablet Generic drug: Ascorbic Acid Take one(1) tablet daily. DATA: I personally reviewed and analyzed all labs, radiographs and available pulmonary function testing PFT: 11/2022 Spirometry indicates severe obstruction. There was not a significant bronchodilator response. The RV and RV/TLC are elevated indicating air trapping. The diffusing capacity is moderately reduced. The presence of a reduced lung diffusing capacity - that does not normalize when measured independent of alveolar volume (kCO) suggests a parenchymal or pulmonary vascular disorder. CT Chest: 05/2023 IMPRESSION: LungRADS category: 2 LungRADS modifier: None LungRADS 0 reason: n/a Recommendations: Continue annual screening with LDCT in 12 months. Other actionable findings: None Reference: [employer]. Lung CT Screening Reporting and Data System (Lung-RADS). Available at: http://www.acr.org/Quality-Safe ty/Resources/LungRADS Medical Dermatologist: PSCB Transcribe Date/Time: Jun 08 2023 3:47P Dictated by : DEMI APONTE MD This examination was interpreted and the report reviewed and electronically signed by: DEMI APONTE MD on Jun 08 2023 4:08PM EST Results-Findings * * *Final Report* * * DATE OF EXAM: Jun 08 2023 9:22AM [facility] [id number] - CT LUNG FOLLOWUP WO [facility] / PROCEDURE REASON: Lung nodules * * * * Physician Interpretation * * * * EXAMINATION: CT LUNG FOLLOWUP WO [facility]CON CLINICAL HISTORY: Follow-up parenchymal lung nodules Technique: Spiral CT acquisition of the chest from the thoracic inlet to the upper abdomen without contrast. MQ: [id number] Followup LDCT Patient characteristics: * Wnru-vj-Ukfhg: 1960; Age at exam: 62 years * Gender: Female * Lung Disease: Asymptomatic (no signs or symptoms of lung disease) * Number of Pack Years: 72 * Current smoker (=0) or Number of Years since Quit: 0 * Ordering provider and NPI: IRLANDA HAWTHORNE [id number] * Interpreting radiologist and NPI: Fadi [id number] Exam acquisition parameters: * Exam Date: 06/08/2023 9:22 AM * Site: [facility] * * CT System Potato Chip Sacking Machine Operator: Siemens * CT System Model: Sensation * Tube Current-Time (mA-sec): 18 * Peak Voltage (kV): 120V * Scan Time (sec): 9. (more content not included)... [facility] 10-19-2023 Procedure note Associated Ord er(s): OXIMETRY WITH AMBULATION RESPIRATORY THERAPY OXIMETRY WITH AMBULATION Oximetry with Ambulation Test for This Encounter O2 Device O2 Adapter NC O2 Flow SpO2% HR Activity Ft Walked (ft) Time (min) Avg Speed (MPH) R/A 92 80 Resting R/A 86 90 Walking, usual pace 370 1.7 2.47 NC 2 95 78 Resting NC 2 91 93 Walking, usual pace 500 3 1.89 General Information Pulse Oximetry Site Total Time Spent Walking Assistance/O2 Supply Carrier R Index Finger 30 Wheeled Walker NAME: NEREYDA Perez PATIENT NAME: Nidia Zavaleta DATE: October 19, 2023 TIME: 9:06 AM Comment: [facility] 10-19-2023 Procedure note Associated Ord er(s): OXIMETRY WITH AMBULATION RESPIRATORY THERAPY OXIMETRY WITH AMBULATION Oximetry with Ambulation Test for This Encounter O2 Device O2 Adapter NC O2 Flow SpO2% HR Activity Ft Walked (ft) Time (min) Avg Speed (MPH) R/A 92 80 Resting R/A 86 90 Walking, usual pace 370 1.7 2.47 NC 2 95 78 Resting NC 2 91 93 Walking, usual pace 500 3 1.89 General Information Pulse Oximetry Site Total Time Spent Walking Assistance/O2 Supply Carrier R Index Finger 30 Wheeled Walker NAME: NEREYDA Perez PATIENT NAME: Nidia Zavaleta DATE: October 19, 2023 TIME: 9:06 AM Comment: documented in this encounter [facility] 10-19-2023 History of Present illness Narrative PULM FUNCTION SMARTBLOCK: Provider: Devi Nava PA-C Assisting Tech: Elbert Harrington RPFT Oximetry - Ambulation: 1 documented in this encounter [facility] 10-19-2023 History of Present illness Narrative Images from the original note were not included. Patient: Nidia Zavaleta PCP: Pennie Hale DO, DO CC: follow up HPI: Nidia Zavaleta 62 year old female recent former smoker (72 pack years) with PMH significant for HTN, moderate COPD and lung nodules. Admitted to [facility] in May for influenza A pneumonia. She was discharged home on supplemental oxygen. Last office visit 07/13/2023. Current maintenance therapy with Trelegy and as needed Albuterol. Today, patient reports minimal cough. No hemoptysis. No wheezing. Exertional dyspnea is improved since she has stopped smoking. Is not using supplemental oxygen. States she has it with her, but does not use it. No fevers, chills, or night sweats. No unintended weight loss. Occasional lower extremity edema. No GERD/heartburn. No recent hospitalizations or ED visits or upper respiratory infections. PAST MEDICAL HISTORY Diagnosis Date Benign neoplasm of rectum and anal canal Cigarette smoker COPD (chronic obstructive pulmonary disease) (HCC) Emphysema High blood pressure Controlled on med. Novel H1N1 influenzal acute respiratory infection Pneumonia, viral Pulmonary nodules CT stable 2 years or more. Surveillance scanning stopped 2014. 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 Does not recall specific reaction. TRELEGY ELLIPTA 100-62.5-25 mcg inhalation powder INHALE 1 PUFF ONCE DAILY albuterol HFA (PROVENTIL HFA, VENTOLIN HFA) 90 mcg/actuation inhaler Inhale 2 Puffs as instructed every 4 hours as needed. multivitamin with minerals (VISION/OPTIGEN) tablet Take 1 tablet by mouth once daily. aspirin, enteric coated (ASPIRIN, ENTERIC COATED) 81 mg EC tablet Take 81 mg by mouth once daily. amLODIPine (NORVASC) 2.5 mg tablet VITAMIN C 1000MG TABLET Take one(1) tablet daily. MULTIVITAMIN TABLET Take one(1) tablet daily. Social History Tobacco Use Smoking status: Former Packs/day: 1.50 Years: 48.00 Additional pack years: 0.00 Total pack years: 72.00 Types: Cigarettes Quit date: 05/29/2023 Years since quittin.3 Smokeless tobacco: Never Tobacco comments: 2 ppd in past, averaged 1.5 PPD for 48 years. Has smoked 1/2 PPD for Substance Use Topics Alcohol use: Yes Comment: Rarely, occassionally Drug use: No Family History Adopted: Yes Problem Relation Age of Onset [...] Colonoscopy LIG/TRNSXJ FLP TUBE ABDL/VAG APPR UNI/BI I reviewed the past medical history, family history, social history and surgical history with changes noted above and updated in EMR. IMMUNIZATIONS Prevnar - xx Pneumovax 2020 Influenza - xx COVID-19 - most recent 04/2021 ROS: All other systems reviewed as negative except for what is noted in HPI and review of systems. PHYSICAL EXAMINATION: BP (P) 138/72 Ht 152.4 cm (5') Wt 59 kg (130 lb) LMP 01/06/2013 BMI 25.39 kg/m Gen: No acute distress. Cooperative with examination. HEENT: Normocephalic. Sclera, conjunctiva clear. Oral hygeine and dentition good. No thrush. Resp: No stridor, accessory respiratory muscle use, supra-sternal or intercostal retractions. No wheezes, crackles, or rhonchi. CV: Regular rythm. Heart tones normal. Radial pulses normal. Ext: Warm and well perfused. No clubbing, cyanosis. Trace bilateral edema. Skin: No rash, ecchymoses. Neuro: Mental status normal. Affect normal. No tremor. DATA: Oximetry, 10/19/2023 O2 Device O2 Adapter NC O2 Flow SpO2% HR Activity Ft Walked (ft) Time (min) Avg Speed (MPH) R/A 92 80 Resting R/A 86 90 Walking, usual pace 370 1.7 2.47 NC 2 95 78 Resting NC 2 91 93 Walking, usual pace 500 3 1.89 Nocturnal Oximetry, , 06/14/2023. Recording interval: 6:36:48 High pulse: 100 Low pulse: 54 Highest spO2: 92% Lowest spO2: 67% Time with spO2 < 88%: 349.2 minutes PFT, 11/18/2022 IMPRESSION: Spirometry indicates severe obstruction. There was not a significant bronchodilator response. The RV and RV/TLC are elevated indicating air trapping. The diffusing capacity is moderately reduced. The presence of a reduced lung diffusing capacity - that does not normalize when measured independent of alveolar volume (kCO) suggests a parenchymal or pulmonary vascular disorder. Electronically Signed On 11-18-2022 13:23:40 EDT by Colleen Wolfe M.D. CXR, 05/29/2023 [facility] read only IMPRESSION: Subtle bilateral lower lobe pulmonary opacities may be developing pneumonia or atelectasis. LDCT chest, 06/08/2023 IMPRESSION: LungRADS category: 2 LungRADS modifier: None LungRADS 0 reason: n/a Recommendations: Continue annual screening with LDCT in 12 months. Other actionable findings: None COMPARISON: CT lung screen dated 11/27/2022 RESULT: Are nodules present? Yes, 6 or more nodules If No, go to IMPRESSION. If yes, proceed with characterization of the FIVE largest nodules. Nodule 1: This Solid nodule is located in the Right Lower Lobe on slice number 162 with an average diameter of 5.6 mm. Stable since 11/27/2022 Nodule 2: This Solid nodule is located in the Right Upper Lobe on slice number 108 with an average diameter of 5.1 mm. Stable since 11/27/2022 Nodule 3: This Solid nodule is located in the Right Lower Lobe on slice number 149 with an average diameter of 3.9 mm. Stable since 11/27/2022 Nodule 4: This Solid nodule is located in the Left Lower Lobe on slice number 114 with an average diameter of 2.7 mm. Stable since 11/27/2022 Nodule 5: This Calcified nodule is located in the Right Upper Lobe on slice number 109 with an average diameter of 1.9 mm. Stable since 11/27/2022 Please ENSURE NODULE NUMBER is the same as in the prior screening evaluation. Other lung nodule comments: A few additional calcified granulomata are scattered in the lungs (for example, MARGARET, 5:76 and 80). Other findings: Retained or aspirated secretions adherent to the left lateral wall of the intrathoracic trachea. The trachea and central airways otherwise appear patent and devoid of endobronchial lesion. A focal airspace opacity is developed in the right upper lobe, most commonly secondary to nonspecific atelectasis or possibly pneumonia. Severe upper lobe predominant centrilobular emphysematous changes are again noted. There is associated bilateral bronchial wall thickening, consistent with chronic airways inflammation. No bronchiectasis is identified. Minimal reticular opacities are again noted at the lung bases, similar to prior exam and possibly secondary to atelectasis or a component of smoking-related interstitial disease. The lungs are clear of focal consolidation. No pleural effusion or pneumothorax is identified. The soft tissues of the neck are incompletely visualized on this exam. No region of intrathoracic lymphadenopathy has developed, including the axillae. The esophagus appears non-dilated. The thoracic aorta appears normal in course and caliber. There is a common origin of the brachiocephalic and left common carotid arteries, a normal anatomic variant. There are atherosclerotic calcifications of the thoracic aorta and the left coronary artery circulation. The main and central pulmonary arteries are within normal limits of diameter. The overall heart size is within normal limits. There is no pericardial effusion. Visualized portions of the upper abdomen disclose no acute process. The vertebral body heights appear symmetric and well-maintained. There are mild degenerative changes in the thoracic spine. No lytic or destructive osseous lesion is identified. Rudimentary bilateral cervical ribs are incidentally noted, a normal anatomic variant. Bilateral breast implants remain in place. The soft tissues of the chest wall otherwise appear unremarkable. Emphysema: Severe (50-75%), Centrilobular, Upper lobe Coronary Artery Calcifications: Circumflex None; Left Anterior Descending Mild; Right Coronary Minimum Recording Engineer (topogram) images: No additional findings. ASSESSMENT/PLAN: 1. Stage 3 severe COPD by GOLD classification (HCC) - ICD9: 496, ICD10: J44.9 (primary diagnosis) Continue maintenance therapy with Trelegy and as needed Albuterol. 2. Chronic hypoxemic respiratory failure (HCC) - ICD9: 518.83, 799.02, ICD10: J96.11 Based on oximetry, patient continues to require 2L supplemental oxygen with exertion and at night. Encouraged patient to use supplemental oxygen. 3. Former smoker - ICD9: V15.82, ICD10: Z87.891 Congratulated patient on ongoing abstinence. Enrolled in lung cancer screening. Next LDCT 05/2024. 4. Lung nodules - ICD9: 793.19, ICD10: R91.8 See above. Portions of this documentation were copied and pasted from previous office visit notes in order to provide a cohesive continuity of the history. The note has been reviewed and edited and updated as necessary. Devi Nava PA-C documented in this encounter [facility] 10-19-2023 Nurse Note Intake information documented in the prior visit with NEREYDA Perez today. [facility] 10-19-2023 Nurse Note Intake information documented in the prior visit with NEREYDA Perez today. documented in this encounter [facility] 07-13-2023 History of Present illness Narrative Images from the original note were not included. Patient: Nidia Zavaleta PCP: Pennie Hale DO, DO CC: follow up HPI: Nidia Zavaleta 62 year old female recent former smoker (72 pack years) with PMH significant for HTN, moderate COPD and lung nodules. Recently admitted to [facility] from 05/29 - 05/31 secondary to influenza A pneumonia, acute exacerbation of COPD and hypoxemia. CXR showed subtle bilateral lower lobe pulmonary opacities. Treated with Tamiflu, bronchodilators, IV Solumedrol, and Mucinex. Discharged home on 2 L supplemental oxygen and Prednisone. Oximetry with ambulation done on 06/16/2023 demonstrated need for 2L supplemental oxygen with exertion and nocturnal oximetry also showed need for supplemental oxygen at night. Today, patient states she is not using her supplemental oxygen and testing her pulse ox and maintaining 92% unless she is using stairs. Denies cough, sputum production, wheezing, or SOB. Has been doing chair exercises and trying to walk each morning. PAST MEDICAL HISTORY Diagnosis Date Benign neoplasm of rectum and anal canal Cigarette smoker COPD (chronic obstructive pulmonary disease) (HCC) Emphysema High blood pressure Controlled on med. Novel H1N1 influenzal acute respiratory infection Pneumonia, viral Pulmonary nodules CT stable 2 years or more. Surveillance scanning stopped 2014. 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 Does not recall specific reaction. predniSONE (DELTASONE) 20 mg tablet fcecregcmjg-rmsudxzgj-uqfwpeez (TRELEGY ELLIPTA) 100-62.5-25 mcg inhalation powder Inhale 1 Puff as instructed once daily. albuterol HFA (PROVENTIL HFA, VENTOLIN HFA) 90 mcg/actuation inhaler Inhale 2 Puffs as instructed every 4 hours as needed. multivitamin with minerals (VISION/OPTIGEN) tablet Take 1 tablet by mouth once daily. aspirin, enteric coated (ASPIRIN, ENTERIC COATED) 81 mg EC tablet Take 81 mg by mouth once daily. amLODIPine (NORVASC) 2.5 mg tablet VITAMIN C 1000MG TABLET Take one(1) tablet daily. MULTIVITAMIN TABLET Take one(1) tablet daily. Social History Tobacco Use Smoking status: Every Day Packs/day: 1.50 Years: 48.00 Additional pack years: 0.00 Total pack years: 72.00 Types: Cigarettes Smokeless tobacco: Never Tobacco comments: 2 ppd in past, averaged 1.5 PPD for 48 years. Has smoked 1/2 PPD for Substance Use Topics Alcohol use: Yes Comment: Rarely, occassionally Drug use: No Family History Adopted: Yes Problem Relation Age of Onset [...] Colonoscopy LIG/TRNSXJ FLP TUBE ABDL/VAG APPR UNI/BI I reviewed the past medical history, family history, social history and surgical history with changes noted above and updated in EMR. IMMUNIZATIONS Prevnar - xx Pneumovax - 2020 Influenza - xx COVID-19 - most recent 04/2021 ROS: General: No fevers, chills or night sweats. No unintended weight loss. Eyes, Ears, nose, throat: No post nasal drip, rhinorrhea, purulent nasal discharge, epistaxis. No hoarseness. Vision stable. Cardiac: No angina, edema, orthopnea, chest pain or palpitations. Resp: See HPI. GI: No heartburn, dysphagia. Musculoskeletal: No joint pain or swelling. Neuro: No headache, focal weakness, tremor. Skin: No skin changes or rash. Otherwise negative. PHYSICAL EXAMINATION: BP 148/80 (BP Site: Right Arm, BP Position: Sitting, BP Cuff Size: Regular Adult) Pulse 81 Resp 18 Wt 56.2 kg (124 lb) LMP 01/06/2013 SpO2 95% BMI 24.22 kg/m O2: RA Gen: No acute distress. Cooperative with examination. HEENT: Normocephalic. Sclera, conjunctiva clear. Oral hygeine and dentition good. No thrush. Resp: No stridor, accessory respiratory muscle use, supra-sternal or intercostal retractions. No wheezes, crackles. CV: Regular rythm. Heart tones normal. Radial pulses normal. MSK: No kyphoscoliosis. Ext: Warm and well perfused. No clubbing, cyanosis, edema. Skin: No rash, ecchymoses. Neuro: Mental status normal. Affect normal. No tremor. DATA: Oximetry, 06/16/2023 O2 Device O2 Adapter NC O2 Flow SpO2% HR Activity Ft Walked (ft) Time (min) Avg Speed (MPH) R/A 95 68 Resting R/A 87 92 Walking, usual pace 360 2 2.05 NC 2 97 72 Resting NC 2 93 85 Walking, usual pace 550 3 2.08 PFT, 11/18/2022 IMPRESSION: Spirometry indicates severe obstruction. There was not a significant bronchodilator response. The RV and RV/TLC are elevated indicating air trapping. The diffusing capacity is moderately reduced. The presence of a reduced lung diffusing capacity - that does not normalize when measured independent of alveolar volume (kCO) suggests a parenchymal or pulmonary vascular disorder. Electronically Signed On 11-18-2022 13:23:40 EDT by Colleen Wolfe M.D. CXR, 05/29/2023 [facility] read only IMPRESSION: Subtle bilateral lower lobe pulmonary opacities may be developing pneumonia or atelectasis. LDCT chest, 06/08/2023 IMPRESSION: LungRADS category: 2 LungRADS modifier: None LungRADS 0 reason: n/a Recommendations: Continue annual screening with LDCT in 12 months. Other actionable findings: None COMPARISON: CT lung screen dated 11/27/2022 RESULT: Are nodules present? Yes, 6 or more nodules If No, go to IMPRESSION. If yes, proceed with characterization of the FIVE largest nodules. Nodule 1: This Solid nodule is located in the Right Lower Lobe on slice number 162 with an average diameter of 5.6 mm. Stable since 11/27/2022 Nodule 2: This Solid nodule is located in the Right Upper Lobe on slice number 108 with an average diameter of 5.1 mm. Stable since 11/27/2022 Nodule 3: This Solid nodule is located in the Right Lower Lobe on slice number 149 with an average diameter of 3.9 mm. Stable since 11/27/2022 Nodule 4: This Solid nodule is located in the Left Lower Lobe on slice number 114 with an average diameter of 2.7 mm. Stable since 11/27/2022 Nodule 5: This Calcified nodule is located in the Right Upper Lobe on slice number 109 with an average diameter of 1.9 mm. Stable since 11/27/2022 Please ENSURE NODULE NUMBER is the same as in the prior screening evaluation. Other lung nodule comments: A few additional calcified granulomata are scattered in the lungs (for example, MARGARET, 5:76 and 80). Other findings: Retained or aspirated secretions adherent to the left lateral wall of the intrathoracic trachea. The trachea and central airways otherwise appear patent and devoid of endobronchial lesion. A focal airspace opacity is developed in the right upper lobe, most commonly secondary to nonspecific atelectasis or possibly pneumonia. Severe upper lobe predominant centrilobular emphysematous changes are again noted. There is associated bilateral bronchial wall thickening, consistent with chronic airways inflammation. No bronchiectasis is identified. Minimal reticular opacities are again noted at the lung bases, similar to prior exam and possibly secondary to atelectasis or a component of smoking-related interstitial disease. The lungs are clear of focal consolidation. No pleural effusion or pneumothorax is identified. The soft tissues of the neck are incompletely visualized on this exam. No region of intrathoracic lymphadenopathy has developed, including the axillae. The esophagus appears non-dilated. The thoracic aorta appears normal in course and caliber. There is a common origin of the brachiocephalic and left common carotid arteries, a normal anatomic variant. There are atherosclerotic calcifications of the thoracic aorta and the left coronary artery circulation. The main and central pulmonary arteries are within normal limits of diameter. The overall heart size is within normal limits. There is no pericardial effusion. Visualized portions of the upper abdomen disclose no acute process. The vertebral body heights appear symmetric and well-maintained. There are mild degenerative changes in the thoracic spine. No lytic or destructive osseous lesion is identified. Rudimentary bilateral cervical ribs are incidentally noted, a normal anatomic variant. Bilateral breast implants remain in place. The soft tissues of the chest wall otherwise appear unremarkable. Emphysema: Severe (50-75%), Centrilobular, Upper lobe Coronary Artery Calcifications: Circumflex None; Left Anterior Descending Mild; Right Coronary Minimum Recording Engineer (topogram) images: No additional findings. ASSESSMENT/PLAN: 1. Stage 3 severe COPD by GOLD classification ([facility]) - ICD9: 496, ICD10: J44.9 (primary diagnosis) Based on oximetry with ambulation today, patient is still requiring supplemental oxygen. She dropped to 83% with exertion. Instructed patient she is also needing to wear her supplemental oxygen at night. Continue Trelegy daily. Rinse mouth after each use to help prevent oral thrush. Albuterol HFA inhaler, 2 inhalations 10-15 minutes prior to activities associated with shortness of breath, and as needed for rescue relief of shortness of breath or wheezing, up to 4 times daily. - OXIMETRY WITH AMBULATION 2. Influenza due to influenza A subtype H1N1 virus with pneumonia - ICD9: 488.11, ICD10: J10.00 She is doing much better symptomatically. Letter provided for RTW with portable oxygen. 3. Former smoker - ICD9: V15.82, ICD10: Z87.891 Congratulated patient on stopping smoking. She is enrolled in lung cancer screening. Next LDCT due 06/2024 Portions of this documentation were copied and pasted from previous office visit notes in order to provide a cohesive continuity of the history. The note has been reviewed and edited and updated as necessary. Devi Nava PA-C documented in this encounter [facility] 06-23-2023 Miscellaneous Notes Nocturnal Oximetry, RA, 06/14/2023. Recording interval: 6:36:48 High pulse: 100 Low pulse: 54 Highest spO2: 92% Lowest spO2: 67% Time with spO2 < 88%: 349.2 minutes Recommendation: Based on above results, patient requires supplemental oxygen at night. I have received and reviewed the outside records noted above. Devi Nava PA-C [facility] [place] documented in this encounter [facility] 06-21-2023 Miscellaneous Notes Received short term disability paperwork for this patient via fax. Type of form: Short-term Disability Form received via fax When form is completed, Fax form to Form has been forwarded to Physician Desk: HOWARD Villa MA documented in this encounter [facility] 05-31-2023 Consult note Note Date/Time May 31, 2023 1:06pm [facility] Medical Records Department [address] [place] [address] Counseling Note - Pharmacy 05/31/23 1305 MR#: [id number] Acct: [id number] Name: NIDIA ZAVALETA Rep #:[id number] : 1960 62 From: Vicente Sky PCP: Dr. Pennie Hale, DO Status:AD M IN Y Location: MS3 [id number] Pharmacy [facility] has performed discharge medication reconciliation and counseling for this patient. The patient's discharge medication list was reviewed for discrepancies and discrepancies were resolved. The patient was counseled on the following discharge medications and changes in medications for homegoing were reviewed. The Reason for Use, instructions for use, and potential side effects were reviewed for all new medications. The patient's questions regarding all of their medications were answered. 1. Prednisone 40 mg PO daily x 7 days 2. Oseltamivir 75 mg PO BID x 3 days The patient was able to verbally demonstrate an understanding of their dischargemedications. Medications at Discharge Home Medications albuterol sulfate 90 mcg/actuation aerosol inhaler (Proventil HFA) 6.7 g IH PRN PRN Shortness Of Breath 06/30/16 lorazepam 0.5 mg tablet 0.5 mg PO DAILY PRN PRN Anxiety 07/01/16 acetaminophen 325 mg tablet (Tylenol) 650 mg (2 x 325 mg) PO Q6H PRN PRN Mild Pain (scale 0-3)/T>100.7 ##0 07/02/16 amlodipine 5 mg tablet (Norvasc) 5 mg PO DAILY 05/29/23 fluticasone fur. 100 mcg-umeclid 62.5 mcg-vilant 25 mcg inhalat.powder (Trelegy Ellipta) 1 inh inhalation DAILY 05/29/23 oseltamivir 75 mg capsule 75 mg PO BID 3 days #6 caps 05/31/23 prednisone 20 mg tablet 40 mg (2 x 20 mg) PO DAILY 7 days #14 tabs 05/31/23 05/31/23 1306 <Electronically signed by Vicente awad> Date _ Vicente Sky Cosigner Signature (if applicable): Date CC: ~ Signed [facility] Work Phone: 1(947) 822-820201-15-2024 Discharge summary Author Michael Means [facility] May 31, 2023 12:28pm Note Date/Time May 31, 2023 1 2:25pm [facility] Medical Records Department [address] [place] [id number] Instructions for Home/Discharge Instructions 05/31/23 1224 MR#: [id number] Acct: [id number] Name: NIDIA ZAVALETA Yuliya Rep #:[id number] : 1960 62 From: Michael moore MD PCP: Dr. Pennie Hale, DO Status:AD M IN Discharge Instructions Diet Discharge Diet: No restrictions Activity Discharge Activity: Return to Normal Activity Return to work on:: 06/07/23 Dressing / Incision Call your doctor if you observe: Fever of 101 or Higher, Shortness of breath, Dizziness, Fainting spells, Swelling in the ankles, Chest pain and Increased palpitations (irregular heartbeat) Follow Up Care Test Results: Test results from this visit will be discussed in further detail at your follow- up appointment, if applicable. Discharge Plan Admission Admit Date/Time: 05/29/23 19:38 Attending Provider: Michael Means Primary Care Provider: Pennie Hale Consulting Providers: Tasha Edge; Jayson Corbin Discharge Orders/Prescriptions Prescriptions: New oseltamivir 75 mg Capsule 75 mg PO BID 3 Days Qty: 6 0RF prednisone 20 mg tablet 40 mg PO DAILY 7 Days Qty: 14 0RF Continued albuterol sulfate [Proventil HFA] 6.7 GM HFA aerosol inhaler 6.7 g IH PRN PRN (Reason: Shortness Of Breath) lorazepam 0.5 MG tablet 0.5 mg PO DAILY PRN PRN (Reason: Anxiety) acetaminophen [Tylenol] 325 MG tablet 650 mg PO Q6H PRN PRN (Reason: Mild Pain (scale 0-3)/T>100.7) Qty: 0 0RF Trelegy Ellipta 100-62.5-25 mcg blister with device 1 inh INHALATION DAILY amlodipine [Norvasc] 5 mg tablet 5 mg PO DAILY Patient Comments: pt takes 7.5mg Referrals / Follow Up: Pennie Hale DO [Primary Care Provider] - Within 1 Week Disposition Disposition (needs filled in before D/C Order can be placed): Home, Self Care 05/31/23 1228<Electronically signed by Michael Means MD>Michael Means MD CC: Dr. Tasha Edge MD; Dr. Pennie Hale DO; Dr. Jayson Corbin MD ~ Signed [facility] Work Phone: 1(141) 226-532901-14-2024 Progress note Author Jayson Corbin [facility] May 30, 2023 1:50pm Note Date/Time May 30, 2023 1 :50pm [facility] Medical Records Department [address] [place] [address] Progress Note - Hospitalist 05/30/23 1335 MR#: [id number] Acct: [id number] Name: NIDIA ZAVALETA Rep #:[id number] : 1960 62 From: Jayson Richard PCP: Dr. Pennie Hale DO Status:AD M IN [place] [facility] [id number] Reason for Visit Reason for Visit: Diagnoses Influenza due to other identified influenza virus with other respiratory manifestations (05/29/23) Chronic obstructive pulmonary disease with (acute) exacerbation (05/29/23) Hypoxemia (05/29/23) Objective Data Objective Data Vital Signs: Vital Signs Temp Pulse Resp BP Pulse Ox O2 Del Method O2 Flow Rate 98.1 F 92 21 H 133/63 H 96 Nasal Cannula 2 05/30/23 09:47 05/30/23 10:40 05/30/23 10:40 05/30/23 09:47 05/30/23 10:40 05/30/23 10:40 05/30/23 10:40 Oxygen Flow Rate (L/min) 2 Oxygen Delivery Method Nasal Cannula Weight: 121 lb 14.65 oz Body Mass Index (BMI) 23.9 Intake & Output: Intake and Output for Last 24 Hours 05/28/23 05/29/23 05/30/23 23:59 23:59 23:59 Intake Total 1000 / 1000 1200 / 1200 Balance 1000 / 1000 1200 / 1200 Lab / Micro Data 05/30/23 06:16 05/30/23 06:16 Labs: Laboratory Results - last 24 hr 05/29/23 18:05: WBC 12.1 H, RBC 5.01, Hgb 15.3 H, Hct 47.0, MCV 93.8, MCH 30.5, MCHC 32.6, RDW Std Deviation 45.7 H, RDW Coeff of Alvaro 13.2, Plt Count 279, MPV 10.2, Immature Gran % (Auto) 0.300, Neut % (Auto) 86.5 H, Lymph % (Auto) 4.8 L, [place] % (Auto) 7.8, Eos % (Auto) 0.1, Baso % (Auto) 0.5, Absolute Neuts (auto) 10.5 H, Absolute Lymphs (auto) 0.58 L, Nucleated RBC % 0, Differential Comment SCANNED, Sodium 137, Potassium 3.9, Chloride 103, Carbon Dioxide 28.0, Anion Gap6, BUN 11, Creatinine 0.76, Estim Creat Clear Calc 59.56, Est GFR (MDRD) Af Amer98, Est GFR (MDRD) Non-Af 81, BUN/Creatinine Ratio 14.4, Glucose 128 H, Calcium 9.1 05/29/23 20:10: Procalcitonin 0.05 05/30/23 06:16: WBC 8.8, RBC 4.25, Hgb 13.1, Hct 41.0, MCV 96.5, MCH 30.8, MCHC 32.0, RDW Std Deviation 47.2 H, RDW Coeff of Alvaro 13.2, Plt Count 221, MPV 10.7, Immature Gran % (Auto) 0.600, Neut % (Auto) 91.7 H, Lymph % (Auto) 3.[address] L, [place] %(Auto) 3.7, Eos % (Auto) 0.0, Baso % (Auto) 0.2, Absolute Neuts (auto) 8.0 H, Absolute Lymphs (auto) 0.33 L, Nucleated RBC % 0, Sodium 140, Potassium 3.8, Chloride 109 H, Carbon Dioxide 24.0, Anion Gap 7, BUN 9, Creatinine 0.64, Estim Creat Clear Calc 70.19, Est GFR (MDRD) Af Amer 120, Est GFR (MDRD) Non-Af 99, BUN/Creatinine Ratio 14.0, Glucose 187 H, Calcium 8.4 L, Total Bilirubin 0.30, AST 18, ALT 23, Alkaline Phosphatase 79, Total Protein 6.3 L, Albumin 2.9 L, Globulin 3.4, Albumin/Globulin Ratio 0.9 Micro: Microbiology 05/29/23 17:50 Mucosa - Nose SARS-CoV-2, Influenza & RSV (PCR) - Final Influenzae A Radiography Diagnostic Testing: Radiology Impression Chest X-Ray 05/29/23 18:45 IMPRESSION: Subtle bilateral lower lobe pulmonary opacities may be developing pneumonia or atelectasis. Electronically Signed: Gideon Ruvalcaba DO at 19:24 EST , Physical Exam Narrative Seen and examined. Patient is short of breath, chest congestion, URI symptoms including nasal congestion and sinus congestion. Denies fever Physical exam General: Alert, Oriented x3, Cooperative. BMI 23.8 kg/m?. HEENT: Atraumatic, PERRLA, EOMI, Normocephalic Oral: oral mucosa dry. No Gingival or Mucosal Lesions/ Ulcerations Neck: Supple, No JVD, Negative Carotid Bruits Lungs: Air entry severely diminished all lung morgan. Bilateral wheezing and coarse rhonchi. Cardiovascular: Regular rate, Regular Rhythm, Normal S1, Normal S2, No murmurs Abdomen: Bowel Sounds Present, Soft, Non Tender, Non-Distended : No renal angle tenderness. No suprapubic tenderness. Extremities: No edema, Capillary Refill Less than 3 Seconds Skin: No rashes, No breakdown Musculoskeletal: No Tenderness to Palpation of Joints or Extremities Neurological: Cranial nerves II-XII grossly intact, DTR 2+/4. No acute focal neurological deficit. Psych/Mental Status: Flat affect. Assessment & Plan Assessment/Plan (1) COPD with acute exacerbation: (2) Influenza A: (3) Hypoxia: PLAN: Plan The patient is a 62 y/o F admitted for COPD exacerbation due to influenza A. Patient does report she continues to smoke 1/2 pack/day. #1. Acute Hypoxia secondary to Acute on Chronic COPD exacerbation secondary to Acute Influenza A viral syndrome: Admitted in PCU. Titrate oxygen to keep pulseox 90%. On Tamiflu. Patient is being managed on scheduled bronchodilator, IV Solu-Medrol, Mucinex, incentive spirometry and Pep. #2. Hypertension: Continue home regimen including amlodipine, PRN hydralazine. #3. Anxiety and depression: We will continue patient low-dose lorazepam regimen. #4. Tobacco Abuse: Encouraged cessation, inpatient consultation per RT, NR if desired. #5. Chart reported history of brain aneurysm: No CT imaging in [facility] noted, encourage continued outpatient follow-up as previously arranged. #6. DVT prophylaxis: Lovenox. Charges/Coding Visit Charges Inpatient E&M: 66925 Subs Hosp L2 05/30/23 1350 <Electronically signed by Jayson Corbin MD> Cosigner Signature (if applicable): CC: ~ Signed [facility] Work Phone: 1(392) 273-124901-14-2024 Discharge summary Author Eddy Maier [facility] May 30, 2023 1:23am Note Date/Time May 29, 2023 5 :43pm [facility] Medical Records Department [address] [place] [address] Emergency Department Summary 05/29/23 MR#: [id number] Acct: [id number] Name: NIDIA ZAVALETA Rep #:[id number] : 1960 62 From: Delfino Hart GLASS CARRIER-C PCP: Dr. Pennie Marichuy, DO Status:AD M IN Location: MS3 [id number] HPI <EVAN Thorpe - Last Filed: 05/29/23 20:07> History of Present Illness Chief Complaint: Cold Sx Narrative Narrative: Patient is a 62-year-old female history of COPD, hypertension who smokes 1/2 pack/day presenting to the emerged part with 2 days of generalized cough, body aches, shortness of breath. Patient states that the cough got much worse last evening, her states that she had a low-grade fever of 99.9. Patient's pulse oxygenation was 88%. She denies any production as to her cough, states she feels generalized weak and bodyaches. PFSH <EVAN Thorpe - Last Filed: 05/29/23 20:07> PFSH Medical History Anxiety Brain aneurysm COPD (chronic obstructive pulmonary disease) HTN (hypertension) Smoking Home Medications albuterol sulfate 90 mcg/actuation aerosol inhaler (Proventil HFA) 6.7 g IH PRN PRN Shortness Of Breath 06/30/16 [History Last Taken Unknown] lorazepam 0.5 mg tablet 0.5 mg PO DAILY PRN PRN Anxiety 07/01/16 [History Last Taken Unknown] acetaminophen 325 mg tablet (Tylenol) 650 mg (2 x 325 mg) PO Q6H PRN PRN Mild Pain (scale 0-3)/T>100.7 ##0 07/02/16 [Rx Last Taken Unknown] amlodipine 5 mg tablet (Norvasc) 5 mg PO DAILY 05/29/23 [History Last Taken Unknown] fluticasone fur. 100 mcg-umeclid 62.5 mcg-vilant 25 mcg inhalat.powder (Trelegy Ellipta) 1 inh inhalation DAILY 05/29/23 [History Last Taken Unknown] Allergy/AdvReac Type Severity Reaction Status Date / Time levofloxacin [From Levaquin] AdvReac Rash Verified 07/01/16 11:03 Family History (Updated 05/29/23 @ 19:[address] Tasha Edge MD) Mother Cancer Surgical History (Updated 05/29/23 @ 19:[address] Tasha Edge MD) H/O breast augmentation H/O tubal ligation History of carpal tunnel release Hx of appendectomy Social History (Updated 05/29/23 @ 19:[address] Tasha Edge MD) household members: spouse Smoking Status: Current every day smoker tobacco type: cigarettes Smoking packsper day: 0.5 Smoking cigarettes per day: 10.0 alcohol intake: current alcohol intake frequency: holidays/special occasions only substance use type: does not use ROS <EVAN Thorpe - Last Filed: 05/29/23 20:07> ROS ED ROS Narrative Constitutional: Negative for weight loss, weakness. Positive for fever and chills Eyes: Negative for vision loss, vision change, double vision ENT: Negative for any sore throat, ear pain, congestion Cardiovascular: Negative for any chest pain, tightness, palpitations Respiratory: Negative for any sputum production, hemoptysis, dyspnea on exertion, orthopnea. Positive for cough, dyspnea Gastrointestinal: Negative for any abdominal pain, nausea, vomiting, diarrhea, constipation, blood in stool, blood in vomit : Negative for any urinary frequency, dysuria, retention, blood in urine Muscle skeletal: Negative for any myalgias, arthralgias, neck pain, back pain Neurological: Negative for any headache, syncope, paresthesias, dizziness Skin: Negative for any rashes, lumps, itching, abrasions, lacerations Psychiatric: Negative for any depression, anxiety, stress, suicidal ideation, homicidal ideation Hematologic: Negative for any easy bruising, excessive bruising, easy bleeding Allergies: Negative for any eczema, hives, rash EXAM <EVAN Thorpe - Last Filed: 05/29/23 20:07> Physical Exam Narrative Exam Narrative: Vital signs reviewed. Patient was 88% on room air, on 2 L, the patient is 93 to 94%. HEET: Head normocephalic atraumatic, TMs clear bilaterally. Posterior pharynx is clear, moist mucous membranes. Nares clear bilaterally. Neck: Supple with no lymphadenopathy or tenderness. No signs of meningismus. Cardiac: Regular rate and rhythm no murmurs gallops or rubs, equal peripheral pulses bilaterally. Respiratory: Patient has wheezing expiratory throughout the entire pulmonary exam. Some rhonchorous breath sounds in the right lower lobe.. No chest tenderness. Abdomen: Soft, nontender, nondistended. No abdominal bruit or pulsatile masses. No hepatosplenomegaly Extremities: No peripheral edema, no signs of gross trauma or deformity. Activefull range of motion of all extremities. Neuro: Cranial nerves II through XII intact, no focal neurological deficits. Skin: Clean dry and intact with no rash, purpura, petechiae, vesicles or pustules. Backs/flank: No CVA tenderness, no midline spinal tenderness, no deformity. Psych: Normal mood and affect. No SI, HI or acute psychosis. Const Vital Signs: 05/29/23 16:58 05/29/23 17:26 05/29/23 17:37 Temperature 98.5 F Temperature Source Temporal Pulse Rate 105 H Respiratory Rate 22 H Respiratory Effort Normal Non-Labored Respiratory Pattern Normal Blood Pressure 141/75 H Blood Pressure Mean 97 Pulse Ox 88 91 Oxygen Delivery Method Room Air Nasal Cannula Oxygen Flow Rate (L/min) 2 05/29/23 17:53 Temperature Temperature Source Pulse Rate 103 H Respiratory Rate 32 H Respiratory Effort Respiratory Pattern Tachypnea Blood Pressure Blood Pressure Mean Pulse Ox Oxygen Delivery Method Oxygen Flow Rate (L/min) <Dr. Eddy Maier DO - Last Filed: 05/29/23 21:30> Physical Exam Const Vital Signs: 05/29/23 16:58 05/29/23 17:26 05/29/23 17:37 Temperature 98.5 F Temperature Source Temporal Pulse Rate 105 H Respiratory Rate 22 H Respiratory Effort Normal Non-Labored Respiratory Pattern Normal Blood Pressure 141/75 H Blood Pressure Mean 97 Pulse Ox 88 91 Oxygen Delivery Method Room Air Nasal Cannula Oxygen Flow Rate (L/min) 2 05/29/23 17:53 Temperature Temperature Source Pulse Rate 103 H Respiratory Rate 32 H Respiratory Effort Respiratory Pattern Tachypnea Blood Pressure Blood Pressure Mean Pulse Ox Oxygen Delivery Method Oxygen Flow Rate (L/min) [facility] <EVAN Thorpe - Last Filed: 05/29/23 20:07> [facility] Lab Data Attestation: I reviewed the patient's lab results. Labs: Laboratory Results - last 24 hr 05/29/23 18:05 WBC 12.1 H RBC 5.01 Hgb 15.3 H Hct 47.0 MCV 93.8 MCH 30.5 MCHC 32.6 RDW Std Deviation 45.7 H RDW Coeff of Alvaro 13.2 Plt Count 279 MPV 10.2 Immature Gran % (Auto) 0.300 Neut % (Auto) 86.5 H Lymph % (Auto) 4.[address] [place] % (Auto) 7.8 Eos % (Auto) 0.1 Baso % (Auto) 0.5 Absolute Neuts (auto) 10.5 H Absolute Lymphs (auto) 0.58 L Nucleated RBC % 0 Differential Comment SCANNED Sodium 137 Potassium 3.9 Chloride 103 Carbon Dioxide 28.0 Anion Gap 6 BUN 11 Creatinine 0.76 Estim Creat Clear Calc 59.56 Est GFR (MDRD) Af Amer 98 Est GFR (MDRD) Non-Af 81 BUN/Creatinine Ratio 14.4 Glucose 128 H Calcium 9.1 Radiography Diagnostic Testing: Clinical Impression(s) from Imaging Studies Chest X-Ray 05/29/23 18:45 IMPRESSION: Subtle bilateral lower lobe pulmonary opacities may be developing pneumonia or atelectasis. Electronically Signed: Gideon Ruvalcaba, at 19:24 EST , EKG Sinus tachycardia: Attestation: I personally reviewed and interpreted this EKG as follows: Comments: Sinus tachycardia, rate of 105 bpm, ID interval 160 ms, QRS duration 70 ms, no acute ST elevation, no acute infarct noted. Treatment and Re-Evaluation :: Patient does not appear to be septic, patient was hypoxic on room air, patient is mentating fine on nasal cannula oxygen. Patient presents to the emerged department for cough, fever and chills, shortness of breath. Differential diagnosis includes community-acquired pneumonia, viral illness such as COVID-19,influenza, RSV, COPD exacerbation. Patient received a two-view chest x-ray all radiologic examinations were read, reviewed by the emergency department attending. From these reads, a plan of care will be put in place. Basic laboratory values, patient received breathing treatments, rapid PCR influenza panel, IV steroids, breathing treatments. She will be reevaluated. Patient's chest x-ray showed subtle bilateral lower lobe pulmonary opacities maybe developing pneumonia or atelectasis. Patient was positive for influenza A. CBC shows a white blood count of 12.1, chemistries were unremarkable. Patient after breathing treatment states she felt much better. She did try to ambulate however when she got up out of the bed, she dropped to 82% and was tachypneic, tachycardic. At this time, patient will need to be admitted to the hospital. Patient agrees with the care, patient be diagnosed with influenza, exacerbation of COPD, hypoxia. <Dr. Eddy Maier, DO - Last Filed: 05/29/23 21:30> [facility] Narrative Medical decision making narrative: I have personally performed a face to face assessment of the patient and have reviewed the KELLIE Note. I performed a substantive portion of the visit including all aspects of the following. My jay findings include: History: Patient presents with shortness of breath that began last night. Patient states it became worse today. Patient states she has had a cough but isunable to produce any sputum. Patient midst to some rhinorrhea. Patient statesher temperature at home was up to 102. Patient denies any chest pain. Patient admits to some nausea but denies any vomiting. Patient admits to some urinary frequency. Patient admits to some pain in her back with coughing. Exam: Vital signs are stable. Patient was hypoxic at 88% on room air. Oral mucosa is pink and moist. Heart was regular and tachycardic. Lungs showed diffuse expiratory wheezing. There is adequate respiratory effort. There are no retractions noted. Abdomen is soft. Bowel sounds are normal. There is no tenderness. Extremities are intact. There is no calf tenderness or edema. Cranial nerves II through XII are intact. There are no focal motor or sensory deficits noted. Medical Decision Making: Differential diagnosis includes COPD exacerbation, cardiac dysrhythmia, cardiac ischemia, pneumonia, viral upper respiratory infection, and bronchitis. CBC will be obtained to assess for leukocytosis and anemia. Basic metabolic profile will be obtained to assess for electrolyte abnormality and renal function. Chest x-ray will be obtained to assess for pneumonia and pneumothorax. COVID-19 PCR will be obtained to assess for COVID-19 infection. Influenza PCR will be obtained to assess for influenza infection. RSV PCR will be obtained to assess for RSV infection. Patient was given a DuoNeb aerosol here. Patient was given a dose of Solu- Medrol. Patient was given IV fluids. EKG was obtained. On my independent interpretation, shows sinus tachycardia with a rate of 105. ID interval, QRS normal, QTc intervals are within normal limits. [place] is normal. There are nonspecific ST-T wave changes noted. There are no prior EKGs available for comparison. CBC was reviewed. There is a mild leukocytosis of 12.1. The remainder was essentially within normal limits. Basic metabolic profile was reviewed and was within normal limits. PA and lateral chest x-ray was obtained. There are 2 views. On my independent interpretation, there are chronic changes. There is bilateral lower lobe atelectasis versus infiltrate. Bony thorax is normal. There is no cardiomegaly noted. Radiologist also interpretedthe x-ray and agrees. COVID-19 PCR was reviewed and was negative. RSV PCR was reviewed and was negative. Influenza PCR was reviewed and was positive for influenza A. Patient was given a dose of Tamiflu here. Patient dropped to 82% on room air while sitting in the bed. Patient was placed back on oxygen. We will discuss case with the hospitalist for admission. Patient and family understood and were agreeable with the plan. All questions were answered. Lab Data Labs: Laboratory Results - last 24 hr 05/29/23 18:05 WBC 12.1 H RBC 5.01 Hgb 15.3 H Hct 47.0 MCV 93.8 MCH 30.5 MCHC 32.6 RDW Std Deviation 45.7 H RDW Coeff of Alvaro 13.2 Plt Count 279 MPV 10.2 Immature Gran % (Auto) 0.300 Neut % (Auto) 86.5 H Lymph % (Auto) 4.[address] [place] % (Auto) 7.8 Eos % (Auto) 0.1 Baso % (Auto) 0.5 Absolute Neuts (auto) 10.5 H Absolute Lymphs (auto) 0.58 L Nucleated RBC % 0 Differential Comment SCANNED Sodium 137 Potassium 3.9 Chloride 103 Carbon Dioxide 28.0 Anion Gap 6 BUN 11 Creatinine 0.76 Estim Creat Clear Calc 59.56 Est GFR (MDRD) Af Amer 98 Est GFR (MDRD) Non-Af 81 BUN/Creatinine Ratio 14.4 Glucose 128 H Calcium 9.1 Radiography Chest X-Ray - ED: 2 View, Read by ED Physician and Read by Radiologist Diagnostic Testing: Clinical Impression(s) from Imaging Studies Chest X-Ray 05/29/23 18:45 IMPRESSION: Subtle bilateral lower lobe pulmonary opacities may be developing pneumonia or atelectasis. Electronically Signed: Gideon Ruvalcaba DO at 19:24 EST , Discharge Plan Dx/Rx/DC Orders Clinical Impression: COPD with acute exacerbation, Influenza A, Hypoxia Disposition Disposition: Acute Care Hospital [facility] Discharge Date/Time: 05/29/23 20:45 What to do if you have Problems For any increased pain, shortness of breath, bleeding, nausea or vomiting, chestpain, or any unexpected problems, contact your Primary Care Provider. Call [facility] ([phone]) or report to the closest Emergency Room. Call 911 if necessary. 05/29/232006 <Electronically signed by Delfino GORDON> Cosigner Signature (if applicable): 05/30/23122 <Electronically signed by Eddy Maier DO> CC: Dr. Pennie Hale, ~ Signed [facility] Work Phone: 1(240) 799-874401-13-2024 History and physical note Author Tasha Edge [facility] May 29, 2023 8:42pm Note Date/Time May 29, 2023 7 :39pm [facility] Medical Records Department [address] [place] [address] H&P Exam - Hospitalist 05/29/231936 MR#: [id number] Acct: [id number] Name: NIDIA ZAVALETA Rep #:[id number] : 1960 62 From: Tasha Edge MD PCP: Dr. Pennie Hale, Status:AD M IN Location: UT3 RL726-7 HPI - General General Date of Admission: 05/29/23 Date of Service: 05/29/23 Chief Complaint: Cough, dyspnea, low grade T, body aches, fatigue, malaise. HPI Narrative The patient is a 62 y/o F w/ PMHx: Anxiety and Depression, HTN, COPD, Tobacco use, Brain Aneurysm who present so the [facility] ED on 05/29/23 with history of 2-day history of progressively worsening cough, shortness of breath, body aches, fatigue and malaise with a low-grade fever prompting eventual ED evaluation. Patient does report she continues to smoke 1/2 pack/day. Patient who ispresent notes he has been feeling well himself. They both unfortunately cannot recall if they did get vaccinated this year but they say normally they do. Workup in the ED included T98.5, heart rate 105, BP 141/75, respiratory rate 22 initially with most recent repeat 32, initially noted to be 88% on room air withmost recent repeat 91% on 2 L nasal cannula, CBC with WBC 12.1, hemoglobin 15.3,platelet 279 with left shift and lymphopenia, BMP with glucose 128 otherwise unremarkable, chest x-ray with subtle bilateral lower lobe pulmonary opacities possibly developing pneumonia versus atelectasis, rapid SARS COVID/RSV PCR negative, positive influenza A. In the ED patient ministered 1 L normal saline,Tamiflu 75 mg p.o. x 1, Solu-Medrol 125 mg IV x 1 as well as DuoNeb and albuterol therapies. PFSH Medical History Anxiety Brain aneurysm COPD (chronic obstructive pulmonary disease) HTN (hypertension) Smoking Home Medications albuterol sulfate 90 mcg/actuation aerosol inhaler (Proventil HFA) 6.7 g IH PRN PRN Shortness Of Breath 06/30/16 [History Last Taken Unknown] lorazepam 0.5 mg tablet 0.5 mg PO DAILY PRN PRN Anxiety 07/01/16 [History Last Taken Unknown] acetaminophen 325 mg tablet (Tylenol) 650 mg (2 x 325 mg) PO Q6H PRN PRN Mild Pain (scale 0-3)/T>100.7 ##0 07/02/16 [Rx Last Taken Unknown] amlodipine 5 mg tablet (Norvasc) 5 mg PO DAILY 05/29/23 [History Last Taken Unknown] fluticasone fur. 100 mcg-umeclid 62.5 mcg-vilant 25 mcg inhalat.powder (Trelegy Ellipta) 1 inh inhalation DAILY 05/29/23 [History Last Taken Unknown] Allergy/AdvReac Type Severity Reaction Status Date / Time levofloxacin [From Levaquin] AdvReac Rash Verified 07/01/16 11:03 Family History (Updated 05/29/23 @ 19:[address] Tasha Edge MD) Mother Cancer Family History other other (Unknown paternal family history.) Surgical History (Updated 05/29/23 @ 19:[address] Tasha Edge MD) H/O breast augmentation H/O tubal ligation History of carpal tunnel release Hx of appendectomy Social History (Updated 05/29/23 @ 19:[address] Tasha Edge MD) household members: spouse Smoking Status: Current every day smoker tobacco type: cigarettes Smoking packsper day: 0.5 Smoking cigarettes per day: 10.0 alcohol intake: current alcohol intake frequency: holidays/special occasions only substance use type: does not use ROS ROS Narrative Admission Review of Systems: CONSTITUTIONAL: No weight loss, + fever, chills, weakness or fatigue. HEENT: + Congestion, rhinorrhea. Eyes: No visual loss, blurred vision, double vision or yellow sclerae. Ears, Nose, Throat: No hearing loss. SKIN: No rash or itching, lesions, wounds. CARDIOVASCULAR: No chest pain, chest pressure or chest discomfort, palpitations,edema, orthopnea, syncopal events. RESPIRATORY: + Dyspnea, mildly productive cough, wheezing. No hemoptysis. GASTROINTESTINAL: + anorexia, nausea without emesis. No abdominal pain, melena,BRBPR. GENITOURINARY: No dysuria, frequency, urgency or retention. NEUROLOGICAL: + Headache. No dizziness, syncope, paralysis, ataxia, numbness ortingling in the extremities, focal weakness, change in bowel or bladder control,seizure. MUSCULOSKELETAL:+ muscle, back pain, joint pain or stiffness. HEMATOLOGIC: No anemia, bleeding or bruising. LYMPHATICS: No enlarged nodes. No history of splenectomy. PSYCHIATRIC: + History of anxiety and depression ENDOCRINOLOGIC: No reports of sweating, cold or heat intolerance. No polyuria orpolydipsia. ALLERGIES: No history of asthma, hives, eczema or rhinitis. Vital Signs Vital Signs Vital Signs: 05/29/23 16:58 05/29/23 17:26 05/29/23 17:37 Temperature 98.5 F Temperature Source Temporal Pulse Rate 105 H Respiratory Rate 22 H Respiratory Effort Normal Non-Labored Respiratory Pattern Normal Blood Pressure 141/75 H Blood Pressure Mean 97 Pulse Ox 88 91 Oxygen Delivery Method Room Air Nasal Cannula Oxygen Flow Rate (L/min) 2 05/29/23 17:53 Temperature Temperature Source Pulse Rate 103 H Respiratory Rate 32 H Respiratory Effort Respiratory Pattern Tachypnea Blood Pressure Blood Pressure Mean Pulse Ox Oxygen Delivery Method Oxygen Flow Rate (L/min) Weight Weight: 124 lb Body Mass Index (BMI) 24.2 Physical Exam Narrative Physical Examination: General: Awake, alert, oriented x 3 and cooperative, laying on her side in the ED bed, fatigued and ill-appearing, mildly increased respiratory rate but no distress. Skin: Flushed color, normal turgor, no icterus, no cyanosis. HEENT: AT/NC, EOMI, PERRLA, dry MM, no carotid bruits or JVD noted. Lungs: Notably diminished, greater bases, mildly increased respiratory rate but no distress, occasional end expiratory wheeze, no marked rales or rhonchi. Heart: Mildly tachycardic with regular rhythm; no gallop, rub audible. Abdomen: Soft, NTTP, ND, hyperactive BS, no HSM. Extremities: No cyanosis, clubbing, or edema. Neurological: Patient awake, alert, oriented as noted, cognitive function intact; pupils equally reactive to light and accommodation, cranial nerves grossly normal, moving all 4 extremities, no focal deficits, strength moderatelyto severely globally decreased secondary to acute presentation. Psychiatric: Affect appears flat, fatigued, ill-appearing, no acute evidence of depressive or anxiety feelings but does have underlying history. Results Lab / Micro Data 05/29/23 18:05 05/29/23 18:05 Labs: Laboratory Results - last 24 hr 05/29/23 18:05: WBC 12.1 H, RBC 5.01, Hgb 15.3 H, Hct 47.0, MCV 93.8, MCH 30.5, MCHC 32.6, RDW Std Deviation 45.7 H, RDW Coeff of Alvaro 13.2, Plt Count 279, MPV 10.2, Immature Gran % (Auto) 0.300, Neut % (Auto) 86.5 H, Lymph % (Auto) 4.8 L, [place] % (Auto) 7.8, Eos % (Auto) 0.1, Baso % (Auto) 0.5, Absolute Neuts (auto) 10.5 H, Absolute Lymphs (auto) 0.58 L, Nucleated RBC % 0, Differential Comment SCANNED, Sodium 137, Potassium 3.9, Chloride 103, Carbon Dioxide 28.0, Anion Gap6, BUN 11, Creatinine 0.76, Estim Creat Clear Calc 59.56, Est GFR (MDRD) Af Amer98, Est GFR (MDRD) Non-Af 81, BUN/Creatinine Ratio 14.4, Glucose 128 H, Calcium 9.1 Micro: Microbiology 05/29/23 17:50 Mucosa - Nose SARS-CoV-2, Influenza & RSV (PCR) - Final Influenzae A Imagaing Radiology Impression Chest X-Ray 05/29/23 18:45 IMPRESSION: Subtle bilateral lower lobe pulmonary opacities may be developing pneumonia or atelectasis. Electronically Signed: Gideon Ruvalcaba, at 19:24 EST , Assessment & Plan Assessment/Plan (1) COPD with acute exacerbation: (2) Influenza A: (3) Hypoxia: PLAN: Plan The patient is a 62 y/o F w/ PMHx: Anxiety and Depression, HTN, COPD, Tobacco use, Brain Aneurysm who present so the [facility] ED on 05/29/23 with history of 2-day history of progressively worsening cough, shortness of breath, body aches, fatigue and malaise with a low-grade fever prompting eventual ED evaluation. Patient does report she continues to smoke 1/2 pack/day. #1. Acute Hypoxia secondary to Acute on Chronic COPD exacerbation secondary to Acute Influenza A viral syndrome: Will admit to [facility], maintain on oxygen with weanas tolerated to room air, continue ATC duonebs, PRN albuterol, IV methylprednisolone, HOB, IS parameters, will obtain sputum Cx, procalcitonin, will hold on immediately abx therapy but low threshold to add if appropriate especially given CXR findings, maintain on tamiflu. #2. Hypertension: Continue home regimen including amlodipine, PRN hydralazine. #3. Anxiety and depression: We will continue patient low-dose lorazepam regimen. #4. Tobacco Abuse: Encouraged cessation, inpatient consultation per RT, NR if desired. #5. Chart reported history of brain aneurysm: No CT imaging in [facility] noted, encourage continued outpatient follow-up as previously arranged. #6. DVT prophylaxis: Lovenox. Charges/Coding Visit Charges Inpatient E&M: 14278 Init Hosp L3 05/29/232041 <Electronically signed by Tasha Edge MD> Cosigner Signature (if applicable): CC: Dr. Tasha Edge MD; Dr. Pennie Hale, DO~ Signed [facility] Work Phone: 1(762) 270-621107-20-2023 Miscellaneous Notes* Telephone Encounter - Irlanda Hawthorne APRN.CNP - 12/03/2022 9:41 AM EDT Phone call to patient and discussed results. She asked about lab results and I read Pennie Rodgers note that Alpha-1 Antitrypsin level was normal. * Telephone Encounter - Irlanda Hawthorne APRN.CNP - 12/01/2022 3:59 PM EDT Left message for pt to call back regarding results. [facility] History of Present illness Narrative* Becky Hull RT(R) - 11/27/2022 8:00 AM EDT Radiology Service Progress Note PATIENT NAME: Nidia Zavaleta DATE OF SERVICE: November 27, 2022 TIME: 4:26 PM PATIENT IDENTITY VERIFICATION COMPLETED USING TWO (2) IDENTIFIERS: Name and Date of confirmedby patient verbally. FALL SCREENING: Has the patient [...] 27, 2022 4:26 PM documented in this encounterK[facility]-05-2023 Instructions* Patient Instructions* Irlanda Hawthorne APRN.CNP - 11/18/2022 8:[address] Lung [...] no harm to you at all. A specialistwill make a scientific evaluation about whether or [...] to endocrinology. Others Lung Cancer Screening hotline: [phone] Lung Cancer Screening [phone] Billing Questions: or [email or web address] Lung Cancer Screening Team: Andria Estevez CNP; Maria D Aponte PA-C; Becky Rudd CNP; Lata Stanley CNP, Nathaly Gaffney PA-C, Faith Basurto PA-C, Irlanda Hawthorne, BROADCAST TRAFFIC COORDINATOR : [phone] documented in this encounterK[facility]07-05-2023 History of Present illness Narrative* Irlanda Hawthorne APRN.CNP - 11/18/2022 8:35 AM EDT Images from the original note were not included. LUNG SCREENING VISIT PRIMARY CARE PHYSICIAN: Pennie Hael DO, DO PULMONARY PROVIDER: Dr. Dino Wolfe Results will be communicated via letter or electronic record if applicable. Visit Delivery: In Person Patient Visit Type: New to Screening Current or Ex-smoker? [Current Exam Type: baseline LDCT Number of Pack Years: 72 Current smoker (=0) REQUESTER: The referring provider advised the patient to have screening. HISTORY OF PRESENT ILLNESS: Nidia Zavaleta is a 61 year old Active [...] pre-disease performance w/o restriction. Modified Medical Research [place] Dyspnea Scale (MMRC) I only get breathless [...] as instructed every 4 hours as needed. qgevffaiaia-xpkbtohjt-jlldixwc (TRELEGY ELLIPTA) 100-62.5-25 mcg inhalation powder Inhale 1 Puff asinstructed once daily. multivitamin with minerals (VISION/OPTIGEN) tablet [...] DATE OF EXAM: Jul 24 2014 8:24AM [facility] 0349 - CT CHEST WO CONTRAST / PROCEDURE REASON: Other emphysema (HCC) * * * * Physician Interpretation * * * * CT CHEST WO CONTRAST [id number] INDICATION: Other emphysema (HCC)/ recheck lung nodules, prior 2.14, breast augmentation, post menopause kmr Compare to [...] result) Pulmonary Function Testing: SPIROMETRY BASELINE ONLY ([id number]) - ordered on 10/27/21 No textual results for order. PHYSICAL EXAM: BP (P) 116/72 Pulse (P) 88 Resp (P) 17 Ht 148.1 cm (4' 10.3) Wt 53.9 kg (118 lb 12.8 oz) [...] follow-up diagnostic testing, over-diagnosis, false positive rate, andtotal radiation exposure. The patient understands and feels [...] any other counseling during this visit. Irlanda Hawthorne APRN.CNP NPI #: November 18, 2022 8:38 AM documented in this encounterK[facility]06-16-2023 History of Present illness Narrative* Colleen Wolfe MD - 10/30/2022 1:30 PM EDT Images from the original note were not included. . [facility] Note Patient name: Nidia Zavaleta PCP: Pennie Hale DO, DO CC: COPD HPI: Nidia Zavaleta 61 year old female smoker with [...] DATE OF EXAM: Jul 24 2014 8:24AM [facility] 0349 - CT CHEST WO CONTRAST / CT CHEST WO CONTRAST [id number] RESULT: No mediastinal or hilar adenopathy identified. [...] railroad tracks. Does not recall specific reaction. yudurcszpbc-uhhskfrez-whtquplh (TRELEGY ELLIPTA) 100-62.5-25 mcg inhalation powder Inhale 1 Puff asinstructed once daily. 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 Pets: None [...] cancer screening clinic Colleen Wolfe MD [facility] documented in this encounterK[facility]06-13-2022 Instructions* Patient Instructions* Gene Johnson MD - 10/27/2021 10:03 AM [...] I am retiring from the staff of [facility] and the practice of Medicine on November [...] and Devi Nava PA-C. Gene Johnson MD, [facility] [place] [id number] P: [phone] F: [phone] [email or web address] documented in this encounterK[facility]06-13-2022 History of Present illness Narrative* Gene Johnson MD - 10/27/2021 9:44 AM EDT [facility], 10/27/2021: Name: Nidia Zavaleta : 1960 INTERVAL HISTORY: She last [...] purulent. No hemoptysis. No wheezing, It's amazing. 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 Still walking 1-2 miles daily. Problem [...] I am retiring from the staff of [facility] and the practice of Medicine on November [...] acceptance of my answers. Gene Johnson MD, [facility] [address] [place] [address] P: [phone] F: [phone] [email or web address] documented in this encounterK[facility]06-13-2022 History of Present illness Narrative* NEREYDA Perez - 10/27/2021 9:37 AM EDT PULM FUNCTION SMARTBLOCK: Provider: Devi Nava PA-C Assisting Tech: NEREYDA Perez Spirometry: 1 System: [id number] documented in this encounterK[facility] TownshipDischarge summary Author Michael Means [facility] May 31, 2023 2:54pm Note Date/Time May 31, 2023 2 :54pm [facility] Medical Records Department [address] [place] [address] Discharge Summary 05/31/23 1449 MR#: [id number] Acct: [id number] Name: NIDIA ZAVALETA Yuliya Rep #:[id number] : 1960 62 From: Michael moore MD PCP: Dr. Pennie Hale, DO Status:AD M IN [place] [facility] [id number] Providers Date of Admission: 01/13/24 Primary Care Physician: Dr. Pennie Hale DO Reason For Visit: HYPOXIA, INFLUENZA A, COPD EXAC Diagnosis Discharge Diagnosis (1) COPD with acute exacerbation: Status: Acute Code(s): J44.1 - Chronic obstructive pulmonary disease with (acute) exacerbation (2) Influenza A: Status: Acute Code(s): J10.1 - Influenza due to other identified influenza virus with other respiratorymanifestations (3) Hypoxia: Status: Acute Code(s): R09.02 - Hypoxemia Medications at Discharge Home Medications albuterol sulfate 90 mcg/actuation aerosol inhaler (Proventil HFA) 6.7 g IH PRN PRN Shortness Of Breath 06/30/16 lorazepam 0.5 mg tablet 0.5 mg PO DAILY PRN PRN Anxiety 07/01/16 acetaminophen 325 mg tablet (Tylenol) 650 mg (2 x 325 mg) PO Q6H PRN PRN Mild Pain (scale 0-3)/T>100.7 ##0 07/02/16 amlodipine 5 mg tablet (Norvasc) 5 mg PO DAILY 05/29/23 fluticasone fur. 100 mcg-umeclid 62.5 mcg-vilant 25 mcg inhalat.powder (Trelegy Ellipta) 1 inh inhalation DAILY 05/29/23 oseltamivir 75 mg capsule 75 mg PO BID 3 days #6 caps 05/31/23 prednisone 20 mg tablet 40 mg (2 x 20 mg) PO DAILY 7 days #14 tabs 05/31/23 Hospital Course Operations None Procedures None Summary of Care Provided Minutes Spent on Discharge: 38 Hospital Course: Per HPI: The patient is a 62 y/o F w/ PMHx: Anxiety and Depression, HTN, COPD, Tobacco use, Brain Aneurysm who present so the [facility] ED on 05/29/23 with history of2-day history of progressively worsening cough, shortness of breath, body aches,fatigue and malaise with a low-grade fever prompting eventual ED evaluation. Patient does report she continues to smoke 1/2 pack/day. Patient who ispresent notes he has been feeling well himself. They both unfortunately cannot recall if they did get vaccinated this year but they say normally they do. Workup in the ED included T98.5, heart rate 105, BP 141/75, respiratory rate 22 initially with most recent repeat 32, initially noted to be 88% on room air withmost recent repeat 91% on 2 L nasal cannula, CBC with WBC 12.1, hemoglobin 15.3,platelet 279 with left shift and lymphopenia, BMP with glucose 128 otherwise unremarkable, chest x-ray with subtle bilateral lower lobe pulmonary opacities possibly developing pneumonia versus atelectasis, rapid SARS COVID/RSV PCR negative, positive influenza A. In the ED patient ministered 1 L normal saline,Tamiflu 75 mg p.o. x 1, Solu-Medrol 125 mg IV x 1 as well as DuoNeb and albuterol therapies. Hospital course: 1. Acute hypoxia secondary to acute COPD exacerbation from influenza A?59-year-old female presented to the hospital with significant shortness of breath and hypoxia requiring oxygen therapy. She was noted to be positive for influenza A on admission and was started on Tamiflu as she was within the windowof symptom onset for treatment. She was also started on steroids secondary to her COPD exacerbation. Today she had an ambulatory pulse ox demonstrating a need for 2 L and I discussed with her the possibility for discharge versus staying another day, and she expressed understanding of the risk benefits of going home and would prefer to go home today. She does require oxygen both at rest and with ambulation as she is ambulatory in the home and community she willneed portable oxygen as well on discharge. She will be discharged with 3 more days of Tamiflu as well as 7 days of prednisone without a taper. 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 2. Hypertension, anxiety, depression are chronic medical conditions which complicate her care. Her home medications were continued where appropriate Physical Exam Narrative General: Alert, Oriented x3, Cooperative, No apparent distress HEENT: Atraumatic, PERRLA, EOMI, Normocephalic Oral: Moist Mucosa Neck: Supple, No JVD Lungs: Diminished, Normal air movement, No rhonchi, slight wheeze, No rales Cardiovascular: Regular rate, Regular Rhythm, Normal S1, Normal S2, No murmurs Abdomen: Soft, Non Tender, Non-Distended, No Hepato-splenomegaly Extremities: No edema, Capillary Refill Less than 3 Seconds Skin: No rashes, No breakdown Musculoskeletal: No Tenderness to Palpation of Joints or Extremities Neurological: Cranial nerves II-XII grossly intact, Motor Exam 5/5 strength throughout, Sensory exam intact to light touch and pain Psych/Mental Status: Normal Affect, Appropriate Weight / BMI Weight Weight: 121 lb 14.65 oz Body Mass Index (BMI) 23.9 ABG / Lab / Microbiology Data 05/30/23 06:16 05/30/23 06:16 Microbiology: Microbiology 05/29/23 17:50 Mucosa - Nose SARS-CoV-2, Influenza & RSV (PCR) - Final Influenzae A D/C Instructions Discharge Diet: No restrictions Return to work on: 06/07/23 Call your doctor if you observe: Fever of 101 or Higher, Shortness of breath, Dizziness, Fainting spells, Swelling in the ankles, Chest pain and Increased palpitations (irregular heartbeat) Meaningful Use Info Meaningful Use Diagnoses (Choose all that apply): None applicable Discharge Plan Admission Admit Date/Time: 05/29/23 19:38 Attending Provider: Michael Means Primary Care Provider: Pennie Hale Consulting Providers: Tasha Edge; Jayson Corbin Discharge Orders/Prescriptions Prescriptions: New oseltamivir 75 mg Capsule 75 mg PO BID 3 Days Qty: 6 0RF prednisone 20 mg tablet 40 mg PO DAILY 7 Days Qty: 14 0RF Continued albuterol sulfate [Proventil HFA] 6.7 GM HFA aerosol inhaler 6.7 g IH PRN PRN (Reason: Shortness Of Breath) lorazepam 0.5 MG tablet 0.5 mg PO DAILY PRN PRN (Reason: Anxiety) acetaminophen [Tylenol] 325 MG tablet 650 mg PO Q6H PRN PRN (Reason: Mild Pain (scale 0-3)/T>100.7) Qty: 0 0RF Trelegy Ellipta 100-62.5-25 mcg blister with device 1 inh INHALATION DAILY amlodipine [Norvasc] 5 mg tablet 5 mg PO DAILY Patient Comments: pt takes 7.5mg Referrals / Follow Up: Pennie Hale DO [Primary Care Provider] - Within 1 Week Disposition Disposition (needs filled in before D/C Order can be placed): Home, Self Care Charges/Coding Visit Charges Inpatient E&M: 11965 Disch Hosp >30min 05/31/23 1877 <Electronically signed by Michael Means MD> Cosigner Signature (if applicable): CC: Dr. Pennie Hale DO; Dr. Michael Means MD~ Signed [facility] Work Phone: Evaluation note* Diagnosis Centrilobular emphysema (HCC) Other emphysema [facility] this encounter [facility]* Diagnosis Centrilobular emphysema (HCC)- Primary Other emphysema Pulmonary nodules Other nonspecific abnormal finding of lung field Tobacco use disorder [facility] this [facility]* Diagnosis Centrilobular emphysema (HCC) Other emphysema [facility]* Diagnosis Stage 3 severe COPD by GOLD classification (HCC)- Primary Cigarette smoker Tobacco use disorder [facility]* Diagnosis Stage 3 severe COPD by GOLD classification (HCC) [facility]* Diagnosis Encounter for screening for lung cancer- Primary Tobacco use current [facility]* Diagnosis Lung nodules- Primary Other nonspecific abnormal finding of lung field [facility]* Diagnosis Encounter for screening for lung cancer Tobacco use current [facility] Diagnosis Onset Date Resolution Status COPD with acute exacerbation acute Hypoxia acute Influenza A acute [facility] Work Phone: Evaluation note* Diagnosis Centrilobular emphysema (HCC)- Primary Other emphysema Stage 3 severe COPD by GOLD classification (HCC) Influenza due to influenza A subtype H1N1 virus with pneumonia [facility] Diagnosis Stage 3 severe COPD by GOLD classification (HCC)- Primary Influenza due to influenza A subtype H1N1 virus with pneumonia Former smoker Personal history of tobacco use, presenting hazards to health [facility] Diagnosis Stage 3 severe COPD by GOLD classification (HCC) [facility] Diagnosis Stage 3 severe COPD by GOLD classification (HCC)- Primary Chronic hypoxemic respiratory failure (HCC) Chronic respiratory failure Former smoker Personal history of tobacco use, presenting hazards to health Lung nodules Other nonspecific abnormal finding of lung field [facility] Diagnosis Stage 3 severe COPD by GOLD classification (HCC)- Primary Chronic hypoxemic respiratory failure (HCC) Chronic respiratory failure Lung nodules Other nonspecific abnormal finding of lung field Former smoker Personal history of tobacco use, presenting hazards to health [facility] Diagnosis Centrilobular emphysema (HCC) Other emphysema documented in this encounter [facility] noteNo assessment information [facility] Work Phone: Evaluation note* Diagnosis Acute otitis media, right- Primary Unspecified otitis media URI, acute Acute upper respiratory infections of unspecified site [facility] this [facility]* Diagnosis 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, 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) [facility] Aneurysm of anterior cerebral artery (HCC) Cerebral aneurysm, 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 Pennie Hale, DO Status:AD M IN [place] [facility] [place] HPI - General General Date of Admission: 05/29/23 Date of Service: 05/29/23 Chief Complaint: Cough, dyspnea, low grade T, body aches, fatigue, malaise. HPI Narrative The patient is a 62 y/o F w/ PMHx: Anxiety and Depression, HTN, COPD, Tobacco use, Brain Aneurysm who present so the [facility] ED on 05/29/23 with history of 2-day history of progressively worsening cough, shortness of breath, body aches, fatigue and malaise with a low-grade fever prompting eventual ED evaluation. Patient does report she continues to smoke 1/2 pack/day. Patient who ispresent notes he has been feeling well himself. They both unfortunately cannot recall if they did get vaccinated this year but they say normally they do. Workup in the ED included T98.5, heart rate 105, BP 141/75, respiratory rate 22 initially with most recent repeat 32, initially noted to be 88% on room air withmost recent repeat 91% on 2 L nasal cannula, CBC with WBC 12.1, hemoglobin 15.3,platelet 279 with left shift and lymphopenia, BMP with glucose 128 otherwise unremarkable, chest x-ray with subtle bilateral lower lobe pulmonary opacities possibly developing pneumonia versus atelectasis, rapid SARS COVID/RSV PCR negative, positive influenza A. In the ED patient ministered 1 L normal saline,Tamiflu 75 mg p.o. x 1, Solu-Medrol 125 mg IV x 1 as well as DuoNeb and albuterol therapies. PFSH Medical History Anxiety Brain aneurysm COPD (chronic obstructive pulmonary disease) HTN (hypertension) Smoking Home Medications albuterol sulfate 90 mcg/actuation aerosol inhaler (Proventil HFA) 6.7 g IH PRN PRN Shortness Of Breath 06/30/16 [History Last Taken Unknown] lorazepam 0.5 mg tablet 0.5 mg PO DAILY PRN PRN Anxiety 07/01/16 [History Last Taken Unknown] acetaminophen 325 mg tablet (Tylenol) 650 mg (2 x 325 mg) PO Q6H PRN PRN Mild Pain (scale 0-3)/T>100.7 ##0 07/02/16 [Rx Last Taken Unknown] amlodipine 5 mg tablet (Norvasc) 5 mg PO DAILY 05/29/23 [History Last Taken Unknown] fluticasone fur. 100 mcg-umeclid 62.5 mcg-vilant 25 mcg inhalat.powder (Trelegy Ellipta) 1 inh inhalation DAILY 05/29/23 [History Last Taken Unknown] Allergy/AdvReac Type Severity Reaction Status Date / Time levofloxacin [From Levaquin] AdvReac Rash Verified 07/01/16 11:03 Family History (Updated 05/29/23 @ 19:[address] Tasha Edge MD) Mother Cancer Family History other other (Unknown paternal family history.) Surgical History (Updated 05/29/23 @ 19:[address] Tasha Edge MD) H/O breast augmentation H/O tubal ligation History of carpal tunnel release Hx of appendectomy Social History (Updated 05/29/23 @ 19:[address] Tasha Edge MD) household members: spouse Smoking Status: Current every day smoker tobacco type: cigarettes Smoking packsper day: 0.5 Smoking cigarettes per day: 10.0 alcohol intake: current alcohol intake frequency: holidays/special occasions only substance use type: does not use ROS ROS Narrative Admission Review of Systems: CONSTITUTIONAL: No weight loss, + fever, chills, weakness or fatigue. HEENT: + Congestion, rhinorrhea. Eyes: No visual loss, blurred vision, double vision or yellow sclerae. Ears, Nose, Throat: No hearing loss. SKIN: No rash or itching, lesions, wounds. CARDIOVASCULAR: No chest pain, chest pressure or chest discomfort, palpitations,edema, orthopnea, syncopal events. RESPIRATORY: + Dyspnea, mildly productive cough, wheezing. No hemoptysis. GASTROINTESTINAL: + anorexia, nausea without emesis. No abdominal pain, melena,BRBPR. GENITOURINARY: No dysuria, frequency, urgency or retention. NEUROLOGICAL: + Headache. No dizziness, syncope, paralysis, ataxia, numbness ortingling in the extremities, focal weakness, change in bowel or bladder control,seizure. MUSCULOSKELETAL:+ muscle, back pain, joint pain or stiffness. HEMATOLOGIC: No anemia, bleeding or bruising. LYMPHATICS: No enlarged nodes. No history of splenectomy. PSYCHIATRIC: + History of anxiety and depression ENDOCRINOLOGIC: No reports of sweating, cold or heat intolerance. No polyuria orpolydipsia. ALLERGIES: No history of asthma, hives, eczema or rhinitis. Vital Signs Vital Signs Vital Signs: 05/29/23 16:58 05/29/23 17:26 05/29/23 17:37 Temperature 98.5 F Temperature Source Temporal Pulse Rate 105 H Respiratory Rate 22 H Respiratory Effort Normal Non-Labored Respiratory Pattern Normal Blood Pressure 141/75 H Blood Pressure Mean 97 Pulse Ox 88 91 Oxygen Delivery Method Room Air Nasal Cannula Oxygen Flow Rate (L/min) 2 05/29/23 17:53 Temperature Temperature Source Pulse Rate 103 H Respiratory Rate 32 H Respiratory Effort Respiratory Pattern Tachypnea Blood Pressure Blood Pressure Mean Pulse Ox Oxygen Delivery Method Oxygen Flow Rate (L/min) Weight Weight: 124 lb Body Mass Index (BMI) 24.2 Physical Exam Narrative Physical Examination: General: Awake, alert, oriented x 3 and cooperative, laying on her side in the ED bed, fatigued and ill-appearing, mildly increased respiratory rate but no distress. Skin: Flushed color, normal turgor, no icterus, no cyanosis. HEENT: AT/NC, EOMI, PERRLA, dry MM, no carotid bruits or JVD noted. Lungs: Notably diminished, greater bases, mildly increased respiratory rate but no distress, occasional end expiratory wheeze, no marked rales or rhonchi. Heart: Mildly tachycardic with regular rhythm; no gallop, rub audible. Abdomen: Soft, NTTP, ND, hyperactive BS, no HSM. Extremities: No cyanosis, clubbing, or edema. Neurological: Patient awake, alert, oriented as noted, cognitive function intact; pupils equally reactive to light and accommodation, cranial nerves grossly normal, moving all 4 extremities, no focal deficits, strength moderatelyto severely globally decreased secondary to acute presentation. Psychiatric: Affect appears flat, fatigued, ill-appearing, no acute evidence of depressive or anxiety feelings but does have underlying history. Results Lab / Micro Data 05/29/23 18:05 05/29/23 18:05 Labs: Laboratory Results - last 24 hr 05/29/23 18:05: WBC 12.1 H, RBC 5.01, Hgb 15.3 H, Hct 47.0, MCV 93.8, MCH 30.5, MCHC 32.6, RDW Std Deviation 45.7 H, RDW Coeff of Alvaro 13.2, Plt Count 279, MPV 10.2, Immature Gran % (Auto) 0.300, Neut % (Auto) 86.5 H, Lymph % (Auto) 4.8 L, [place] % (Auto) 7.8, Eos % (Auto) 0.1, Baso % (Auto) 0.5, Absolute Neuts (auto) 10.5 H, Absolute Lymphs (auto) 0.58 L, Nucleated RBC % 0, Differential Comment SCANNED, Sodium 137, Potassium 3.9, Chloride 103, Carbon Dioxide 28.0, Anion Gap6, BUN 11, Creatinine 0.76, Estim Creat Clear Calc 59.56, Est GFR (MDRD) Af Amer98, Est GFR (MDRD) Non-Af 81, BUN/Creatinine Ratio 14.4, Glucose 128 H, Calcium 9.1 Micro: Microbiology 05/29/23 17:50 Mucosa - Nose SARS-CoV-2, Influenza & RSV (PCR) - Final Influenzae A Imagaing Radiology Impression Chest X-Ray 05/29/23 18:45 IMPRESSION: Subtle bilateral lower lobe pulmonary opacities may be developing pneumonia or atelectasis. Electronically Signed: Gideon Ruvalcaba, DO at 19:24 EST , Assessment & Plan Assessment/Plan (1) COPD with acute exacerbation: (2) Influenza A: (3) Hypoxia: PLAN: Plan The patient is a 62 y/o F w/ PMHx: Anxiety and Depression, HTN, COPD, Tobacco use, Brain Aneurysm who present so the [facility] ED on 05/29/23 with history of 2-day history of progressively worsening cough, shortness of breath, body aches, fatigue and malaise with a low-grade fever prompting eventual ED evaluation. Patient does report she continues to smoke 1/2 pack/day. #1. Acute Hypoxia secondary to Acute on Chronic COPD exacerbation secondary to Acute Influenza A viral syndrome: Will admit to [facility], maintain on oxygen with weanas tolerated to room air, continue ATC duonebs, PRN albuterol, IV methylprednisolone, HOB, IS parameters, will obtain sputum Cx, procalcitonin, will hold on immediately abx therapy but low threshold to add if appropriate especially given CXR findings, maintain on tamiflu. #2. Hypertension: Continue home regimen including amlodipine, PRN hydralazine. #3. Anxiety and depression: We will continue patient low-dose lorazepam regimen. #4. Tobacco Abuse: Encouraged cessation, inpatient consultation per RT, NR if desired. #5. Chart reported history of brain aneurysm: No CT imaging in [facility] noted, encourage continued outpatient follow-up as previously arranged. #6. DVT prophylaxis: Lovenox. Charges/Coding Visit Charges Inpatient E&M: 93278 Init Hosp L3 05/29/232041 <Electronically signed by Tasha Edge MD> Cosigner Signature (if applicable): CC: Dr. Tasha Edge MD; Dr. Pennie Hale DO~ Signed [facility] Work Phone: Instructions* Name Dates Details Patient Instructions Indication:Smoker Start:24-May-2020 Instruction Type:Provider Instructions for Treatment How to Access Health Informa tion Online using Patient Portal and [employer]rd [employer] Apps Indication:Smoker Start:24-May-2020 Instruction Type:Patient Education How [...] tion Online using Patient Portal and [employer]rd [employer] Apps Indication:Smoker Start:16-Sep-2020 Instruction Type:Patient Education Patient Instructions Indication:Smoker Start:24-May-2020 Instruction Type:Provider Instructions for Treatment How to Access Health Informa tion Online using Patient Portal and [employer]rd [employer] Apps Indication:Smoker Start:24-May-2020 Instruction Type:Patient Education How [...] tion Online using Patient Portal and [employer]rd [employer] Apps Indication:Smoker Start:16-Sep-2020 Instruction Type:Patient Education Patient Instructions Indication:Smoker Start:24-May-2020 Instruction Type:Provider Instructions for Treatment How to Access Health Informa tion Online using Patient Portal and [employer] Apps Indication:Smoker Start:24-May-2020 Instruction Type:Patient Education How [...] tion Online using Patient Portal and [employer]rd [employer] Apps Indication:Smoker Start:16-Sep-2020 Instruction Type:Patient Education Patient Instructions Indication:Smoker Start:24-May-2020 Instruction Type:Provider Instructions for Treatment How to Access Health Informa tion Online using Patient Portal and [employer] Apps Indication:Smoker Start:24-May-2020 Instruction Type:Patient Education How [...] tion Online using Patient Portal and [employer] Apps Indication:Smoker Start:16-Sep-2020 Instruction Type:Patient Education Patient Instructions Indication:Smoker Start:24-May-2020 Instruction Type:Provider Instructions for Treatment How to Access Health Informa tion Online using Patient Portal and [employer]rd [employer] Apps Indication:Smoker Start:24-May-2020 Instruction Type:Patient Education How [...] Informa tion Online using Patient Portal and [employer] Apps Indication:Smoker Start:02-Oct-2020 Instruction Type:Patient Education Patient Instructions Indication:Smoker Start:02-Oct-2020 Instruction Type:Provider Instructions for Treatment Patient Instructions Indication:Smoker Start:16-Sep-2020 Instruction Type:Provider Instructions for Treatment How to Access Health Informa tion Online using Patient Portal and [employer]rd [employer] Apps Indication:Smoker Start:16-Sep-2020 Instruction Type:Patient Education Patient Instructions Indication:Smoker Start:24-May-2020 Instruction Type:Provider Instructions for Treatment How to Access Health Informa tion Online using Patient Portal and [employer]rd [employer] Apps Indication:Smoker Start:24-May-2020 Instruction Type:Patient Education How [...] tion Online using Patient Portal and [employer]rd [employer] Apps Indication:Smoker Start:02-Oct-2020 Instruction Type:Patient Education Patient Instructions Indication:Smoker Start:02-Oct-2020 Instruction Type:Provider Instructions for Treatment Patient Instructions Indication:Smoker Start:16-Sep-2020 Instruction Type:Provider Instructions for Treatment How to Access Health Informa tion Online using Patient Portal and [employer]rd [employer] Apps Indication:Smoker Start:16-Sep-2020 Instruction Type:Patient Education Patient Instructions Indication:Smoker Start:24-May-2020 Instruction Type:Provider Instructions for Treatment How to Access Health Informa tion Online using Patient Portal and [employer]rd [employer] Apps Indication:Smoker Start:24-May-2020 Instruction Type:Patient Education How [...] Informa tion Online using Patient Portal and [employer] Apps Indication:Smoker Start:02-Oct-2020 Instruction Type:Patient Education Patient Instructions Indication:Smoker Start:02-Oct-2020 Instruction Type:Provider Instructions for Treatment Patient Instructions Indication:Smoker Start:16-Sep-2020 Instruction Type:Provider Instructions for Treatment How to Access Health Informa tion Online using Patient Portal and [employer] Apps Indication:Smoker Start:16-Sep-2020 Instruction Type:Patient Education Patient Instructions Indication:Smoker Start:24-May-2020 Instruction Type:Provider Instructions for Treatment How to Access Health Informa tion Online using Patient Portal and [employer] Apps Indication:Smoker Start:24-May-2020 Instruction Type:Patient Education How [...] Informa tion Online using Patient Portal and [employer] Apps Indication:Smoker Start:02-Oct-2020 Instruction Type:Patient Education Patient Instructions Indication:Smoker Start:02-Oct-2020 Instruction Type:Provider Instructions for Treatment Patient Instructions Indication:Smoker Start:16-Sep-2020 Instruction Type:Provider Instructions for Treatment How to Access Health Informa tion Online using Patient Portal and [employer] Apps Indication:Smoker Start:16-Sep-2020 Instruction Type:Patient Education Patient Instructions Indication:Smoker Start:24-May-2020 Instruction Type:Provider Instructions for Treatment How to Access Health Informa tion Online using Patient Portal and [employer] Apps Indication:Smoker Start:24-May-2020 Instruction Type:Patient Education How [...] Informa tion Online using Patient Portal and [employer] Libertarian Apps Indication:Smoker Start:02-Oct-2020 Instruction Type:Patient Education Patient Instructions Indication:Smoker Start:02-Oct-2020 Instruction Type:Provider Instructions for Treatment Patient Instructions Indication:Smoker Start:16-Sep-2020 Instruction Type:Provider Instructions for Treatment How to Access Health Informa tion Online using Patient Portal and [employer] Apps Indication:Smoker Start:16-Sep-2020 Instruction Type:Patient Education Patient Instructions Indication:Smoker Start:24-May-2020 Instruction Type:Provider Instructions for Treatment How to Access Health Informa tion Online using Patient Portal and [employer]rd [employer] Apps Indication:Smoker Start:24-May-2020 Instruction Type:Patient Education How [...] tion Online using Patient Portal and [employer] Apps Indication:Smoker Start:09-Jan-2022 Instruction Type:Patient Education How to Access Health Informa tion Online using Patient Portal and [employer] Apps Indication:Smoker Start:02-Oct-2020 Instruction Type:Patient Education Patient Instructions Indication:Smoker Start:02-Oct-2020 Instruction Type:Provider Instructions for Treatment Patient Instructions Indication:Smoker Start:16-Sep-2020 Instruction Type:Provider Instructions for Treatment How to Access Health Informa tion Online using Patient Portal and [employer] Apps Indication:Smoker Start:16-Sep-2020 Instruction Type:Patient Education Patient Instructions Indication:Smoker Start:24-May-2020 Instruction Type:Provider Instructions for Treatment How to Access Health Informa tion Online using Patient Portal and [employer] Apps Indication:Smoker Start:24-May-2020 Instruction Type:Patient Education How [...] tion Online using Patient Portal and [employer] Apps Indication:Smoker Start:09-Jan-2022 Instruction Type:Patient Education How to Access Health Informa tion Online using Patient Portal and [employer] Apps Indication:Smoker Start:02-Oct-2020 Instruction Type:Patient Education Patient Instructions Indication:Smoker Start:02-Oct-2020 Instruction Type:Provider Instructions for Treatment Patient Instructions Indication:Smoker Start:16-Sep-2020 Instruction Type:Provider Instructions for Treatment How to Access Health Informa tion Online using Patient Portal and [employer] Apps Indication:Smoker Start:16-Sep-2020 Instruction Type:Patient Education Patient Instructions Indication:Smoker Start:24-May-2020 Instruction Type:Provider Instructions for Treatment How to Access Health Informa tion Online using Patient Portal and [employer]rd [employer] Apps Indication:Smoker Start:24-May-2020 Instruction Type:Patient Education How [...] tion Online using Patient Portal and [employer] Apps Indication:Smoker Start:09-Jan-2022 Instruction Type:Patient Education How to Access Health Informa tion Online using Patient Portal and [employer]rd [employer] Apps Indication:Smoker Start:02-Oct-2020 Instruction Type:Patient Education Patient Instructions Indication:Smoker Start:02-Oct-2020 Instruction Type:Provider Instructions for Treatment Patient Instructions Indication:Smoker Start:16-Sep-2020 Instruction Type:Provider Instructions for Treatment How to Access Health Informa tion Online using Patient Portal and [employer] Apps Indication:Smoker Start:16-Sep-2020 Instruction Type:Patient Education Patient Instructions Indication:Smoker Start:24-May-2020 Instruction Type:Provider Instructions for Treatment How to Access Health Informa tion Online using Patient Portal and [employer] Apps Indication:Smoker Start:24-May-2020 Instruction Type:Patient Education How [...] tion Online using Patient Portal and [employer]rd [employer] Apps Indication:UTI symptoms Start:02-Sep-2022 Instruction Type:Patient Education Patient Instructions Indication:Smoker Start:09-Jan-2022 Instruction Type:Provider Instructions for Treatment How to Access Health Informa tion Online using Patient Portal and [employer] Apps Indication:Smoker Start:09-Jan-2022 Instruction Type:Patient Education How to Access Health Informa tion Online using Patient Portal and [employer] Apps Indication:Smoker Start:02-Oct-2020 Instruction Type:Patient Education Patient Instructions Indication:Smoker Start:02-Oct-2020 Instruction Type:Provider Instructions for Treatment Patient Instructions Indication:Smoker Start:16-Sep-2020 Instruction Type:Provider Instructions for Treatment How to Access Health Informa tion Online using Patient Portal and [employer] Apps Indication:Smoker Start:16-Sep-2020 Instruction Type:Patient Education Patient Instructions Indication:Smoker Start:24-May-2020 Instruction Type:Provider Instructions for Treatment How to Access Health Informa tion Online using Patient Portal and [employer] Apps Indication:Smoker Start:24-May-2020 Instruction Type:Patient Education How [...] tion Online using Patient Portal and [employer] Apps Indication:UTI symptoms Start:02-Sep-2022 Instruction Type:Patient Education Patient Instructions Indication:Smoker Start:09-Jan-2022 Instruction Type:Provider Instructions for Treatment How to Access Health Informa tion Online using Patient Portal and [employer] Apps Indication:Smoker Start:09-Jan-2022 Instruction Type:Patient Education How to Access Health Informa tion Online using Patient Portal and [employer] Apps Indication:Smoker Start:02-Oct-2020 Instruction Type:Patient Education Patient Instructions Indication:Smoker Start:02-Oct-2020 Instruction Type:Provider Instructions for Treatment Patient Instructions Indication:Smoker Start:16-Sep-2020 Instruction Type:Provider Instructions for Treatment How to Access Health Informa tion Online using Patient Portal and [employer] Apps Indication:Smoker Start:16-Sep-2020 Instruction Type:Patient Education Patient Instructions Indication:Smoker Start:24-May-2020 Instruction Type:Provider Instructions for Treatment How to Access Health Informa tion Online using Patient Portal and [employer] Apps Indication:Smoker Start:24-May-2020 Instruction Type:Patient Education How [...] tion Online using Patient Portal and [employer] Apps Indication:UTI symptoms Start:02-Sep-2022 Instruction Type:Patient Education Patient Instructions Indication:Smoker Start:09-Jan-2022 Instruction Type:Provider Instructions for Treatment How to Access Health Informa tion Online using Patient Portal and [employer] Apps Indication:Smoker Start:09-Jan-2022 Instruction Type:Patient Education How to Access Health Informa tion Online using Patient Portal and [employer] Apps Indication:Smoker Start:02-Oct-2020 Instruction Type:Patient Education Patient Instructions Indication:Smoker Start:02-Oct-2020 Instruction Type:Provider Instructions for Treatment Patient Instructions Indication:Smoker Start:16-Sep-2020 Instruction Type:Provider Instructions for Treatment How to Access Health Informa tion Online using Patient Portal and [employer] Apps Indication:Smoker Start:16-Sep-2020 Instruction Type:Patient Education Patient Instructions Indication:Smoker Start:24-May-2020 Instruction Type:Provider Instructions for Treatment How to Access Health Informa tion Online using Patient Portal and [employer] Apps Indication:Smoker Start:24-May-2020 Instruction Type:Patient Education How [...] tion Online using Patient Portal and 3rd Libertarian Apps Indication:UTI symptoms Start:02-Sep-2022 Instruction Type:Patient Education Patient Instructions Indication:Smoker Start:09-Jan-2022 Instruction Type:Provider Instructions for Treatment How to Access Health Informa tion Online using Patient Portal and 3rd Libertarian Apps Indication:Smoker Start:09-Jan-2022 Instruction Type:Patient Education How to Access Health Informa tion Online using Patient Portal and 3rd Libertarian Apps Indication:Smoker Start:02-Oct-2020 Instruction Type:Patient Education Patient Instructions Indication:Smoker Start:02-Oct-2020 Instruction Type:Provider Instructions for Treatment Patient Instructions Indication:Smoker Start:16-Sep-2020 Instruction Type:Provider Instructions for Treatment How to Access Health Informa tion Online using Patient Portal and 3rd Libertarian Apps Indication:Smoker Start:16-Sep-2020 Instruction Type:Patient Education Patient Instructions Indication:Smoker Start:24-May-2020 Instruction Type:Provider Instructions for Treatment How to Access Health Informa tion Online using Patient Portal and 3rd Libertarian Apps Indication:Smoker Start:24-May-2020 Instruction Type:Patient Education How [...] Review Specialty Diagnoses / Procedures Referred By Josef t Referred To [facility] Diagnoses Stage 3 severe COPD by GOLD classification (HCC) Procedures LUNG DIFFUSION CAPACITY (DLCO) DIFFUSING CAPACITY Colleen Wolfe MD [address] [place] [address] [facility] [address] [place] [address] Referral ID Status Reason Start Date Expiration Date Visits Requested Visits Authorized [id number] Pending Review Auto-Generat ed Referral 10/30/2022 11/29/2023 1 1 * Outpatient Procedure (Routine) - Pending Review Specialty Diagnoses / Procedures Referred By Contac t Referred To Contact [facility] Diagnoses Stage 3 severe COPD by GOLD classification ([facility]) Procedures LUNG DIFFUSION CAPACITY (DLCO) DIFFUSING CAPACITY Colleen Wolfe MD [address] [place] [address] [address] Referral ID Status Reason Start Date Expiration Date Visits Requested Visits Authorized [id number] Pending Review Auto-Generat ed Referral 10/30/2022 11/29/2023 1 1 * Outpatient Procedure (Routine) - Pending Review Specialty Diagnoses / Procedures Referred By Contac t Referred To [facility] Diagnoses Stage 3 severe COPD by GOLD classification ([facility]) Procedures SPIROMETRY WITH DILATOR IF OBSTRUCTED BRNCDILAT RSPSE SPMTRY PRE&POST-BRNCDILAT ADMN Colleen Wolfe MD [address] [place] [address] [address] Referral ID Status Reason Start Date Expiration Date Visits Requested Visits Authorized [id number] Pending Review Auto-Generat ed Referral 10/30/2022 11/29/2023 1 1 [facility] for referral (narrative)* Outpatient Procedure (Routine) - Pending Review Specialty Diagnoses / Procedures Referred By Contac t Referred To [facility] Diagnoses Stage 3 severe COPD by GOLD classification ([facility]) Procedures OXIMETRY WITH AMBULATION NONINVASIVE EAR/PULSE OXIMETRY Devi Falk PA-C [address] [place] [address] [facility] [address] [facility] [place] [address] Referral ID Status Reason Start Date Expiration Date Visits Requested Visits Authorized [id number] Pending Review Auto-Generat ed Referral 07/13/2023 08/11/2024 1 1 [facility] for referral (narrative)* Outpatient Procedure (Routine) - Authorized Specialty Diagnoses / Procedures Referred By Contac t Referred To [facility] Diagnoses Chronic hypoxemic respiratory failure (HCC) Procedures OXIMETRY WITH AMBULATION NONINVASIVE EAR/PULSE OXIMETRY Danna Laughlin APRN.CNP [address] [facility] [address] [place] [address] [facility] [place] [id number] Referral ID Status Reason Start Date Expiration Date Visits Requested Visits Authorized [id number] Authorized Auto-Generat ed Referral 06/23/2024 07/23/2025 1 1 [facility] for referral (narrative)No reason for referral information [facility] Work Phone: Reason for visit Narrative* Diagnostic X-Ray (Routine) - Closed Specialty Diagnoses / Procedures Referred By Contac t Referred To Contact Radiology Diagnoses 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) Procedures MR NEURO IMAGE IMPORT([facility]) DOWNLOAD POWERSHARE IMAGES TO Jose Carpenter MD [address] [facility] [place] [address] Phone: tel: fax: [facility] [address] [place] [address] [place] [address] Phone: tel: Referral ID Status Reason Start Date Expiration Date Visits Re quested Visits Authorized [id number] Closed 09/04/2024 09/04/2025 1 1 [facility] for visit Narrative* Imaging (Routine) - Pending Review Specialty Diagnoses / Procedures Referred By Josef t Referred To Contact Radiology Diagnoses Pure hypercholesterolemia, unspecified Procedures CT cardiac scoring wo IV contrast Pennie Hale, [address] [address] Phone: tel: fax: Referral ID Status Reason Start Date Expiration Date Visits Requested Visits Authorized [id number] Pending Review Perform Procedure 08/30/2024 08/30/2025 1 1 [facility] Work Phone: Instructions Name Dates Details Smoker : How [...] tion Online using Patient Portal and 3rd Libertarian Apps Indication:Smoker Start:24-May-2020 Instruction Type:Patient Education How [...] Instruction Type:Provider Instructions for Treatment Advance Directives No Advanced Directives Records Found Name Dates Details Immunization Registry [place] - Effective on 09/16/2020. Expiration date unspecified Effective:16-Sep-2020 Name Dates Details Immunization [facility] [place] - Effective on 09/16/2020. Expiration date unspecified Effective:16-Sep-2020 Name Dates Details Immunization [facility] [place] - Effective on 09/16/2020. Expiration date unspecified Effective:16-Sep-2020 Name Dates Details Immunization [facility] [place] - Effective on 09/16/2020. Expiration date unspecified Effective:16-Sep-2020 Name Dates Details Immunization [facility] [place] - Effective on 09/16/2020. Expiration date unspecified Effective:16-Sep-2020 Name Dates Details Immunization [facility] [place] - Effective on 09/16/2020. Expiration date unspecified Effective:16-Sep-2020 Name Dates Details Immunization [facility] [place] - Effective on 09/16/2020. Expiration date unspecified Effective:16-Sep-2020 Name Dates Details Immunization [facility] [place] - Effective on 09/16/2020. Expiration date unspecified Effective:16-Sep-2020 Name Dates Details Immunization [facility] [place] - Effective on 09/16/2020. Expiration date unspecified Effective:16-Sep-2020 Latest Code Status on File Code Status Date Activated Date Inactivated Comments Full Code 10/14/2017 6:20 PM 10/17/2017 2:37 PM Name Dates Details Immunization Registry [place] - Effective on 09/16/2020. Expiration date unspecified Effective:16-Sep-2020 Name Dates Details Immunization Registry [place] - Effective on 09/16/2020. Expiration date unspecified Effective:16-Sep-2020 Name Dates Details Immunization Registry [place] - Effective on 09/16/2020. Expiration date unspecified Effective:16-Sep-2020 Name Dates Details Immunization Registry [place] - Effective on 09/16/2020. Expiration date unspecified Effective:16-Sep-2020 Name Dates Details Immunization Registry [place] - Effective on 09/16/2020. Expiration date unspecified Effective:16-Sep-2020 Advance Directive Response Recorded Date/ Time Advance Directives No June 12:10am Living Will No May 29 5:26pm Power of Hunting Sales Associate No May 29, 2023 5:26pm Advance Directive Response Recorded Date/ Time Advance Directives No June 12:10am Living Will No May 29 8:59pm Power of Hunting Sales Associate No May 29, 2023 8:59pm Date Activated Date Inactivated Comments 10/14/2017 6:20 PM 10/17/2017 2:37 PM Advance Directive Response Recorded Date/ Time Advance Directives No June 1:10am Date Activated Date Inactivated Comments 10/14/2017 6:20 PM 10/17/2017 2:37 PM Summary Purpose Family History No Family History Records Found Reason for Referral Specialty Diagnoses / Procedures Referred By Contac t Referred To Contact CT IMAGING Diagnoses Encounter for screening for lung cancer Tobacco use current Procedures CT LUNG SCREEN WO IVCON COMPUTED TOMOGRAPHY THORAX LW DOSE LNG CA SCR C- Irlanda Hawthorne, ADVERTISING ANALYST.BROADCAST TRAFFIC COORDINATOR [address] [place] [address] Ct Imaging Referral ID Status Reason Start Date Expiration Date V isits Requested Visits Authorized [id number] Open Auto-Generate d Referral 11/18/2022 12/18/2023 1 1 Specialty Diagnoses / Procedures Referred By Contac t Referred To [facility] Diagnoses Stage 3 severe COPD by GOLD classification (HCC) Procedures LUNG VOLUMES Irlanda Hawthorne, ADVERTISING ANALYST.BROADCAST TRAFFIC COORDINATOR [address] [place] [address] [facility] [address] [place] [address] Referral ID Status Reason Start Date Expiration Date V isits Requested Visits Authorized [id number] Closed Auto-Generate d Referral 11/18/2022 12/18/2023 1 1 Specialty Diagnoses / Procedures Referred By Contac t Referred To Contact CT IMAGING Diagnoses Lung nodules Procedures CT LUNG FOLLOWUP WO IVCON DIAGNOSTIC COMPUTED TOMOGRAPHY THORAX W/O CNTRST Irlanda Hawthorne, DANIEL.BROADCAST TRAFFIC COORDINATOR [address] [place] [address] Ct Imaging Referral ID Status Reason Start Date Expiration Date Visits Requested Visits Authorized [id number] Pending Review Auto-Generat ed Referral 06/05/2023 01/02/2024 1 1 Specialty Diagnoses / Procedures Referred By Contac t Referred To Contact CT IMAGING Diagnoses Encounter for screening for lung cancer Tobacco use current Procedures CT LUNG SCREEN WO IVCON COMPUTED TOMOGRAPHY THORAX LW DOSE LNG CA SCR C- Irlanda Hawthorne, ADVERTISING ANALYST.BROADCAST TRAFFIC COORDINATOR [address] [place] [address] [place] [address] Referral ID Status Reason Start Date Expiration Date V isits Requested Visits Authorized [id number] Closed Auto-Generate d Referral 11/19/2022 05/16/2023 1 1 Chief Complaint and Reason for Visit Chief Complaint HYPOXIA, INFLUENZA A , COPD EXAC Reason for Visit COPD with acute exac erbation Hypoxia Influenza A Chief Complaint HYPOXIA, INFLUENZA A , COPD EXAC HYPOXIA, INFLUENZA A, COPD EXAC HYPOXIA, INFLUENZA A, COPD EXAC Reason for Visit COPD with acute exac erbation Hypoxia Influenza A Chief Complaint Admit Date SCREENING July 03, 2024 8:26am CEREBRAL ANEURYSM July 31, 2024 8:0 5am Chief Complaint Admit Date SCREENING July 03, 2024 8:26am CEREBRAL ANEURYSM August 18, 2024 8:03 am Additional Source Comments Source Comments (unrecognize d section and content) In the event this informatio n is protected by the Federal Confidentiality of Alcohol and Drug Abuse Patient Records regulations: The Federal rules restrict any use of the information to criminally investigate or prosecute any alcohol or drug abuse patient.[facility] the event this information is protected by the Federal Confidentiality of Alcohol and Drug Abuse Patient Records regulations: The Federal rules restrict any use of the information to criminally investigate or prosecute any alcohol or drug abuse patient.[facility] the event this information is protected by the Federal Confidentiality of Alcohol and Drug Abuse Patient Records regulations: The Federal rules restrict any use of the information to criminally investigate or prosecute any alcohol or drug abuse patient.[facility] the event this information is protected by the Federal Confidentiality of Alcohol and Drug Abuse Patient Records regulations: The Federal rules restrict any use of the information to criminally investigate or prosecute any alcohol or drug abuse patient.[facility] the event this information is protected by the Federal Confidentiality of Alcohol and Drug Abuse Patient Records regulations: The Federal rules restrict any use of the information to criminally investigate or prosecute any alcohol or drug abuse patient.[facility] the event this information is protected by the Federal Confidentiality of Alcohol and Drug Abuse Patient Records regulations: The Federal rules restrict any use of the information to criminally investigate or prosecute any alcohol or drug abuse patient.[facility] the event this information is protected by the Federal Confidentiality of Alcohol and Drug Abuse Patient Records regulations: The Federal rules restrict any use of the information to criminally investigate or prosecute any alcohol or drug abuse patient.[facility] the event this information is protected by the Federal Confidentiality of Alcohol and Drug Abuse Patient Records regulations: The Federal rules restrict any use of the information to criminally investigate or prosecute any alcohol or drug abuse patient.[facility] the event this information is protected by the Federal Confidentiality of Alcohol and Drug Abuse Patient Records regulations: The Federal rules restrict any use of the information to criminally investigate or prosecute any alcohol or drug abuse patient.[facility] the event this information is protected by the Federal Confidentiality of Alcohol and Drug Abuse Patient Records regulations: The Federal rules restrict any use of the information to criminally investigate or prosecute any alcohol or drug abuse patient.[facility] the event this information is protected by the Federal Confidentiality of Alcohol and Drug Abuse Patient Records regulations: The Federal rules restrict any use of the information to criminally investigate or prosecute any alcohol or drug abuse patient.[facility] the event this information is protected by the Federal Confidentiality of Alcohol and Drug Abuse Patient Records regulations: The Federal rules restrict any use of the information to criminally investigate or prosecute any alcohol or drug abuse patient.[facility] the event this information is protected by the Federal Confidentiality of Alcohol and Drug Abuse Patient Records regulations: The Federal rules restrict any use of the information to criminally investigate or prosecute any alcohol or drug abuse patient.[facility] the event this information is protected by the Federal Confidentiality of Alcohol and Drug Abuse Patient Records regulations: The Federal rules restrict any use of the information to criminally investigate or prosecute any alcohol or drug abuse patient.[facility] the event this information is protected by the Federal Confidentiality of Alcohol and Drug Abuse Patient Records regulations: The Federal rules restrict any use of the information to criminally investigate or prosecute any alcohol or drug abuse patient.[facility] the event this information is protected by the Federal Confidentiality of Alcohol and Drug Abuse Patient Records regulations: The Federal rules restrict any use of the information to criminally investigate or prosecute any alcohol or drug abuse patient.[facility] the event this information is protected by the Federal Confidentiality of Alcohol and Drug Abuse Patient Records regulations: The Federal rules restrict any use of the information to criminally investigate or prosecute any alcohol or drug abuse patient.[facility] the event this information is protected by the Federal Confidentiality of Alcohol and Drug Abuse Patient Records regulations: The Federal rules restrict any use of the information to criminally investigate or prosecute any alcohol or drug abuse patient.[facility] Reason for Visit (unrecogniz ed section and content) Reason Comments Spirometry Specialty Diagnoses / Procedures Referred By Contac t Referred To Contact [facility] Diagnoses Centrilobular emphysema (HCC) Procedures SPIROMETRY BASELINE ONLY SPIROMETRY WO BRONCHODILATOR Devi Nava PA-C [address] [employer] [address] [place] [address] [facility] [address] [place] [address] Referral ID Status Reason Start Date Expiration Date V isits Requested Visits Authorized [id number] Closed Auto-Generate d Referral 10/27/2021 05/16/2022 1 1 Reason Comments Established Patient 6 month follow up em physema Specialty Diagnoses / Procedures Referred By Contac t Referred To Contact Pulmonary and Critical Care Medicine / PULMONARY MEDICINE Diagnoses Centrilobular emphysema (HCC) 6 MTH F/U Centrilobular emphysema (HCC) [J43.2] Procedures OFFICE/OUTPATIENT ESTABLISHED MOD MDM 30-39 MIN RI EST PULM GENERAL Devi Nava PA-C [address] [place] [address] Gene Johnson MD [address] [place] [address] Referral ID Status Reason Start Date Expiration Date Visits Re quested Visits Authorized [id number] Closed 10/27/2021 05/16/2022 1 1 Reason Onset Date Comments Refill Request 10/28/2022 Reason Comments COPD New patient- annual follow up Specialty Diagnoses / Procedures Referred By Contac t Referred To Contact [facility] Diagnoses Stage 3 severe COPD by GOLD classification ([facility]) Procedures LUNG DIFFUSION CAPACITY (DLCO) DIFFUSING CAPACITY Colleen Wolfe MD [address] [place] [address] [address] Referral ID Status Reason Start Date Expiration Date V isits Requested Visits Authorized [id number] Closed Auto-Generate d Referral 11/09/2022 05/16/2023 1 1 Specialty Diagnoses / Procedures Referred By Contac t Referred To Contact [facility] Diagnoses Stage 3 severe COPD by GOLD classification ([facility]) Procedures LUNG VOLUMES Irlanda Hawthorne, ADVERTISING ANALYST.BROADCAST TRAFFIC COORDINATOR [address] [place] [address] [address] Referral ID Status Reason Start Date Expiration Date V isits Requested Visits Authorized [id number] Closed Auto-Generate d Referral 11/18/2022 12/18/2023 1 [...] LW DOSE LNG CA SCR C- Irlanda Hawthorne, DANIEL.BROADCAST TRAFFIC COORDINATOR [address] [place] [address] [place] [address] Referral ID Status Reason Start Date Expiration Date V isits Requested Visits Authorized [id number] Closed Auto-Generate d Referral 11/19/2022 05/16/2023 1 1 Reason Comments Other Short term disabilit y paperwork Reason Comments Recheck Specialty Diagnoses / Procedures Referred By Contac t Referred To Contact [facility] Diagnoses Stage 3 severe COPD by GOLD classification ([facility]) Procedures OXIMETRY WITH AMBULATION NONINVASIVE EAR/PULSE OXIMETRY MULTIPLE DETER Devi Nava PA-C [address] [facility] [place] [address] [facility] [address] [place] [id number] Referral ID Status Reason Start Date Expiration Date V isits Requested Visits Authorized [id number] Closed Auto-Generate d Referral 09/15/2023 05/16/2024 1 1 Reason Comments Stage 3 severe COPD by GOLD classificati on ([facility]) Established Patient 3 month follow up Reason Comments Established Patient 6 month follow up Reason Comments Refill Request Reason Comments Ear Pain Right ear pain, sinu s, KRISHNAN and congestion x 3 days Reason Comments New patient, to establish relationship Care Teams (unrecognized sec tion and content) [employer] Person Relationship Specialty Start Date End Date Pennie Hale DO PCP - General Internal Medicine 04/08/13 Ground [employer] Person Relationship Specialty Start Date End Date Pennie Hale DO PCP - General Internal Medicine 04/08/13 Ground [employer] Person Relationship Specialty Start Date End Date Pennie Hale [address] [facility] [address] [place] [address] 104- PCP - General 07/20/17 Ground Crew Lines Person Relationship Specialty Start Date End Date Pennie Hale DO PCP - General Internal Medicine 04/08/13 Ground [employer] Person Relationship Specialty Start Date End Date Pennie Hale DO PCP - General Internal Medicine 04/08/13 Ground [employer] Person Relationship Specialty Start Date End Date Pennie Hale DO PCP - General Internal Medicine 04/08/13 Colleen Wolfe MD [address] [place] [address] Pulmonary and Critical Care Medicine 11/12/22 Ground Crew Lines Person Relationship Specialty Start Date End Date Pennie Hale DO PCP - General Internal Medicine 04/08/13 Colleen Wolfe MD [address] [place] [address] Pulmonary and Critical Care Medicine 11/12/22 Ground Crew Lines Person Relationship Specialty Start Date End Date Pennie Hale DO PCP - General Internal Medicine 04/08/13 Colleen Wolfe MD [address] [place] [address] Pulmonary and Critical Care Medicine 11/12/22 Ground Crew Lines Person Relationship Specialty Start Date End Date Pennie Hale DO PCP - General Internal Medicine 04/08/13 Colleen Wolfe [place] [address] Pulmonary and Critical Care Medicine 11/12/22 Team Status: Active Member Role Status Dates Dr. Pennie Hale , DO Family Provider Active Dr. Pennie Hale , DO Primary Care Provider Active Team Status: Active Member Role Status Dates Dr. Pennie Hale , DO Primary Care Provider Active Dr. Eddy Maier , DO Emergency Provider Active Dr. Tasha Edge MD Admit Provider, Attending Prov ider Active Team Status: Active Member Role Status Dates Dr. Pennie Hale , DO Primary Care Provider Active Dr. Eddy Maier , DO Emergency Provider Active Dr. Tasha Edge MD Admit Provider, Other Provider Active Dr. Jayson Corbin MD Attending Provider, Other Provi taylor Active Team Status: Active Member Role Status Dates Dr. Pennie Hale , DO Primary Care Provider Active Dr. Eddy Maier , DO Emergency Provider Active Dr. Tasha Edge MD Admit Provider, Other Provider Active Dr. Michael Means MD Attending Provider, Other Provider Active Dr. Jayson Corbin MD Other Provider Active Team Status: Inactive Member Role Status Dates Dr. Pennie Hale , DO Primary Care Provider Active Dr. Eddy Maier , DO Emergency Provider Active Dr. Tasha Edge MD Admit Provider, Other Provider Active Dr. Michael Means MD Attending Provider Active Dr. Jayson Corbin MD Other Provider Active [employer] Person Relationship Specialty Start Date End Date Pennie Hale DO PCP - General Internal Medicine 04/08/13 Colleen Wolfe MD [address] [place] [address] Pulmonary and Critical Care Medicine 11/12/22 Ground Crew Lines Person Relationship Specialty Start Date End Date Pennie Hale DO PCP - General Internal Medicine 04/08/13 Colleen Wolfe MD [address] [place] [address] Pulmonary and Critical Care Medicine 11/12/22 Ground Crew Lines Person Relationship Specialty Start Date End Date Pennie Hale DO PCP - General Internal Medicine 04/08/13 Colleen Wolfe MD [address] [place] [address] Pulmonary and Critical Care Medicine 11/12/22 Ground Crew Lines Person Relationship Specialty Start Date End Date Pennie Hale DO PCP - General Internal Medicine 04/08/13 Colleen Wolfe [place] [address] Pulmonary and Critical Care Medicine 11/12/22 Ground Crew Lines Person Relationship Specialty Start Date End Date Pennie Hale DO PCP - General Internal Medicine 04/08/13 Colleen Wolfe MD [address] [place] [address] Pulmonary and Critical Care Medicine 11/12/22 Ground Crew Lines Person Relationship Specialty Start Date End Date Pennie Hale [facility] [address] [address] PCP - General 07/20/17 Ground [employer] Lines Person Relationship Specialty Start Date End Date Pennie Hale DO PCP - General Internal Medicine 04/08/13 Colleen Wolfe MD [address] [place] [address] Pulmonary and Critical Care Medicine 11/12/22 Ground Crew Lines Person Relationship Specialty Start Date End Date Pennie Hale DO PCP - General Internal Medicine 04/08/13 Colleen Wolfe MD [address] [place] [id number] Pulmonary and Critical Care Medicine 11/12/22 [employer] Person Relationship Specialty Start Date End Date Pennie Hale DO PCP - General Internal Medicine 04/08/13 Colleen Wolfe MD [address] [place] [address] Pulmonary and Critical Care Medicine 11/12/22 Team Status: Active Member Role Status Dates Dr. Pennie Hale DO Primary Care Provider Active Team Status: Inactive Member Role Status Dates Dr. Pennie Hale DO Primary Care Provider Active Start: July 03, 2024 End: July 03, 2024 Dr. Pennie Hale DO Attending Provider Active Start: July 03, 2024 End: July 03, 2024 Dr. Pennie Hale DO Referring Provider Active Start: July 03, 2024 End: July 03, 2024 Team Status: Inactive Member Role Status Dates Dr. Pennie Hale DO Primary Care Provider Active Start: July 31, 2024 End: July 31, 2024 Dr. Pennie Hale DO Attending Provider Active Start: July 31, 2024 End: July 31, 2024 Dr. Pennie Hale DO Referring Provider Active Start: July 31, 2024 End: July 31, 2024 Team Status: Inactive Member Role Status Dates Dr. Pennie Hale DO Primary Care Provider Active Start: August 18, 2024 End: August 18, 2024 Dr. Pennie Hale DO Attending Provider Active Start: August 18, 2024 End: August 18, 2024 Dr. Pennie Hale DO Referring Provider Active Start: August 18, 2024 End: August 18, 2024 [employer] Person Relationship Specialty Start Date End Date Pennie Hale [facility] [address] [address] PCP - General 07/20/17 [employer] Person Relationship Specialty Start Date End Date Pennie Hale [address] [facility] [address] [place] [address] PCP - General 07/20/17 [employer] Person Relationship Specialty Start Date End Date Pennie Hale DO [address] [facility] [address] [place], [place] [address] PCP - General Internal Medicine 10/23/24 [employer] Person Relationship Specialty Start Date End Date Pennie Hale [address] [facility] [address] [place], [place] [id number] PCP - General 07/20/17 INFORMATION SOURCE (unrecogn ized section and content) DATE CREATED AUTHOR 04/07/2022 [facility] DATE CREATED AUTHOR AUTHOR'S ORGANIZ ATION 08/25/2024 [facility] DATE CREATED AUTHOR AUTHOR'S ORGANIZ ATION 09/19/2024 [facility] DATE CREATED AUTHOR AUTHOR'S ORGANIZ ATION 11/05/2024 [facility] DATE CREATED AUTHOR AUTHOR'S ORGANIZ ATION 12/24/2024 [facility] Goals (unrecognized section and content) Goals may be documented in a n alternate sectionGoals may be documented in an alternate sectionGoals may be documented in an alternate section FOR RECORDS PERTAINING TO PATIENTS WHO ARE [...] BE BASED ON THE PRIMARY CLINICAL RECORDS. [facility]. provides no warranty or guarantee of the accuracy or completeness of information in this document.
--- NOTE | 2025-01-22 09:33 | STRESSREP ---
Stress Test Report Date: 01/22/2025 Procedure: Exercise tolerance test/imaging study Indications: Coronary artery disease Consent: Per the patient Procedure: The patient exercised on a Monroe protocol for 6 minutes achieving a peak heart rate of 129 bpm (83% predicted maximal heart rate) with a peak blood pressure 166/74 mmHg and a peak MET capacity of 7.0 METs. The baseline ECG demonstrated sinus rhythm. The peak exercise ECG failed to show any ischemic changes. There were no cardiac dysrhythmias pretest, during exercise, or recovery. The functional capacity was considered average for age. There was no complaint of chest discomfort during exercise or recovery. The examination was discontinued secondary to target heart rate being achieved and dyspnea. The patient was injected with 11.3 mCi of technetium 99m Cardiolite and subsequently rest SPECT Cardiolite nuclear imaging was obtained in the horizontal long, vertical long, and short axis views. Post-exercise, the patient was injected with 34.1 mCi of technetium 99m Cardiolite and subsequently stress SPECT Cardiolite nuclear imaging was obtained in the horizontal long, vertical long, and short axis views. A gated Cardiolite study at peak stress was obtained. Rest and stress SPECT Cardiolite nuclear imaging status post realignment, normalization, and attenuation correction, demonstrates the appearance of relative uniform tracer uptake and myocardial perfusion appearing within normal limits. There is end systolic thickening and brightening. The gated Cardiolite study demonstrates myocardial thickening and inward wall motion. The reported LVEF is 77%. Impression: 1. Technically adequate (percent predicted maximal heart rate greater than 85%) exercise tolerance test 2. Peak exercise ECG with no diagnostic ischemic changes 3. There were no cardiac dysrhythmias pretest, during exercise, or recovery 4. Rest and stress SPECT Cardiolite nuclear imaging demonstrate relative uniform tracer uptake and myocardial perfusion appearing within normal limits. 5. The gated Cardiolite study reports an LVEF of 77%. This note was generated with [employer] software. It may contain incorrect words, spelling, and punctuation that were not noted in checking the note before signing.
== END | disposition home or self-care (01) ==
LOC: CVS 06:53
PROVIDERS: PCP Internal Medicine; Referring Provider Internal Medicine; Visit Provider Internal Medicine
DX: R93.1 Abnormal findings on diagnostic imaging of heart and coronary circulation (principal)
CPT/HCPCS: 78452; 93017; A9500; A4216; J2785